=== PATIENT | male | born 1950 | race Caucasian/White ===

== ENCOUNTER 2019-04-17 08:12 | Inpatient (IN) ==
[2019-04-17] MEDS ORDERED: Furosemide 40 MG/4 ML VIAL IVP ONE ×2 (08:40→20:00)
[2019-04-17] MEDS ORDERED: *HR* FentaNYL (PF) 100 MCG/2 ML VIAL IVP ONE ×2 (08:45→10:57)
[2019-04-17] MEDS ORDERED: *HR* LORazepam 2 MG/ML VIAL IVP STA ×2 (08:45→10:57)
[2019-04-17] MEDS ORDERED: *HR* LORazepam 2 MG/ML VIAL ONE ×2 (08:46→10:45)
[2019-04-17] MEDS ORDERED: *HR* FentaNYL (PF) 100 MCG/2 ML VIAL ONE ×2 (08:47→10:46)
--- NOTE | 2019-04-17 08:55 | Emergency Department Note ---
Disposition Clinical Impression: Acute pulmonary edema, Elevated troponin, NOÉ (acute kidney injury) Leukocytosis Qualifiers: Leukocytosis type: unspecified Qualified Code(s): D72.829 - Elevated white blood cell count, unspecified Disposition: Admitted As Inpatient Condition: Critical Time of Disposition: 10:30 SOB HPI - General Stated Complaint: SOB Time Seen by Provider: 04/17/19 08:39 Source: EMS Mode of arrival: EMS Limitations: other Nursing Notes Reviewed: Yes Vital Signs Reviewed: Yes - History of Present Illness 5-year-old male brought in by EMS for area patient is unable to give a history regarding his case and presentation secondary to his respiratory distress and altered mental status. EMS states that he was significantly diaphoretic and obtunded on their arrival. He was unable to give a history to them. states the symptoms have been worsening over the past 24 hours. Patient has a history of COPD but has not had a history of cardiac disease or pulmonary edema or congestive heart failure. Unknown if there are new medications or recent chest pain. Upon my initial evaluation the patient was obtunded, unable answer questions, he was severely diaphoretic and was satting 66% on the monitor. EMS states the patient is full code. Patient was intubated emergently to protect his airway and support ventilation and oxygenation. - Related Data Home Medications Medication Instructions Recorded Confirmed Glimepiride 2 mg PO DAILY PRN 04/17/19 04/17/19 Lisinopril 5 mg PO DAILY 04/17/19 04/17/19 Sertraline 50 mg PO DAILY 04/17/19 04/17/19 Simvastatin 40 mg PO DAILY 04/17/19 04/17/19 Allergies Allergy/AdvReac Type Severity Reaction Status Date / Time No Known Allergies Allergy Verified 04/17/19 10:50 All systems ED: reviewed and negative except as stated. Review of Systems: As Per HPI Past Medical History - Past Medical History Source: obtained from family Medical history: Reports: COPD, hyperlipidemia, hypertension, myocardial infarction Psychiatric history: Reports: other - Social History Smoking Status: Current every day smoker Physical Exam General: obtunded, diaphoretic, respiratory distress Skin:cool, diaphoretic. No obvious lacerations or hemorrhage Head: Normocephalic and atraumatic Neck: Supple, trachea midline Cardiovascular: tachycardia, no obvious murmur Respiratory:decreased air movement bilaterally. Crackles present bilaterally. Patient on CPAP upon arrival and he does not appear to be protecting his airway. Musculoskeletal: no pitting edema. no tenderness or deformity GI: Soft, nondistended. GCS of 7 - General Limitations: other General appearance: in distress Course Vital Signs Temperature 98.4 F 04/17/19 08:12 Pulse Rate 65 04/17/19 08:12 Respiratory Rate 18 04/17/19 08:12 Blood Pressure 186/96 04/17/19 08:12 O2 Sat by Pulse Oximetry 97 04/17/19 08:12 Temperature 97.6 F 04/17/19 11:24 Pulse Rate 77 04/17/19 11:24 Respiratory Rate 17 04/17/19 11:27 Blood Pressure 111/65 04/17/19 11:27 O2 Sat by Pulse Oximetry 93 04/17/19 11:27 Oxygen Delivery Oxygen Delivery Ventilator Shortness of Breath/Dyspnea - MDM Narrative Medical decision making narrative: Upon arrival the patient was obtunded and was not protecting his airway, we transferred to the trauma room to intubate. EMS stated that he is full code. Patient was intubated and his O2 saturation improved from 66 to 100. Blood pressure started to improve after intubation. He was started on propofol and nitroglycerin drip for likely acute pulmonary edema based off presentation and chest x-ray. The career guidance technician was paged immediately after the initial evaluation and patient for further evaluation of his abnormal EKG. Patient had ST depressions in V2, V3, V4 and I was concerned about a possible posterior SC. The daughter arrived who stated that he had been having chest pain intermittently over the past few days. He is noncompliant with his CPAP at night and is also noncompliant with his medications. It is unclear what medications he takes as we do not have a current list and only half of the medications were brought in by the daughter. Patient was given Ativan and fentanyl in the emergency department for sedation in addition to his propofol. I believe that this is acute pulmonary edema secondary to cardiac etiology as he does have an elevation of his troponin at 0.2. Patient does have a leukocytosis and she will be started on empiric antibiotics until a procalcitonin returns. Patient started on heparin for the elevation of the troponin. Patient admitted to the ICU for further care and evaluation. - Medical Records Medical records reviewed: Yes I reviewed the patient's medical records. - Lab Data Lab results reviewed: Yes I reviewed the patient's lab results. Result diagrams: 04/17/19 08:40 04/17/19 08:40 Lab Results 04/17/19 04/17/19 04/17/19 Range/Units 08:40 08:40 08:40 WBC 19.3 H (4.3-11.1) K/mcL RBC 5.60 H (4.19-5.50) M/mcL Hgb 17.1 H (12.9-16.9) g/dL Hct 52.8 H (37.5-50.1) % MCV 94.3 (83.0-100.0) fL MCH 30.5 (28.0-33.3) pg MCHC 32.4 (31.6-35.5) g/dL RDW 12.7 (11.5-14.5) % Plt Count 214 (140-400) K/mcL MPV 11.0 (9.4-12.4) fL Immature Gran % 0.5 (0-4) % Seg Neutrophils % 71.2 % Lymphocytes % 18.3 % Monocytes % 6.3 % Eosinophils % 3.1 % Basophils % 0.6 % Neutrophils # 13.8 H (1.6-8.9) K/mcL Lymphocytes # 3.5 (0.6-4.6) K/mcL Monocytes # 1.2 (0.0-1.3) K/mcL Eosinophils # 0.6 (0.0-0.6) K/mcL Basophils # 0.1 (0.0-0.2) K/mcL PT (9.4-12.1) Seconds INR Heparin Anti-Xa, Unfract (0.30-0.70) IU/mL ABG pH (7.32-7.45) pH Units ABG pCO2 (35-45) mmHg ABG pO2 (85-104) mmHg ABG HCO3 (21-27) mEq/L ABG Total CO2 (20-26) mEq/L ABG O2 Saturation (95-98) % ABG Base Excess (-2 to 3) mEq/L Respiration Rate O2 Delivery Device Blood Gas Modality Inspired O2 (1-15=lpm [id number]=%) Tidal Volume cc PEEP cm H2O Sodium 138 (136-145) mEq/L Potassium 5.1 (3.5-5.1) mEq/L Chloride 97 L (98-107) mEq/L Carbon Dioxide 30 H (23-29) mEq/L BUN 17 (8-23) mg/dL Creatinine 1.35 H (0.70-1.30) mg/dL Est GFR ( Amer) > 60 (> 60) Est GFR (Non-Af Amer) 52 L (> 60) BUN/Creatinine Ratio 13 (6-26) Glucose 348 H (70-105) mg/dL Calculated Osmolality 301 H (280-300) Lactic Acid 2.0 (0.5-2.2) mmol/L Calcium 9.2 (8.6-10.3) mg/dL Total Bilirubin 0.9 (0.3-1.0) mg/dL Direct Bilirubin 0.2 (0.0-0.2) mg/dL Indirect Bilirubin 0.7 (0.0-1.2) mg/dL AST 66 H (13-39) Units/L ALT 40 (7-52) Units/L Alkaline Phosphatase 101 (34-104) Units/L Troponin I 0.20 H* (< 0.04) ng/mL B-Natriuretic Peptide (Less than 100) pg/mL Serum Total Protein 7.8 (6.4-8.9) g/dL Albumin 4.4 (3.5-5.7) g/dL Globulin 3.4 (2.4-3.5) g/dL Albumin/Globulin Ratio 1.3 (1.1-2.2) Procalcitonin (0.00-0.15) ng/mL Person Notif of [facility] 04/17/19 04/17/19 04/17/19 Range/Units 08:40 08:40 10:21 WBC (4.3-11.1) K/mcL RBC (4.19-5.50) M/mcL Hgb (12.9-16.9) g/dL Hct (37.5-50.1) % MCV (83.0-100.0) fL MCH (28.0-33.3) pg MCHC (31.6-35.5) g/dL RDW (11.5-14.5) % Plt Count (140-400) K/mcL MPV (9.4-12.4) fL Immature Gran % (0-4) % Seg Neutrophils % % Lymphocytes % % Monocytes % % Eosinophils % % Basophils % % Neutrophils # (1.6-8.9) K/mcL Lymphocytes # (0.6-4.6) K/mcL Monocytes # (0.0-1.3) K/mcL Eosinophils # (0.0-0.6) K/mcL Basophils # (0.0-0.2) K/mcL PT (9.4-12.1) Seconds INR Heparin Anti-Xa, Unfract (0.30-0.70) IU/mL ABG pH (7.32-7.45) pH Units ABG pCO2 (35-45) mmHg ABG pO2 (85-104) mmHg ABG HCO3 (21-27) mEq/L ABG Total CO2 (20-26) mEq/L ABG O2 Saturation (95-98) % ABG Base Excess (-2 to 3) mEq/L Respiration Rate O2 Delivery Device Blood Gas Modality Inspired O2 (1-15=lpm er19-016=%) Tidal Volume cc PEEP cm H2O Sodium (136-145) mEq/L Potassium (3.5-5.1) mEq/L Chloride (98-107) mEq/L Carbon Dioxide (23-29) mEq/L BUN (8-23) mg/dL Creatinine (0.70-1.30) mg/dL Est GFR ( Amer) (> 60) Est GFR (Non-Af Amer) (> 60) BUN/Creatinine Ratio (6-26) Glucose (70-105) mg/dL Calculated Osmolality (280-300) Lactic Acid 1.1 (0.5-2.2) mmol/L Calcium (8.6-10.3) mg/dL Total Bilirubin (0.3-1.0) mg/dL Direct Bilirubin (0.0-0.2) mg/dL Indirect Bilirubin (0.0-1.2) mg/dL AST (13-39) Units/L ALT (7-52) Units/L Alkaline Phosphatase (34-104) Units/L Troponin I (< 0.04) ng/mL B-Natriuretic Peptide 573 H (Less than 100) pg/mL Serum Total Protein (6.4-8.9) g/dL Albumin (3.5-5.7) g/dL Globulin (2.4-3.5) g/dL Albumin/Globulin Ratio (1.1-2.2) Procalcitonin 0.03 (0.00-0.15) ng/mL Person Notif of Crit 04/17/19 04/17/19 Range/Units 10:21 10:27 WBC (4.3-11.1) K/mcL RBC (4.19-5.50) M/mcL Hgb (12.9-16.9) g/dL Hct (37.5-50.1) % MCV (83.0-100.0) fL MCH (28.0-33.3) pg MCHC (31.6-35.5) g/dL RDW (11.5-14.5) % Plt Count (140-400) K/mcL MPV (9.4-12.4) fL Immature Gran % (0-4) % Seg Neutrophils % % Lymphocytes % % Monocytes % % Eosinophils % % Basophils % % Neutrophils # (1.6-8.9) K/mcL Lymphocytes # (0.6-4.6) K/mcL Monocytes # (0.0-1.3) K/mcL Eosinophils # (0.0-0.6) K/mcL Basophils # (0.0-0.2) K/mcL PT 22.6 H (9.4-12.1) Seconds INR 2.0 Heparin Anti-Xa, Unfract 0.01 L (0.30-0.70) IU/mL ABG pH 7.20 L* (7.32-7.45) pH Units ABG pCO2 84 H* (35-45) mmHg ABG pO2 217 H (85-104) mmHg ABG HCO3 33 H (21-27) mEq/L ABG Total CO2 35 H (20-26) mEq/L ABG O2 Saturation 100 H (95-98) % ABG Base Excess 2 (-2 to 3) mEq/L Respiration Rate 14 O2 Delivery Device Adult Vent Blood Gas Modality ASSIST CONTROL Inspired O2 100.0 (1-15=lpm ey00-327=%) Tidal Volume 500 cc PEEP 5 cm H2O Sodium (136-145) mEq/L Potassium (3.5-5.1) mEq/L Chloride (98-107) mEq/L Carbon Dioxide (23-29) mEq/L BUN (8-23) mg/dL Creatinine (0.70-1.30) mg/dL Est GFR ( Amer) (> 60) Est GFR (Non-Af Amer) (> 60) BUN/Creatinine Ratio (6-26) Glucose (70-105) mg/dL Calculated Osmolality (280-300) Lactic Acid (0.5-2.2) mmol/L Calcium (8.6-10.3) mg/dL Total Bilirubin (0.3-1.0) mg/dL Direct Bilirubin (0.0-0.2) mg/dL Indirect Bilirubin (0.0-1.2) mg/dL AST (13-39) Units/L ALT (7-52) Units/L Alkaline Phosphatase (34-104) Units/L Troponin I (< 0.04) ng/mL B-Natriuretic Peptide (Less than 100) pg/mL Serum Total Protein (6.4-8.9) g/dL Albumin (3.5-5.7) g/dL Globulin (2.4-3.5) g/dL Albumin/Globulin Ratio (1.1-2.2) Procalcitonin (0.00-0.15) ng/mL Person Notif of Crit dr hernnádez - Radiology Data Radiology results reviewed: Yes I reviewed the patient's radiology results. - EKG Data EKG attestation: Yes I reviewed and interpreted this EKG. EKG results narrative: Normal sinus rhythm with rate of [address] depressions in V2, V3, V4. QTC of 440, QRS of 108
[2019-04-17] MEDS: Nitroglycerin 25 MG/250 ML INFUS..BTL IVC SCH ×3 (09:05→22:00)
[2019-04-17 09:09] LABS: Basophils # 0.1 K/mcL (0.0-0.2); Basophils % 0.6 %; Eosinophils # 0.6 K/mcL (0.0-0.6); Eosinophils % 3.1 %; Hematocrit 52.8 % (37.5-50.1); Hemoglobin 17.1 g/dL (12.9-16.9); Immature Granulocytes % 0.5 % (0-4); Lymphocytes # 3.5 K/mcL (0.6-4.6); Lymphocytes % 18.3 %; Mean Corpuscular HGB Conc 32.4 g/dL (31.6-35.5); Mean Corpuscular Hemoglobin 30.5 pg (28.0-33.3); Mean Corpuscular Volume 94.3 fL (83.0-100.0); Monocytes # 1.2 K/mcL (0.0-1.3); Monocytes % 6.3 %; Neutrophils # 13.8 K/mcL (1.6-8.9); Platelet Count 214 K/mcL (140-400); Red Cell Distribution Width 12.7 % (11.5-14.5); Segmented Neutrophils % 71.2 %; White Blood Count 19.3 K/mcL (4.3-11.1)
[2019-04-17 09:42] LABS: Alanine Aminotransferase 40 Units/L (7-52); Albumin 4.4 g/dL (3.5-5.7); Albumin/Globulin Ratio 1.3 (1.1-2.2); Alkaline Phosphatase 101 Units/L (34-104); Aspartate Amino Transferase 66 Units/L (13-39); BUN/Creatinine Ratio 13 (6-26); Bilirubin,Direct 0.2 mg/dL (0.0-0.2); Bilirubin,Indirect 0.7 mg/dL (0.0-1.2); Bilirubin,Total 0.9 mg/dL (0.3-1.0); Blood Urea Nitrogen 17 mg/dL (8-23); Calcium 9.2 mg/dL (8.6-10.3); Carbon Dioxide 30 mEq/L (23-29); Chloride 97 mEq/L (98-107); Globulin 3.4 g/dL (2.4-3.5); Glucose 348 mg/dL (70-105); Osmolality,Calculated 301 (280-300); Potassium 5.1 mEq/L (3.5-5.1); Sodium 138 mEq/L (136-145); Total Protein 7.8 g/dL (6.4-8.9); eGFR For African Americans > 60 (> 60); eGFR For Non-African Americans 52 (> 60)
[2019-04-17] MEDS ORDERED: *HR* Heparin 5,000 UNIT/ML VIAL IVP ONE (10:00)
[2019-04-17] MEDS ORDERED: *HR* Heparin 5,000 UNIT/ML VIAL IVP PRN ×2 (10:00)
[2019-04-17] MEDS ORDERED: Vancomycin 1,000 MG in D5% in Water 250 ML IVPB ONE (10:03)
[2019-04-17] MEDS ORDERED: Azithromycin 500 MG in D5% in Water 250 ML IVPB STA (10:03)
[2019-04-17] MEDS ORDERED: Piperacillin/Tazobactam 3.375 GM in 0.9 % Sodium Chloride Mini Bag 100 ML IVPB ONE (10:03)
[2019-04-17 10:33] LABS: ABG Base Excess 2 mEq/L (-2 to 3); ABG HCO3 33 mEq/L (21-27); ABG Oxygen Saturation 100 % (95-98); ABG PCO2 84 mmHg (35-45); ABG PO2 217 mmHg (85-104); ABG TCO2 35 mEq/L (20-26); Blood Gas Modality ASSIST CONTROL; Blood Gas PEEP 5 cm H2O; Blood Gas VT 500 cc
[2019-04-17 11:00] LABS: Heparin anti-factor XA UFH 0.01 IU/mL (0.30-0.70); Prothrombin Time 22.6 Seconds (9.4-12.1)
[2019-04-17] MEDS: Heparin 25,000 UNIT/250 ML D5W 25,000 UNIT/250 ML IV.SOLN IVC SCH (11:01)
--- NOTE | 2019-04-17 12:31 | Pulmonology History & Physical ---
<Bobby Izaguirre M - Last Filed: 04/17/19 14:18> Date of Encounter: 04/17/19 History of Present Illness HPI: Mr. Edwards is a 68 year old male Medications and Allergies Glimepiride 2 mg PO DAILY PRN 04/17/19 [History] Lisinopril 5 mg PO DAILY 04/17/19 [History] Sertraline 50 mg PO DAILY 04/17/19 [History] Simvastatin 40 mg PO DAILY 04/17/19 [History] Allergy/AdvReac Type Severity Reaction Status Date / Time No Known Allergies Allergy Verified 04/17/19 10:50 All Systems: The remainder of the systems were reviewed and are negative Physical Examination Vital Signs: Vital Signs, Last 4 Hours Temp Pulse Resp BP Pulse Ox 04/17/19 11:27 17 111/65 93 04/17/19 11:24 97.6 F 77 17 111/65 93 04/17/19 10:29 98.4 F 85 13 121/68 100 Results - Laboratory Findings CBC and BMP: 04/17/19 08:40 04/17/19 08:40 ABG ABG pH 7.20 pH Units (7.32-7.45) L* 04/17/19 10:27 ABG pCO2 84 mmHg (35-45) H* 04/17/19 10:27 ABG pO2 217 mmHg (85-104) H 04/17/19 10:27 ABG O2 Saturation 100 % (95-98) H 04/17/19 10:27 PT/INR, D-dimer PT 22.6 Seconds (9.4-12.1) H 04/17/19 10:21 Abnormal lab findings: Abnormal lab results WBC 19.3 K/mcL (4.3-11.1) H 04/17/19 08:40 RBC 5.60 M/mcL (4.19-5.50) H 04/17/19 08:40 Hgb 17.1 g/dL (12.9-16.9) H 04/17/19 08:40 Hct 52.8 % (37.5-50.1) H 04/17/19 08:40 Neutrophils # 13.8 K/mcL (1.6-8.9) H 04/17/19 08:40 PT 22.6 Seconds (9.4-12.1) H 04/17/19 10:21 Heparin Anti-Xa, Unfract 0.01 IU/mL (0.30-0.70) L 04/17/19 10:21 ABG pH 7.20 pH Units (7.32-7.45) L* 04/17/19 10:27 ABG pCO2 84 mmHg (35-45) H* 04/17/19 10:27 ABG pO2 217 mmHg (85-104) H 04/17/19 10:27 ABG HCO3 33 mEq/L (21-27) H 04/17/19 10:27 ABG Total CO2 35 mEq/L (20-26) H 04/17/19 10:27 ABG O2 Saturation 100 % (95-98) H 04/17/19 10:27 Chloride 97 mEq/L (98-107) L 04/17/19 08:40 Carbon Dioxide 30 mEq/L (23-29) H 04/17/19 08:40 Creatinine 1.35 mg/dL (0.70-1.30) H 04/17/19 08:40 Est GFR (Non-Af Amer) 52 (> 60) L 04/17/19 08:40 Glucose 348 mg/dL (70-105) H 04/17/19 08:40 POC Glucose 322 mg/dL (70-99) H 04/17/19 12:03 Calculated Osmolality 301 (280-300) H 04/17/19 08:40 AST 66 Units/L (13-39) H 04/17/19 08:40 Troponin I 0.20 ng/mL (< 0.04) H* 04/17/19 08:40 B-Natriuretic Peptide 573 pg/mL (Less than 100) H 04/17/19 08:40 - Attending Attestation I examined this patient and my medical decision-making was reviewed with the Resident Physician. I agree with the documented findings, disposition and treatment plan as described except to the extent set forth below. Patient seen and examined. I was called by the emergency room physician to evaluate this patient with acute hypoxic respiratory failure and patient was seen in the emergency room as well as in the intensive care unit. Labs, radiology, chart personally reviewed. Agree with resident's history and physical, assessment, plan with following comments: PROCESSING TECH: Patient does not follows commands, she was on sedation and is status post intubation. Pulmonary: Patient has chest pain intubated and reviewing his chest x-ray as well as the pinkish frothy secretion coming out from his ET tube makes diagnosis of pulmonary edema most likely diagnosis and pneumonia remain in the differential diagnosis, however it is less likely. I have increased PEEP to 8 and discussed with the respiratory therapist to lower his FiO2 to keep his oxygen saturation around 92%. Patient already has received diuretics and he is getting treatment for pulmonary edema. Cardiovascular: Patient blood pressure dropping could be related to post intubation, however it could be cardiogenic in nature and vasopressor support maybe needed. And need an echocardiogram with cardiology evaluation. GI: Nutrition per dietary and GI prophylaxis per routine Heme: DVT prophylaxis per routine ID: Continue antibiotics and plan to de-escalation Renal; urine out put and renal function reviewed Endorcine: blood glucose is monitored Lines: all lines checked and no evidence of infections Skin: skin care to prevent pressure ulcers per nursing routine care Dispo: ICU Code: Full. Prognosis. Guarded I spent 55 min of Critical Care time with this patient. It involved decision making of high complexity to assess, manipulate, and support vital organ system failure and/or to prevent further life threatening deterioration of the patient 's condition. The time involved in the performance of separately reportable procedures was not counted toward critical care time. <Tequila Holland R - Last Filed: 04/17/19 16:22> Date of Encounter: 04/17/19 Time of Encounter: 12:31 Assessment and Plan (1) Respiratory failure with hypercapnia Current visit: Yes Status: Acute Initial ABG in the emergency department demonstrates a pH of 7.2 with a CO2 of 84 Bicarbonate is 33, therefore there is likely some chronicity to this respiratory acidosis We will obtain a repeat ABG once patient is in the ICU Continue diuresis as the patient's kidneys will tolerate We will schedule the patient for q4H DuoNeb nebs Continue to monitor respiratory status wean from the event as able Repeat ABG shows improvement in respiratory status with pH 7.37, CO2 50, O2 79 and HCO3 31 at 50% FiO2 Qualifiers: Chronicity: acute Qualified Code(s): J96.02 - Acute respiratory failure with hypercapnia (2) CHF (congestive heart failure) Current visit: Yes Status: Acute Patient's chest x-ray shows evidence of bilateral pulmonary edema versus infection Patient clinically looks volume overloaded His BNP is elevated at 573 He was given a dose of vancomycin and Zosyn in the emergency department Pro calcitonin is 0.03 therefore infection is highly unlikely Given 40 mg IV Lasix in the emergency department with good production of urine Continue diuresis as kidney tolerate Continue ventilation and nitro drip for pulmonary edema Stat echo ordered and pending to evaluate heart function Qualifiers: Heart failure type: unspecified Heart failure chronicity: acute Qualified Code(s): I50.9 - Heart failure, unspecified (3) NSTEMI (non-ST elevated myocardial infarction) Current visit: Yes Status: Acute Mildly elevated troponin at 0.[address] segment depressions but when reviewed by cardiology where was not deemed a STEMI equivalent Patient on a heparin drip Further treatment as above (4) NOÉ (acute kidney injury) Current visit: Yes Status: Acute Creatinine currently 1.35 with a BUN that is 17 Only other creatinine and our system is 1.3 from 2013 No reported kidney disease Potentially cardiorenal syndrome We will continue diuresis as kidney stone tolerate Continue to monitor renal function (5) Hematuria Current visit: Yes Status: Acute Patient's urine appeared reddish in the Davalos bag No description of traumatic Davalos insertion Urinalysis has been obtained with culture pending Qualifiers: Hematuria type: unspecified type Qualified Code(s): R31.9 - Hematuria, unspecified (6) Diabetes mellitus Current visit: Yes Status: Acute Accu-Cheks every 6 hours Low-dose insulin scale insulin Qualifiers: Diabetes mellitus type: type 2 Diabetes mellitus termination clerk insulin use: without retirement use Diabetes mellitus complication status: with other specified complication Qualified Code(s): E11.69 - Type 2 diabetes mellitus with other specified complication (7) DVT prophylaxis Current visit: Yes Status: Acute Heparin GTT History of Present Illness HPI: Mr. Edwards is a 68 year old male with past medical history of diabetes and COPD who presented to the emergency department today in acute respiratory distress. He was intubated shortly after arrival to the emergency Department for hypoxia and altered mental status as he was obtunded. Chest x-ray shows bilateral pulmonary edema suggestive of CHF. EKG showed ST segment depressions were reviewed with stamper blocker who does not think that this is a STEMI equivalent. Troponin was mildly elevated at 0.20 and the patient was started on a heparin drip. He is also on a nitro drip for his pulmonary edema and propofol for sedation. He had an elevated white blood count of 19.3 in the emergency department and was initially covered with vancomycin and Zosyn with blood cultures drawn. Initial lactic acid was 2.0, and was 1.1 on repeat. His pro- calcitonin is negative. BNP is mildly elevated at 573. Pt is FULL CODE. Past Med Surg Social Fam HX - Past Medical History Medical history: COPD Additional medical history: Unale to answer Psychiatric history: other - Past Surgical History Additional surgical history: unable to answer - Social History Smoking Status: Current every day smoker ROS unobtainable: due to endotracheal tube All Systems: The remainder of the systems were reviewed and are negative Physical Examination Vital Signs: Vital Signs, Last 4 Hours Temp Pulse Resp BP Pulse Ox 04/17/19 11:27 17 111/65 93 04/17/19 11:24 97.6 F 77 17 111/65 93 04/17/19 10:29 98.4 F 85 13 121/68 100 General appearance: asleep Eyes: nonicteric Neck: supple Effort: normal Auscultation: bilateral: rales Cardiovascular: regular rate and rhythm Gastrointestinal: soft, non-tender Integumentary: normal Extremities: pink and warm, edema (1+ pitting edema bilaterally) pupils equal and round Results - Laboratory Findings CBC and BMP: 04/17/19 08:40 04/17/19 08:40 ABG ABG pH 7.20 pH Units (7.32-7.45) L* 04/17/19 10:27 ABG pCO2 84 mmHg (35-45) H* 04/17/19 10:27 ABG pO2 217 mmHg (85-104) H 04/17/19 10:27 ABG O2 Saturation 100 % (95-98) H 04/17/19 10:27 PT/INR, D-dimer PT 22.6 Seconds (9.4-12.1) H 04/17/19 10:21 Abnormal lab findings: Abnormal lab results WBC 19.3 K/mcL (4.3-11.1) H 04/17/19 08:40 RBC 5.60 M/mcL (4.19-5.50) H 04/17/19 08:40 Hgb 17.1 g/dL (12.9-16.9) H 04/17/19 08:40 Hct 52.8 % (37.5-50.1) H 04/17/19 08:40 Neutrophils # 13.8 K/mcL (1.6-8.9) H 04/17/19 08:40 PT 22.6 Seconds (9.4-12.1) H 04/17/19 10:21 Heparin Anti-Xa, Unfract 0.01 IU/mL (0.30-0.70) L 04/17/19 10:21 ABG pH 7.20 pH Units (7.32-7.45) L* 04/17/19 10:27 ABG pCO2 84 mmHg (35-45) H* 04/17/19 10:27 ABG pO2 217 mmHg (85-104) H 04/17/19 10:27 ABG HCO3 33 mEq/L (21-27) H 04/17/19 10:27 ABG Total CO2 35 mEq/L (20-26) H 04/17/19 10:27 ABG O2 Saturation 100 % (95-98) H 04/17/19 10:27 Chloride 97 mEq/L (98-107) L 04/17/19 08:40 Carbon Dioxide 30 mEq/L (23-29) H 04/17/19 08:40 Creatinine 1.35 mg/dL (0.70-1.30) H 04/17/19 08:40 Est GFR (Non-Af Amer) 52 (> 60) L 04/17/19 08:40 Glucose 348 mg/dL (70-105) H 04/17/19 08:40 POC Glucose 322 mg/dL (70-99) H 04/17/19 12:03 Calculated Osmolality 301 (280-300) H 04/17/19 08:40 AST 66 Units/L (13-39) H 04/17/19 08:40 Troponin I 0.20 ng/mL (< 0.04) H* 04/17/19 08:40 B-Natriuretic Peptide 573 pg/mL (Less than 100) H 04/17/19 08:40
[2019-04-17] MEDS ORDERED: Artificial Tears SOLN 15 ML BOTTLE BOTH EYES PRN (12:34)
[2019-04-17] MEDS ORDERED: Naloxone 0.4 MG/ML INJ IVP PRN (12:34)
[2019-04-17] MEDS ORDERED: Dexmedetomidine HCl 400 MCG/100 ML MLS IVC SCH (13:15)
[2019-04-17] MEDS ORDERED: D5% in Water 1,000 ML IVC PRN (13:21)
[2019-04-17] MEDS ORDERED: *HR* Dextrose 50 % in Water (Syg) 50 ML SYRINGE IVP PRN (13:21)
[2019-04-17] MEDS ORDERED: Dextrose Gel 15 GM/37.5 ML TUBE PO PRN ×2 (13:21)
[2019-04-17] MEDS ORDERED: FentaNYL (PF) 1,000 MCG in 0.9 % Sodium Chloride 80 ML IVC SCH (13:30)
[2019-04-17 14:20] LABS: Bilirubin,Urine Negative (Negative); Blood,Urine Large (Negative); Clarity,Urine Cloudy (Clear); Color,Urine Red (Yellow); Glucose,Urine (UA) 500 mg/dL (Normal); Ketones,Urine Negative (Negative); Leukocyte Esterase,Urine Trace (Negative); Nitrite,Urine Negative (Negative); PH,Urine 5.5 pH Units (5.0-8.0); Protein,Urine 30 mg/dL (Neg-Trace); Specific Gravity,Urine 1.012 (1.010-1.025); Urobilinogen,Urine Normal (Normal)
[2019-04-17 14:26] LABS: Bacteria,Urine None Seen per hpf (None-Few); Hyaline Casts,Urine None Seen per lpf (None-Few); RBC,Urine TNTC per hpf (0-3); Squamous Epithelial Cell,Urine Few per lpf (None-Few)
[2019-04-17 14:27] LABS: ABG Base Excess 3 mEq/L (-2 to 3); ABG HCO3 29 mEq/L (21-27); ABG Oxygen Saturation 95 % (95-98); ABG PCO2 50 mmHg (35-45); ABG PH 7.37 pH Units (7.32-7.45); ABG PO2 79 mmHg (85-104); ABG TCO2 31 mEq/L (20-26); Blood Gas Modality VC; Blood Gas PEEP 8 cm H2O; Blood Gas VT 500 cc
[2019-04-17] MEDS ORDERED: Perflutren Lipid Microsphere 1.3 ML in 0.9 % Sodium Chloride 8.7 ML IVP ONE (15:11)
[2019-04-17] MEDS: Artificial Tears SOLN 15 ML BOTTLE BOTH EYES SCH ×3 (15:50→23:23)
[2019-04-17] MEDS: Pantoprazole 40 MG VIAL IVP SCH (15:50)
[2019-04-17] MEDS: Chlorhexidine Rinse 15 ML MOUTHWASH MM SCH ×2 (15:50→19:58)
[2019-04-17] MEDS: Ipratropium/Albuterol Neb 3 ML IH SCH ×3 (15:50→23:22)
[2019-04-17] MEDS: Insulin LISPRO 300 UNITS/3 ML VIAL SQ SCH ×2 (18:52→23:30)
[2019-04-18] MEDS: Ipratropium/Albuterol Neb 3 ML IH SCH ×5 (03:16→19:50)
[2019-04-18] MEDS: Artificial Tears SOLN 15 ML BOTTLE BOTH EYES SCH ×2 (04:32→08:44)
[2019-04-18 04:47] LABS: Basophils % 0.1 %; Hematocrit 40.9 % (37.5-50.1); Immature Granulocytes % 0.6 % (0-4); Lymphocytes # 0.7 K/mcL (0.6-4.6); Lymphocytes % 4.5 %; Mean Corpuscular HGB Conc 33.5 g/dL (31.6-35.5); Mean Corpuscular Hemoglobin 30.7 pg (28.0-33.3); Mean Corpuscular Volume 91.7 fL (83.0-100.0); Mean Platelet Volume 10.9 fL (9.4-12.4); Monocytes # 0.9 K/mcL (0.0-1.3); Monocytes % 5.7 %; Neutrophils # 13.6 K/mcL (1.6-8.9); Platelet Count 126 K/mcL (140-400); Red Blood Count 4.46 M/mcL (4.19-5.50); Red Cell Distribution Width 12.3 % (11.5-14.5); Segmented Neutrophils % 89.1 %; White Blood Count 15.2 K/mcL (4.3-11.1)
[2019-04-18 04:48] LABS: Hemoglobin 13.7 g/dL (12.9-16.9)
[2019-04-18 04:53] LABS: ABG Base Excess 8 mEq/L (-2 to 3); ABG HCO3 34 mEq/L (21-27); ABG Oxygen Saturation 94 % (95-98); ABG PCO2 52 mmHg (35-45); ABG PH 7.43 pH Units (7.32-7.45); ABG PO2 72 mmHg (85-104); ABG TCO2 36 mEq/L (20-26); Blood Gas Modality ASSIST CONTROL; Blood Gas PEEP 8 cm H2O; Blood Gas VT 500 cc
[2019-04-18 04:56] LABS: BUN/Creatinine Ratio 16 (6-26); Blood Urea Nitrogen 21 mg/dL (8-23); Calcium 8.6 mg/dL (8.6-10.3); Carbon Dioxide 29 mEq/L (23-29); Chloride 100 mEq/L (98-107); Glucose 219 mg/dL (70-105); Magnesium 1.5 mg/dL (1.6-2.6); Osmolality,Calculated 294 (280-300); Phosphorous 3.3 mg/dL (2.7-4.5); Sodium 137 mEq/L (136-145); eGFR For African Americans > 60 (> 60); eGFR For Non-African Americans 53 (> 60)
[2019-04-18] MEDS: Insulin LISPRO 300 UNITS/3 ML VIAL SQ SCH ×3 (05:55→21:34)
--- NOTE | 2019-04-18 06:55 | Pulmonology Progress Note ---
<Tequila Holland - Last Filed: 04/18/19 13:33> Date of Encounter: 04/18/19 Time of Encounter: 06:55 Assessment and Plan (1) Respiratory failure with hypercapnia Current Visit: Yes Status: Acute Initial ABG in the emergency department demonstrates a pH of 7.2 with a CO2 of 84 Bicarbonate is 33, therefore there is likely some chronicity to this respiratory acidosis We will obtain a repeat ABG once patient is in the ICU Continue diuresis as the patient's kidneys will tolerate We will schedule the patient for q4H DuoNeb nebs Continue to monitor respiratory status wean from the event as able Repeat ABG 04/17 shows improvement in respiratory status with pH 7.37, CO2 50, O2 79 and HCO3 31 at 50% FiO2 ABG 04/18 - 7.43, 52, 72, 34 on 35% FiO2 Pt was extubated on 04/18 without any difficulties Qualifiers: Chronicity: acute Qualified Code(s): J96.02 - Acute respiratory failure with hypercapnia (2) CHF (congestive heart failure) Current Visit: Yes Status: Acute Patient's chest x-ray shows evidence of bilateral pulmonary edema versus infection Patient clinically looks volume overloaded His BNP is elevated at 573 He was given a dose of vancomycin and Zosyn in the emergency department Pro calcitonin is 0.03 therefore infection is highly unlikely Given 40 mg IV Lasix in the emergency department with good production of urine Continue diuresis as kidney tolerate Continue ventilation and nitro drip for pulmonary edema Stat echo ordered - mild diastolic dysfunction and EF of 55% Cardiology consulted Qualifiers: Heart failure type: diastolic Heart failure chronicity: acute Qualified Code(s): I50.31 - Acute diastolic (congestive) heart failure (3) NSTEMI (non-ST elevated myocardial infarction) Current Visit: Yes Status: Acute Mildly elevated troponin at 0.[address] segment depressions but when reviewed by cardiology where was not deemed a STEMI equivalent Patient on a heparin drip Further treatment as above (4) NOÉ (acute kidney injury) Current Visit: Yes Status: Acute Creatinine currently 1.35 with a BUN that is 17 Only other creatinine and our system is 1.3 from 2013 No reported kidney disease Potentially cardiorenal syndrome We will continue diuresis as kidney stone tolerate Continue to monitor renal function 04/18 creatinine stable at 1.33 after 2 doses of lasix (5) Hematuria Current Visit: Yes Status: Acute Patient's urine appeared reddish in the Davalos bag No description of traumatic Davalos insertion Urinalysis has been obtained with culture pending Hematuria appears to be resolving as color of urine is no longer red Qualifiers: Hematuria type: unspecified type Qualified Code(s): R31.9 - Hematuria, unspecified (6) Diabetes mellitus Current Visit: Yes Status: Acute Accu-Cheks every 6 hours Low-dose insulin scale insulin Qualifiers: Diabetes mellitus type: type 2 Diabetes mellitus franchise business consultant insulin use: without franchise business consultant use Diabetes mellitus complication status: with other specified complication Qualified Code(s): E11.69 - Type 2 diabetes mellitus with other specified complication (7) Hypomagnesemia Current Visit: Yes Status: Acute Mag 1.5 today Will replace and continue to trend (8) DVT prophylaxis Current Visit: Yes Status: Acute Heparin GTT Subjective Interval history: Pt currently undergoing CPAP trial for a trial at extubation today. He responded well to the second dose of lasix last night and his creatinine remained stable, therefore we will continue diuresis today. Urine no longer appears red. CXR shows improvement in pulmonary edema. Echo shows mild diastolic dysfunction and EF of 55%. Consultation to cardiology placed as the patient does not have any heart failure history. WBC trending down from yesterday, now 15.2. Mag is low and we will replace today. Pt tolerated extubation and will be stepped down from the ICU. Objective PUL Vital signs: Last Vital Signs Temp 98.3 F 04/18/19 03:41 Pulse 92 04/18/19 06:00 Resp 12 04/18/19 06:00 BP 151/79 04/18/19 06:00 Pulse Ox 97 04/18/19 06:00 General appearance: alert, other (folows commands) Eyes: nonicteric Neck: supple Effort: normal Auscultation: bilateral: rales (significant improvement in bilateral rales when compared to yesterday) Cardiovascular: regular rate and rhythm Gastrointestinal: soft, non-tender Integumentary: normal Extremities: edema (trace) non-focal exam, pupils equal and round Ventilator Settings Ventilator Settings: Ventilator Settings, Last 8 Hours Ventilator Tidal Volume 500 Setting Ventilator Tidal Volume 500 Setting Ventilator Tidal Volume 500 Setting Ventilator Tidal Volume 500 Setting Ventilator Tidal Volume 500 Setting Ventilator Tidal Volume 500 Setting Ventilator Tidal Volume 500 Setting Ventilator Tidal Volume 500 Setting Ventilator Tidal Volume 500 Setting Ventilator Tidal Volume 500 Setting Ventilator Tidal Volume 500 Setting Ventilator Tidal Volume 500 Setting Ventilator Respiratory Rate 16 Setting Ventilator Respiratory Rate 16 Setting Ventilator Respiratory Rate 16 Setting Ventilator Respiratory Rate 16 Setting Ventilator Respiratory Rate 16 Setting Ventilator Respiratory Rate 16 Setting Ventilator Respiratory Rate 16 Setting Ventilator Respiratory Rate 16 Setting Ventilator Respiratory Rate 16 Setting Ventilator Respiratory Rate 16 Setting Ventilator Respiratory Rate 16 Setting Ventilator Respiratory Rate 16 Setting Actual Respiratory Rate 14 Actual Respiratory Rate 13 Actual Respiratory Rate 16 Actual Respiratory Rate 16 Actual Respiratory Rate 16 Actual Respiratory Rate 16 Actual Respiratory Rate 16 Actual Respiratory Rate 16 Actual Respiratory Rate 16 Actual Respiratory Rate 16 Actual Respiratory Rate 16 Actual Respiratory Rate 16 Actual Respiratory Rate 17 Positive End Expiratory 8 Pressure Positive End Expiratory 8 Pressure Positive End Expiratory 8 Pressure Positive End Expiratory 8 Pressure Positive End Expiratory 8 Pressure Positive End Expiratory 8 Pressure Positive End Expiratory 8 Pressure Positive End Expiratory 8 Pressure Positive End Expiratory 8 Pressure Positive End Expiratory 8 Pressure Positive End Expiratory 8 Pressure Positive End Expiratory 8 Pressure Positive End Expiratory 8 Pressure Positive End Expiratory 8 Pressure Peak Inspiratory Airway 13 Pressure Peak Inspiratory Airway 23 Pressure Peak Inspiratory Airway 23 Pressure Peak Inspiratory Airway 23 Pressure Peak Inspiratory Airway 19 Pressure Peak Inspiratory Airway 19 Pressure Peak Inspiratory Airway 18 Pressure Peak Inspiratory Airway 18 Pressure Peak Inspiratory Airway 18 Pressure Peak Inspiratory Airway 18 Pressure Peak Inspiratory Airway 17 Pressure Peak Inspiratory Airway 18 Pressure Results - Laboratory Findings CBC and BMP: 04/18/19 04:25 04/18/19 04:25 ABG ABG pH 7.43 pH Units (7.32-7.45) 04/18/19 04:47 ABG pCO2 52 mmHg (35-45) H 04/18/19 04:47 ABG pO2 72 mmHg (85-104) L 04/18/19 04:47 ABG O2 Saturation 94 % (95-98) L 04/18/19 04:47 PT/INR, D-dimer PT 22.6 Seconds (9.4-12.1) H 04/17/19 10:21 Abnormal lab findings: Abnormal lab results WBC 15.2 K/mcL (4.3-11.1) H 04/18/19 04:25 RBC 5.60 M/mcL (4.19-5.50) H 04/17/19 08:40 Hgb 17.1 g/dL (12.9-16.9) H 04/17/19 08:40 Hct 52.8 % (37.5-50.1) H 04/17/19 08:40 Plt Count 126 K/mcL (140-400) L 04/18/19 04:25 Neutrophils # 13.6 K/mcL (1.6-8.9) H 04/18/19 04:25 PT 22.6 Seconds (9.4-12.1) H 04/17/19 10:21 Heparin Anti-Xa, Unfract 0.01 IU/mL (0.30-0.70) L 04/17/19 10:21 ABG pH 7.20 pH Units (7.32-7.45) L* 04/17/19 10:27 ABG pCO2 52 mmHg (35-45) H 04/18/19 04:47 ABG pO2 72 mmHg (85-104) L 04/18/19 04:47 ABG HCO3 34 mEq/L (21-27) H 04/18/19 04:47 ABG Total CO2 36 mEq/L (20-26) H 04/18/19 04:47 ABG O2 Saturation 94 % (95-98) L 04/18/19 04:47 ABG Base Excess 8 mEq/L (-2 to 3) H 04/18/19 04:47 Chloride 97 mEq/L (98-107) L 04/17/19 08:40 Carbon Dioxide 30 mEq/L (23-29) H 04/17/19 08:40 Creatinine 1.33 mg/dL (0.70-1.30) H 04/18/19 04:25 Est GFR (Non-Af Amer) 53 (> 60) L 04/18/19 04:25 Glucose 219 mg/dL (70-105) H 04/18/19 04:25 POC Glucose 194 mg/dL (70-99) H 04/18/19 05:54 Calculated Osmolality 301 (280-300) H 04/17/19 08:40 Magnesium 1.5 mg/dL (1.6-2.6) L 04/18/19 04:25 AST 66 Units/L (13-39) H 04/17/19 08:40 Troponin I 0.20 ng/mL (< 0.04) H* 04/17/19 08:40 B-Natriuretic Peptide 573 pg/mL (Less than 100) H 04/17/19 08:40 Urine Color Red (Yellow) A 04/17/19 13:40 Urine Clarity Cloudy (Clear) A 04/17/19 13:40 Urine Protein 30 mg/dL (Neg-Trace) H 04/17/19 13:40 Urine Glucose (UA) 500 mg/dL (Normal) H 04/17/19 13:40 Urine Blood Large (Negative) H 04/17/19 13:40 Ur Leukocyte Esterase Trace (Negative) H 04/17/19 13:40 Urine Microscopic RBC TNTC per hpf (0-3) H 04/17/19 13:40 Urine Microscopic WBC 5-15 per hpf (0-3) H 04/17/19 13:40 Ur Culture Indicated? YES (NO) A 04/17/19 13:40 - Microbiology Findings Microbiology Findings: Microbiology, Last 48 Hours 04/17/19 13:40 Urine Culture - Preliminary Urine,Clean Catch Culture is incubating. - Clinical Findings Intake & Output: Intake & Output 04/17/19 04/17/19 04/18/19 15:59 23:59 07:59 Intake Total 335 / 760 425 / 760 0 / 0 Output Total 800 / 2100 500 / 2100 1375 / 1375 Balance -465 / -1340 -75 / -1340 -1375 / -1375 Weight 103.051 kg 104.4 kg Consult Discharge Plan - Plan Referrals: Mercedes Black MD [Primary Care Provider] - <Bobby Izaguirre - Last Filed: 04/18/19 15:58> Date of Encounter: 04/18/19 Objective PUL Vital signs: Last Vital Signs Temp 98.3 F 04/18/19 08:04 Pulse 96 04/18/19 09:00 Resp 17 04/18/19 09:00 BP 155/78 04/18/19 09:00 Pulse Ox 93 04/18/19 09:00 Ventilator Settings Ventilator Settings: Ventilator Settings, Last 8 Hours Ventilator Tidal Volume 500 Setting Ventilator Tidal Volume 500 Setting Ventilator Tidal Volume 500 Setting Ventilator Tidal Volume 500 Setting Ventilator Tidal Volume 500 Setting Ventilator Tidal Volume 500 Setting Ventilator Tidal Volume 500 Setting Ventilator Respiratory Rate 16 Setting Ventilator Respiratory Rate 16 Setting Ventilator Respiratory Rate 16 Setting Ventilator Respiratory Rate 16 Setting Ventilator Respiratory Rate 16 Setting Ventilator Respiratory Rate 16 Setting Ventilator Respiratory Rate 16 Setting Actual Respiratory Rate 14 Actual Respiratory Rate 13 Actual Respiratory Rate 16 Actual Respiratory Rate 16 Actual Respiratory Rate 16 Actual Respiratory Rate 16 Actual Respiratory Rate 16 Actual Respiratory Rate 16 Positive End Expiratory 8 Pressure Positive End Expiratory 8 Pressure Positive End Expiratory 8 Pressure Positive End Expiratory 8 Pressure Positive End Expiratory 8 Pressure Positive End Expiratory 8 Pressure Positive End Expiratory 8 Pressure Positive End Expiratory 8 Pressure Positive End Expiratory 8 Pressure Positive End Expiratory 8 Pressure Peak Inspiratory Airway 13 Pressure Peak Inspiratory Airway 13 Pressure Peak Inspiratory Airway 23 Pressure Peak Inspiratory Airway 23 Pressure Peak Inspiratory Airway 23 Pressure Peak Inspiratory Airway 19 Pressure Peak Inspiratory Airway 19 Pressure Peak Inspiratory Airway 18 Pressure Results - Laboratory Findings CBC and BMP: 04/18/19 04:25 04/18/19 04:25 ABG ABG pH 7.43 pH Units (7.32-7.45) 04/18/19 04:47 ABG pCO2 52 mmHg (35-45) H 04/18/19 04:47 ABG pO2 72 mmHg (85-104) L 04/18/19 04:47 ABG O2 Saturation 94 % (95-98) L 04/18/19 04:47 PT/INR, D-dimer PT 22.6 Seconds (9.4-12.1) H 04/17/19 10:21 Abnormal lab findings: Abnormal lab results WBC 15.2 K/mcL (4.3-11.1) H 04/18/19 04:25 RBC 5.60 M/mcL (4.19-5.50) H 04/17/19 08:40 Hgb 17.1 g/dL (12.9-16.9) H 04/17/19 08:40 Hct 52.8 % (37.5-50.1) H 04/17/19 08:40 Plt Count 126 K/mcL (140-400) L 04/18/19 04:25 Neutrophils # 13.6 K/mcL (1.6-8.9) H 04/18/19 04:25 PT 22.6 Seconds (9.4-12.1) H 04/17/19 10:21 Heparin Anti-Xa, Unfract 0.01 IU/mL (0.30-0.70) L 04/17/19 10:21 ABG pH 7.20 pH Units (7.32-7.45) L* 04/17/19 10:27 ABG pCO2 52 mmHg (35-45) H 04/18/19 04:47 ABG pO2 72 mmHg (85-104) L 04/18/19 04:47 ABG HCO3 34 mEq/L (21-27) H 04/18/19 04:47 ABG Total CO2 36 mEq/L (20-26) H 04/18/19 04:47 ABG O2 Saturation 94 % (95-98) L 04/18/19 04:47 ABG Base Excess 8 mEq/L (-2 to 3) H 04/18/19 04:47 Chloride 97 mEq/L (98-107) L 04/17/19 08:40 Carbon Dioxide 30 mEq/L (23-29) H 04/17/19 08:40 Creatinine 1.33 mg/dL (0.70-1.30) H 04/18/19 04:25 Est GFR (Non-Af Amer) 53 (> 60) L 04/18/19 04:25 Glucose 219 mg/dL (70-105) H 04/18/19 04:25 POC Glucose 194 mg/dL (70-99) H 04/18/19 05:54 Calculated Osmolality 301 (280-300) H 04/17/19 08:40 Magnesium 1.5 mg/dL (1.6-2.6) L 04/18/19 04:25 AST 66 Units/L (13-39) H 04/17/19 08:40 Troponin I 5.88 ng/mL (< 0.04) H* 04/18/19 04:25 B-Natriuretic Peptide 573 pg/mL (Less than 100) H 04/17/19 08:40 Urine Color Red (Yellow) A 04/17/19 13:40 Urine Clarity Cloudy (Clear) A 04/17/19 13:40 Urine Protein 30 mg/dL (Neg-Trace) H 04/17/19 13:40 Urine Glucose (UA) 500 mg/dL (Normal) H 04/17/19 13:40 Urine Blood Large (Negative) H 04/17/19 13:40 Ur Leukocyte Esterase Trace (Negative) H 04/17/19 13:40 Urine Microscopic RBC TNTC per hpf (0-3) H 04/17/19 13:40 Urine Microscopic WBC 5-15 per hpf (0-3) H 04/17/19 13:40 Ur Culture Indicated? YES (NO) A 04/17/19 13:40 - Microbiology Findings Microbiology Findings: Microbiology, Last 48 Hours 04/17/19 13:40 Urine Culture - Preliminary Urine,Clean Catch Culture is incubating. - Clinical Findings Intake & Output: Intake & Output 04/17/19 04/18/19 04/18/19 23:59 07:59 15:59 Intake Total 525 / 860 70 / 70 Output Total 500 / 2100 1375 / 1725 350 / 1725 Balance 25 / -1240 -1305 / -1655 -350 / -1655 Weight 104.4 kg - Attending Attestation I examined this patient and my medical decision-making was reviewed with the Resident Physician. I agree with the documented findings, disposition and treatment plan as described except to the extent set forth below. Patient seen and examined. Labs, radiology, chart personally reviewed. Agree with resident's history and physical, assessment, plan with following comments: TEST ENGINEER: Patient follows commands, Pulmonary: Acceptable oxygenation and ventilation and patient was extubated successfully after spontaneous breathing trial was done. Before extubation pat ient is still on PEEP of 8 and I am hoping after extubation with removing positive airway pressure that patient was not getting to rebound pulmonary edema. Review chest x-ray with some improvement and does long as he tolerates diuresis will continue diuresis Cardiovascular: stable now and pulmonary edema and cardiology has been consulted. It appears to be acute diastolic heart failure. Will stop nitroglycerin drip and management of what looks like diastolic dysfunction heart failure will be deferred to cardiology team. It was unknown is heart failure type on presentation, however it is more acute. GI: Nutrition per dietary and GI prophylaxis per routine Heme: DVT prophylaxis per routine ID: Continue antibiotics and plan to de-escalation Renal; urine out put and renal function reviewed Endorcine: blood glucose is monitored Lines: all lines checked and no evidence of infections Skin: skin care to prevent pressure ulcers per nursing routine care Dispo: possible transfer to the floor Code: Full. Prognosis. fair I spent 32 min of Critical Care time with this patient. It involved decision making of high complexity to assess, manipulate, and support vital organ system failure and/or to prevent further life threatening deterioration of the patient's condition. The time involved in the performance of separately reportable procedures was not counted toward critical care time.
[2019-04-18 08:00] LABS: Troponin I 5.88 ng/mL (< 0.04)
[2019-04-18] MEDS: Pantoprazole 40 MG VIAL IVP SCH (08:43)
[2019-04-18] MEDS: Chlorhexidine Rinse 15 ML MOUTHWASH MM SCH (08:44)
[2019-04-18] MEDS ORDERED: Furosemide 40 MG/4 ML VIAL IVP SCH (09:00)
[2019-04-18] MEDS ORDERED: Insulin LISPRO 300 UNITS/3 ML VIAL SQ SCH ×2 (11:58→21:00)
[2019-04-18] MEDS: Heparin 25,000 UNIT/250 ML D5W 25,000 UNIT/250 ML IV.SOLN IVC SCH ×3 (12:14→16:42)
--- NOTE | 2019-04-18 13:23 | Cardiology Consult Note ---
<Lea Frey Frida - Last Filed: 04/18/19 14:06> Date of Encounter: 04/18/19 Time of Encounter: 13:20 Assessment and Plan (1) NSTEMI (non-ST elevated myocardial infarction) Current Visit: Yes Status: Acute Troponin 0.2, 5.8 in the setting of acute respiratory failure likely secondary to acute exacerbation of HFpEF. Patient reports symptoms suggestive of unstable angina for the past 1-2 months. Chest pain free upon exam; ECG demonstrates ischemic changes. Hx of PCI to RCA (remote), and PCI to LCx, OM in 2008. No recent LHC. Add asa, statin, and BB now. Continue heparin gtt. TTE shows preserved LVEF, 55% with normal wall motion. Recommend LHC with possible PCI; A/R/B discussed, he is agreeable to proceed. Further recommendations to follow. (2) CHF (congestive heart failure) Current Visit: Yes Status: Acute Acute exacerbation of diastolic CHF. Reports worsening symptoms over the past month. Severely elevated BP upon arrival, started on NTG gtt due to suspected acute pulmonary edema; was additional diuresed with IV lasix. Cumulative I&O: -3600 mL TTE this admission: EF 55%, mild LVDD, no significant valvular dysfunction, small pericardial effusion. CXR today improved, right infiltrate noted. Rales on exam, will increase Lasix to IV BID dosing. Monitor renal function closely, SCr 1.35 upon arrival, 1.33 today. Add BB. Consider ACEi prior to d/c if needed for BP control if renal function stable. Qualifiers: Heart failure type: diastolic Heart failure chronicity: acute Qualified Code(s): I50.31 - Acute diastolic (congestive) heart failure (3) PAF (paroxysmal atrial fibrillation) Current Visit: Yes Status: Acute Hx of PAF on coumadin for AC. INR 2.0 upon arrival. (PCP monitors INR). Currently in NSR: will add BB. Continue heparin gtt. Hold coumadin in preparation for LHC. Discussion w patient/family: The assessment and plan as outlined above was discussed with the patient and/or family members who expressed understanding and agreement. All questions were answered. Thank you for involving us in the care of your patient. Please call with any questions. The patient will be discussed and reviewed with Dr. Hester; changes to be made accordingly. History of Present Illness Consult date: 04/18/19 Requesting physician: Tequila Holland Consult reason: NSTEMI Chief complaint: Shortness of breath History of present illness: Mr. Edwards is a 68 year old male with PMHx significant of CAD s/p PCI (last [facility] 2008), HTN, HLD, DMII, COPD, PAF on Coumadin, and former tobacco abuse who presented to the ED via EMS with worsening shortness of breath and difficulty breathing. He reports yesterday morning he heard his fall (terminally ill d/t brain cancer) and ran to the other room to tend to her when he was unable to catch his breath and difficulty breathing ensued. EMS was called and transported patient to the ED. He reports poor activity tolerance and dyspnea with ordinary activity over the past 1-2 months. Associated symptoms include bilateral arm pain. Discomfort improves with rest. Pt/family report increased stress at home. Upon arrival to ED, his SPO2 was 66%, found to be obtunded and the decision was made to intubate patient to ensure protection of airway. Imaging demonstrated p ulmonary edema with possible right lower lobe infiltrate. Severely elevated BP were noted and patient was started on NTG gtt. pH was 7.2, CO2 was 84. Upon exam today he is chest pain free. He was recently extubated and is saturating >95% on RA. Alert and oriented x3. Past Med Surg Social Fam HX - Past Medical History Attestation: Yes The following information was validated with the patient. Source: patient Medical history: atrial fibrillation, COPD, coronary artery disease, diabetes, hyperlipidemia, hypertension, myocardial infarction Additional medical history: Unale to answer Psychiatric history: other - Past Surgical History Additional surgical history: unable to answer - Social History Smoking Status: Current every day smoker - Family History Son Hx Family Cardiac Disorders: Yes (CHF) Mother History Unknown: Yes Father History Unknown: Yes Medications and Allergies Carvedilol 12.5 mg PO BIDWM 04/18/19 [History] Lisinopril [Zestril] 5 mg PO DAILY 04/18/19 [History] Metformin HCl 1,000 mg PO BIDWM 04/18/19 [History] Pantoprazole Sodium [Protonix] 40 mg PO DAILY 04/18/19 [History] Sertraline [Zoloft] 50 mg PO DAILY 04/18/19 [History] Simvastatin [Zocor] 40 mg PO HS 04/18/19 [History] Warfarin Sodium 4 mg PO AD 04/18/19 [History] Warfarin Sodium 5 mg PO AD 04/18/19 [History] hydroCHLOROthiazide [Hydrochlorothiazide] 25 mg PO DAILY 04/18/19 [History] Allergy/AdvReac Type Severity Reaction Status Date / Time No Known Allergies Allergy Verified 04/18/19 08:46 All Systems Review: The remainder of the systems were reviewed and are negative - Cardiovascular Cardiovascular: as per HPI Physical Examination Vital Signs, Last 4 Hours Temp Pulse Resp BP Pulse Ox 04/18/19 13:00 98 13 160/98 94 04/18/19 12:00 103 20 149/74 91 04/18/19 11:56 98.9 F 04/18/19 11:15 16 93 04/18/19 11:00 94 15 148/75 95 04/18/19 10:00 93 15 145/76 92 General: Conversant, No Apparent Distress HEENT: Atraumatic, Normocephaly Cardiac: Reg Rate and Rhythm, Normal S1 and S2 Lungs: Other (Bibasilar rales) Neuro: Alert and responsive Abdomen: Soft Skin: No rashes noted on visualized skin Musculoskeletal: No Chest Wall Tenderness Extremities: No Edema, Normal Pulses Results 04/18/19 04:25 04/18/19 04:25 Lab Results 04/18/19 04/18/19 04:25 04:25 WBC 15.2 H Hgb 13.7 D Hct 40.9 Plt Count 126 L Sodium 137 Potassium 4.0 Chloride 100 Carbon Dioxide 29 BUN 21 Creatinine 1.33 H Glucose 219 H Calcium 8.6 Magnesium 1.5 L Troponin I 5.88 H* Active Medications Albuterol/Ipratropium (Duoneb) 3 ml IH [id number] LEOLA Stop: 10/17/19 16:01 Dextrose/Water (Dextrose 50% (Syg)) 25 ml IVP AD PRN PRN Reason: Hypoglycemia Stop: 10/17/19 13:22 Furosemide (Lasix) 40 mg IV BIDDIURETIC LEOLA Stop: 10/18/19 18:01 Glucagon (Glucagen) 1 mg IM ONCE PRN PRN Reason: Hypoglycemia Stop: 10/17/19 13:22 Glucose (Gluctose) 15 gm PO ONCE PRN PRN Reason: Hypoglycemia Stop: 10/17/19 13:22 Glucose (Gluctose) 30 gm PO ONCE PRN PRN Reason: Hypoglycemia Stop: 10/17/19 13:22 Heparin Sodium (Porcine) (Heparin) 4,000 unit IVP Q6HR PRN PRN Reason: SEE COMMENTS Stop: 10/17/19 10:01 Heparin Sodium (Porcine) (Heparin) 2,000 unit IVP Q6H PRN PRN Reason: SEE COMMENTS Stop: 10/17/19 10:01 Dextrose (Dextrose 5%) 1,000 mls @ 100 mls/hr IVC .Q10H PRN PRN Reason: HYPOGLYCEMIA Stop: 10/17/19 13:22 Heparin Sodium/Dextrose (Heparin 25,000 Unit/250 Ml D5w) 25,000 unit in 250 mls @ 9.996 mls/hr IVC .Q24H LEOLA; Protocol Stop: 10/17/19 10:01 Insulin Human Lispro (Humalog) 0 units SQ TIDAC LEOLA; Protocol Stop: 10/18/19 11:59 Insulin Human Lispro (Humalog) 0 units SQ HS LEOLA; Protocol Stop: 10/18/19 21:01 Naloxone HCl (Narcan) 0.4 mg IVP Q2MPRN PRN PRN Reason: SEE COMMENTS Stop: 10/17/19 12:35 - Imaging and Cardiology Echo: report reviewed - EKG Interpretation EKG results cardiology: personally reviewed Consult Discharge Plan - Plan Referrals: Mercedes Black MD [Primary Care Provider] - <Gentry A - Last Filed: 04/18/19 15:05> Date of Encounter: 04/18/19 - Attending Attestation I have personally performed a face to face evaluation on this patient. I have reviewed and agree with the documented findings and care plan as documented by the WEB SITE MANAGER. 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 AAOX3 in NAD at the bedside Hemodynamically stable Cardiopulmonary exam revealed S1, S2, no murmur; mild bibasilar rales Rhythm reviewed - sinus rhythm, no acute ST T changes Echo preserved EF, no significant valvular heart disease Impression/plan: 1. Acute respiratory failure with hypoxia-continue to monitor respiratory status. IV Lasix 40 mg twice a day 2. Acute pulmonary edema- as above 3. NSTEMI- or cardiac catheterization tomorrow 4. CAD- continue aspirin, beta alison, high intensity statin 5. Type 2 diabetes mellitus with circulatory complication 6. COPD 7. Paroxysmal atrial fibrillation- on IV heparin 8. Essential hypertension Thanks for the consult, please call with questions. Balwinder Hester MD [facility] Assessment and Plan Discussion w patient/family: The assessment and plan as outlined above was discussed with the patient and/or family members who expressed understanding and agreement. All questions were answered. Thank you for involving us in the care of your patient. Please call with any questions. History of Present Illness History of present illness: Mr. Edwards is a 68 year old male All Systems Review: The remainder of the systems were reviewed and are negative Physical Examination Vital Signs, Last 4 Hours Temp Pulse Resp BP Pulse Ox 04/18/19 13:00 98 13 160/98 94 04/18/19 12:00 103 20 149/74 91 04/18/19 11:56 98.9 F 04/18/19 11:15 16 93 04/18/19 11:00 94 15 148/75 95 Results 04/18/19 04:25 04/18/19 04:25 Lab Results 04/18/19 04/18/19 04:25 04:25 WBC 15.2 H Hgb 13.7 D Hct 40.9 Plt Count 126 L Sodium 137 Potassium 4.0 Chloride 100 Carbon Dioxide 29 BUN 21 Creatinine 1.33 H Glucose 219 H Calcium 8.6 Magnesium 1.5 L Troponin I 5.88 H*
--- NOTE | 2019-04-18 13:30 | Electrocardiograph Report ---
[place] [place] [facility] Test Date: 2019-04-17 Pat Name: Jones Edwards Department: [id number] Room: 12 Gender: Residential Team Leader: : 1950 Requested By: Irving Mujica Order Number: [id number] Reading MD: Jason Matta Measurements Intervals [place] Rate: 87 P: 77 MO: 143 QRS: 77 QRSD: 108 T: 83 QT: 365 QTc: 440 Interpretive Statements Sinus rhythm Probable left atrial enlargement Borderline repolarization abnormality Electronically Signed On 04-18-2019 13:28:36 EDT by Jason Matta
[2019-04-18] MEDS ORDERED: Dextrose Gel 15 GM/37.5 ML TUBE PO PRN ×2 (13:43)
[2019-04-18] MEDS ORDERED: *HR* Heparin 5,000 UNIT/ML VIAL IVP PRN (13:43)
[2019-04-18] MEDS ORDERED: Naloxone 0.4 MG/ML INJ IVP PRN (13:43)
[2019-04-18] MEDS ORDERED: D5% in Water 1,000 ML IVC PRN (13:43)
[2019-04-18] MEDS ORDERED: *HR* Dextrose 50 % in Water (Syg) 50 ML SYRINGE IVP PRN (13:43)
[2019-04-18] MEDS: Aspirin Enteric Coated 81 MG Tablet PO SCH (14:34)
[2019-04-18] MEDS ORDERED: Warfarin perPT PO PRN ×2 (14:40→15:00)
[2019-04-18] MEDS: Furosemide 40 MG/4 ML VIAL IV SCH (16:45)
[2019-04-18] MEDS ORDERED: NON-FORMULARY MEDICATION 1 EACH EACH (Carvedilol 12.5 MG) PO SCH (17:00)
[2019-04-18] MEDS ORDERED: *HR* Warfarin 4 MG TABLET PO ONE (18:00)
[2019-04-18] MEDS ORDERED: *HR* Warfarin 4 MG TABLET PO SCH (18:00)
[2019-04-19] MEDS: Ipratropium/Albuterol Neb 3 ML IH SCH ×7 (00:08→23:51)
[2019-04-19 04:11] LABS: Basophils % 0.2 %; Eosinophils % 0.3 %; Hematocrit 43.9 % (37.5-50.1); Hemoglobin 14.9 g/dL (12.9-16.9); Immature Granulocytes % 0.3 % (0-4); Lymphocytes # 1.3 K/mcL (0.6-4.6); Lymphocytes % 10.6 %; Mean Corpuscular HGB Conc 33.9 g/dL (31.6-35.5); Mean Corpuscular Hemoglobin 30.3 pg (28.0-33.3); Mean Corpuscular Volume 89.2 fL (83.0-100.0); Mean Platelet Volume 11.2 fL (9.4-12.4); Monocytes # 0.9 K/mcL (0.0-1.3); Monocytes % 7.7 %; Neutrophils # 9.8 K/mcL (1.6-8.9); Platelet Count 141 K/mcL (140-400); Red Blood Count 4.92 M/mcL (4.19-5.50); Red Cell Distribution Width 12.5 % (11.5-14.5); Segmented Neutrophils % 80.9 %; White Blood Count 12.2 K/mcL (4.3-11.1)
[2019-04-19 04:16] LABS: INR 2.4; Prothrombin Time 27.8 Seconds (9.4-12.1)
[2019-04-19 04:27] LABS: BUN/Creatinine Ratio 20 (6-26); Blood Urea Nitrogen 25 mg/dL (8-23); Calcium 8.9 mg/dL (8.6-10.3); Carbon Dioxide 33 mEq/L (23-29); Chloride 95 mEq/L (98-107); Glucose 291 mg/dL (70-105); Magnesium 1.9 mg/dL (1.6-2.6); Osmolality,Calculated 297 (280-300); Phosphorous 2.8 mg/dL (2.7-4.5); Potassium 3.7 mEq/L (3.5-5.1); Sodium 136 mEq/L (136-145); eGFR For African Americans > 60 (> 60); eGFR For Non-African Americans 56 (> 60)
[2019-04-19] MEDS: *HR* Heparin 5,000 UNIT/ML VIAL IVP PRN (04:39)
[2019-04-19] MEDS: Insulin LISPRO 300 UNITS/3 ML VIAL SQ SCH ×4 (07:32→21:54)
[2019-04-19] MEDS: Furosemide 40 MG/4 ML VIAL IV SCH (07:36)
[2019-04-19] MEDS: Aspirin Enteric Coated 81 MG Tablet PO SCH (07:36)
--- NOTE | 2019-04-19 08:19 | Internal Med Progress Note ---
Hospitalist Progress Note - Encounter Date of Encounter: 04/19/19 Time of Encounter: 08:19 - Subjective Interval History: Patient seen and examined. Afebrile. No overnight events. Patient transferred from ICU. Feeling well this morning. Denies headache, fever, chills, chest pain, shortness of breath, palpitations, lightheadedness, abdominal pain, c onstipation, diarrhea, changes in urination. Plan to have heart catheterization today. - Exam Vitals: Temp Pulse Resp BP Pulse Ox 97.9 F 73 18 163/82 95 04/19/19 07:09 04/19/19 07:09 04/19/19 07:10 04/19/19 07:09 04/19/19 07:10 Exam: Gen: Vitals noted. No acute distress. Lying comfortably in bed Eyes: anicteric sclerae, moist conjunctivae, Pupils equal, round, and reactive to light HENT: Atraumatic, normocephalic; oropharynx clear with moist mucous membranes and no mucosal ulcerations Neck: Trachea midline; supple, no thyromegaly or lymphadenopathy Cardiac: RRR, no murmurs, rubs or gallops, S1/S2. No jvd Pulmonary: Bibasilar crackles. Some mild BL wheezing, no rales or rhonchi, equal chest expansion Abdomen: soft, nontender, no rigidity or guarding. No masses or hepatosplenomegaly MSK: ROM intact, no joint swelling noted Extremities: +1 BLE edema, nontender calf, no cyanosis or clubbing Skin: Normal temperature, turgor and texture; no rash, ulcers or subcutaneous nodules Neuro: moves all extremities, no focal deficits. Psych: Appropriate mood and behavior. A&Ox3 - Assessment and Plan (1) NSTEMI (non-ST elevated myocardial infarction) Current Visit: Yes Status: Acute Assessment and Plan: Presented with SOB, chest pain, and diaphoresis - Troponin 0.2>>5.8 - Reports symptoms of unstable angina for the past two months - Hx of PCI. Last in 2008 - Cadiology consult Plan: - Keep on heparin drip - ASA, Statin, BB - Cath today: LAD, LCx, RCA stenosis. - CT surgery consult for CABG (2) Respiratory failure with hypercapnia Current Visit: Yes Status: Acute Assessment and Plan: Pt presented with respiratory failure - ABG on admission: pH 7.2, CO2 84 - Respiratory acidosis - Secondary to pulmonary edema - Intubated on admission. Spent a day on vent in ICU - Improving Plan: - O2 2L via nasal canula (3) CHF (congestive heart failure) Current Visit: Yes Status: Acute Assessment and Plan: Acute exacerbation of diastolic CHF - Elevated BP on admission, 186/96 - Diuresed with IV lasix - TTE: EF55%, mild Left ventricular diastolic disfunction. - CXR: BL pulmonary edema Plan: - Lasix BID PO - Metoprolol (4) PAF (paroxysmal atrial fibrillation) Current Visit: Yes Status: Acute Assessment and Plan: Hx of paroxysmal Afib - On coumadin at home Plan: - On heparin drip - Holding coumadin before cath (5) GERD (gastroesophageal reflux disease) Current Visit: Yes Status: Acute Assessment and Plan: Hx of GERD - Omeprazole daily DVT Prophylaxis: On heparin drip - Summary of Assessment and Plan Summary of Assessment and Plan: 68 yo male with past medical history of CAD, diabetes, and COPD. Presented with 2 respiratory failure. Intubated treated in the ICU for 1 day with IV lasix for diuresis for bilateral pulmonary edema. Extubated and transferred to . [place] improved, stable on 2 L via nasal cannula. To have left heart catheter on 04/19/19. - Time Spent with Patient Total time spent is greater than 50% in coordination of care (as documented) at patient's floor/unit and/or counseling patient: Internal Medicine: Result - Labs CBC & Chem 7: 04/19/19 03:30 04/19/19 03:30 Labs: Short CBC 04/19/19 Range/Units 03:30 WBC 12.2 H (4.3-11.1) K/mcL Hgb 14.9 (12.9-16.9) g/dL Hct 43.9 (37.5-50.1) % Plt Count 141 (140-400) K/mcL Neutrophils # 9.8 H (1.6-8.9) K/mcL BMP 04/19/19 03:30 Sodium 136 Potassium 3.7 Chloride 95 L Carbon Dioxide 33 H BUN 25 H Creatinine 1.28 Glucose 291 H Calcium 8.9 - ABG Interpretation ABG results: ABG ABG pH 7.43 pH Units (7.32-7.45) 04/18/19 04:47 ABG pCO2 52 mmHg (35-45) H 04/18/19 04:47 ABG pO2 72 mmHg (85-104) L 04/18/19 04:47 ABG O2 Saturation 94 % (95-98) L 04/18/19 04:47 PT/INR, D-dimer PT 27.8 Seconds (9.4-12.1) H 04/19/19 03:30 - Impressions Impressions Chest X-Ray 04/17/19 08:40 IMPRESSION: 1. Diffuse airspace opacities bilaterally, right greater than left. Differential considerations include edema or infection. 2. Endotracheal tube tip terminates 7.3 cm above the latasha. D/ / 04/17/2019 09:05:48 Estela Tesfaye MD / earnold Interpreting Provider: Estela Tesfaye MD Echocardiogram 04/17/19 13:22 Impressions: LVEF 55%. Mild left ventricular diastolic dysfunction. Definity echo contrast was used. Right ventricular structure is not well visualized. Systolic function normal by Tissue Doppler. No significant valvular dysfunction. No pulmonary hypertension. There is a small pericardial effusion present. There is no echocardiographic evidence of tamponade. Left Ventricular Wall Motion: Rest Echo Findings All wall segments showed normal motion. Findings: Study Quality * Technically challenging echo windows. ECG Findings * Normal sinus rhythm. Left Ventricle * LVEF 55%. * Mild left ventricular diastolic dysfunction. * Definity echo contrast was used. * LV chamber size and wall thickness are normal. Right Ventricle * Right ventricular structure is not well visualized. Systolic function normal by Tissue Doppler. Left Atrium * Normal left atrial size. Right Atrium * Normal right atrial size. Aortic Valve * No aortic regurgitation. * Aortic valve not well visualized. * No aortic stenosis. Mitral Valve * No mitral regurgitation. * Normal mitral valve structure. * No mitral stenosis. * Mild mitral annular calcification Tricuspid Valve * Tricuspid valve not well visualized. * Trace tricuspid regurgitation. * Estimated RA pressure is 8 mmHg. Pulmonic Valve * Pulmonic valve is not well visualized. * No pulmonic stenosis. * No pulmonic regurgitation. Pulmonary Artery * Pulmonary artery not well visualized. Aorta * Not well visualized. Pericardium * There is a small pericardial effusion present. * There is no echocardiographic evidence of tamponade. Interatrial Septum * No evidence of PFO by color Doppler. IVC * The IVC is not dilated. * < 50% respiratory change. Consult Discharge Plan - Plan Referrals: Mercedes Black MD [Primary Care Provider] - (2) Respiratory failure with hypercapnia Qualifiers: Chronicity: acute Qualified Code(s): J96.02 - Acute respiratory failure with hypercapnia (3) CHF (congestive heart failure) Qualifiers: Heart failure type: diastolic Heart failure chronicity: acute Qualified Code(s): I50.31 - Acute diastolic (congestive) heart failure
[2019-04-19] MEDS ORDERED: Furosemide 40 MG/4 ML VIAL IVP SCH (09:00)
[2019-04-19] MEDS ORDERED: hydroCHLOROthiazide 25 MG TABLET PO SCH (09:00)
[2019-04-19 12:35] LABS: Prothrombin Time 23.1 Seconds (9.4-12.1)
[2019-04-19] MEDS: Heparin 25,000 UNIT/250 ML D5W 25,000 UNIT/250 ML IV.SOLN IVC SCH (12:41)
[2019-04-19] MEDS ORDERED: 0.9 % Sodium Chloride 1,000 ML ONE ×2 (14:04→14:24)
[2019-04-19] MEDS ORDERED: Verapamil 5 MG/2 ML VIAL ONE (14:24)
[2019-04-19] MEDS ORDERED: ISOVUE-370 200 ML INFUS..BTL ONE (14:24)
[2019-04-19] MEDS ORDERED: *HR* Heparin 10,000 UNIT/10 ML VIAL ONE (14:24)
[2019-04-19] MEDS ORDERED: Heparin 1,000 UNITS/500 mL 500 ML ONE (14:24)
[2019-04-19] MEDS ORDERED: Nitroglycerin 1,000 MCG/10 ML VIAL IV ONE (14:24)
[2019-04-19] MEDS ORDERED: *HR* FentaNYL (PF) 100 MCG/2 ML VIAL ONE (14:39)
[2019-04-19] MEDS ORDERED: *HR* Midazolam HCl 2 MG/2 ML VIAL ONE (14:39)
--- NOTE | 2019-04-19 14:49 | Pre-Sedation Evaluation ---
Pre-sedation evaluation - Pre-sedation checklist Date of procedure: 04/19/19 Procedure: [facility] Recent Vitals: Last Vital Signs Temp 98.0 F 04/19/19 11:10 Pulse 71 04/19/19 11:10 Resp 18 04/19/19 11:10 BP 154/81 04/19/19 11:10 Pulse Ox 94 04/19/19 11:10 H&P (including ROS) documented in medical record: Yes Previous reaction to sedatives/anesthetics: No Dietary Status: NPO after Midnight Dentition: No loose teeth or bridges ASA Classification *see protocol: CLASS II-Mild systemic disease Plan of Care: Pt appropriate candidate for procedure/moderate/conscious sedation, Risks/benefits of procedure/sedation discussed w/ patient/family Cardiac Registry (Cardio Only) - Functional Capacity Functional Capacity: >=4 METS with symptoms - Clincal Frailty Scale Clinical Frailty Scale: Managing Well
--- NOTE | 2019-04-19 15:14 | Event Note ---
Date of Encounter: 04/19/19 Time of Encounter: 15:15 - Cardiology Event Note LHC prelim EF 50% pLAD 99% hazy - thrombus / calcified m/d LCx long 70-99% mRCA 100% ISR with left to right collaterals CT surgery consult for CABG for this or Monday
[2019-04-19] MEDS ORDERED: Nitroglycerin 0.4 MG TAB.SUBL SL PRN (15:15)
--- NOTE | 2019-04-19 16:46 | Cardiothoracic Consult Note ---
Date of Encounter: 04/19/19 Time of Encounter: 16:41 Assessment and Plan (1) NSTEMI (non-ST elevated myocardial infarction) Current Visit: Yes Status: Acute The patient had a myocardial infarction with a troponin up to 5.88. He does have chronic kidney disease with a creatinine on admission of 1.35. He has paroxysmal atrial fibrillation. Cardiac catheterization reveals triple-vessel disease with a small and diffusely diseased LAD. He is a candidate for coronary artery bypass grafting and modified maze procedure and left atrial appendage stapling. He is at increased risk because of his recent myocardial infarction, diabetes, respiratory failure requiring intubation, pulmonary edema, sleep apnea and COPD. We need to follow his renal function to make sure that it is not worsened by the dye. We need to allow him to recuperate from his myocardial infarction. We need to improve his respiratory status and treat his congestive heart failure. We will tentatively schedule the patient for surgery on Monday. We also need to let his Coumadin reversed. He is PT today was 23.1 and his INR was 2. He can be maintained on a heparin drip. Risks of surgery include , infection, stroke, myocardial infarction, renal or respiratory failure, acute or chronic graft closure, sternal dehiscence, phrenic nerve injury and persistent or recurrent atrial fibrillation. The procedure, its risks, benefits and alternatives were explained and we plan to proceed on Monday. We will leave him off Coumadin, but on a heparin drip. We will follow his renal function and continue to treat his respiratory failure. At this point, he and his family hav e no questions. His yesterday of stage IV brain cancer and the is scheduled for Monday, but they feel that the best day for surgery is Monday. - History of Present Illness History of present illness: Mr. Edwards is a 68 year old male The patient is a 68-year-old gentleman who was admitted with shortness of breath and decreased level of consciousness. He was intubated for respiratory failure and pulmonary edema. BNP was elevated at 573 and chest x-ray revealed pulmonary edema. PCO2 was above 80. Echocardiogram revealed an ejection of 55% with no valvular disease. Cardiac catheterization done today revealed an ejection f raction of 50% with triple-vessel disease. The circumflex is 70% with a good obtuse marginal branch that is bypassable. The distal circumflex appears to be too small for grafting. The right coronary artery was 100% but did fill by collaterals. The LAD was 99%, but did appear to be a small and diffusely diseased vessel which may or may not be a good graft. The patient has a history of paroxysmal atrial fibrillation and takes Coumadin for this. He is diabetic on oral agents. He has COPD, but does not use oxygen at home. He does use CPAP at night for sleep apnea. He has a history of diabetes on oral agents. He also has hypertension and hypercholesterolemia. Social history. 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 He smoked 1 pack of unfiltered cigarettes per day starting at age 13, but quit 10 years ago. Rarely drinks alcohol. Review of systems is negative for stroke or TIA. Negative for saphenous vein varicosities or strippings. Past Med Surg Social Fam HX - Past Medical History Medical history: atrial fibrillation, COPD, coronary artery disease, diabetes, hyperlipidemia, hypertension, myocardial infarction Additional medical history: Unale to answer Psychiatric history: other - Past Surgical History Additional surgical history: unable to answer - Social History Smoking Status: Current every day smoker - Family History Son Hx Family Cardiac Disorders: Yes (CHF) Mother History Unknown: Yes Father History Unknown: Yes Medications and Allergies Carvedilol 12.5 mg PO BIDWM 04/18/19 [History] Lisinopril [Zestril] 5 mg PO DAILY 04/18/19 [History] Metformin HCl 1,000 mg PO BIDWM 04/18/19 [History] Pantoprazole Sodium [Protonix] 40 mg PO DAILY 04/18/19 [History] Sertraline [Zoloft] 50 mg PO DAILY 04/18/19 [History] Simvastatin [Zocor] 40 mg PO HS 04/18/19 [History] Warfarin Sodium 4 mg PO AD 04/18/19 [History] Warfarin Sodium 5 mg PO AD 04/18/19 [History] hydroCHLOROthiazide [Hydrochlorothiazide] 25 mg PO DAILY 04/18/19 [History] Allergy/AdvReac Type Severity Reaction Status Date / Time No Known Allergies Allergy Verified 04/18/19 08:46 All Systems Review: The remainder of the systems were reviewed and are negative Physical Examination Vital Signs, Last 4 Hours Temp Pulse Resp BP Pulse Ox 04/19/19 16:21 79 18 154/76 94 04/19/19 15:55 79 130/78 95 04/19/19 15:53 18 93 04/19/19 15:40 97.9 F 67 18 147/73 92 Pupils are equal, round and reactive to light and accommodation. He is edentulous. Neck is supple. Trachea in the midline. No thyromegaly or carotid bruits. Lungs are clear to percussion and auscultation. Heart is in a regular rate and rhythm. Abdomen is benign. No tenderness, rebound or guarding. Extremities without edema. No saphenous vein varicosities or strippings. Cranial nerves, motor and sensory intact. Results 04/19/19 03:30 04/19/19 03:30 Lab Results, Last 24 hours 04/19/19 04/19/19 04/19/19 03:30 03:30 03:30 WBC 12.2 H Hgb 14.9 Hct 43.9 Plt Count 141 INR 2.4 Sodium 136 Potassium 3.7 Chloride 95 L Carbon Dioxide 33 H BUN 25 H Creatinine 1.28 Glucose 291 H Calcium 8.9 Magnesium 1.9 Troponin I 3.30 H* 04/19/19 12:05 WBC Hgb Hct Plt Count INR 2.0 Sodium Potassium Chloride Carbon Dioxide BUN Creatinine Glucose Calcium Magnesium Troponin I Consult Discharge Plan - Plan Referrals: Mercedes Black MD [Primary Care Provider] -
[2019-04-19] MEDS ORDERED: Furosemide 40 MG TABLET PO SCH (17:00)
[2019-04-20] MEDS: Ipratropium/Albuterol Neb 3 ML IH SCH ×6 (03:47→23:57)
[2019-04-20 06:40] LABS: Basophils % 0.5 %; Eosinophils # 0.2 K/mcL (0.0-0.6); Eosinophils % 2.1 %; Hematocrit 45.8 % (37.5-50.1); Hemoglobin 15.4 g/dL (12.9-16.9); Immature Granulocytes % 0.4 % (0-4); Lymphocytes # 1.3 K/mcL (0.6-4.6); Lymphocytes % 14.8 %; Mean Corpuscular HGB Conc 33.6 g/dL (31.6-35.5); Mean Corpuscular Hemoglobin 30.8 pg (28.0-33.3); Mean Corpuscular Volume 91.6 fL (83.0-100.0); Mean Platelet Volume 10.7 fL (9.4-12.4); Monocytes # 0.8 K/mcL (0.0-1.3); Monocytes % 9.6 %; Neutrophils # 6.2 K/mcL (1.6-8.9); Platelet Count 143 K/mcL (140-400); Red Cell Distribution Width 12.6 % (11.5-14.5); Segmented Neutrophils % 72.6 %; White Blood Count 8.5 K/mcL (4.3-11.1)
[2019-04-20 06:48] LABS: INR 1.5; Prothrombin Time 17.4 Seconds (9.4-12.1)
[2019-04-20] MEDS: *HR* Heparin 5,000 UNIT/ML VIAL IVP PRN (06:58)
[2019-04-20 07:00] LABS: Calcium 9.4 mg/dL (8.6-10.3); Magnesium 1.9 mg/dL (1.6-2.6); Phosphorous 4.2 mg/dL (2.7-4.5); Potassium 3.9 mEq/L (3.5-5.1)
--- NOTE | 2019-04-20 08:18 | Event Note ---
Date of Encounter: 04/20/19 Time of Encounter: 08:17 - Cardiology Event Note Patient admitted with NSTEMI s/p [facility] yesterday with severe multi-vessel CAD. PLan for CABG on Monday per CT surgery note. Continue heparin drip. Cardiology will sign off, will arrange outpatient follow up.
[2019-04-20] MEDS: Insulin LISPRO 300 UNITS/3 ML VIAL SQ SCH ×4 (08:30→21:59)
[2019-04-20] MEDS: Aspirin Enteric Coated 81 MG Tablet PO SCH (08:30)
--- NOTE | 2019-04-20 10:38 | Cardiothoracic Progress Note ---
Date of Encounter: 04/20/19 Time of Encounter: 10:37 - Assessment and plan (1) NSTEMI (non-ST elevated myocardial infarction) Current Visit: Yes Status: Acute Creatinine increased to 1.5. We will stop the Lasix and check it tomorrow. INR is coming down. He is tentatively scheduled for open heart surgery on Monday, but we may need to delay it if his renal function worsens. - Subjective Interval history: The patient has had no angina and no chest pain. Vital Signs, Last 4 Hours Temp Pulse Resp BP Pulse Ox 04/20/19 07:08 98.2 F 67 18 122/66 94 Oxgyen Flow Rate Oxygen Flow Rate (LPM) 2.5 Weight 04/18/19 04/19/19 04/20/19 23:59 23:59 23:59 Weight 104.4 kg 102.1 kg Lungs are clear to percussion and auscultation. Heart is in a regular rate and rhythm. - Labs 04/20/19 06:17 04/20/19 06:17 Lab Results, Last 24 hours 04/19/19 04/20/19 04/20/19 12:05 06:17 06:17 WBC 8.5 Hgb 15.4 Hct 45.8 Plt Count 143 INR 2.0 Sodium 135 L Potassium 3.9 Chloride 92 L Carbon Dioxide 33 H BUN 31 H Creatinine 1.50 H Glucose 302 H Calcium 9.4 Magnesium 1.9 04/20/19 06:17 WBC Hgb Hct Plt Count INR 1.5 Sodium Potassium Chloride Carbon Dioxide BUN Creatinine Glucose Calcium Magnesium Consult Discharge Plan - Plan Referrals: Mercedes Black MD [Primary Care Provider] -
--- NOTE | 2019-04-20 11:10 | Internal Med Progress Note ---
Hospitalist Progress Note - Encounter Date of Encounter: 04/20/19 Time of Encounter: 11:09 - Subjective Interval History: Mr. Annalisa polanco was seen at bedside this morning. His vitals were reviewed and he remained afebrile and normotensive overnight. He was resting comfortably in bed and had no complaints this morning. He denied any fever, chills, shortness of breath or chest pain. - Exam Vitals: Temp Pulse Resp BP Pulse Ox 98.2 F 67 18 122/66 94 04/20/19 07:08 04/20/19 07:08 04/20/19 07:08 04/20/19 07:08 04/20/19 07:08 Exam: Gen: Vitals noted. No acute distress. Appears comfortable. Eyes: anicteric sclerae, moist conjunctivae; no lid-lag HENT: Atraumatic; oropharynx clear with moist mucous membranes Neck: Trachea midline; supple, no thyromegaly or lymphadenopathy Cardiac: RRR, no murmur, +S1/S2. No JVD noted. Pulmonary: CTA bilaterally, no wheezes, rales or rhonchi, equal chest expansion MSK: ROM intact, no joint swelling noted Extremities: no edema, nontender calf Skin: Normal temperature, turgor; no rash, ulcers or subcutaneous nodules Neuro: moves all extremities, no focal deficits. Psych: Appropriate mood and behavior. A&Ox3 - Assessment and Plan (1) NSTEMI (non-ST elevated myocardial infarction) Current Visit: Yes Status: Acute Assessment and Plan: Presented with SOB, chest pain, and diaphoresis - Troponin 0.2>>5.8 04/18/19 - Reports symptoms of unstable angina for the past two months - Hx of PCI. Last in 2008 - Underwent catheterization on 04/19/19 and showed stenosis in LAD, LCx and mid RCA. Plan: - Continue heparin drip - ASA, Statin, BB - Cath today: LAD, LCx, RCA stenosis. - CT surgery consult for CABG, planned for Monday (2) Respiratory failure with hypercapnia Current Visit: Yes Status: Resolved Assessment and Plan: Resolved. Pt presented with respiratory failure - ABG on admission: pH 7.2, CO2 84 - Respiratory acidosis - Secondary to pulmonary edema - Intubated on admission. Spent a day on vent in ICU - Repeat ABG on 04/18/19 showed pH of 7.43 and PCO2 of 52 and was removed firm mechanical ventilation Plan: - Continue O2 2L via nasal canula (3) CHF (congestive heart failure) Current Visit: Yes Status: Acute Assessment and Plan: Acute exacerbation of diastolic CHF - Elevated BP on admission, 186/96 - Diuresed with IV lasix - TTE: EF55%, mild Left ventricular diastolic disfunction. Heart cath showed EF of 50% - CXR on 04/17/19: BL pulmonary edema - Lower extremity edema resolved Plan: - We will hold Lasix - Continue Metoprolol (4) PAF (paroxysmal atrial fibrillation) Current Visit: Yes Status: Acute Assessment and Plan: Hx of paroxysmal Afib - On coumadin at home Plan: - On heparin drip - Holding coumadin, plan for CABG on 04/22/19 (5) GERD (gastroesophageal reflux disease) Current Visit: Yes Status: Acute Assessment and Plan: History of GERD continue home omeprazole DVT Prophylaxis: On heparin drip - Time Spent with Patient Total time spent is greater than 50% in coordination of care (as documented) at patient's floor/unit and/or counseling patient: Internal Medicine: Result - Labs CBC & Chem 7: 04/20/19 06:17 04/20/19 06:17 Labs: Short CBC 04/20/19 Range/Units 06:17 WBC 8.5 (4.3-11.1) K/mcL Hgb 15.4 (12.9-16.9) g/dL Hct 45.8 (37.5-50.1) % Plt Count 143 (140-400) K/mcL Neutrophils # 6.2 (1.6-8.9) K/mcL BMP 04/20/19 06:17 Sodium 135 L Potassium 3.9 Chloride 92 L Carbon Dioxide 33 H BUN 31 H Creatinine 1.50 H Glucose 302 H Calcium 9.4 - ABG Interpretation ABG results: ABG ABG pH 7.43 pH Units (7.32-7.45) 04/18/19 04:47 ABG pCO2 52 mmHg (35-45) H 04/18/19 04:47 ABG pO2 72 mmHg (85-104) L 04/18/19 04:47 ABG O2 Saturation 94 % (95-98) L 04/18/19 04:47 PT/INR, D-dimer PT 17.4 Seconds (9.4-12.1) H 04/20/19 06:17 Consult Discharge Plan - Plan Referrals: Mercedes Black MD [Primary Care Provider] - (2) Respiratory failure with hypercapnia Qualifiers: Chronicity: acute Qualified Code(s): J96.02 - Acute respiratory failure with hypercapnia (3) CHF (congestive heart failure) Qualifiers: Heart failure type: diastolic Heart failure chronicity: acute Qualified Code(s): I50.31 - Acute diastolic (congestive) heart failure (5) GERD (gastroesophageal reflux disease) Qualifiers: Esophagitis presence: without esophagitis Qualified Code(s): K21.9 - Gastro- esophageal reflux disease without esophagitis
--- NOTE | 2019-04-20 12:06 | Pulmonology Progress Note ---
Date of Encounter: 04/20/19 Time of Encounter: 12:00 Assessment and Plan (1) FADI (obstructive sleep apnea) Current Visit: Yes Status: Chronic Patient has history of obstructive sleep apnea and he stated he is not on treatment. Advised him to be very important for him to be treated especially with his coronary artery disease and this acute hospitalization with pulmonary edema. Postoperatively he might need to be on positive airway pressure, however complete workup and follow-up can be done as outpatient for treatment of obstructive sleep apnea. I have explained to him the risks associated with untreated sleep-disordered breathing such as stroke and heart attack. Patient understand and he stated he will follow-up as outpatient. Please call for any questions. (2) Acute pulmonary edema Current Visit: Yes Status: Resolved Patient denies any symptoms at this time and he seems to be responding to diuresis. Subjective Principal diagnosis: Respiratory failure Interval history: I was asked by the thoracic surgeon to follow up on this patient since he is expected to have CABG and patient denies any symptoms and he stated his breathing fine and he has no shortness of breath. Objective PUL Vital signs: Last Vital Signs Temp 97.9 F 04/20/19 11:34 Pulse 63 04/20/19 11:34 Resp 16 04/20/19 11:34 BP 124/71 04/20/19 11:34 Pulse Ox 98 04/20/19 11:34 General appearance: no acute distress Eyes: nonicteric ENT: oropharynx moist Mallampati (class): 3 Neck: no lymphadenopathy Auscultation: bilateral: clear Percussion: bilateral: not dull Cardiovascular: regular rate and rhythm Gastrointestinal: normoactive bowel sounds, non-distended Extremities: no cyanosis normal mental status, non-focal exam mood appropriate Results - Laboratory Findings CBC and BMP: 04/20/19 06:17 04/20/19 06:17 ABG ABG pH 7.43 pH Units (7.32-7.45) 04/18/19 04:47 ABG pCO2 52 mmHg (35-45) H 04/18/19 04:47 ABG pO2 72 mmHg (85-104) L 04/18/19 04:47 ABG O2 Saturation 94 % (95-98) L 04/18/19 04:47 PT/INR, D-dimer PT 17.4 Seconds (9.4-12.1) H 04/20/19 06:17 Abnormal lab findings: Abnormal lab results WBC 12.2 K/mcL (4.3-11.1) H 04/19/19 03:30 RBC 5.60 M/mcL (4.19-5.50) H 04/17/19 08:40 Hgb 17.1 g/dL (12.9-16.9) H 04/17/19 08:40 Hct 52.8 % (37.5-50.1) H 04/17/19 08:40 Plt Count 126 K/mcL (140-400) L 04/18/19 04:25 Neutrophils # 9.8 K/mcL (1.6-8.9) H 04/19/19 03:30 PT 17.4 Seconds (9.4-12.1) H 04/20/19 06:17 Heparin Anti-Xa, Unfract 0.25 IU/mL (0.30-0.70) L 04/20/19 06:17 ABG pH 7.20 pH Units (7.32-7.45) L* 04/17/19 10:27 ABG pCO2 52 mmHg (35-45) H 04/18/19 04:47 ABG pO2 72 mmHg (85-104) L 04/18/19 04:47 ABG HCO3 34 mEq/L (21-27) H 04/18/19 04:47 ABG Total CO2 36 mEq/L (20-26) H 04/18/19 04:47 ABG O2 Saturation 94 % (95-98) L 04/18/19 04:47 ABG Base Excess 8 mEq/L (-2 to 3) H 04/18/19 04:47 Sodium 135 mEq/L (136-145) L 04/20/19 06:17 Chloride 92 mEq/L (98-107) L 04/20/19 06:17 Carbon Dioxide 33 mEq/L (23-29) H 04/20/19 06:17 BUN 31 mg/dL (8-23) H 04/20/19 06:17 Creatinine 1.50 mg/dL (0.70-1.30) H 04/20/19 06:17 Est GFR ( Amer) 56 (> 60) L 04/20/19 06:17 Est GFR (Non-Af Amer) 46 (> 60) L 04/20/19 06:17 Glucose 302 mg/dL (70-105) H 04/20/19 06:17 POC Glucose 187 mg/dL (70-99) H 04/19/19 15:38 Calculated Osmolality 301 (280-300) H 04/17/19 08:40 Magnesium 1.5 mg/dL (1.6-2.6) L 04/18/19 04:25 AST 66 Units/L (13-39) H 04/17/19 08:40 Troponin I 3.30 ng/mL (< 0.04) H* 04/19/19 03:30 B-Natriuretic Peptide 573 pg/mL (Less than 100) H 04/17/19 08:40 Urine Color Red (Yellow) A 04/17/19 13:40 Urine Clarity Cloudy (Clear) A 04/17/19 13:40 Urine Protein 30 mg/dL (Neg-Trace) H 04/17/19 13:40 Urine Glucose (UA) 500 mg/dL (Normal) H 04/17/19 13:40 Urine Blood Large (Negative) H 04/17/19 13:40 Ur Leukocyte Esterase Trace (Negative) H 04/17/19 13:40 Urine Microscopic RBC TNTC per hpf (0-3) H 04/17/19 13:40 Urine Microscopic WBC 5-15 per hpf (0-3) H 04/17/19 13:40 Ur Culture Indicated? YES (NO) A 04/17/19 13:40 - Microbiology Findings Microbiology Findings: Microbiology, Last 48 Hours 04/17/19 13:40 Urine Culture - Final Urine,Clean Catch No growth. - Clinical Findings Intake & Output: Intake & Output 04/19/19 04/20/19 04/20/19 23:59 07:59 15:59 Intake Total 402 / 614 108.2 / 468.2 360 / 468.2 Balance 402 / 614 108.2 / 468.2 360 / 468.2 Consult Discharge Plan - Plan Referrals: Mercedes Black MD [Primary Care Provider] -
[2019-04-20] MEDS: Heparin 25,000 UNIT/250 ML D5W 25,000 UNIT/250 ML IV.SOLN IVC SCH (14:50)
[2019-04-20] MEDS ORDERED: Insulin LISPRO 300 UNITS/3 ML VIAL SQ SCH (17:36)
[2019-04-20] MEDS ORDERED: Insulin DETEMIR 100 UNIT/ML X5UNITS SQ SCH (21:00)
[2019-04-21] MEDS: Ipratropium/Albuterol Neb 3 ML IH SCH ×6 (04:09→23:29)
[2019-04-21 07:40] LABS: INR 1.2; Prothrombin Time 13.6 Seconds (9.4-12.1)
[2019-04-21 07:49] LABS: Calcium 9.2 mg/dL (8.6-10.3); Magnesium 1.9 mg/dL (1.6-2.6); Potassium 3.8 mEq/L (3.5-5.1)
[2019-04-21] MEDS: Aspirin Enteric Coated 81 MG Tablet PO SCH (08:05)
[2019-04-21] MEDS: Insulin DETEMIR 100 UNIT/ML X5UNITS SQ SCH ×2 (08:05→21:46)
[2019-04-21] MEDS: Insulin LISPRO 300 UNITS/3 ML VIAL SQ SCH ×4 (08:06→21:48)
--- NOTE | 2019-04-21 09:30 | Cardiothoracic Progress Note ---
Date of Encounter: 04/21/19 Time of Encounter: 09:28 - Assessment and plan (1) NSTEMI (non-ST elevated myocardial infarction) Current Visit: Yes Status: Acute The patient is scheduled for open heart surgery tomorrow. Unfortunately, his creatinine increased to 1.65. We will check a creatinine tomorrow morning. Operative consent was obtained. At this point, he and his family have no questions. - Subjective Interval history: The patient has had no angina and no chest pain. Vital Signs, Last 4 Hours Temp Pulse Resp BP Pulse Ox 04/21/19 07:41 18 85 04/21/19 06:54 98.1 F 76 18 159/78 93 Oxgyen Flow Rate Oxygen Flow Rate (LPM) 2 Weight 04/19/19 04/20/19 04/21/19 23:59 23:59 23:59 Weight 102.1 kg Lungs have scattered rales at the bases. Heart is in a normal sinus rhythm. - Labs 04/20/19 06:17 04/21/19 06:16 Lab Results, Last 24 hours 04/21/19 04/21/19 06:16 06:16 INR 1.2 Sodium 135 L Potassium 3.8 Chloride 90 L Carbon Dioxide 36 H BUN 42 H Creatinine 1.65 H Glucose 385 H Calcium 9.2 Magnesium 1.9 Consult Discharge Plan - Plan Referrals: Mercedes Black MD [Primary Care Provider] -
[2019-04-21] MEDS ORDERED: CeFAZolin Syr 2,000MG/20 ML 2,000 MG/20 ML SYRINGE IVPB ONE (09:32)
[2019-04-21 10:41] LABS: Chol/HDL Ratio 2.8 (0-4.9)
[2019-04-21] MEDS: Heparin 25,000 UNIT/250 ML D5W 25,000 UNIT/250 ML IV.SOLN IVC SCH (11:33)
--- NOTE | 2019-04-21 12:13 | Internal Med Progress Note ---
Hospitalist Progress Note - Encounter Date of Encounter: 04/21/19 Time of Encounter: 12:11 - Subjective Interval History: Mr. Vang was seen at bedside this morning. His vitals were reviewed and he remained afebrile and normotensive overnight. Point of care glucose was elevated, counseled him on diet and changed long-acting regimen. Overall he den ies any fever, chills, nausea, emesis, shortness of breath or chest pain. - Exam Vitals: Temp Pulse Resp BP Pulse Ox 97.9 F 57 18 108/61 96 04/21/19 11:49 04/21/19 11:49 04/21/19 11:49 04/21/19 11:49 04/21/19 11:49 Exam: Gen: Vitals noted. No acute distress. Appears comfortable. Eyes: anicteric sclerae, moist conjunctivae; no lid-lag HENT: Atraumatic; oropharynx clear with moist mucous membranes Neck: Trachea midline; supple, no thyromegaly or lymphadenopathy Cardiac: Regular rate and irregular rhythm, no murmur, +S1/S2. No JVD noted. Pulmonary: CTA bilaterally, no wheezes, rales or rhonchi, equal chest expansion MSK: ROM intact, no joint swelling noted Extremities: no edema, nontender calf Skin: Normal temperature, turgor; no rash, ulcers or subcutaneous nodules Neuro: moves all extremities, no focal deficits. Psych: Appropriate mood and behavior. A&Ox3 - Assessment and Plan (1) NSTEMI (non-ST elevated myocardial infarction) Current Visit: Yes Status: Acute Assessment and Plan: Presented with SOB, chest pain, and diaphoresis - Troponin 0.2>>5.8 04/18/19 - Reports symptoms of unstable angina for the past two months - Hx of PCI. Last in 2008 - Underwent catheterization on 04/19/19 and showed stenosis in LAD, LCx and mid RCA. Plan: - Continue heparin drip - ASA, Statin, BB - Cath 04/19/19: LAD, LCx, RCA stenosis. - CT surgery consult for CABG, planned for Monday - NPO at midnight (2) Respiratory failure with hypercapnia Current Visit: Yes Status: Resolved Assessment and Plan: Resolved. Pt presented with respiratory failure - ABG on admission: pH 7.2, CO2 84 - Respiratory acidosis at admission - Secondary to pulmonary edema - Intubated on admission. Spent a day on vent in ICU - Repeat ABG on 04/18/19 showed pH of 7.43 and PCO2 of 52 and was removed firm mechanical ventilation Plan: - Continue O2 2L via nasal canula (3) CHF (congestive heart failure) Current Visit: Yes Status: Chronic Assessment and Plan: Acute exacerbation of diastolic CHF - Elevated BP on admission, 186/96 - Diuresed with IV lasix - TTE: EF55%, mild Left ventricular diastolic disfunction. Heart cath showed EF of 50% - CXR on 04/17/19: BL pulmonary edema - Lower extremity edema resolved Plan: - We will hold Lasix - Continue Metoprolol (4) PAF (paroxysmal atrial fibrillation) Current Visit: Yes Status: Chronic Assessment and Plan: Hx of paroxysmal Afib - On coumadin at home Plan: - On heparin drip - Holding coumadin, plan for CABG on 04/22/19 (5) Diabetes mellitus Current Visit: Yes Status: Chronic Assessment and Plan: History of diabetes at home on metformin 1000 mg twice a day Glucose remained elevated during current admission, likely multifactorial from D5 in heprain drip and diet -10 mg BID determir ordered -Continue sliding scalre -Continue diabetic diet -Hold determir on 04/22/19 (6) GERD (gastroesophageal reflux disease) Current Visit: Yes Status: Chronic Assessment and Plan: History of GERD continue home omeprazole DVT Prophylaxis: On heparin drip - Time Spent with Patient Total time spent is greater than 50% in coordination of care (as documented) at patient's floor/unit and/or counseling patient: Internal Medicine: Result - Labs CBC & Chem 7: 04/20/19 06:17 04/21/19 06:16 Labs: BMP 04/21/19 06:16 Sodium 135 L Potassium 3.8 Chloride 90 L Carbon Dioxide 36 H BUN 42 H Creatinine 1.65 H Glucose 385 H Calcium 9.2 - ABG Interpretation ABG results: ABG ABG pH 7.43 pH Units (7.32-7.45) 04/18/19 04:47 ABG pCO2 52 mmHg (35-45) H 04/18/19 04:47 ABG pO2 72 mmHg (85-104) L 04/18/19 04:47 ABG O2 Saturation 94 % (95-98) L 04/18/19 04:47 PT/INR, D-dimer PT 13.6 Seconds (9.4-12.1) H 04/21/19 06:16 - Impressions Impressions Chest X-Ray 04/21/19 09:32 IMPRESSION: Minimal linear left lower lobe opacity is likely atelectasis. D/ / 04/21/2019 10:39:50 Lamine Vela MD / earnold Interpreting Provider: Lamine Vela MD Consult Discharge Plan - Plan Referrals: Mercedes Black MD [Primary Care Provider] - (2) Respiratory failure with hypercapnia Qualifiers: Chronicity: acute Qualified Code(s): J96.02 - Acute respiratory failure with hypercapnia (3) CHF (congestive heart failure) Qualifiers: Heart failure type: diastolic Heart failure chronicity: acute Qualified Code(s): I50.31 - Acute diastolic (congestive) heart failure (5) Diabetes mellitus Qualifiers: Diabetes mellitus type: type 2 Diabetes mellitus alf insulin use: without termite treater helper use Diabetes mellitus complication status: with other specified complication Qualified Code(s): E11.69 - Type 2 diabetes mellitus with other specified complication (6) GERD (gastroesophageal reflux disease) Qualifiers: Esophagitis presence: without esophagitis Qualified Code(s): K21.9 - Gastro- esophageal reflux disease without esophagitis
[2019-04-21] MEDS: Chlorhexidine Rinse 15 ML MOUTHWASH MM SCH (21:45)
[2019-04-22] MEDS: Ipratropium/Albuterol Neb 3 ML IH SCH ×4 (04:13→15:41)
[2019-04-22] MEDS: Heparin 25,000 UNIT/250 ML D5W 25,000 UNIT/250 ML IV.SOLN IVC SCH (04:15)
[2019-04-22 05:44] LABS: INR 1.1; Prothrombin Time 12.2 Seconds (9.4-12.1)
[2019-04-22 05:57] LABS: Calcium 9.6 mg/dL (8.6-10.3); Potassium 4.3 mEq/L (3.5-5.1)
[2019-04-22] MEDS ORDERED: CeFAZolin Syr 2,000MG/20 ML 2,000 MG/20 ML SYRINGE IVPB ONE (06:00)
[2019-04-22] MEDS ORDERED: Aspirin 81 MG TAB.CHEW PO ONE (06:00)
[2019-04-22] MEDS ORDERED: Norepinephrine 4 MG in D5% in Water 250 ML IVC PRN (07:45)
[2019-04-22] MEDS ORDERED: Insulin Human Regular 100 UNIT in 0.9 % Sodium Chloride 100 ML IV PRN (07:45)
[2019-04-22] MEDS ORDERED: Heparin 15,000 UNIT in 0.9 % Sodium Chloride 500 ML IV ONE (07:45)
[2019-04-22] MEDS ORDERED: Dextrose 50 % in Water (Vial) 30 ML, Sodium Bicarbonate 20 MEQ, Lidocaine 1% 5 ML, Insu... TH ONE ×3 (07:45)
[2019-04-22] MEDS ORDERED: Dextrose 50 % in Water (Vial) 30 ML, Sodium Bicarbonate 20 MEQ, Potassium Chloride 15 M... TH ONE (07:45)
[2019-04-22 08:05] LABS: Estimated Average Glucose 206 mg/dl
--- NOTE | 2019-04-22 08:05 | Event Note ---
Date of Encounter: 04/22/19 Time of Encounter: 07:32 Patient is a 68-year-old type II diabetic, hypertensive man with known CAD, paroxysmal atrial fibrillation, hypercholesterolemia, CKD, Stage III and COPD. He was admitted to [facility] on 04/17/2019 with complaints of shortness of breath and upper extremity arm pain. His who had stage IV brain cancer fell at home and . He underwent cardiac catheterization was found to have severe 3 vessel CAD and an LVEF 50-60% (by echocardiogram). In particular, the patient has a 99% proximal LAD lesion, a 70% proximal LCx lesion, and a completely occluded proximal RCA. He was recommended for CABG with modified Maze procedure and left atrial appendage stapling for his CAD and proximal atrial fibrillation, respectively. I concur with this recommendation. The STS risk calculator reveals an operative mortality risk 4.99%, renal failure risk 13.32%, permanent stroke risk 2.26%, deep sternal wound infection risk 0.59%, and reoperation risk 3.56%. The patient understands the procedure, benefits, alternatives, and risks, and gives his informed consent. The patient will undergo this conbined procedure later today.
--- NOTE | 2019-04-22 08:24 | Invasive Diagnostic Lab Proc ---
Name: Jones Edwards Date of Study: 04/19/2019 Date: 1950 Ht: 68.9in Medical Record#: [id number] Age: 68 Wt: 224.87lb Gender: Male BSA: 2.17 Order #: [id number] BMI: 33.31 Physicians Procedure Physician: Kluas Brewster MD, [facility] Referring MD: Bin Ramachandran MD Referring MD: Staff Name Position Time In Nicolle Elder RN Pre-Op Nurse 02:00 PM Anil Andersen RN Monitor 02:41 PM Abi Barrios RT (R) Scrub 02:41 PM Vanda Thacker RT (R) Scrub 02:41 PM Ewelina Josue RN Bradder 02:41 PM Indications Indication Non-Stemi Procedures Performed Procedure L HRT ARTERY/VENTRICLE ANGIO Pre-Procedure Checklist Informed consent is complete signed and on chart. H&P is on chart. ID band is on and ID verified with patient. Patient NPO for procedure The procedure was described for the patient and questions were answered. Blood Pressure: 154/81 ECG is on chart. Plan of Care Patient will tolerate the procedure without complications. Adequate level of comfort will be maintained. Hemodynamics will remain stable Patient will recover from procedure without complications. Respiratory function will be maintained. Cardiac rhythm will remain stable. Patient temperature will be maintained. Patient and/or family have verbalized understanding of the procedure. Patient Education Chief Complaint/Reason for Test: Cardiac Cath Developmental Category: Geriatric (65+ years) Developmentally Appropriate for Age: Yes Learning Barriers: None Education Needs: Procedure Education Method: Verbal Information Taught: Cardiac Cath Educational Evaluation: Able to repeat information Intravenous Access Time IV Size Location DC'd Fluid/Drip Rate Units RN 02:16 PM 20g 1 /" Peripheral-Lock On Arrival Rt Antecubital No 02:16 PM PICC Line Lt Antecubital No Allergies No Known Allergies Vital Signs Time BP (mmHg) HR (bpm) O2 Sat. RR (bpm) LOC 02:41 PM / % 5 = Fully awake and oriented or at pre-proc level 02:46 PM 184 / 86 66 96 % 19 02:50 PM 152 / 78 68 91 % 15 02:55 PM 144 / 74 72 87 % 16 03:01 PM 148 / 77 92 96 % 19 03:05 PM 132 / 74 72 91 % 18 03:10 PM 148 / 70 81 92 % 21 02:41 PM / % 5 = Fully awake and oriented or at pre-proc level 02:56 PM / % 4 = Oriented but drowsy Procedural Medications Time Medication Dose Units Method Given By 02:42 PM Oxygen 2 L/min nasal cannula Ewelina Josue RN 02:46 PM Versed 2 mg Intravenous Ewelina Josue RN 02:47 PM Fentanyl 50 mcg Intravenous Ewelina Josue RN 03:00 PM Lidocaine 2% 0.5 ml Subcutaneous Klaus Brewster MD, [facility] 03:02 PM Heparin 4000 units Nitroglycerin 200 mcg Verapamil 2.5 mg Intraarterial Klaus Brewster MD, [facility] ASA Classification: CLASS II- Mild systemic disease (i.e. well-controlled diabetes, hypertension, asthma, cigarette smoking) Cassius Score Preprocedure Postprocedure Activity 2- Moves 4 extremities sustained head lift Activity 2- Moves 4 extremities sustained head lift Circulation 2- SBP +/= 20 points of pre-anesthetic level Circulation 2- SBP +/= 20 points of pre-anesthetic level Consciousness 2- Awake and alert oriented x 3 Consciousness 2- Awake and alert oriented x 3 O2 Saturation 2- Able to maintain O2 satruation of 92% on room air O2 Saturation 2- Able to maintain O2 satruation of 92% on room air Respiratory 2- Able to deep breathe and cough well Respiratory 2- Able to deep breathe and cough well Total Score 10 Total Score 10 Contrast Agent: Isovue Diagnostic Contrast: 51 ml Total Contrast: 51 ml Fluoro Dose: 21 mGy Procedure Log Time Note Enter By 02:40 PM Pt arrived to garage laborer 2 at 14:40 oparmarina 02:41 PM Anil Andersen RN Position: Monitor Time in: : oparmarina 02: PM Abi Barrios RT (R) Position: Scrub Time in: 14: oparker 02:41 PM Vanda Thacker RT (R) Position: Scrub Time in: : oparker 02:41 PM Ewelina Josue RN Position: Bradder Time in: 14:41 oparker 02:41 PM Patient charges- Angio tray pack, Navilyst 3mm J, Pulse Oximetry and ACIST tubing and transducer oparker 02:41 PM Physician arrived 14:41 oparker 02: PM Meet and greet completed oparker 02:41 PM Sign in performed according to hospital policy. Informed consent was obtained. oparker 02:41 PM Time: 14:41 Patient comfortable and pain free: Yes oparker 02:41 PM Time: 14:41LOC: 5 = Fully awake and oriented or at pre-proc level oparker 02:41 PM Procedure start 14:41 oparker 02:42 PM Time: 14:42 Oxygen on at 2 L/min per nasal cannula by Ewelina Josue RN oparker 02:42 PM CathStat 02:43 PM Hair removed from procedure site in procedure lab using clippers. Right wrist and Right groin prepped with Chloraprep by Ewelina Josue RN, then patient was draped. Skin intact. oparker 02:44 PM Vitals capture started with the following parameters, Patient=Adult, Interval=5 min, Initial Zfdkpgug=967 mmHg, Deflation Rate=3 mmHg, Cuff placed on Right Arm 02:45 PM Recorded ECG: HR=78 Condition=Condition 1 02:46 PM HR=66 bpm, ASHD=588/86 mmhg, SpO2=96.0 %, Resp=19 B/min, Comment=NSR 02:47 PM Time: 14:46 Versed 2 mg Intravenous Given by Ewelina Josue RN oparker 02:47 PM Time: 14:47 Fentanyl 50 mcg Intravenous Given by Ewelina Josue RN oparker 02:50 PM HR=68 bpm, BOOY=179/78 mmhg, SpO2=91.0 %, Resp=15 B/min, Comment=NSR 02:55 PM HR=72 bpm, PZMJ=526/74 mmhg, SpO2=87.0 %, Resp=16 B/min, Comment=NSR 02:56 PM Time: 14:41LOC: 5 = Fully awake and oriented or at pre-proc level oparker 02:56 PM Time: 14:41 Patient comfortable and pain free: Yes oparker 02:56 PM Time out was performed according to hospital policy. Conscious sedation and anesthesia was achieved (see medication log with in this report above) oparker 03:00 PM Time: 15:00 0.5 ml Lidocaine 2% to right radial Subcutaneous Given by Klaus Brewster MD, [facility] oparker 03:01 PM HR=92 bpm, AEJG=886/77 mmhg, SpO2=96.0 %, Resp=19 B/min, Comment=NSR 03:02 PM Access obtained by percutaneous puncture. 6Fr 10cm Terumo Glidesheath sheath placed in right Radial artery. [id number] oparker 03:02 PM Time: 15:02 Patient given 4,000 units Heparin, 200 mcg Nitroglycerin, and 2.5 mg Verapamil Intraarterial by Klaus Brewster MD, [facility]. This is given to reduce risk of vessel spasm and thrombosis. oparker 03:03 PM 0.035 260cm Navilyst 3mmJ wire [id number] oparker 03:03 PM 5Fr TIG catheter inserted over the wire DN oparker 03:04 PM Recorded Pressure: Ao, HR=82, Condition=Condition 1 (Aorta) Ao 120/78/97 03:04 PM LCA angiography performed in multiple views. oparker 03:05 PM HR=72 bpm, MSIE=824/74 mmhg, SpO2=91.0 %, Resp=18 B/min, Comment=NSR 03:05 PM ASA Class CLASS II- Mild systemic disease (i.e. well-controlled diabetes, hypertension, asthma, cigarette smoking) oparker 03:06 PM RCA angiography performed in multiple views. oparker 03:07 PM Catheter removed oparker 03:08 PM 5Fr Pigtail catheter inserted over the wire DN oparker 03:08 PM Catheter crossed the aortic valve and was selectively placed in the left ventricle. Pressures recorded on pullback for left heart catheterization. oparker 03:09 PM Recorded Pressure: LV, HR=78, Condition=Condition 1 (Left Ventricle) LV 123/-2/9 03:09 PM Recorded Pressure: LV, Ao, HR=76, Condition=Condition 1 (Left Ventricle) LV 115/2/7, (Aorta) Ao 86/23/55 03:10 PM Bolus angiogram of left Ventricle complete: 12 ml/sec for a total of 36 mls oparker 03:10 PM HR=81 bpm, LNCE=901/70 mmhg, SpO2=92.0 %, Resp=21 B/min, Comment=NSR 03:10 PM Physician consulting with Dr. Jose Francisco pack 03:11 PM Time: 14:56 Patient comfortable and pain free: Yes oparker 03:11 PM Time: 14:56LOC: 4 = Oriented but drowsy oparker 03:11 PM Procedure completed at 15:11 04/19/2019 oparker 03:12 PM Did you address MAGGY flow and Dominance? YesCoronary Dominance: right oparker 03:12 PM Sign out completed: Radiation Dose 153.05 mGy, 20.8 Gy/cm2 Fluoro Time: 1.3 Isovue 370 - 200ml contrast 51 ml given by Klaus Brewster MD, [facility]. Complications: None. The patient was discharged out of the cath lab technologist in stable condition. Sedation minutes 25. Cardiac Rehab Consult needed: Yes. Confirmed administered medications: Yes oparker 03:13 PM Isovue 370 - 200ml,1 Bottle(s) used. oparker 03:13 PM Arterial sheath pulled, Vasc Band closure device used and was Successful S/N. oparker 03:13 PM 9 ml air in Vasc Band. oparker 03:13 PM Estimated Blood Loss: minimal oparker 03:13 PM Post ECG NSR oparker 03:13 PM Post Blood Pressure 148/70 oparker 03:13 PM 15:13 Post Pulses Bilateral DP 1+ oparker 03:13 PM Information taught Cardiac Cath and Vasc Band oparker 03:14 PM Education needs Procedure, Plan of Care, and Disease Process oparker 03:14 PM Learning barriers :None oparker 03:14 PM Education Methods Verbal oparker 03:14 PM Education evaluation Able to repeat information oparker 03:14 PM Site status No bleeding/ No Hematoma - Rt Groin as reported by Vanda Thacker RT (R) at 15:14 oparker 03:14 PM Family placed in consult room. oparker 03:17 PM Lesion found in Mid RCA. Pre Stenosis: 100 Pre MAGGY Flow: oparker 03:17 PM Lesion found in Proximal LAD. Pre Stenosis: 90 Pre MAGGY Flow: oparker 03:17 PM Lesion found in Mid Circumflex. Pre Stenosis: 99 Pre MAGGY Flow: oparker 03:17 PM Proximal Left Anterior Descending Coronary Artery with 90% stenosis. If graft is supplying this territory, 0 % stenosis. oparker 03:18 PM Circumflex, Obtuse Marginal, Left Posterior Descending, and Left Posterolateral Coronary Arteries with 99 % stenosis. If graft is supplying this area, 0 % stenosis oparker 03:18 PM Right Coronary, Right Posterior Descending Arteries with Right Posterolateral and Acute Marginal branches with 100 % stenosis. If graft is supplying this area, 0 % stenosis sirena 03:27 PM Report given to Arleen ONEILL Pt taken to 2A Room #55. 15:27 sirena 03:27 PM Patient out of room: 15:27 sirena Complications Complication None Hemodynamics Pressures Site Systolic/A Wave Diastolic/V Wave Mean AO 120 78 97 LV 123 -2 9 LV 115 2 7 AO 86 23 55 Post Procedure Information Blood Pressure: 148/70 mmHg Rhythm: NSR Post procedural instructions were given Surgery consult for CABG Closure Device Time Device Success/Fail 04/19/2019 3:18:00 PM Mechanical Compression Successful Site Checks Time Location Status Staff Sheath In? Note 03:14 PM Rt Groin No bleeding/ No Hematoma Vanda Thacker RT (R) Pulses Time Site Pre-Procedure Post-Procedure Note 04/19/2019 2:16:00 PM Bilateral radial 2+ 04/19/2019 2:16:00 PM Bilateral DP & PT 1+ 3:13:00 PM Bilateral DP 1+ Updated by Anil Andersen RN on 04/22/2019 8:04:00 AM electronically signed on 04/22/2019 8:04:21 AM with status of Final
[2019-04-22] MEDS: Aspirin Enteric Coated 81 MG Tablet PO SCH (08:30)
[2019-04-22] MEDS: Insulin LISPRO 300 UNITS/3 ML VIAL SQ SCH ×4 (08:30→19:16)
[2019-04-22] MEDS ORDERED: *HR* Magnesium Sulfate 2 GM/50 ML PIGGYBACK IVPB ONE (09:22)
[2019-04-22] MEDS ORDERED: *HR* Heparin 10,000 UNIT/10 ML VIAL IV ONE (09:22)
[2019-04-22] MEDS ORDERED: Lidocaine 2% Syringe 100 MG/5 ML IV ONE (09:22)
[2019-04-22] MEDS ORDERED: Tranexamic Acid 1,000 MG/10 ML VIAL IVPB ONE (09:22)
[2019-04-22] MEDS ORDERED: Albumin Human 25% 25 GM/100 ML IV.SOLN IV ONE (09:22)
[2019-04-22] MEDS ORDERED: *HR* Phenylephrine 10 MG/ML VIAL IVC ONE (09:22)
[2019-04-22] MEDS ORDERED: Mannitol 25% vial 12.5 GM/50 ML VIAL IVP ONE (09:22)
--- NOTE | 2019-04-22 10:41 | Internal Med Progress Note ---
Hospitalist Progress Note - Encounter Date of Encounter: 04/22/19 Time of Encounter: 10:37 - Subjective Interval History: Pt feels OK today, denies complaints. Waiting patiently for CABG later today. Mood is somber as expected but says is doing OK. Denies N/V/D, CP, SOB, abd pain. Sugars better controlled over last 24h but still not ideal. - Exam Vitals: Temp Pulse Resp BP Pulse Ox 98.3 F 65 16 151/73 99 04/22/19 07:49 04/22/19 07:49 04/22/19 07:49 04/22/19 07:49 04/22/19 07:49 Exam: General: NAD, good eye contact, well appearing Thoracic: Normal breath sounds b/l, no wheezing or crackles Cardio: Normal S1 and S2, regular rate and rhythm Abdomen: Soft, nontender Extremities: Warm, well perfused. DP pulses 2+ b/l. Mild nonpitting edema b/l ankles Skin: Intact. No rashes, bruises, or ulcers Neuro: Awake, fully oriented. Speech fluent - Summary of Assessment and Plan Summary of Assessment and Plan: Jones Edwards is a 68 M w hx CAD, HFpEF, A-Fib on AC, DM2, CKD3a, COPD, smoker, who p/w SOB, found to be hypoxic and hypercapneic, elevated trop and ECG showing ST depressions, and CXR w interstitial edema, concerning for NSTEMI causing acute on chronic HFpEF causing acute pulmonary edema causing acute hyp oxic and hypercapneic respiratory failure. Pt underwent LHC which showed multivessel disease, for which CT Surg is planning CABG on 04/22. Obstructive multivessel CAD: - CT Surg consulted, planning CABG today - medical therapy as below for NSTEMI NSTEMI: - hep gtt until surgery above - continue metoprolol 25 bid - consider ACEi prior to d/c but defer until after CABG - lipitor 40, ASA 81, deferred DAPT due to planned CABG HFpEF: acute exacerbation and pulmonary edema resolved, maintaining euvolemia - hold on further diuresis at this time and monitor volume status A-Fib: holding coumadin, on hep gtt as above, rate controlled on metoprolol 25 bid HTN: holding home HCTZ 25 and lisinopril 5 DM2: uncontrolled, w hyperglycemia, holding metformin, on basal + SSI, goal 100- 180 while inpatient CKD3a: baseline Cr ~1.3 Depression: home SSRI GERD: home PPI Smoker: nicotine offered, cessation strongly advised Obesity: BMI 33 PPx: hep gtt until surgery Activity: ambulate as tolerated FEN: NPO until surgery then ADA, no MIVF Lines: PIV Consults: Cardio, CT Surg Code: Full Dispo: patient requires inpatient eval and management at this time. Anticipate 3-4 days. Dispo pending outcome of surgery. Internal Medicine: Result - Labs CBC & Chem 7: 04/20/19 06:17 04/22/19 05:21 Labs: BMP 04/22/19 05:21 Sodium 136 Potassium 4.3 Chloride 94 L Carbon Dioxide 34 H BUN 36 H Creatinine 1.49 H Glucose 259 H Calcium 9.6 - ABG Interpretation ABG results: ABG ABG pH 7.43 pH Units (7.32-7.45) 04/18/19 04:47 ABG pCO2 52 mmHg (35-45) H 04/18/19 04:47 ABG pO2 72 mmHg (85-104) L 04/18/19 04:47 ABG O2 Saturation 94 % (95-98) L 04/18/19 04:47 PT/INR, D-dimer PT 12.2 Seconds (9.4-12.1) H 04/22/19 05:21 - Impressions Impressions Chest X-Ray 04/21/19 09:32 IMPRESSION: Minimal linear left lower lobe opacity is likely atelectasis. D/ / 04/21/2019 10:39:50 [facility] Interpreting Provider: Lamine Vela MD Consult Discharge Plan - Plan Referrals: Mercedes Black MD [Primary Care Provider] -
--- NOTE | 2019-04-22 11:13 | Anesthesia Evaluation PreOp ---
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 History: Denies Any Significant HX Other Medical History: Renal (CKD stage 3), Diabetes Type II Anesthesia History: No Prior Anesthetic Complications, Past Anesthesia Alcohol Use: none Drug use: none Medications and Allergies Carvedilol 12.5 mg PO BIDWM 04/18/19 [History] Lisinopril [Zestril] 5 mg PO DAILY 04/18/19 [History] Metformin HCl 1,000 mg PO BIDWM 04/18/19 [History] Pantoprazole Sodium [Protonix] 40 mg PO DAILY 04/18/19 [History] Sertraline [Zoloft] 50 mg PO DAILY 04/18/19 [History] Simvastatin [Zocor] 40 mg PO HS 04/18/19 [History] Warfarin Sodium 4 mg PO AD 04/18/19 [History] Warfarin Sodium 5 mg PO AD 04/18/19 [History] hydroCHLOROthiazide [Hydrochlorothiazide] 25 mg PO DAILY 04/18/19 [History] Allergy/AdvReac Type Severity Reaction Status Date / Time No Known Allergies Allergy Verified 04/18/19 08:46 - Meds/Allergy Pre-op Review Medications Reviewed: Yes Allergies Reviewed: Yes Beta Blockers on Current Med List: Yes (metoprolol) If Beta Blockers taken, Date/Time (Last Dose taken): 0545 Anesthesia Results - Labs 04/20/19 06:17 04/22/19 05:21 Laboratory Tests 04/22/19 05:21 PT 12.2 H INR 1.1 - Imaging EKG: report reviewed (Sinus rhythm Probable left atrial enlargement Borderline repolarization abnormality) Additional studies: 03/2019 echocardiogram w enhance Impressions: LVEF 55%. Mild left ventricular diastolic dysfunction. Definity echo contrast was used. Right ventricular structure is not well visualized. Systolic function normal by Tissue Doppler. No significant valvular dysfunction. No pulmonary hypertension. There is a small pericardial effusion present. There is no echocardiographic evidence of tamponade. Left Ventricular Wall Motion: Rest Echo Findings All wall segments showed normal motion. Findings: Study Quality * Technically challenging echo windows. ECG Findings * Normal sinus rhythm. Left Ventricle * LVEF 55%. * Mild left ventricular diastolic dysfunction. * Definity echo contrast was used. * LV chamber size and wall thickness are normal. Right Ventricle * Right ventricular structure is not well visualized. Systolic function normal by Tissue Doppler. Left Atrium * Normal left atrial size. Right Atrium * Normal right atrial size. Aortic Valve * No aortic regurgitation. * Aortic valve not well visualized. * No aortic stenosis. Mitral Valve * No mitral regurgitation. * Normal mitral valve structure. * No mitral stenosis. * Mild mitral annular calcification Tricuspid Valve * Tricuspid valve not well visualized. * Trace tricuspid regurgitation. * Estimated RA pressure is 8 mmHg. Pulmonic Valve * Pulmonic valve is not well visualized. * No pulmonic stenosis. * No pulmonic regurgitation. Pulmonary Artery * Pulmonary artery not well visualized. Aorta * Not well visualized. Pericardium * There is a small pericardial effusion present. * There is no echocardiographic evidence of tamponade. Interatrial Septum * No evidence of PFO by color Doppler. IVC * The IVC is not dilated. * < 50% respiratory change. Cardiac catheterization done today revealed an ejection fraction of 50% with triple-vessel disease. The circumflex is 70% with a good obtuse marginal branch that is bypassable. The distal circumflex appears to be too small for grafting. The right coronary artery was 100% but did fill by collaterals. The LAD was 99%, but did appear to be a small and diffusely diseased vessel Anesthesia Exam Vital Signs/O2 Sat/Glucose, Most Recent Temp Pulse Resp BP Pulse Ox 98.2 F 70 16 141/67 100 04/22/19 11:19 04/22/19 11:19 04/22/19 11:19 04/22/19 11:19 04/22/19 11:19 Blood Glucose* 226 Weight: 102 kg NPO (# of Hours): > 8 hr - HEENT Pupil (Motor): Pupils equal Mallampati: II Teeth: Edentulous - DRESS CUTTER LOC: Oriented DRESS CUTTER Motor: Normal RUE, Normal LUE, Normal RLE, Normal LLE, Normal Face DRESS CUTTER Sensory: Normal: RUE, LUE, RLE, LLE, Face - Cardiac Rhythm: Regular Murmur: None - Pulmonary Breath Sounds: bilateral Clear Respiratory Effort: Symmetrical Anesthesia Assess/Plan ASA Score: 4 Level of consciousness: Cooperative, Oriented Anesthetic Plan: General Monitoring Plan: Standard Monitors, A-Line, CVC, PAC, LUDMILA Recovery Plan: ICU
[2019-04-22] MEDS: Chlorhexidine Rinse 15 ML MOUTHWASH MM SCH ×2 (12:45→20:50)
[2019-04-22] MEDS ORDERED: Chlorhexidine Rinse 15 ML MOUTHWASH MM SCH (12:45)
[2019-04-22] MEDS ORDERED: Nitroglycerin 25 MG/250 ML INFUS..BTL IVC ONE (13:49)
[2019-04-22] MEDS ORDERED: *HR* FentaNYL (PF) 1,000 MCG/20 ML VIAL ONE (13:51)
[2019-04-22] MEDS ORDERED: *HR* Propofol 200 MG/20 ML VIAL IVP ONE (13:51)
[2019-04-22] MEDS ORDERED: *HR* Midazolam HCl 5 MG/5 ML VIAL IVP ONE (13:51)
[2019-04-22] MEDS ORDERED: *HR* Rocuronium Bromide 50 MG/5 ML VIAL ONE ×3 (13:52→17:31)
[2019-04-22] MEDS ORDERED: Dexamethasone 4 MG/ML VIAL ONE (13:53)
[2019-04-22] MEDS ORDERED: *HR* Magnesium Sulfate 1 GM/2 ML VIAL ONE (13:56)
[2019-04-22] MEDS ORDERED: Famotidine 20 MG/2 ML VIAL ONE (13:56)
[2019-04-22 14:11] LABS: ABG Base Excess 6 mEq/L (-2 to 3); ABG Chloride 101 mEq/L (98-107); ABG Glucose 221 mg/dL (60-95); ABG HCO3 33 mEq/L (21-27); ABG Ionized Calcium 1.07 mmol/L (1.15-1.35); ABG Oxygen Saturation 100 % (95-98); ABG PCO2 54 mmHg (35-45); ABG PH 7.39 pH Units (7.32-7.45); ABG PO2 253 mmHg (85-104); ABG TCO2 35 mEq/L (20-26)
[2019-04-22] MEDS ORDERED: *HR* FentaNYL (PF) 250 MCG/5 ML VIAL ONE (15:19)
[2019-04-22] MEDS ORDERED: *HR* PHENYLEPHRINE 1,000 MCG/10 ML SYRINGE IVP ONE ×2 (15:21→15:37)
[2019-04-22 15:58] LABS: ABG Base Excess 6 mEq/L (-2 to 3); ABG Chloride 95 mEq/L (98-107); ABG Glucose 301 mg/dL (60-95); ABG HCO3 31 mEq/L (21-27); ABG Ionized Calcium 1.05 mmol/L (1.15-1.35); ABG Oxygen Saturation 100 % (95-98); ABG PCO2 43 mmHg (35-45); ABG PH 7.46 pH Units (7.32-7.45); ABG PO2 428 mmHg (85-104); ABG TCO2 32 mEq/L (20-26)
--- NOTE | 2019-04-22 16:15 | Anesthesia Procedures ---
Date of Encounter: 04/22/19 Time of Encounter: 16:14 Procedures: Anesthesia - Arterial Line Consent obtained: written consent Time out performed: Yes Sedation: Versed (mg): 3 Sedation: Fentanyl (mcg): 100 Supplemental Oxygen via Nasal Cannula (L/min): 8 Local Anesthetic: Lidocaine 1% Size (Gauge): 20 Length (inches): 1 3/4 Technique Used: direct puncture technique Post-Procedure: line taped into place, dry sterile dressing placed Patient tolerated procedure: well, no complications Complications: none Site: Radial L Vitals: see anesthesia record - Central Line Placement Right IJ Consent obtained: written consent Time out performed: Yes Patient placed on monitor/pulse ox: Yes MD prep: mask, gown, gloves Central line prep: Chlorhexidine scrub Local Anesthetic Used: Other (general anesthesia ) Ultrasound used for placement: Yes Technique: Seldinger Lumen Inserted: single Size / Length: 9 Fr / 10 cm Post procedure: sutured in place, good blood return, sterile dressing applied Patient tolerated procedure: well, no complications Complications: none Vitals: see anesthesia record Comments: PAC inserted to 49 cm using pressure waveform analysis
[2019-04-22 16:35] LABS: ABG Base Excess 6 mEq/L (-2 to 3); ABG Chloride 96 mEq/L (98-107); ABG Glucose 263 mg/dL (60-95); ABG HCO3 30 mEq/L (21-27); ABG Ionized Calcium 1.09 mmol/L (1.15-1.35); ABG Oxygen Saturation 100 % (95-98); ABG PCO2 41 mmHg (35-45); ABG PH 7.47 pH Units (7.32-7.45); ABG PO2 304 mmHg (85-104); ABG TCO2 31 mEq/L (20-26)
[2019-04-22] MEDS ORDERED: Protamine Sulfate 250 MG/25 ML VIAL IVP ONE (16:48)
[2019-04-22] MEDS ORDERED: Calcium Gluconate 1,000 MG/10 ML VIAL ONE (16:48)
[2019-04-22 17:03] LABS: ABG Base Excess 4 mEq/L (-2 to 3); ABG Chloride 93 mEq/L (98-107); ABG Glucose 263 mg/dL (60-95); ABG HCO3 28 mEq/L (21-27); ABG Ionized Calcium 1.05 mmol/L (1.15-1.35); ABG Oxygen Saturation 100 % (95-98); ABG PCO2 40 mmHg (35-45); ABG PH 7.46 pH Units (7.32-7.45); ABG PO2 197 mmHg (85-104); ABG TCO2 29 mEq/L (20-26)
[2019-04-22 17:28] LABS: ABG Base Excess 5 mEq/L (-2 to 3); ABG Chloride 96 mEq/L (98-107); ABG Glucose 217 mg/dL (60-95); ABG HCO3 29 mEq/L (21-27); ABG Ionized Calcium 1.08 mmol/L (1.15-1.35); ABG Oxygen Saturation 100 % (95-98); ABG PCO2 42 mmHg (35-45); ABG PH 7.45 pH Units (7.32-7.45); ABG PO2 203 mmHg (85-104); ABG TCO2 30 mEq/L (20-26)
[2019-04-22 17:50] LABS: ABG Base Excess 3 mEq/L (-2 to 3); ABG Chloride 97 mEq/L (98-107); ABG Glucose 209 mg/dL (60-95); ABG HCO3 27 mEq/L (21-27); ABG Ionized Calcium 1.28 mmol/L (1.15-1.35); ABG Oxygen Saturation 100 % (95-98); ABG PCO2 41 mmHg (35-45); ABG PH 7.44 pH Units (7.32-7.45); ABG PO2 280 mmHg (85-104); ABG TCO2 29 mEq/L (20-26)
--- NOTE | 2019-04-22 18:19 | Operative Note ---
Date of procedure: 04/22/19 Pre-op diagnosis: NSTEMI Post-op diagnosis: same Procedure: 1. CABG4 (NEGRETE to LAD, sequential SVG to D1 then OM1, SVG to PDA). 2. LAD endarterectomy. 3. Modified Maze procedure using radiofrequency ablation. 4. Left atrial appendage stapling. 5. Endoscopic vein harvesting, greater saphenous vein from left lower extremity. Implants: None. Complications: None. Anesthesia: GETA Surgeon: Quin Brown Was there an process assistant present: Yes Strategy Planning Consultant: Irving Hathaway Estimated blood loss (cc): 500 Specimen: None. Condition: stable Disposition: ICU Procedure in Detail: INDICATIONS FOR OPERATION: The patient is a 68-year-old type II diabetic, hypertensive man with known CAD, paroxysmal atrial fibrillation, hypercholesterolemia, and COPD. His was terminally ill and collapsed at home on 04/17/2019. When he went to her side, he developed shortness of breath and dyspnea on exertion. The respiratory insufficiency continued and when he arrived in the emergency department, he was obtunded. He required intubation in order to protect his airway. He was rapidly extubated and found to have elevated troponin I levels consistent with an acute NSTEMI. He underwent cardiac catheterization was found to have severe 3 vessel CAD and an LVEF 55% (by transthoracic echocardiogram). In particular, the patient had a 99% proximal LAD lesion with severe distal disease and a small caliber vessel, a 70% proximal OM1 lesion, a 70% mid LCx lesion, and a completely occluded proximal RCA which fills distally via [id number] collaterals. He was recommended for combined CABG and modified Maze procedure with left atrial appendage stapling for CAD and paroxysmal atrial fibrillation, respectively. FINDINGS AT OPERATION: The aorta was of normal caliber, but thickened with calcification, particularly posteriorly. The coronary arteries measure approximately 1.5 mm in diameter and had moderate distal disease, particularly the distal LAD which required an endarterectomy in order to establish a patent distal lumen. The PDA was grafted distally because of a previous stent and the proximal and midportion. The greater saphenous vein was harvested endoscopically from the left lower extremity from the knee to the groin and was of good quality. The total bypass time was 108 minutes, cross-clamp time 65 minutes, intentional hypothermia of 34.2 degrees centigrade. DESCRIPTION OF OPERATION: After obtaining informed operative consent from the patient, he was taken to the operating room where a satisfactory general endotracheal anesthetic was induced. Appropriate monitor lines were placed, and the patient's chest, abdomen, and lower extremities were prepped and draped in a sterile fashion. The greater saphenous vein was initially identified in the right lower extremity; however, was small and not suitable for bypass conduit. The greater saphenous vein was then harvested endoscopically from the left lower extremity from the knee to the groin. The vein was removed, distended, and found to be of good quality. The simultaneous tissue and skin edges were reapproximated running Vicryl sutures. Simultaneously a standard median sternotomy incision was made and the sternum divided. The NEGRETE was taken down from its bed and side branches divided between hemoclips. The sternum was and the pericardium opened and reflected laterally. The patient was prepared for cannulation by placing pursestring sutures the distal ascending aorta, mid-ascending aorta, and right atrial appendage. The patient was heparinized and when the ACT was greater than 200 seconds, the distal ascending aorta was cannulated followed by placement of a dual stage venous cannula through the right atrial appendage and into the inferior vena cava. A stab-and antegrade metabolic and is placed in mid- ascending aorta. The patient was placed on bypass the temperature allowed to drift to 34.2 deg dany centigrade. The distal targets were identified and the aorta was crossclamped. The patient received 700 mL of cold antegrade crystalloid cardioplegia through the aortic root and the patient's heart obtained rapid diastolic arrest. The right inferior and superior pulmonary veins were identified and encircled with a red rubber catheter. A transmural lesion was made to the left pulmonary veins using a radiofrequency ablation device. The PDA was then opened with a [place] blade, distal to a previous proximal/mid PDA stent. At this portion of the PDA, the vein measured approximately 1.25 mm in diameter and had mild distal disease. The vein was anastomosed in an end-to-side fashion using a running 7-0 Prolene suture. The anastomosis was found to be hemostatic and the patient received another dose of cold antegrade crystalloid cardioplegia through the aortic root. The left inferior and superior pulmonary veins were identified and encircled with a red rubber catheter. A transmural lesion was made to the left pulmonary veins using a radiofrequency ablation device. The OM1 branch was opened be blade and the vein was anastomosed in an end-to-side fashion using running 7-0 Prolene suture. The D1 branch was opened be blade and the vein was opened longitudinal fashion so the [id number]-cv-[id number] anastomosis could be completed using running 7-0 Prolene suture. The anastomosis found to be hemostatic and the patient received a final dose of cold antegrade crystalloid cardioplegia through the aortic root. The LAD was opened be blade and a large amount of plaque was encountered. This vessel required an endarterectomy and outer establish a patent distal lumen. The endarterectomy specimen tapered nicely both proximally and distally and a 1 mm probe was passed in both directions without encountering obstructions. The NEGRETE was anastomosed in end-to-side fashion to the LAD using a running 7-0 Prolene suture. The anastomosis found to be hemostatic and the mammary pedicle was tacked to the epicardium using interrupted 5-0 silk suture. Rewarming was begun during this anastomosis. Aortic cross-clamp was released and the heart distended. The veins were measured and cut appropriate lengths. A partial occluding clamps placed across the mid ascending aorta and the antegrade cardioplegia cannula was removed. Additional aortotomy site was made 11 blade and both sites were enlarged performing were punch. The was at this point of the operation at the aorta was found to be thickened and calcified. The veins were anastomosed in an end-to-side fashion to the aorta using a running 5-0 Prolene suture. The vein grafts were occluded with bulldog clamps and de-aired the 25-gauge needle prior to removing the partial occluding clamp. The proximal and distal anastomoses were found to be hemostatic and the proximal anastomoses were marked with radiopaque loops. Two right ventricular temporary pacing lesion placed, and 3 chest suture placed, 2 in the mediastinum once the left pleural space. During rewarming the patient's heart regained normal sinus rhythm spontaneously. When the patient's systemic temperature reached 36 degrees centigrade, he was ventilated and received volume. He was weaned from bypass required no inotropic support. Protamine was administered and the aortic and venous cannulae were removed. The pursestring sutures were secured. The aortic cannulation site was reinforced with a pledgeted 4-0 Prolene suture and the venous cannulation site was reinforced with a running 4-0 Prolene suture. The pericardium was reapproximated over the aorta and the pulmonary artery; however, could not be reapproximated over the right ventricle due to excessive tension. The sternum was reapproximated using doubled wires. The pectoralis major fascia, rectus abdominis fascia, subcutaneous tissue, and skin edges were reapproximated running Vicryl sutures. A negative pressure sterile dressings was applied. The patient was transferred to the ICU in satisfactory postoperative condition. There were no intraoperative complications, and the instrument, needle, and sponge count were corrected at end of operation. - Open Heart Detail [place] (Internal Mammary Artery) Usage: Yes Cardiopulmonary Bypass Time (mins): 108 Aortic Cross Clamp Time (mins): 65 Intentional Hypothermia Temperature (C.): 34.2
[2019-04-22] MEDS ORDERED: *HR* Dextrose 50 % in Water (Syg) 50 ML SYRINGE IVP PRN (18:41)
[2019-04-22] MEDS ORDERED: Potassium Chloride 40 MEQ/200 ML BAG IVPB PRN (18:41)
[2019-04-22] MEDS ORDERED: Insulin Regular, Human 100 UNIT/ML IV PRN (18:41)
[2019-04-22] MEDS ORDERED: Acetaminophen 650 MG RECTAL SUPP RC PRN (18:42)
[2019-04-22] MEDS ORDERED: Acetaminophen 325 MG TABLET PO PRN (18:42)
[2019-04-22] MEDS ORDERED: Ondansetron 4 MG/2 ML VIAL IVP PRN (18:42)
[2019-04-22] MEDS ORDERED: Calcium Gluconate 1gm/50mL 1 GM/50 ML BAG IVPB PRN (18:42)
[2019-04-22] MEDS ORDERED: 0.9 % Sodium Chloride w KCl 20 MEQ/1,000 ML MLS IVC SCH (18:45)
[2019-04-22] MEDS: Insulin Human Regular 100 UNIT in 0.9 % Sodium Chloride 100 ML IVC SCH (18:50)
[2019-04-22 19:00] LABS: ABG Base Excess 4 mEq/L (-2 to 3); ABG HCO3 31 mEq/L (21-27); ABG Oxygen Saturation 97 % (95-98); ABG PCO2 53 mmHg (35-45); ABG PH 7.37 pH Units (7.32-7.45); ABG PO2 97 mmHg (85-104); ABG TCO2 33 mEq/L (20-26); Blood Gas Modality VC; Blood Gas PEEP 5 cm H2O; Blood Gas VT 600 cc
[2019-04-22 19:10] LABS: Basophils % 0.2 %; Eosinophils # 0.1 K/mcL (0.0-0.6); Eosinophils % 0.7 %; Hematocrit 39.6 % (37.5-50.1); Immature Granulocytes % 0.6 % (0-4); Lymphocytes # 0.7 K/mcL (0.6-4.6); Lymphocytes % 3.6 %; Mean Corpuscular HGB Conc 34.3 g/dL (31.6-35.5); Mean Corpuscular Hemoglobin 30.8 pg (28.0-33.3); Mean Corpuscular Volume 89.6 fL (83.0-100.0); Mean Platelet Volume 10.3 fL (9.4-12.4); Monocytes # 1.5 K/mcL (0.0-1.3); Monocytes % 7.8 %; Neutrophils # 16.6 K/mcL (1.6-8.9); Platelet Count 117 K/mcL (140-400); Red Blood Count 4.42 M/mcL (4.19-5.50); Red Cell Distribution Width 12.3 % (11.5-14.5); Segmented Neutrophils % 87.1 %
[2019-04-22 19:13] LABS: Hemoglobin 13.6 g/dL (12.9-16.9)
[2019-04-22] MEDS: *HR* FentaNYL (PF) 100 MCG/2 ML VIAL IVP PRN ×2 (19:15→21:31)
[2019-04-22] MEDS: Pantoprazole 40 MG VIAL IVP SCH (19:15)
[2019-04-22 19:30] LABS: BUN/Creatinine Ratio 23 (6-26); Blood Urea Nitrogen 27 mg/dL (8-23); Calcium 8.7 mg/dL (8.6-10.3); Carbon Dioxide 33 mEq/L (23-29); Chloride 101 mEq/L (98-107); Glucose 163 mg/dL (70-105); Magnesium 2.8 mg/dL (1.6-2.6); Osmolality,Calculated 295 (280-300); Potassium 3.7 mEq/L (3.5-5.1); Sodium 138 mEq/L (136-145); eGFR For African Americans > 60 (> 60); eGFR For Non-African Americans > 60 (> 60)
[2019-04-22] MEDS: Nitroglycerin 25 MG/250 ML INFUS..BTL IVC SCH (19:43)
[2019-04-22] MEDS: Norepinephrine 4 MG in D5% in Water 250 ML IVC SCH (19:58)
[2019-04-22 20:06] LABS: INR 1.2; Prothrombin Time 13.8 Seconds (9.4-12.1)
[2019-04-22 20:09] LABS: Activated Partial Thrombo Time 31.1 Seconds (26.0-36.0)
[2019-04-22] MEDS: niCARdipine 20 MG in 0.9 % Sodium Chloride 192 ML IVC SCH (21:02)
[2019-04-22] MEDS: *HR* OxyCODONE/APAP 5/325 TABLET PO PRN (21:31)
[2019-04-22 23:18] LABS: ABG Base Excess 4 mEq/L (-2 to 3); ABG HCO3 31 mEq/L (21-27); ABG Oxygen Saturation 99 % (95-98); ABG PCO2 54 mmHg (35-45); ABG PH 7.37 pH Units (7.32-7.45); ABG PO2 137 mmHg (85-104); ABG TCO2 33 mEq/L (20-26); Blood Gas Modality VC; Blood Gas PEEP 5 cm H2O; Blood Gas VT 600 cc
[2019-04-22] MEDS: Metoclopramide 10 MG/2 ML VIAL IVP SCH (23:32)
[2019-04-23 00:29] LABS: ABG Base Excess 5 mEq/L (-2 to 3); ABG HCO3 30 mEq/L (21-27); ABG Oxygen Saturation 99 % (95-98); ABG PCO2 48 mmHg (35-45); ABG PH 7.41 pH Units (7.32-7.45); ABG PO2 158 mmHg (85-104); ABG TCO2 32 mEq/L (20-26); Blood Gas Modality CPAP/PS; Blood Gas PEEP 5 cm H2O; Blood Gas Pressure Support 5 cm H2O
[2019-04-23] MEDS: *HR* OxyCODONE/APAP 5/325 TABLET PO PRN ×4 (04:02→20:09)
[2019-04-23 04:18] LABS: Basophils % 0.1 %; Hematocrit 42.5 % (37.5-50.1); Hemoglobin 14.4 g/dL (12.9-16.9); Immature Granulocytes % 0.5 % (0-4); Lymphocytes # 0.7 K/mcL (0.6-4.6); Lymphocytes % 3.3 %; Mean Corpuscular HGB Conc 33.9 g/dL (31.6-35.5); Mean Corpuscular Hemoglobin 30.4 pg (28.0-33.3); Mean Corpuscular Volume 89.7 fL (83.0-100.0); Mean Platelet Volume 10.2 fL (9.4-12.4); Monocytes # 1.2 K/mcL (0.0-1.3); Monocytes % 5.6 %; Neutrophils # 18.7 K/mcL (1.6-8.9); Platelet Count 117 K/mcL (140-400); Red Blood Count 4.74 M/mcL (4.19-5.50); Red Cell Distribution Width 12.6 % (11.5-14.5); Segmented Neutrophils % 90.5 %; White Blood Count 20.6 K/mcL (4.3-11.1)
[2019-04-23 04:26] LABS: INR 1.1; Prothrombin Time 12.2 Seconds (9.4-12.1)
[2019-04-23 04:28] LABS: Activated Partial Thrombo Time 32.6 Seconds (26.0-36.0)
[2019-04-23 04:48] LABS: BUN/Creatinine Ratio 23 (6-26); Blood Urea Nitrogen 28 mg/dL (8-23); Calcium 8.8 mg/dL (8.6-10.3); Carbon Dioxide 29 mEq/L (23-29); Chloride 103 mEq/L (98-107); Glucose 170 mg/dL (70-105); Magnesium 2.3 mg/dL (1.6-2.6); Osmolality,Calculated 297 (280-300); Potassium 5.2 mEq/L (3.5-5.1); Sodium 139 mEq/L (136-145); eGFR For African Americans > 60 (> 60); eGFR For Non-African Americans 59 (> 60)
[2019-04-23] MEDS: Nitroglycerin 25 MG/250 ML INFUS..BTL IVC SCH ×4 (05:13→23:27)
[2019-04-23] MEDS: Insulin LISPRO 300 UNITS/3 ML VIAL SQ SCH ×2 (05:14→13:35)
[2019-04-23] MEDS: Metoclopramide 10 MG/2 ML VIAL IVP SCH ×4 (05:16→23:36)
--- NOTE | 2019-04-23 06:17 | Cardiothoracic Progress Note ---
Date of Encounter: 04/23/19 Time of Encounter: 06:16 - Assessment and plan (1) NSTEMI (non-ST elevated myocardial infarction) Current Visit: Yes Status: Acute The patient is recovering well from his CABG4, LAD endarterectomy, modified Maze procedure, and left atrial appendage stapling. He remained hemodynamically stable overnight. He is currently extubated and breathing comfortably. He had some hematuria postoperatively and will be evaluated by urology today. The arterial line and [place] catheter be removed. The patient will remain in the ICU today for close postoperative monitoring. The assessment and plan as outlined above was discussed with the patient and/or family members who expressed understanding and agreement. All questions were answered. - Subjective Procedure(s) Performed: POD#1 S/P CABG4, LAD endarterectomy, modified Maze procedure, and left atrial appendage stapling Interval history: The patient remained hemodynamically stable overnight. He is currently extubated and breathing comfortably. He has no complaints. Vital Signs, Last 4 Hours Temp Pulse Resp BP Pulse Ox 04/23/19 06:00 97 16 107/46 94 04/23/19 05:00 104 16 110/47 92 04/23/19 04:01 16 92 04/23/19 04:00 98.6 F 98 16 100/46 92 04/23/19 03:17 99 04/23/19 03:00 98 12 140/54 97 Oxgyen Flow Rate Oxygen Flow Rate (LPM) 4 Clinical Data, last 8 Hours Output, Chest Tube Drainage 0 Amount [#2] Output, Chest Tube Drainage 10 Amount [#2] Output, Chest Tube Drainage 0 Amount [#2] Output, Chest Tube Drainage 15 Amount [#2] Output, Chest Tube Drainage 10 Amount [#2] Output, Chest Tube Drainage 0 Amount [#2] Output, Chest Tube Drainage 0 Amount [#2] Output, Chest Tube Drainage 0 Amount [#2] Output, Chest Tube Drainage 0 Amount [#1] Output, Chest Tube Drainage 5 Amount [#1] Output, Chest Tube Drainage 0 Amount [#1] Output, Chest Tube Drainage 5 Amount [#1] Output, Chest Tube Drainage 10 Amount [#1] Output, Chest Tube Drainage 0 Amount [#1] Output, Chest Tube Drainage 0 Amount [#1] Output, Chest Tube Drainage 20 Amount [#1] - Physical Examination General: Conversant, No Apparent Distress Neck: No JVD, Normal carotid pulses Cardiac: Reg Rate and Rhythm, Normal S1 and S2, No Murmur Incision: No signs of infection, Dry/intact dressing Chest tubes: Minimal drainage, Other (No air leak) Pacing Wires: In place Lungs: Normal Breath Sounds, No Wheeze, Rales, Rhonchi Neuro: Alert and responsive, No focal deficits noted Vascular: Normal capillary refill Extremities: No Clubbing, No Cyanosis, No Edema - Labs 04/23/19 04:10 04/23/19 04:10 Lab Results, Last 24 hours 04/22/19 04/22/19 04/22/19 18:52 18:52 18:52 WBC 19.0 H D Hgb 13.6 D Hct 39.6 Plt Count 117 L INR 1.2 APTT 31.1 Sodium 138 Potassium 3.7 Chloride 101 Carbon Dioxide 33 H BUN 27 H Creatinine 1.18 Glucose 163 H Calcium 8.7 Magnesium 2.8 H 04/23/19 04/23/19 04/23/19 04:10 04:10 04:10 WBC 20.6 H Hgb 14.4 Hct 42.5 Plt Count 117 L INR 1.1 APTT 32.6 Sodium 139 Potassium 5.2 H D Chloride 103 Carbon Dioxide 29 BUN 28 H Creatinine 1.21 Glucose 170 H Calcium 8.8 Magnesium 2.3 - Imaging Chest Xray: image reviewed (No pneumothorax. Minimal atelectasis/infiltrates.) - VTE Documentation of Mechanical Device: Graduated compression elastic hosiery Consult Discharge Plan - Plan Referrals: Mercedes Black MD [Primary Care Provider] -
[2019-04-23] MEDS ORDERED: 0.9 % Sodium Chloride 1,000 ML ONE (08:15)
[2019-04-23] MEDS: Furosemide 20 MG/2 ML VIAL IVP SCH ×2 (08:18→20:10)
[2019-04-23] MEDS: *HR* FentaNYL (PF) 100 MCG/2 ML VIAL IVP PRN (08:20)
[2019-04-23] MEDS: Pantoprazole 40 MG VIAL IVP SCH (08:31)
[2019-04-23] MEDS: Chlorhexidine Rinse 15 ML MOUTHWASH MM SCH ×2 (08:31→20:09)
[2019-04-23] MEDS: Aspirin Enteric Coated 81 MG Tablet PO SCH (08:32)
[2019-04-23] MEDS: 0.9 % Sodium Chloride 1,000 ML IVC SCH (08:33)
[2019-04-23] MEDS: Insulin Human Regular 100 UNIT in 0.9 % Sodium Chloride 100 ML IVC SCH (08:36)
--- NOTE | 2019-04-23 08:53 | Urology - Consult Note ---
<Angela Brown N - Last Filed: 04/23/19 08:49> Date of Encounter: 04/23/19 Time of Encounter: 07:55 - Assessment and Plan (1) Hematuria Current Visit: Yes Status: Acute Assessment and plan: Patient is a 68-year-old male who presents with a history of gross hematuria. Patient is not currently established with a urologist, and he has no prior history of gross hematuria. Vital signs are currently stable and afebrile. Hemoglobin is stable and reassuring. Urine appears to be clearing, however, patient is being anticoagulated with heparin. I discussed with nursing staff that if patient's urine appears Merlot or ketchup consistency without adequate drainage, urology must be notified to place a hematuria catheter. Given the patient's significant smoking history and initial presentation of hematuria preoperatively, patient will likely require a hematuria workup with a CT urogram and cystoscopy. I will discuss this with Dr. Parish who will reevaluate patient this afternoon. Qualifiers: Hematuria type: gross Qualified Code(s): R31.0 - Gross hematuria Urology CN:HPI Consult date: 04/23/19 Reason for consult Urology: Gross Hematuria Requesting physician: Quin Brown History of present illness: Patient is a 68-year-old male who presents with a history of gross hematuria. Patient is one day status post CABGx4 and LAD endarterectomy with Dr. Brown. Patient initially presented to the emergency department on 04/17/2019 in acute respiratory distress and was found to have significant pulmonary edema and elevated troponin. Patient was subsequently intubated and placed on a nitroglycerin drip. Patient has a significant past medical history of COPD and diabetes, and he has a significant smoking history greater than 50 years. A Davalos catheter was placed in the emergency department with return of reddish- brown urine. Urine culture was obtained and found to be negative for growth. Patient's urine appeared clear one day later on 04/18/2019 per pulmonary progress note. Patient was taken to surgery by Dr. Brown on 04/22/2019, and postoperatively, patient's urine appeared grossly bloody with bright red blood in catheter tubing. Urology was subsequently consulted. On my evaluation, patient is lying in bed in no apparent distress with nursing staff at bedside. Patient reports no prior history of gross hematuria, and he has no known history of BPH or urinary retention. Patient denies any known family history of malignancy. Currently, 16-Fr Davalos catheter is indwelling and draining transparent, pink lemonade urine into bedside bag, and patient is anticoagulated with heparin. Past Med Surg Social Fam HX - Past Medical History Medical history: atrial fibrillation, COPD, coronary artery disease, diabetes, hyperlipidemia, hypertension, myocardial infarction Additional medical history: Unale to answer Psychiatric history: other - Past Surgical History Additional surgical history: unable to answer - Social History Smoking Status: Current every day smoker Alcohol use: none Drug use: none - Family History Son Hx Family Cardiac Disorders: Yes (CHF) Mother History Unknown: Yes Father History Unknown: Yes Medications and Allergies Carvedilol 12.5 mg PO BIDWM 04/18/19 [History] Lisinopril [Zestril] 5 mg PO DAILY 04/18/19 [History] Metformin HCl 1,000 mg PO BIDWM 04/18/19 [History] Pantoprazole Sodium [Protonix] 40 mg PO DAILY 04/18/19 [History] Sertraline [Zoloft] 50 mg PO DAILY 04/18/19 [History] Simvastatin [Zocor] 40 mg PO HS 04/18/19 [History] Warfarin Sodium 4 mg PO AD 04/18/19 [History] Warfarin Sodium 5 mg PO AD 04/18/19 [History] hydroCHLOROthiazide [Hydrochlorothiazide] 25 mg PO DAILY 04/18/19 [History] Allergy/AdvReac Type Severity Reaction Status Date / Time No Known Allergies Allergy Verified 04/18/19 08:46 Review of Systems - Constitutional no chills, no fatigue, no fever(s) - EENT Nose, mouth and throat: no dizziness, no headache(s) - Cardiovascular chest pain, diaphoresis, dyspnea, edema - Respiratory cough, dyspnea - Gastrointestinal no abdominal pain, no nausea, no vomiting - Genitourinary hematuria, no change in urinary stream, no difficulty urinating, no dysuria, no flank pain, no nocturia, no urinary frequency, no urinary hesitancy, no urinary incontinence, no urinary urgency - Musculoskeletal no back pain, no muscle weakness - Integumentary no erythema, no rash - Neurological no confusion, no syncope - Psychiatric no anxiety, no confusion - Hematologic/Lymphatic easy bleeding, easy bruising - Allergic/Immunologic no throat swelling, no wheezing Exam Initial Vital Signs Temp Pulse Resp BP Pulse Ox 98.4 F 65 18 186/96 97 04/17/19 08:12 04/17/19 08:12 04/17/19 08:12 04/17/19 08:12 04/17/19 08:12 - General physical appearance Present: no distress, no pain - Eyes Present: PERRL, normal ocular movement - ENT Present: normal nares, no hearing loss, no congestion - Neck Present: no masses, trachea midline, no lymphadenopathy - Respiratory Present: normal respiratory effort - Cardiovascular Cardiovascular exam IM: RRR - Abdomen Abdomen: Present: soft, non tender. Absent: distended - Genitourinary other (Current catheter indwelling and draining transparent, pink lemonade urine into bedside bag) - Integumentary Present: no rash, no abnormal pigmentation - Neurologic Present: normal coordination - Musculoskeletal Present: other (Normal posture) Urology Results - Labs 04/23/19 04:10 04/23/19 04:10 Abnormal lab results WBC 20.6 K/mcL (4.3-11.1) H 04/23/19 04:10 RBC 5.60 M/mcL (4.19-5.50) H 04/17/19 08:40 Hgb 17.1 g/dL (12.9-16.9) H 04/17/19 08:40 Hct 52.8 % (37.5-50.1) H 04/17/19 08:40 Plt Count 117 K/mcL (140-400) L 04/23/19 04:10 Neutrophils # 18.7 K/mcL (1.6-8.9) H 04/23/19 04:10 Monocytes # 1.5 K/mcL (0.0-1.3) H 04/22/19 18:52 PT 12.2 Seconds (9.4-12.1) H 04/23/19 04:10 Heparin Anti-Xa, Unfract 0.00 IU/mL (0.30-0.70) L 04/22/19 18:58 ABG pH 7.46 pH Units (7.32-7.45) H 04/22/19 16:57 ABG pCO2 48 mmHg (35-45) H 04/23/19 00:26 ABG pO2 158 mmHg (85-104) H 04/23/19 00:26 ABG HCO3 30 mEq/L (21-27) H 04/23/19 00:26 ABG Total CO2 32 mEq/L (20-26) H 04/23/19 00:26 ABG O2 Saturation 99 % (95-98) H 04/23/19 00:26 ABG Base Excess 5 mEq/L (-2 to 3) H 04/23/19 00:26 ABG Hematocrit 29.0 % (37.5-50.1) L 04/22/19 17:44 ABG Chloride 97 mEq/L (98-107) L 04/22/19 17:44 Sodium 134 mEq/L (135-148) L 04/22/19 16:57 Glucose 209 mg/dL (60-95) H 04/22/19 17:44 Sodium 135 mEq/L (136-145) L 04/21/19 06:16 Potassium 5.2 mEq/L (3.5-5.1) H D 04/23/19 04:10 Chloride 94 mEq/L (98-107) L 04/22/19 05:21 Carbon Dioxide 33 mEq/L (23-29) H 04/22/19 18:52 BUN 28 mg/dL (8-23) H 04/23/19 04:10 Creatinine 1.49 mg/dL (0.70-1.30) H 04/22/19 05:21 Est GFR ( Amer) 57 (> 60) L 04/22/19 05:21 Est GFR (Non-Af Amer) 59 (> 60) L 04/23/19 04:10 Glucose 170 mg/dL (70-105) H 04/23/19 04:10 POC Glucose 132 mg/dL (70-99) H 04/23/19 07:59 Hemoglobin A1c 8.8 % (-5.6) H 04/22/19 05:21 Calculated Osmolality 306 (280-300) H 04/21/19 06:16 Magnesium 2.8 mg/dL (1.6-2.6) H 04/22/19 18:52 AST 66 Units/L (13-39) H 04/17/19 08:40 Troponin I 3.30 ng/mL (< 0.04) H* 04/19/19 03:30 B-Natriuretic Peptide 573 pg/mL (Less than 100) H 04/17/19 08:40 Arterial Blood Ionized Calcium 1.08 mmol/L (1.15-1.35) L 04/22/19 17:24 Urine Color Red (Yellow) A 04/17/19 13:40 Urine Clarity Cloudy (Clear) A 04/17/19 13:40 Urine Protein 30 mg/dL (Neg-Trace) H 04/17/19 13:40 Urine Glucose (UA) 500 mg/dL (Normal) H 04/17/19 13:40 Urine Blood Large (Negative) H 04/17/19 13:40 Ur Leukocyte Esterase Trace (Negative) H 04/17/19 13:40 Urine Microscopic RBC TNTC per hpf (0-3) H 04/17/19 13:40 Urine Microscopic WBC 5-15 per hpf (0-3) H 04/17/19 13:40 Ur Culture Indicated? YES (NO) A 04/17/19 13:40 Crossmatch See Detail 04/21/19 10:01 Diabetes panel 04/22/19 04/23/19 Range/Units 18:52 04:10 Sodium 138 139 (136-145) mEq/L Potassium 3.7 5.2 H D (3.5-5.1) mEq/L Chloride 101 103 (98-107) mEq/L Carbon Dioxide 33 H 29 (23-29) mEq/L BUN 27 H 28 H (8-23) mg/dL Creatinine 1.18 1.21 (0.70-1.30) mg/dL Glucose 163 H 170 H (70-105) mg/dL Calcium 8.7 8.8 (8.6-10.3) mg/dL Calcium panel 04/22/19 04/23/19 Range/Units 18:52 04:10 Calcium 8.7 8.8 (8.6-10.3) mg/dL Pituitary panel 04/22/19 04/23/19 Range/Units 18:52 04:10 Sodium 138 139 (136-145) mEq/L Potassium 3.7 5.2 H D (3.5-5.1) mEq/L Chloride 101 103 (98-107) mEq/L Carbon Dioxide 33 H 29 (23-29) mEq/L BUN 27 H 28 H (8-23) mg/dL Creatinine 1.18 1.21 (0.70-1.30) mg/dL Glucose 163 H 170 H (70-105) mg/dL Calcium 8.7 8.8 (8.6-10.3) mg/dL Adrenal panel 04/22/19 04/23/19 Range/Units 18:52 04:10 Sodium 138 139 (136-145) mEq/L Potassium 3.7 5.2 H D (3.5-5.1) mEq/L Chloride 101 103 (98-107) mEq/L Carbon Dioxide 33 H 29 (23-29) mEq/L BUN 27 H 28 H (8-23) mg/dL Creatinine 1.18 1.21 (0.70-1.30) mg/dL Glucose 163 H 170 H (70-105) mg/dL Calcium 8.7 8.8 (8.6-10.3) mg/dL All other labs normal. Consult Discharge Plan - Plan Referrals: Mercedes Black MD [Primary Care Provider] - <Conrad Parish W - Last Filed: 04/23/19 16:57> Date of Encounter: 04/23/19 - Assessment and Plan (1) Hematuria Current Visit: Yes Status: Acute Assessment and plan: Patient seen and examined independently. History, review of systems and physical exam findings of PA verified. All pertinent imaging reviewed. I am in agreement with the assessment and plan as outlined by our Urologic Surgery Department Physician Hanging Flags Decorator, Kevin. Discussed potential etiologies for gross hematuria with patient and family. Discussed recommended workup. CT urogram today. My office will arrange for outpatient cystoscopy in the coming weeks. Qualifiers: Hematuria type: gross Qualified Code(s): R31.0 - Gross hematuria Exam Initial Vital Signs Temp Pulse Resp BP Pulse Ox 98.4 F 65 18 186/96 97 04/17/19 08:12 04/17/19 08:12 04/17/19 08:12 04/17/19 08:12 04/17/19 08:12 Urology Results - Labs 04/23/19 04:10 04/23/19 04:10 Abnormal lab results WBC 20.6 K/mcL (4.3-11.1) H 04/23/19 04:10 RBC 5.60 M/mcL (4.19-5.50) H 04/17/19 08:40 Hgb 17.1 g/dL (12.9-16.9) H 04/17/19 08:40 Hct 52.8 % (37.5-50.1) H 04/17/19 08:40 Plt Count 117 K/mcL (140-400) L 04/23/19 04:10 Neutrophils # 18.7 K/mcL (1.6-8.9) H 04/23/19 04:10 Monocytes # 1.5 K/mcL (0.0-1.3) H 04/22/19 18:52 PT 12.2 Seconds (9.4-12.1) H 04/23/19 04:10 Heparin Anti-Xa, Unfract 0.00 IU/mL (0.30-0.70) L 04/22/19 18:58 ABG pH 7.46 pH Units (7.32-7.45) H 04/22/19 16:57 ABG pCO2 48 mmHg (35-45) H 04/23/19 00:26 ABG pO2 158 mmHg (85-104) H 04/23/19 00:26 ABG HCO3 30 mEq/L (21-27) H 04/23/19 00:26 ABG Total CO2 32 mEq/L (20-26) H 04/23/19 00:26 ABG O2 Saturation 99 % (95-98) H 04/23/19 00:26 ABG Base Excess 5 mEq/L (-2 to 3) H 04/23/19 00:26 ABG Hematocrit 29.0 % (37.5-50.1) L 04/22/19 17:44 ABG Chloride 97 mEq/L (98-107) L 04/22/19 17:44 Sodium 134 mEq/L (135-148) L 04/22/19 16:57 Glucose 209 mg/dL (60-95) H 04/22/19 17:44 Sodium 135 mEq/L (136-145) L 04/21/19 06:16 Potassium 5.2 mEq/L (3.5-5.1) H D 04/23/19 04:10 Chloride 94 mEq/L (98-107) L 04/22/19 05:21 Carbon Dioxide 33 mEq/L (23-29) H 04/22/19 18:52 BUN 28 mg/dL (8-23) H 04/23/19 04:10 Creatinine 1.49 mg/dL (0.70-1.30) H 04/22/19 05:21 Est GFR ( Amer) 57 (> 60) L 04/22/19 05:21 Est GFR (Non-Af Amer) 59 (> 60) L 04/23/19 04:10 Glucose 170 mg/dL (70-105) H 04/23/19 04:10 POC Glucose 132 mg/dL (70-99) H 04/23/19 07:59 Hemoglobin A1c 8.8 % (-5.6) H 04/22/19 05:21 Calculated Osmolality 306 (280-300) H 04/21/19 06:16 Magnesium 2.8 mg/dL (1.6-2.6) H 04/22/19 18:52 AST 66 Units/L (13-39) H 04/17/19 08:40 Troponin I 3.30 ng/mL (< 0.04) H* 04/19/19 03:30 B-Natriuretic Peptide 573 pg/mL (Less than 100) H 04/17/19 08:40 Arterial Blood Ionized Calcium 1.08 mmol/L (1.15-1.35) L 04/22/19 17:24 Urine Color Red (Yellow) A 04/17/19 13:40 Urine Clarity Cloudy (Clear) A 04/17/19 13:40 Urine Protein 30 mg/dL (Neg-Trace) H 04/17/19 13:40 Urine Glucose (UA) 500 mg/dL (Normal) H 04/17/19 13:40 Urine Blood Large (Negative) H 04/17/19 13:40 Ur Leukocyte Esterase Trace (Negative) H 04/17/19 13:40 Urine Microscopic RBC TNTC per hpf (0-3) H 04/17/19 13:40 Urine Microscopic WBC 5-15 per hpf (0-3) H 04/17/19 13:40 Ur Culture Indicated? YES (NO) A 04/17/19 13:40 Crossmatch See Detail 04/21/19 10:01 Diabetes panel 04/22/19 04/23/19 Range/Units 18:52 04:10 Sodium 138 139 (136-145) mEq/L Potassium 3.7 5.2 H D (3.5-5.1) mEq/L Chloride 101 103 (98-107) mEq/L Carbon Dioxide 33 H 29 (23-29) mEq/L BUN 27 H 28 H (8-23) mg/dL Creatinine 1.18 1.21 (0.70-1.30) mg/dL Glucose 163 H 170 H (70-105) mg/dL Calcium 8.7 8.8 (8.6-10.3) mg/dL Calcium panel 04/22/19 04/23/19 Range/Units 18:52 04:10 Calcium 8.7 8.8 (8.6-10.3) mg/dL Pituitary panel 04/22/19 04/23/19 Range/Units 18:52 04:10 Sodium 138 139 (136-145) mEq/L Potassium 3.7 5.2 H D (3.5-5.1) mEq/L Chloride 101 103 (98-107) mEq/L Carbon Dioxide 33 H 29 (23-29) mEq/L BUN 27 H 28 H (8-23) mg/dL Creatinine 1.18 1.21 (0.70-1.30) mg/dL Glucose 163 H 170 H (70-105) mg/dL Calcium 8.7 8.8 (8.6-10.3) mg/dL Adrenal panel 04/22/19 04/23/19 Range/Units 18:52 04:10 Sodium 138 139 (136-145) mEq/L Potassium 3.7 5.2 H D (3.5-5.1) mEq/L Chloride 101 103 (98-107) mEq/L Carbon Dioxide 33 H 29 (23-29) mEq/L BUN 27 H 28 H (8-23) mg/dL Creatinine 1.18 1.21 (0.70-1.30) mg/dL Glucose 163 H 170 H (70-105) mg/dL Calcium 8.7 8.8 (8.6-10.3) mg/dL All other labs normal.
[2019-04-23] MEDS ORDERED: Isovue-370 500 ML BOTTLE IVP ONE (09:55)
--- NOTE | 2019-04-23 13:25 | Anesthesia Evaluation Post Op ---
Date of Encounter: 04/23/19 Time of Encounter: 13:23 - Vital Signs Vital Signs: Vital Signs/O2 Sat/Glucose, Most Recent Temp Pulse Resp BP Pulse Ox 99.1 F 105 16 133/76 94 04/23/19 11:58 04/23/19 10:00 04/23/19 11:34 04/23/19 10:00 04/23/19 11:34 Blood Glucose* 167 - Lungs Lungs: Clear Ascult./Percussion - Airway Airway: Non-obstructed - Cardiovascular Regular Rate - Mental Status Mental Status: Alert & Oriented, Answers Appropriately - Pain Pain Scale: 2 - Nausea Vomiting Nausea Vomiting: Not Present - Hydration Hydration: Tolerates oral liquids - Discharge Attestation: patient recovering well from CABG POD#1
[2019-04-23] MEDS: Heparin 25,000 UNIT/250 ML D5W 25,000 UNIT/250 ML IV.SOLN IVC SCH (16:22)
--- NOTE | 2019-04-23 16:27 | Electrocardiograph Report ---
[place] [id number] Test Date: 2019-04-22 Pat Name: Jones Edwards Department: 109 Room: [facility] Gender: M Art Gilder: KAYCE : 1950 Requested By: Andreas Brown Order Number: [id number] Reading MD: Vanda Rowell Measurements Intervals [place] Rate: 83 P: 60 MS: 143 QRS: 25 QRSD: 102 T: 20 QT: 381 QTc: 421 Interpretive Statements SINUS RHYTHM INFERIOR MYOCARDIAL INFARCTION, OF INDETERMINATE AGE WITH POSTERIOR EXTENSION Electronically Signed On 04-23-2019 16:25:47 EDT by Vanda Rowell
[2019-04-23] MEDS ORDERED: *HR* Dextrose 50 % in Water (Syg) 50 ML SYRINGE IVP PRN (19:21)
[2019-04-23] MEDS ORDERED: Dextrose Gel 15 GM/37.5 ML TUBE PO PRN ×2 (19:21)
[2019-04-23] MEDS ORDERED: D5% in Water 1,000 ML IVC PRN (19:21)
[2019-04-23] MEDS: Norepinephrine 4 MG in D5% in Water 250 ML IVC SCH (19:25)
[2019-04-23] MEDS: niCARdipine 20 MG in 0.9 % Sodium Chloride 192 ML IVC SCH (19:25)
[2019-04-23] MEDS ORDERED: Insulin LISPRO 300 UNITS/3 ML VIAL SQ SCH (21:00)
[2019-04-24] MEDS: *HR* OxyCODONE/APAP 5/325 TABLET PO PRN ×6 (00:42→21:57)
[2019-04-24 04:38] LABS: Basophils % 0.1 %; Eosinophils % 0.1 %; Hematocrit 36.1 % (37.5-50.1); Immature Granulocytes % 0.6 % (0-4)
[2019-04-24 04:40] LABS: Hemoglobin 12.2 g/dL (12.9-16.9); Immature Platelets 4.3 % (1.1-6.1); Lymphocytes # 1.2 K/mcL (0.6-4.6); Lymphocytes % 7.8 %; Mean Corpuscular HGB Conc 33.8 g/dL (31.6-35.5); Mean Corpuscular Hemoglobin 30.6 pg (28.0-33.3); Mean Corpuscular Volume 90.5 fL (83.0-100.0); Mean Platelet Volume 10.5 fL (9.4-12.4); Monocytes # 1.5 K/mcL (0.0-1.3); Monocytes % 9.5 %; Neutrophils # 12.8 K/mcL (1.6-8.9); Red Blood Count 3.99 M/mcL (4.19-5.50); Red Cell Distribution Width 12.7 % (11.5-14.5); Segmented Neutrophils % 81.9 %; White Blood Count 15.6 K/mcL (4.3-11.1)
[2019-04-24 04:57] LABS: BUN/Creatinine Ratio 21 (6-26); Blood Urea Nitrogen 24 mg/dL (8-23); Calcium 8.9 mg/dL (8.6-10.3); Carbon Dioxide 29 mEq/L (23-29); Chloride 99 mEq/L (98-107); Glucose 245 mg/dL (70-105); Osmolality,Calculated 294 (280-300); Potassium 4.4 mEq/L (3.5-5.1); Sodium 136 mEq/L (136-145); eGFR For African Americans > 60 (> 60); eGFR For Non-African Americans > 60 (> 60)
[2019-04-24 05:01] LABS: Platelet Count 90 K/mcL (140-400)
[2019-04-24] MEDS: 0.9 % Sodium Chloride 1,000 ML IVC SCH (05:30)
[2019-04-24] MEDS: Metoclopramide 10 MG/2 ML VIAL IVP SCH ×4 (05:30→23:03)
[2019-04-24] MEDS ORDERED: Insulin LISPRO 300 UNITS/3 ML VIAL SQ SCH (07:30)
--- NOTE | 2019-04-24 07:51 | Cardiothoracic Progress Note ---
Date of Encounter: 04/24/19 Time of Encounter: 07:49 - Assessment and plan (1) NSTEMI (non-ST elevated myocardial infarction) Current Visit: Yes Status: Acute We will transfer the patient to the floor. - Subjective Interval history: The patient has no complaints. His Davalos catheter has been removed and he is urinating without difficulty. Vital Signs, Last 4 Hours Temp Pulse Resp BP Pulse Ox 04/24/19 07:00 99.4 F 04/24/19 06:00 106 12 113/63 94 04/24/19 05:00 117 20 159/65 94 04/24/19 04:00 111 18 151/71 94 04/24/19 03:59 97.3 F L Oxgyen Flow Rate Oxygen Flow Rate (LPM) 3 Clinical Data, last 8 Hours Output, Chest Tube Drainage 30 Amount [#2] Output, Chest Tube Drainage 0 Amount [#1] Lungs are clear to percussion and auscultation. Heart is in a normal sinus rhythm. All incisions are healing well without signs of infection and the sternum is stable. Chest tube drainage is minimal and there is no air leak. The chest tubes were removed and the pacing wires were left in place. - Labs 04/24/19 04:28 04/24/19 04:28 Lab Results, Last 24 hours 04/24/19 04/24/19 04:28 04:28 WBC 15.6 H Hgb 12.2 L D Hct 36.1 L Plt Count 90 L Sodium 136 Potassium 4.4 Chloride 99 Carbon Dioxide 29 BUN 24 H Creatinine 1.13 Glucose 245 H Calcium 8.9 - VTE Documentation of Mechanical Device: Graduated compression elastic hosiery Consult Discharge Plan - Plan Referrals: Mercedes Black MD [Primary Care Provider] -
[2019-04-24] MEDS: Chlorhexidine Rinse 15 ML MOUTHWASH MM SCH ×2 (07:52→21:12)
[2019-04-24] MEDS: Aspirin Enteric Coated 81 MG Tablet PO SCH (07:52)
[2019-04-24] MEDS: Furosemide 20 MG/2 ML VIAL IVP SCH ×2 (07:53→21:13)
[2019-04-24] MEDS: Pantoprazole 40 MG VIAL IVP SCH (07:53)
--- NOTE | 2019-04-24 09:55 | Urology Progress Note ---
<Angela Brown N - Last Filed: 04/24/19 09:52> Date of Encounter: 04/24/19 Time of Encounter: 09:30 - Assessment and Plan (1) Hematuria Current Visit: Yes Status: Acute Assessment and plan: Patient is a 68-year-old male who presents with a history of gross hematuria. Patient underwent a CT urogram revealing a 1.8 cm filling defect within the bladder. Patient had Davalos catheter in place at the time of imaging, therefore, the bladder could not be well identified. Patient is planned to undergo an outpatient cystoscopy with Dr. Parish upon discharge. 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 Patient's renal function is well within normal range with a GFR greater than 60. We will discuss options regarding management of UPJ obstruction at upcoming appointment. Qualifiers: Hematuria type: gross Qualified Code(s): R31.0 - Gross hematuria (2) Hydronephrosis due to obstruction of ureter Current Visit: Yes Status: Acute Assessment and plan: Patient is a 5-year-old male who presents with a left UPJ obstruction and severe hydronephrosis. This is a new finding, and patient was unaware of this prior to recent CT urogram. Patient has a recent and significant cardiac history. We will discuss options for management and possible further evaluation with a MAG3 renal scan upcoming appointment. Progress Note Subjective: no new complaints Narrative: Patient seen and examined sitting upright in chair eating breakfast in no apparent distress. Patient reports he is tolerating normal diet without nausea or vomiting. Patient reports he is voiding well without difficulty. A scant amount of pink lemonade tinged urine is visualized in bedside urinal. Objective Initial Vital Signs Temp Pulse Resp BP Pulse Ox 98.4 F 65 18 186/96 97 04/17/19 08:12 04/17/19 08:12 04/17/19 08:12 04/17/19 08:12 04/17/19 08:12 - General physical appearance Present: well developed, no distress, no pain, obese - Respiratory Present: normal expansion, normal respiratory effort - Abdomen Present: soft, non tender. Absent: distended - Genitourinary Urine Appearance: Present: Clear - Integumentary Present: no rash, no abnormal pigmentation - Musculoskeletal Present: normal posture - Psychiatric Present: oriented to time, oriented to person, oriented to place, speech is nor mal, memory intact - Labs 04/24/19 04:28 04/24/19 04:28 Diabetes panel 04/24/19 Range/Units 04:28 Sodium 136 (136-145) mEq/L Potassium 4.4 (3.5-5.1) mEq/L Chloride 99 (98-107) mEq/L Carbon Dioxide 29 (23-29) mEq/L BUN 24 H (8-23) mg/dL Creatinine 1.13 (0.70-1.30) mg/dL Glucose 245 H (70-105) mg/dL Calcium 8.9 (8.6-10.3) mg/dL Calcium panel 04/24/19 Range/Units 04:28 Calcium 8.9 (8.6-10.3) mg/dL Pituitary panel 04/24/19 Range/Units 04:28 Sodium 136 (136-145) mEq/L Potassium 4.4 (3.5-5.1) mEq/L Chloride 99 (98-107) mEq/L Carbon Dioxide 29 (23-29) mEq/L BUN 24 H (8-23) mg/dL Creatinine 1.13 (0.70-1.30) mg/dL Glucose 245 H (70-105) mg/dL Calcium 8.9 (8.6-10.3) mg/dL Adrenal panel 04/24/19 Range/Units 04:28 Sodium 136 (136-145) mEq/L Potassium 4.4 (3.5-5.1) mEq/L Chloride 99 (98-107) mEq/L Carbon Dioxide 29 (23-29) mEq/L BUN 24 H (8-23) mg/dL Creatinine 1.13 (0.70-1.30) mg/dL Glucose 245 H (70-105) mg/dL Calcium 8.9 (8.6-10.3) mg/dL - VTE Documentation of Mechanical Device: Graduated compression elastic hosiery Consult Discharge Plan - Plan Referrals: Mercedes Black MD [Primary Care Provider] - <Conrda Parish - Last Filed: 04/24/19 16:34> Date of Encounter: 04/24/19 - Assessment and Plan (1) Hematuria Current Visit: Yes Status: Acute Assessment and plan: Patient seen and examined independently. I am in agreement with the assessment and plan as outlined by our Urologic Surgery Department Physician Utility Worker Film Processing, Kevin. Qualifiers: Hematuria type: gross Qualified Code(s): R31.0 - Gross hematuria (2) Hydronephrosis, left Current Visit: Yes Status: Acute Assessment and plan: Discuss CT finding of hydronephrotic nonfunctioning left kidney with patient and family. Family reports they were aware of this finding. Patient has never been symptomatic. 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 Plan: Observation and absence of symptoms. (3) Lesion of bladder Current Visit: Yes Status: Acute Assessment and plan: Discuss CT finding of bladder lesion. Given hematuria clot versus bladder tumor will be ruled out with office-based cystoscopy in the coming 1-2 weeks. Objective Initial Vital Signs Temp Pulse Resp BP Pulse Ox 98.4 F 65 18 186/96 97 04/17/19 08:12 04/17/19 08:12 04/17/19 08:12 04/17/19 08:12 04/17/19 08:12 - Labs 04/24/19 04:28 04/24/19 04:28 Diabetes panel 04/24/19 Range/Units 04:28 Sodium 136 (136-145) mEq/L Potassium 4.4 (3.5-5.1) mEq/L Chloride 99 (98-107) mEq/L Carbon Dioxide 29 (23-29) mEq/L BUN 24 H (8-23) mg/dL Creatinine 1.13 (0.70-1.30) mg/dL Glucose 245 H (70-105) mg/dL Calcium 8.9 (8.6-10.3) mg/dL Calcium panel 04/24/19 Range/Units 04:28 Calcium 8.9 (8.6-10.3) mg/dL Pituitary panel 04/24/19 Range/Units 04:28 Sodium 136 (136-145) mEq/L Potassium 4.4 (3.5-5.1) mEq/L Chloride 99 (98-107) mEq/L Carbon Dioxide 29 (23-29) mEq/L BUN 24 H (8-23) mg/dL Creatinine 1.13 (0.70-1.30) mg/dL Glucose 245 H (70-105) mg/dL Calcium 8.9 (8.6-10.3) mg/dL Adrenal panel 07/31/19 Range/Units 04:28 Sodium 136 (136-145) mEq/L Potassium 4.4 (3.5-5.1) mEq/L Chloride 99 (98-107) mEq/L Carbon Dioxide 29 (23-29) mEq/L BUN 24 H (8-23) mg/dL Creatinine 1.13 (0.70-1.30) mg/dL Glucose 245 H (70-105) mg/dL Calcium 8.9 (8.6-10.3) mg/dL
[2019-04-24] MEDS ORDERED: D5% in Water 1,000 ML IVC PRN (10:24)
[2019-04-24] MEDS ORDERED: *HR* Warfarin 5 MG TABLET PO SCH (10:24)
[2019-04-24] MEDS ORDERED: Dextrose Gel 15 GM/37.5 ML TUBE PO PRN ×2 (10:24)
[2019-04-24] MEDS ORDERED: Naloxone 0.4 MG/ML INJ IVP PRN (10:24)
[2019-04-24] MEDS ORDERED: *HR* Dextrose 50 % in Water (Syg) 50 ML SYRINGE IVP PRN (10:24)
[2019-04-24] MEDS ORDERED: Acetaminophen 325 MG TABLET PO PRN (10:24)
[2019-04-24] MEDS ORDERED: *HR* Warfarin 4 MG TABLET PO SCH (10:24)
[2019-04-24] MEDS ORDERED: Nitroglycerin 0.4 MG TAB.SUBL SL PRN (10:24)
[2019-04-24] MEDS ORDERED: Ondansetron 4 MG/2 ML VIAL IVP PRN (10:24)
[2019-04-24] MEDS: Insulin LISPRO 300 UNITS/3 ML VIAL SQ SCH ×3 (11:38→21:17)
[2019-04-24] MEDS: Insulin DETEMIR 100 UNIT/ML X5UNITS SQ SCH ×2 (12:07→21:12)
[2019-04-24] MEDS ORDERED: *HR* Warfarin 5 MG TABLET PO ONE (18:00)
[2019-04-24] MEDS ORDERED: Warfarin perPT PO PRN (18:00)
[2019-04-24] MEDS ORDERED: 0.9 % Sodium Chloride 250 ML ONE (22:28)
[2019-04-25] MEDS: Metoclopramide 10 MG/2 ML VIAL IVP SCH ×3 (05:46→17:01)
[2019-04-25] MEDS: *HR* OxyCODONE/APAP 5/325 TABLET PO PRN ×3 (05:47→21:05)
[2019-04-25 05:49] LABS: Basophils % 0.1 %; Eosinophils # 0.1 K/mcL (0.0-0.6); Eosinophils % 0.4 %; Hematocrit 34.8 % (37.5-50.1); Hemoglobin 11.8 g/dL (12.9-16.9); Immature Granulocytes % 0.5 % (0-4); Lymphocytes # 1.1 K/mcL (0.6-4.6); Lymphocytes % 7.6 %; Mean Corpuscular HGB Conc 33.9 g/dL (31.6-35.5); Mean Corpuscular Hemoglobin 30.6 pg (28.0-33.3); Mean Corpuscular Volume 90.4 fL (83.0-100.0); Mean Platelet Volume 10.9 fL (9.4-12.4); Monocytes # 1.6 K/mcL (0.0-1.3); Monocytes % 10.7 %; Neutrophils # 12.1 K/mcL (1.6-8.9); Platelet Count 104 K/mcL (140-400); Red Blood Count 3.85 M/mcL (4.19-5.50); Red Cell Distribution Width 12.6 % (11.5-14.5); Segmented Neutrophils % 80.7 %
[2019-04-25 05:54] LABS: INR 1.2
[2019-04-25 06:07] LABS: BUN/Creatinine Ratio 24 (6-26); Blood Urea Nitrogen 26 mg/dL (8-23); Calcium 9.2 mg/dL (8.6-10.3); Carbon Dioxide 31 mEq/L (23-29); Chloride 96 mEq/L (98-107); Glucose 190 mg/dL (70-105); Osmolality,Calculated 296 (280-300); Potassium 4.1 mEq/L (3.5-5.1); Sodium 138 mEq/L (136-145); eGFR For African Americans > 60 (> 60); eGFR For Non-African Americans > 60 (> 60)
[2019-04-25] MEDS: Pantoprazole 40 MG VIAL IVP SCH (08:07)
[2019-04-25] MEDS: Furosemide 20 MG/2 ML VIAL IVP SCH ×2 (08:07→21:04)
[2019-04-25] MEDS: Chlorhexidine Rinse 15 ML MOUTHWASH MM SCH ×2 (08:07→21:03)
[2019-04-25] MEDS: Aspirin Enteric Coated 81 MG Tablet PO SCH (08:08)
[2019-04-25] MEDS: Insulin LISPRO 300 UNITS/3 ML VIAL SQ SCH ×4 (08:08→21:06)
[2019-04-25] MEDS: Insulin DETEMIR 100 UNIT/ML X5UNITS SQ SCH ×2 (08:10→21:06)
--- NOTE | 2019-04-25 08:33 | Cardiothoracic Progress Note ---
Date of Encounter: 04/25/19 Time of Encounter: 08: - Assessment and plan (1) NSTEMI (non-ST elevated myocardial infarction) Current Visit: Yes Status: Acute The patient is recovering well from his CABG4, LAD endarterectomy, modified Maze procedure, and left atrial appendage stapling. He remained hemodynamically stable overnight. His heart rhythm deteriorated from normal sinus rhythm to atrial fibrillation with RVR last night and he was placed on a Cardizem drip for rate control. The assessment and plan as outlined above was discussed with the patient and/or family members who expressed understanding and agreement. All questions were answered. - Subjective Procedure(s) Performed: POD#3 S/P CABG4, LAD endarterectomy, modified Maze procedure, and left atrial appendage stapling Interval history: The patient remained hemodynamically stable overnight. He is currently extu bated and breathing comfortably. His heart rhythm deteriorated to atrial fibrillation last night and he is currently on a Cardizem drip for rate control. He has no complaints. Vital Signs, Last 4 Hours Temp Pulse Resp BP Pulse Ox 04/25/19 07: 97.6 F 107 18 91/68 98 04/25/19 06:00 101 117/44 Oxgyen Flow Rate Oxygen Flow Rate (LPM) 2 Clinical Data, last 8 Hours Output, Urine Amount 300 Weight 04/23/19 04/24/19 04/25/19 23:59 23:59 23:59 Weight 95.3 kg - Physical Examination General: Conversant, No Apparent Distress Neck: No JVD, Normal carotid pulses Cardiac: Normal S1 and S2 (Irregular rate and rhythm (atrial fibrillation)), No Murmur, Other Incision: No signs of infection, Dry/intact dressing Sternum: Stable Pacing Wires: In place Lungs: Normal Breath Sounds, No Wheeze, Rales, Rhonchi Neuro: Alert and responsive, No focal deficits noted Vascular: Normal capillary refill Extremities: No Clubbing, No Cyanosis, No Edema - Labs 04/25/19 05:14 04/25/19 05:14 Lab Results, Last 24 hours 04/25/19 04/25/19 04/25/19 05:14 05:14 05:14 WBC 15.0 H Hgb 11.8 L Hct 34.8 L Plt Count 104 L INR 1.2 Sodium 138 Potassium 4.1 Chloride 96 L Carbon Dioxide 31 H BUN 26 H Creatinine 1.10 Glucose 190 H Calcium 9.2 - VTE Documentation of Mechanical Device: Graduated compression elastic hosiery Consult Discharge Plan - Plan Referrals: Mercedes Black MD [Primary Care Provider] -
[2019-04-25] MEDS ORDERED: *HR* Etomidate 20 MG/10 ML AMPUL IVP ONE (09:20)
--- NOTE | 2019-04-25 13:28 | Electrocardiograph Report ---
[place] [id number] Test Date: 2019-04-24 Pat Name: Jones Edwards Department: 109 Room: 2N11 Gender: M Telephone Interviewer: [id number] : 1950 Requested By: Andreas Brown Order Number: [id number] Reading MD: Balwinder Hester Measurements Intervals [place] Rate: 136 P: DC: 0 QRS: 10 QRSD: 105 T: 108 QT: 278 QTc: 358 Interpretive Statements ATRIAL FIBRILLATION WITH RAPID VENTRICULAR RESPONSE INFERIOR MYOCARDIAL INFARCTION, OF INDETERMINATE AGE Electronically Signed On 04-25-2019 13:26:31 EDT by Balwinder Hester
--- NOTE | 2019-04-25 14:21 | Internal Med Progress Note ---
Hospitalist Progress Note - Encounter Date of Encounter: 04/25/19 Time of Encounter: 14:19 - Subjective Interval History: Patient was seen and examined at the bedside this morning. Patient denies any acute issues and concerns. Patient reports that he tolerated procedure well. Patient is CABG X 4 done along with Maze Procedure. - Exam Vitals: Temp Pulse Resp BP Pulse Ox 97.7 F 92 18 122/71 99 04/25/19 11:00 04/25/19 14:14 04/25/19 11:00 04/25/19 14:14 04/25/19 11:00 Exam: General: NAD, good eye contact, well appearing Thoracic: Normal breath sounds b/l, no wheezing or crackles Cardio: Normal S1 and S2, regular rate and rhythm Abdomen: Soft, nontender Extremities: Warm, well perfused. DP pulses 2+ b/l. Mild nonpitting edema b/l ankles Skin: Intact. No rashes, bruises, or ulcers Neuro: Awake, fully oriented. Speech fluent - Assessment and Plan (1) NSTEMI (non-ST elevated myocardial infarction) Current Visit: Yes Status: Acute Assessment and Plan: Patient is status post CABG X 4 along with maze procedure POD # 3. Patient is doing well. We will continue current plan with cardiology. (2) PAF (paroxysmal atrial fibrillation) Current Visit: Yes Status: Chronic Assessment and Plan: Patient found to have episode of atrial fibrillation last night. Patient is on Cardizem drip. Continue Coumadin. will continue to monitor and cardiology is following the case (3) Leukocytosis Current Visit: Yes Status: Acute Assessment and Plan: C3 reactive status post surgery. Patient currently is not on any antibiotic. White count is trending down. We will continue to monitor. (4) NOÉ (acute kidney injury) Current Visit: Yes Status: Resolved Assessment and Plan: Patient creatinine has improved to 1.2. (5) Diabetes mellitus Current Visit: Yes Status: Chronic Assessment and Plan: Continue basal and bolus regimen. (6) GERD (gastroesophageal reflux disease) Current Visit: Yes Status: Chronic Assessment and Plan: Continue Protonix (7) Hypomagnesemia Current Visit: Yes Status: Acute (8) CHF (congestive heart failure) Current Visit: Yes Status: Chronic Assessment and Plan: Continue Lasix. Continue to monitor input and output. Daily weight. DVT Prophylaxis: On coumadin - Time Spent with Patient Total time spent is greater than 50% in coordination of care (as documented) at patient's floor/unit and/or counseling patient: Internal Medicine: Result - Labs CBC & Chem 7: 04/25/19 05:14 04/25/19 05:14 Labs: Short CBC 04/25/19 Range/Units 05:14 WBC 15.0 H (4.3-11.1) K/mcL Hgb 11.8 L (12.9-16.9) g/dL Hct 34.8 L (37.5-50.1) % Plt Count 104 L (140-400) K/mcL Neutrophils # 12.1 H (1.6-8.9) K/mcL BMP 04/25/19 05:14 Sodium 138 Potassium 4.1 Chloride 96 L Carbon Dioxide 31 H BUN 26 H Creatinine 1.10 Glucose 190 H Calcium 9.2 - ABG Interpretation ABG results: ABG ABG pH 7.41 pH Units (7.32-7.45) 04/23/19 00:26 ABG pCO2 48 mmHg (35-45) H 04/23/19 00:26 ABG pO2 158 mmHg (85-104) H 04/23/19 00:26 ABG O2 Saturation 99 % (95-98) H 04/23/19 00:26 PT/INR, D-dimer PT 14.0 Seconds (9.4-12.1) H 04/25/19 05:14 - VTE Documentation of Mechanical Device: Graduated compression elastic hosiery Consult Discharge Plan - Plan Referrals: Quin Brown MD [Partnered Physician] - 05/17/19 11:40 am Mercedes Black MD [Primary Care Provider] - (left a voice mail for them to call me back) Balwinder Hester MD [Non-Partnered Physician] - 05/30/19 9:00 am (3) Leukocytosis Qualifiers: Leukocytosis type: unspecified Qualified Code(s): D72.829 - Elevated white blood cell count, unspecified (5) Diabetes mellitus Qualifiers: Diabetes mellitus type: type 2 Diabetes mellitus long term acute care registered nurse insulin use: without assisted use Diabetes mellitus complication status: with other specified complication Qualified Code(s): E11.69 - Type 2 diabetes mellitus with other specified complication (6) GERD (gastroesophageal reflux disease) Qualifiers: Esophagitis presence: without esophagitis Qualified Code(s): K21.9 - Gastro- esophageal reflux disease without esophagitis (8) CHF (congestive heart failure) Qualifiers: Heart failure type: diastolic Heart failure chronicity: acute Qualified Code(s): I50.31 - Acute diastolic (congestive) heart failure
[2019-04-25] MEDS ORDERED: *HR* Warfarin 5 MG TABLET PO ONE (18:00)
[2019-04-26] MEDS: Metoclopramide 10 MG/2 ML VIAL IVP SCH (00:20)
[2019-04-26] MEDS: *HR* OxyCODONE/APAP 5/325 TABLET PO PRN ×4 (03:08→20:38)
[2019-04-26] MEDS ORDERED: *HR* Metoprolol 5 MG/5 ML VIAL IVP ONE (04:41)
[2019-04-26 05:58] LABS: Basophils % 0.1 %; Eosinophils # 0.2 K/mcL (0.0-0.6); Eosinophils % 1.3 %; Hematocrit 32.5 % (37.5-50.1); Hemoglobin 10.8 g/dL (12.9-16.9); Immature Granulocytes % 0.5 % (0-4); Lymphocytes # 1.4 K/mcL (0.6-4.6); Lymphocytes % 10.8 %; Mean Corpuscular HGB Conc 33.2 g/dL (31.6-35.5); Mean Corpuscular Hemoglobin 30.1 pg (28.0-33.3); Mean Corpuscular Volume 90.5 fL (83.0-100.0); Monocytes # 1.3 K/mcL (0.0-1.3); Monocytes % 10.5 %; Neutrophils # 9.6 K/mcL (1.6-8.9); Platelet Count 109 K/mcL (140-400); Red Blood Count 3.59 M/mcL (4.19-5.50); Red Cell Distribution Width 12.7 % (11.5-14.5); Segmented Neutrophils % 76.8 %; White Blood Count 12.5 K/mcL (4.3-11.1)
[2019-04-26 06:05] LABS: INR 1.6; Prothrombin Time 17.9 Seconds (9.4-12.1)
[2019-04-26 06:18] LABS: BUN/Creatinine Ratio 25 (6-26); Blood Urea Nitrogen 33 mg/dL (8-23); Calcium 8.9 mg/dL (8.6-10.3); Carbon Dioxide 33 mEq/L (23-29); Chloride 98 mEq/L (98-107); Glucose 151 mg/dL (70-105); Osmolality,Calculated 292 (280-300); Potassium 4.1 mEq/L (3.5-5.1); Sodium 136 mEq/L (136-145); eGFR For African Americans > 60 (> 60); eGFR For Non-African Americans 54 (> 60)
--- NOTE | 2019-04-26 07:18 | Cardiothoracic Progress Note ---
Date of Encounter: 04/26/19 Time of Encounter: 07:02 - Assessment and plan (1) NSTEMI (non-ST elevated myocardial infarction) Current Visit: Yes Status: Acute The patient is recovering well from his CABG4, LAD endarterectomy, modified Maze procedure, and left atrial appendage stapling. He remained hemodynamically stable overnight. He remains on a Cardizem drip for atrial fibrillation. He is being anticoagulated with warfarin. The assessment and plan as outlined above was discussed with the patient and/or family members who expressed understanding and agreement. All questions were answered. - Subjective Procedure(s) Performed: POD#4 S/P CABG4, LAD endarterectomy, modified Maze procedure, and left atrial appendage stapling Interval history: The patient remained hemodynamically stable overnight. He is resting comfortably in his hospital bed. His heart rhythm maintenance in atrial fibrillation and he is currently on a Cardizem drip for rate control. He has no complaints. Vital Signs, Last 4 Hours Temp Pulse Resp BP Pulse Ox 04/26/19 07:00 134 116/69 04/26/19 06:45 123 125/74 04/26/19 06:30 109 99/78 04/26/19 06:15 108 103/63 04/26/19 06:00 135 04/26/19 04:14 99.1 F 128 19 114/69 90 04/26/19 03:45 20 93 Oxgyen Flow Rate Oxygen Flow Rate (LPM) 2 Clinical Data, last 8 Hours Output, Urine Amount 350 Weight 04/24/19 04/25/19 04/26/19 23:59 23:59 23:59 Weight 96.3 kg - Physical Examination General: Conversant, No Apparent Distress Neck: No JVD, Normal carotid pulses Cardiac: Normal S1 and S2, No Murmur, Other (Irregular rate and rhythm (atrial fibrillation)) Incision: No signs of infection, Dry/intact dressing Sternum: Stable Lungs: Normal Breath Sounds, No Wheeze, Rales, Rhonchi Neuro: Alert and responsive, No focal deficits noted Vascular: Normal capillary refill Extremities: No Clubbing, No Cyanosis, No Edema - Labs 04/26/19 05:40 04/26/19 05:40 Lab Results, Last 24 hours 04/26/19 04/26/19 04/26/19 05:40 05:40 05:40 WBC 12.5 H Hgb 10.8 L Hct 32.5 L Plt Count 109 L INR 1.6 Sodium 136 Potassium 4.1 Chloride 98 Carbon Dioxide 33 H BUN 33 H Creatinine 1.31 H Glucose 151 H Calcium 8.9 - VTE Documentation of Mechanical Device: Graduated compression elastic hosiery Consult Discharge Plan - Plan Referrals: Quin Brown MD [Partnered Physician] - 05/17/19 11:40 am Mercedes Black MD [Primary Care Provider] - (left a voice mail for them to call me back) Balwinder Hester MD [Non-Partnered Physician] - 05/30/19 9:00 am
[2019-04-26] MEDS: Insulin DETEMIR 100 UNIT/ML X5UNITS SQ SCH ×2 (08:07→20:24)
[2019-04-26] MEDS: Pantoprazole 40 MG VIAL IVP SCH (08:07)
[2019-04-26] MEDS: Chlorhexidine Rinse 15 ML MOUTHWASH MM SCH ×2 (08:07→20:24)
[2019-04-26] MEDS: Insulin LISPRO 300 UNITS/3 ML VIAL SQ SCH ×4 (08:07→20:24)
[2019-04-26] MEDS: Aspirin Enteric Coated 81 MG Tablet PO SCH (08:08)
[2019-04-26] MEDS ORDERED: 0.9 % Sodium Chloride 250 ML ONE (08:14)
--- NOTE | 2019-04-26 12:19 | Internal Med Progress Note ---
Hospitalist Progress Note - Encounter Date of Encounter: 04/26/19 Time of Encounter: 12:17 - Subjective Interval History: Patient was seen and examined at bedside today. Patient denies any acute issues and consented this time. Patient denies any chest pain, breathing, palpitation, nausea, vomiting, fever and chills. - Exam Vitals: Temp Pulse Resp BP Pulse Ox 98.5 F 99 16 112/64 93 04/26/19 11:18 04/26/19 11:30 04/26/19 11:56 04/26/19 11:30 04/26/19 11:56 Exam: General: NAD, good eye contact, well appearing Thoracic: Normal breath sounds b/l, no wheezing or crackles Cardio: Normal S1 and S2, regular rate and rhythm, dressing in place at coronary artery bypass graft site Abdomen: Soft, nontender Extremities: Warm, well perfused. DP pulses 2+ b/l. Mild nonpitting edema b/l ankles Skin: Intact. No rashes, bruises, or ulcers Neuro: Awake, fully oriented. Speech fluent - Assessment and Plan (1) PAF (paroxysmal atrial fibrillation) Current Visit: Yes Status: Chronic Assessment and Plan: Patient found to have episode of atrial fibrillation last night. Patient is on Cardizem drip. Continue Coumadin. will continue to monitor and cardiology is following the case. Pharmacy is managing Coumadin dose. (2) NSTEMI (non-ST elevated myocardial infarction) Current Visit: Yes Status: Acute Assessment and Plan: Patient is status post CABG X 4 along with maze procedure POD # 3. Patient is doing well. We will continue current plan with cardiology. Plan is to discharge with cardiac rehabilitation. (3) Leukocytosis Current Visit: Yes Status: Acute Assessment and Plan: Possibly reactive status post surgery. Patient currently is not on any antibiotic. White count is trending down. We will continue to monitor. (4) NOÉ (acute kidney injury) Current Visit: Yes Status: Resolved Assessment and Plan: Patient creatinine has trended down from 1.65 to 1.33 today. We will continue to monitor (5) Diabetes mellitus Current Visit: Yes Status: Chronic Assessment and Plan: Continue basal and bolus regimen. (6) GERD (gastroesophageal reflux disease) Current Visit: Yes Status: Chronic Assessment and Plan: Continue Protonix (7) CHF (congestive heart failure) Current Visit: Yes Status: Chronic DVT Prophylaxis: She is on Coumadin. - Time Spent with Patient Total time spent is greater than 50% in coordination of care (as documented) at patient's floor/unit and/or counseling patient: 25 - 35 minutes Plan of Care Discussed with: patient Internal Medicine: Result - Labs CBC & Chem 7: 04/26/19 05:40 04/26/19 05:40 Labs: Short CBC 04/26/19 Range/Units 05:40 WBC 12.5 H (4.3-11.1) K/mcL Hgb 10.8 L (12.9-16.9) g/dL Hct 32.5 L (37.5-50.1) % Plt Count 109 L (140-400) K/mcL Neutrophils # 9.6 H (1.6-8.9) K/mcL BMP 04/26/19 05:40 Sodium 136 Potassium 4.1 Chloride 98 Carbon Dioxide 33 H BUN 33 H Creatinine 1.31 H Glucose 151 H Calcium 8.9 - ABG Interpretation ABG results: ABG ABG pH 7.41 pH Units (7.32-7.45) 04/23/19 00:26 ABG pCO2 48 mmHg (35-45) H 04/23/19 00:26 ABG pO2 158 mmHg (85-104) H 04/23/19 00:26 ABG O2 Saturation 99 % (95-98) H 04/23/19 00:26 PT/INR, D-dimer PT 17.9 Seconds (9.4-12.1) H 04/26/19 05:40 - VTE Documentation of Mechanical Device: Graduated compression elastic hosiery Consult Discharge Plan - Plan Referrals: Quin Brown MD [Partnered Physician] - 05/17/19 11:40 am Mercedes Black MD [Primary Care Provider] - (left a voice mail for them to call me back) Balwinder Hester MD [Non-Partnered Physician] - 05/30/19 9:00 am (3) Leukocytosis Qualifiers: Leukocytosis type: unspecified Qualified Code(s): D72.829 - Elevated white blood cell count, unspecified (5) Diabetes mellitus Qualifiers: Diabetes mellitus type: type 2 Diabetes mellitus jail insulin use: without assistant professor of economics use Diabetes mellitus complication status: with other specified complication Qualified Code(s): E11.69 - Type 2 diabetes mellitus with other specified complication (6) GERD (gastroesophageal reflux disease) Qualifiers: Esophagitis presence: without esophagitis Qualified Code(s): K21.9 - Gastro- esophageal reflux disease without esophagitis (7) CHF (congestive heart failure) Qualifiers: Heart failure type: diastolic Heart failure chronicity: acute Qualified Code (s): I50.31 - Acute diastolic (congestive) heart failure
[2019-04-26] MEDS ORDERED: *HR* Warfarin 5 MG TABLET PO ONE (18:00)
[2019-04-27 01:23] LABS: Basophils % 0.3 %; Eosinophils # 0.3 K/mcL (0.0-0.6); Hematocrit 31.8 % (37.5-50.1); Hemoglobin 10.6 g/dL (12.9-16.9); Immature Granulocytes % 0.5 % (0-4); Lymphocytes # 1.6 K/mcL (0.6-4.6); Lymphocytes % 16.8 %; Mean Corpuscular HGB Conc 33.3 g/dL (31.6-35.5); Mean Corpuscular Hemoglobin 30.2 pg (28.0-33.3); Mean Corpuscular Volume 90.6 fL (83.0-100.0); Mean Platelet Volume 10.7 fL (9.4-12.4); Monocytes # 0.9 K/mcL (0.0-1.3); Monocytes % 9.7 %; Neutrophils # 6.7 K/mcL (1.6-8.9); Platelet Count 146 K/mcL (140-400); Red Blood Count 3.51 M/mcL (4.19-5.50); Red Cell Distribution Width 12.4 % (11.5-14.5); Segmented Neutrophils % 69.7 %; White Blood Count 9.7 K/mcL (4.3-11.1)
[2019-04-27 01:37] LABS: INR 2.2; Prothrombin Time 24.9 Seconds (9.4-12.1)
[2019-04-27 01:41] LABS: BUN/Creatinine Ratio 26 (6-26); Blood Urea Nitrogen 35 mg/dL (8-23); Calcium 8.9 mg/dL (8.6-10.3); Carbon Dioxide 32 mEq/L (23-29); Chloride 95 mEq/L (98-107); Glucose 120 mg/dL (70-105); Osmolality,Calculated 293 (280-300); Potassium 4.2 mEq/L (3.5-5.1); Sodium 137 mEq/L (136-145); eGFR For African Americans > 60 (> 60); eGFR For Non-African Americans 53 (> 60)
[2019-04-27] MEDS ORDERED: 0.9 % Sodium Chloride 500 ML ONE (02:22)
[2019-04-27] MEDS: *HR* OxyCODONE/APAP 5/325 TABLET PO PRN ×5 (02:28→23:09)
[2019-04-27] MEDS: Aspirin Enteric Coated 81 MG Tablet PO SCH (09:16)
[2019-04-27] MEDS: Pantoprazole 40 MG VIAL IVP SCH (09:16)
[2019-04-27] MEDS: Chlorhexidine Rinse 15 ML MOUTHWASH MM SCH ×2 (09:16→21:10)
[2019-04-27] MEDS: Insulin LISPRO 300 UNITS/3 ML VIAL SQ SCH ×4 (09:23→21:10)
[2019-04-27] MEDS: Insulin DETEMIR 100 UNIT/ML X5UNITS SQ SCH ×2 (09:26→21:10)
--- NOTE | 2019-04-27 12:13 | Cardiothoracic Progress Note ---
Date of Encounter: 04/27/19 Time of Encounter: 12:11 - Assessment and plan (1) Atrial fibrillation with controlled ventricular rate Current Visit: Yes Status: Acute The assessment and plan as outlined above was discussed with the patient and/or family members who expressed understanding and agreement. All questions were answered. start po cardizem and wean off gtt. labs in am (2) NSTEMI (non-ST elevated myocardial infarction) Current Visit: Yes Status: Acute The assessment and plan as outlined above was discussed with the patient and/or family members who expressed understanding and agreement. All questions were answered. (3) NOÉ (acute kidney injury) Current Visit: Yes Status: Resolved The assessment and plan as outlined above was discussed with the patient and/or family members who expressed understanding and agreement. All questions were answered. ct stable labs orders for am Vital Signs, Last 4 Hours Temp Pulse Resp BP Pulse Ox 04/27/19 11:35 98.5 F 97 18 120/77 93 04/27/19 08:13 16 95 Oxgyen Flow Rate Oxygen Flow Rate (LPM) 0 Clinical Data, last 8 Hours Output, Urine Amount 400 Output, Urine Amount 0 Output, Urine Amount 600 Weight 04/25/19 04/26/19 04/27/19 23:59 23:59 23:59 Weight 96.3 kg 99.6 kg - Physical Examination General: Conversant, No Apparent Distress, Well developed, Well nourished HEENT: Atraumatic, Normocephaly Neck: No JVD Cardiac: Other (irregular irregular ) Incision: No signs of infection, Dry/intact dressing Lungs: Normal Breath Sounds Neuro: Alert and responsive, No focal deficits noted, Cranial nerves intact, Motor nerves intact Vascular: Normal capillary refill Abdomen: Soft, Non-tender, Other (bs present ) Extremities: No Edema - Labs 04/27/19 00:43 04/27/19 00:43 Lab Results, Last 24 hours 04/27/19 04/27/19 04/27/19 00:43 00:43 00:43 WBC 9.7 Hgb 10.6 L Hct 31.8 L Plt Count 146 INR 2.2 Sodium 137 Potassium 4.2 Chloride 95 L Carbon Dioxide 32 H BUN 35 H Creatinine 1.33 H Glucose 120 H Calcium 8.9 - VTE Documentation of Mechanical Device: Graduated compression elastic hosiery Consult Discharge Plan - Plan Referrals: Quin Brown MD [Partnered Physician] - 05/17/19 11:40 am Mercedes Black MD [Primary Care Provider] - (left a voice mail for them to call me back) Balwinder Hester MD [Non-Partnered Physician] - 05/30/19 9:00 am
--- NOTE | 2019-04-27 14:02 | Internal Med Progress Note ---
Hospitalist Progress Note - Encounter Date of Encounter: 04/27/19 Time of Encounter: 14:00 - Subjective Interval History: Was seen and examined at bedside. Patient was comfortably resting in his chair. Patient denies any acute issues and concern at this time. Patient is currently on Coumadin for his A. fib. His INR today was 2.2. We will continue current dose of Coumadin. In short discharge tomorrow or day after tomorrow. Patient will discharge to home with outpatient cardiac rehabilitation. - Exam Vitals: Temp Pulse Resp BP Pulse Ox 98.5 F 97 18 120/77 93 04/27/19 12:15 04/27/19 12:15 04/27/19 12:15 04/27/19 12:15 04/27/19 12:15 Exam: General: NAD, good eye contact, well appearing Thoracic: Normal breath sounds b/l, no wheezing or crackles Cardio: Normal S1 and S2, regular rate and rhythm, dressing in place at coronary artery bypass graft site Abdomen: Soft, nontender Extremities: Warm, well perfused. DP pulses 2+ b/l. Mild nonpitting edema b/l ankles Skin: Intact. No rashes, bruises, or ulcers Neuro: Awake, fully oriented. Speech fluent - Assessment and Plan (1) PAF (paroxysmal atrial fibrillation) Current Visit: Yes Status: Chronic Assessment and Plan: In Cardizem drip. Continue Coumadin. INR of 2.2. (2) NSTEMI (non-ST elevated myocardial infarction) Current Visit: Yes Status: Acute Assessment and Plan: Patient is status post CABG X 4 along with maze procedure POD # 4. Patient is doing well. We will continue current plan with cardiology. Plan is to discharge tomorrow or day after tomorrow with cardiac rehabilitation. (3) Leukocytosis Current Visit: Yes Status: Acute Assessment and Plan: Possibly reactive status post surgery. Trending down. White count today is within normal limit. (4) NOÉ (acute kidney injury) Current Visit: Yes Status: Resolved Assessment and Plan: Creatinine stable at 1.3. We will continue to monitor (5) Diabetes mellitus Current Visit: Yes Status: Chronic Assessment and Plan: Continue basal and bolus regimen. (6) GERD (gastroesophageal reflux disease) Current Visit: Yes Status: Chronic Assessment and Plan: Continue Protonix (7) CHF (congestive heart failure) Current Visit: Yes Status: Chronic Assessment and Plan: Continue Lasix. Continue to monitor input and output. Daily weight. DVT Prophylaxis: She is on Coumadin. - Time Spent with Patient Total time spent is greater than 50% in coordination of care (as documented) at patient's floor/unit and/or counseling patient: 25 - 35 minutes Plan of Care Discussed with: patient Internal Medicine: Result - Labs CBC & Chem 7: 04/27/19 00:43 04/27/19 00:43 Labs: Short CBC 04/27/19 Range/Units 00:43 WBC 9.7 (4.3-11.1) K/mcL Hgb 10.6 L (12.9-16.9) g/dL Hct 31.8 L (37.5-50.1) % Plt Count 146 (140-400) K/mcL Neutrophils # 6.7 (1.6-8.9) K/mcL BMP 04/27/19 00:43 Sodium 137 Potassium 4.2 Chloride 95 L Carbon Dioxide 32 H BUN 35 H Creatinine 1.33 H Glucose 120 H Calcium 8.9 - ABG Interpretation ABG results: ABG ABG pH 7.41 pH Units (7.32-7.45) 04/23/19 00:26 ABG pCO2 48 mmHg (35-45) H 04/23/19 00:26 ABG pO2 158 mmHg (85-104) H 04/23/19 00:26 ABG O2 Saturation 99 % (95-98) H 04/23/19 00:26 PT/INR, D-dimer PT 24.9 Seconds (9.4-12.1) H 04/27/19 00:43 - VTE Documentation of Mechanical Device: Graduated compression elastic hosiery Consult Discharge Plan - Plan Referrals: Quin Brown MD [Partnered Physician] - 05/17/19 11:40 am Mercedes Black MD [Primary Care Provider] - (left a voice mail for them to call me back) Balwinder Hester MD [Non-Partnered Physician] - 05/30/19 9:00 am (3) Leukocytosis Qualifiers: Leukocytosis type: unspecified Qualified Code(s): D72.829 - Elevated white blood cell count, unspecified (5) Diabetes mellitus Qualifiers: Diabetes mellitus type: type 2 Diabetes mellitus terminal makeup operator insulin use: without group home use Diabetes mellitus complication status: with other specified complication Qualified Code(s): E11.69 - Type 2 diabetes mellitus with other specified complication (6) GERD (gastroesophageal reflux disease) Qualifiers: Esophagitis presence: without esophagitis Qualified Code(s): K21.9 - Gastro- esophageal reflux disease without esophagitis (7) CHF (congestive heart failure) Qualifiers: Heart failure type: diastolic Heart failure chronicity: acute Qualified Code(s): I50.31 - Acute diastolic (congestive) heart failure
[2019-04-27] MEDS: Diltiazem CD (24hr) 240 MG CAPSULE PO SCH (14:03)
[2019-04-27] MEDS ORDERED: *HR* Warfarin 4 MG TABLET PO ONE (18:00)
[2019-04-27] MEDS: Famotidine 20 MG TABLET PO SCH (21:10)
[2019-04-28] MEDS: *HR* OxyCODONE/APAP 5/325 TABLET PO PRN (05:19)
[2019-04-28 06:07] LABS: Basophils # 0.1 K/mcL (0.0-0.2); Basophils % 0.6 %; Eosinophils # 0.3 K/mcL (0.0-0.6); Eosinophils % 3.1 %; Hematocrit 34.6 % (37.5-50.1); Hemoglobin 11.5 g/dL (12.9-16.9); Immature Granulocytes % 0.6 % (0-4); Lymphocytes # 1.4 K/mcL (0.6-4.6); Lymphocytes % 13.8 %; Mean Corpuscular HGB Conc 33.2 g/dL (31.6-35.5); Mean Corpuscular Hemoglobin 30.2 pg (28.0-33.3); Mean Corpuscular Volume 90.8 fL (83.0-100.0); Mean Platelet Volume 10.3 fL (9.4-12.4); Monocytes # 0.9 K/mcL (0.0-1.3); Monocytes % 8.5 %; Neutrophils # 7.3 K/mcL (1.6-8.9); Platelet Count 196 K/mcL (140-400); Red Blood Count 3.81 M/mcL (4.19-5.50); Red Cell Distribution Width 12.5 % (11.5-14.5); Segmented Neutrophils % 73.4 %
[2019-04-28 06:14] LABS: INR 2.4; Prothrombin Time 27.4 Seconds (9.4-12.1)
[2019-04-28 06:27] LABS: BUN/Creatinine Ratio 26 (6-26); Blood Urea Nitrogen 32 mg/dL (8-23); Carbon Dioxide 29 mEq/L (23-29); Chloride 99 mEq/L (98-107); Glucose 132 mg/dL (70-105); Osmolality,Calculated 289 (280-300); Potassium 4.4 mEq/L (3.5-5.1); Sodium 135 mEq/L (136-145); eGFR For African Americans > 60 (> 60); eGFR For Non-African Americans 59 (> 60)
[2019-04-28] MEDS: Insulin LISPRO 300 UNITS/3 ML VIAL SQ SCH ×2 (07:20→12:44)
[2019-04-28] MEDS: Chlorhexidine Rinse 15 ML MOUTHWASH MM SCH (07:20)
[2019-04-28] MEDS: Aspirin Enteric Coated 81 MG Tablet PO SCH (07:20)
[2019-04-28] MEDS: Diltiazem CD (24hr) 240 MG CAPSULE PO SCH (07:20)
[2019-04-28] MEDS: Famotidine 20 MG TABLET PO SCH (07:20)
[2019-04-28] MEDS: Insulin DETEMIR 100 UNIT/ML X5UNITS SQ SCH (07:22)
[2019-04-28] MEDS ORDERED: Diltiazem CD (24hr) 240 MG CAPSULE PO SCH (09:00)
--- NOTE | 2019-04-28 11:53 | Internal Med Progress Note ---
Hospitalist Progress Note - Encounter Date of Encounter: 04/28/19 Time of Encounter: 11:51 - Subjective Interval History: She was seen and examined today. He is resting comfortably in his chest. Patient denies any acute issues and concerns. Patient expressed his wish to go home. Cardiothoracic surgery was consulted and per them they would like to dis charge patient on Monday. Patient is currently off the Cardizem drip and he is now on oral Cardizem. - Exam Vitals: Temp Pulse Resp BP Pulse Ox 98.1 F 93 18 119/67 95 04/28/19 07:05 04/28/19 07:28 04/28/19 11:33 04/28/19 07:05 04/28/19 11:33 Exam: General: NAD, good eye contact, well appearing Thoracic: Normal breath sounds b/l, no wheezing or crackles Cardio: Normal S1 and S2, regular rate and rhythm, dressing in place at coronary artery bypass graft site Abdomen: Soft, nontender Extremities: Warm, well perfused. DP pulses 2+ b/l. Mild nonpitting edema b/l ankles Skin: Intact. No rashes, bruises, or ulcers Neuro: Awake, fully oriented. Speech fluent - Assessment and Plan (1) PAF (paroxysmal atrial fibrillation) Current Visit: Yes Status: Chronic Assessment and Plan: Patient is rate controlled. On oral Cardizem. INR today 2.4. Continue to monitor INR. Continue telemetry. (2) NSTEMI (non-ST elevated myocardial infarction) Current Visit: Yes Status: Acute Assessment and Plan: Patient is status post CABG X 4 along with maze procedure POD # 5. Patient is doing well. We will continue current plan with cardiology. Plan is to discharge tomorrow with cardiac rehabilitation. (3) Leukocytosis Current Visit: Yes Status: Resolved Assessment and Plan: Possibly reactive status post surgery. Trending down. White count today is within normal limit today. (4) NOÉ (acute kidney injury) Current Visit: Yes Status: Resolved Assessment and Plan: Creatinine stable at 1.21. We will continue to monitor (5) Diabetes mellitus Current Visit: Yes Status: Chronic Assessment and Plan: Continue basal and bolus regimen. (6) GERD (gastroesophageal reflux disease) Current Visit: Yes Status: Chronic Assessment and Plan: Continue Protonix (7) CHF (congestive heart failure) Current Visit: Yes Status: Chronic Assessment and Plan: Continue Lasix. Continue to monitor input and output. Daily weight. DVT Prophylaxis: He is on Coumadin. - Time Spent with Patient Total time spent is greater than 50% in coordination of care (as documented) at patient's floor/unit and/or counseling patient: 25 - 35 minutes Plan of Care Discussed with: patient Internal Medicine: Result - Labs CBC & Chem 7: 04/28/19 05:32 04/28/19 05:32 Labs: Short CBC 04/28/19 Range/Units 05:32 WBC 10.0 (4.3-11.1) K/mcL Hgb 11.5 L (12.9-16.9) g/dL Hct 34.6 L (37.5-50.1) % Plt Count 196 (140-400) K/mcL Neutrophils # 7.3 (1.6-8.9) K/mcL BMP 04/28/19 05:32 Sodium 135 L Potassium 4.4 Chloride 99 Carbon Dioxide 29 BUN 32 H Creatinine 1.21 Glucose 132 H Calcium 9.0 - ABG Interpretation ABG results: ABG ABG pH 7.41 pH Units (7.32-7.45) 04/23/19 00:26 ABG pCO2 48 mmHg (35-45) H 04/23/19 00:26 ABG pO2 158 mmHg (85-104) H 04/23/19 00:26 ABG O2 Saturation 99 % (95-98) H 04/23/19 00:26 PT/INR, D-dimer PT 27.4 Seconds (9.4-12.1) H 04/28/19 05:32 - Impressions Impressions Chest X-Ray 04/28/19 08:00 IMPRESSION: Persistent small left pleural effusion and left basilar airspace disease. D/ / Conrad Steve MD / Conrad Steve MD Interpreting Provider: Conrad Steve MD - VTE Documentation of Mechanical Device: Graduated compression elastic hosiery Consult Discharge Plan - Plan Referrals: Quin Brown MD [Partnered Physician] - 05/17/19 11:40 am Mercedes Black MD [Primary Care Provider] - (left a voice mail for them to call me back) Balwinder Hester MD [Non-Partnered Physician] - 05/30/19 9:00 am (3) Leukocytosis Qualifiers: Leukocytosis type: unspecified Qualified Code(s): D72.829 - Elevated white blood cell count, unspecified (5) Diabetes mellitus Qualifiers: Diabetes mellitus type: type 2 Diabetes mellitus senior living insulin use: with out termite inspector use Diabetes mellitus complication status: with other specified complication Qualified Code(s): E11.69 - Type 2 diabetes mellitus with other specified complication (6) GERD (gastroesophageal reflux disease) Qualifiers: Esophagitis presence: without esophagitis Qualified Code(s): K21.9 - Gastro- esophageal reflux disease without esophagitis (7) CHF (congestive heart failure) Qualifiers: Heart failure type: diastolic Heart failure chronicity: acute Qualified Code(s): I50.31 - Acute diastolic (congestive) heart failure
--- NOTE | 2019-04-28 12:01 | Cardiothoracic Progress Note ---
Date of Encounter: 04/28/19 Time of Encounter: 12:01 - Assessment and plan (1) S/P CABG x 4 Status: Acute The assessment and plan as outlined above was discussed with the patient and/or family members who expressed understanding and agreement. All questions were answered. Mr. Edwards is postoperative day 7 from CABG 4 with NEGRETE to the LAD, saphenous vein graft to the diagonal sequences to obtuse marginal, and clipping of the left atrial appendage. He is doing very well. System plan. Neuro-- there is in no pain. His main concern is to be able to get home to burry his who recently of brain cancer. Cardiovascular standpoint he is stable hemodynamically with a rate of 80 blood pressure 119/67 on Lopressor 50 mg by mouth twice a day and Cardizem 240 daily. He remains in atrial fibrillation on Coumadin with an INR of 2.4. He is also on baby aspirin 81 mg once daily. Respiratory standpoint she is stable off oxygen good breath sounds tiny effusion on chest x-ray today. From a GI standpoint he is doing well. His abdomen is protuberant but he states this is his normal. He had a bowel movement today no blood in the stools. From a renal standpoint he is urinating without any hematuria, as he previously had. He had a previous creatinine preopertively of 1.2. He has an appointment with outpatient to address the left UPJ obstruction. Heme standpoint-- his hematocrit and platelet counts are stable. He is on Coumadin for his chronic atrial fibrillation as well as the left atrial clip placement. For DVT prophylaxis he is currently wearing teds and ambulating in hallways. From an endocrine standpoint his glucoses have only been recently controlled in the 100 range this morning they were in the mid 300s yesterday. Preoperatively he had an A1c of mid 8s. Currently his sternal incision and leg incisions are welll without any healing issues. We will monitor his glucose for the next 24 hours to make sure his glucose levels are under 150 to make sure he does not end up with any sternal wound infection. [id number] pm Patient desires to go home to burry . Did discuss with Dr. Brown who is fine with that. (2) Atrial fibrillation with controlled ventricular rate Status: Acute The assessment and plan as outlined above was discussed with the patient and/or family members who expressed understanding and agreement. All questions were answered. (3) Hydronephrosis due to obstruction of ureter Status: Acute The assessment and plan as outlined above was discussed with the patient and/or family members who expressed understanding and agreement. All questions were answered. (4) Hydronephrosis, left Status: Acute The assessment and plan as outlined above was discussed with the patient and/or family members who expressed understanding and agreement. All questions were answered. (5) Hypomagnesemia Status: Acute The assessment and plan as outlined above was discussed with the patient and/or family members who expressed understanding and agreement. All questions were answered. (6) Lesion of bladder Status: Acute The assessment and plan as outlined above was discussed with the patient and/or family members who expressed understanding and agreement. All questions were answered. (7) Diabetes mellitus Status: Chronic The assessment and plan as outlined above was discussed with the patient and/or family members who expressed understanding and agreement. All questions were answered. Qualifiers: Diabetes mellitus type: type 2 Diabetes mellitus manager intermediate insulin use: without manager intermediate use Diabetes mellitus complication status: with other specified complication Qualified Code(s): E11.69 - Type 2 diabetes mellitus with other specified complication - Subjective Interval history: Test test test is doing well overall. His glucoses were in the 300s yesterday and they are in the 100s this morning Vital Signs, Last 4 Hours Resp Pulse Ox 04/28/19 11:33 18 95 04/28/19 08:23 16 95 Oxgyen Flow Rate Oxygen Flow Rate (LPM) 0 Weight 04/26/19 04/27/19 04/28/19 23:59 23:59 23:59 Weight 99.6 kg 99.337 kg - Physical Examination General: Conversant, No Apparent Distress, Well developed, Well nourished HEENT: Atraumatic, Normocephaly, Trachea midline Neck: No JVD Cardiac: Reg Rate and Rhythm, Normal S1 and S2, No Murmur Incision: No signs of infection, Open to air Sternum: Stable Pacing Wires: Removed Lungs: Normal Breath Sounds Neuro: Alert and responsive, No focal deficits noted Vascular: Other Abdomen: Soft, Non-tender Skin: Other Musculoskeletal: No Chest Wall Tenderness Extremities: No Clubbing, No Cyanosis, Other Other: On physical exam his vitals are stable with regular rate and rhythm without murmurs, rubs, gallops or bruits. His sternal incision is well-healed, clean, dry and intact. The dressing was removed; there is no clicking. He has good breath sounds to the bases. His abdomen is protuberant but he states this is normal for him. The chest tube sites are well healed. Bilateral lower extremity harvest sites are well-healed. He has only 1+ peripheral edema. - Labs 04/28/19 05:32 04/28/19 05:32 Lab Results, Last 24 hours 04/28/19 04/28/19 04/28/19 05:32 05:32 05:32 WBC 10.0 Hgb 11.5 L Hct 34.6 L Plt Count 196 INR 2.4 Sodium 135 L Potassium 4.4 Chloride 99 Carbon Dioxide 29 BUN 32 H Creatinine 1.21 Glucose 132 H Calcium 9.0 - Imaging Chest Xray: other (Chest x-ray small effusion left base all wires look midline no infiltrate) - VTE Documentation of Mechanical Device: Graduated compression elastic hosiery Consult Discharge Plan - Plan Instructions: Metoprolol (By mouth), Diltiazem (By mouth), Famotidine (By mouth), Hydrochlorothiazide (By mouth), Warfarin (By mouth), Aspirin (By mouth), Sertraline (By mouth), Simvastatin (By mouth), Pantoprazole (By mouth) Additional Instructions: Follow-up with PCP in one week to get CXR done. Follow-up with PCP or at Coumadin clinic for INR follow-up Referrals: Quin Brown MD [Partnered Physician] - 05/17/19 11:40 am Mercedes Black MD [Primary Care Provider] - (left a voice mail for them to call me back) Balwinder Hester MD [Non-Partnered Physician] - 05/30/19 9:00 am Prescriptions: Aspirin Enteric Coated [Aspirin EC] 81 mg PO DAILY #15 tablet.dr Leeroy MELENDEZ (24hr) [Cardizem CD] 240 mg PO DAILY #14 cap.er.24h hydroCHLOROthiazide [Hydrochlorothiazide] 25 mg PO DAILY #14 tablet Metoprolol [Lopressor] 50 mg PO BID #30 tablet Famotidine [Pepcid] 20 mg PO BID #30 tablet Pantoprazole Sodium [Protonix] 40 mg PO DAILY #15 tablet. Warfarin Sodium 4 mg PO AD 15 Days #15 tablet Lisinopril [Zestril] 5 mg PO DAILY #14 tablet Simvastatin [Zocor] 40 mg PO HS #15 tablet Sertraline [Zoloft] 50 mg PO DAILY #15 tablet
[2019-04-28 12:03] VITALS: BP 134/81
--- NOTE | 2019-04-28 12:54 | Discharge Summary ---
- NOTES TO OUTPATIENT PROVIDER Notes to Outpatient Provider: Patient was admitted for acute hypoxic respiratory failure. Initial presentation patient found to have both lost with congestion and pneumonia. Patient get IV antibiotic and then subsequently he improved. Patient had an elevated troponin level on presentation. Patient placed on heparin and nitro drip. Patient had cardiac catheter done and found to have a significant coronary artery disease and blockage. Patient got coronary artery bypass graft 4 with Maze procedure. Postoperative course was complicated by atrial fibrillation. Patient was placed on Cardizem drip. And then subsequently transitioned to Cardizem by mouth. Patient was started on Coumadin for anticoagulation for atrial fibrillation. Patient is currently on Coumadin 4 mg daily INR on discharge days 2.4. Follow-up the patient to get INR repeated in 2 days. Follow-up chest x-ray in one week. Follow-up with cardiothoracic surgeon in 2 weeks. Estimated PT Needs at Discharge: None Date of Encounter: 04/28/19 Time of Encounter: 12:49 - Discharge Diagnosis (1) PAF (paroxysmal atrial fibrillation) Priority: Primary Status: Acute (2) NSTEMI (non-ST elevated myocardial infarction) Priority: Secondary Status: Acute (3) Leukocytosis Priority: Secondary Status: Resolved Qualifiers: Leukocytosis type: unspecified Qualified Code(s): D72.829 - Elevated white blood cell count, unspecified (4) NOÉ (acute kidney injury) Priority: Secondary Status: Resolved (5) Diabetes mellitus Priority: Secondary Status: Chronic Qualifiers: Diabetes mellitus type: type 2 Diabetes mellitus shelter insulin use: without terminal operations manager use Diabetes mellitus complication status: with other specified complication Qualified Code(s): E11.69 - Type 2 diabetes mellitus with other specified complication (6) GERD (gastroesophageal reflux disease) Priority: Secondary Status: Chronic Qualifiers: Esophagitis presence: without esophagitis Qualified Code(s): K21.9 - Gastro-esophageal reflux disease without esophagitis (7) CHF (congestive heart failure) Priority: Secondary Status: Chronic Qualifiers: Heart failure type: diastolic Heart failure chronicity: acute Qualified Code(s): I50.31 - Acute diastolic (congestive) heart failure Hospital course: Mr. Edwards is a 68 year old male with past medical history of COPD who presented to the emergency department with acute respiratory distress. He was intubated shortly after arrival to the emergency room. Patient's Rehana so bilateral pulmonary edema suggestive of congestive heart failure. EKG showed ST segment depression were reviewed with pizza baker. Troponin was elevated. Patient was placed on heparin and nitro drip. Subsequently patient was get cardiac catheterization done. And then taught coronary artery bypass graft 4 and maze procedure done on March 2019. Patient was monitored in ICU for that. Patient was then discharged to stepdown postoperative day 2. Stop. Was complicated by new onset atrial fibrillation. Patient was placed initially on Cardizem drip. Then patienton Cardizem by mouth. Patient was started on anti- correlation by Coumadin. Patient received Coumadin 4 mg daily. INR on discharge it was 2.4. Patient was discharged in stable condition. Patient is to follow-up with primary care provider in one week. Patient is to get the chest x-ray done in one week. Follow-up with cardiothoracic surgeon couple of weeks. Follow-up at the Coumadin clinic for INR checkup and Coumadin dose management. Upon discharge patient was offered to get cardiac rehabilitation. Patient would like to go home with outpatient cardiac rehabilitation. Discharge discussed with: patient, family, nurse, case management - Time Spent with Patient Total time spent providing and/or coordinating discharge services: 40 Time spent: Greater than 30 minutes - Discharge Medications Prescriptions: New OxyCODONE/APAP 5/325 [Percocet 5/325 MG] 1 each PO Q6H PRN 5 Days #20 tablet PRN Reason: Severe Pain Aspirin Enteric Coated [Aspirin EC] 81 mg PO DAILY #15 tablet. Diltiazeabby CD (24hr) [Cardizem CD] 240 mg PO DAILY #14 cap.er.24h Metoprolol [Lopressor] 50 mg PO BID #30 tablet Famotidine [Pepcid] 20 mg PO BID #30 tablet Continued Metformin HCl 1,000 mg PO BIDWM hydroCHLOROthiazide [Hydrochlorothiazide] 25 mg PO DAILY #14 tablet Pantoprazole Sodium [Protonix] 40 mg PO DAILY #15 tablet. Warfarin Sodium 4 mg PO AD 15 Days #15 tablet Lisinopril [Zestril] 5 mg PO DAILY #14 tablet Simvastatin [Zocor] 40 mg PO HS #15 tablet Sertraline [Zoloft] 50 mg PO DAILY #15 tablet Discontinued Warfarin Sodium 5 mg PO AD Carvedilol 12.5 mg PO BIDWM Home Medications: Metformin HCl 1,000 mg PO BIDWM 04/18/19 [History] Aspirin Enteric Coated [Aspirin EC] 81 mg PO DAILY #15 tablet. 04/28/19 [Rx] Diltiazem CD (24hr) [Cardizem CD] 240 mg PO DAILY #14 cap.er.24h 04/28/19 [Rx] Famotidine [Pepcid] 20 mg PO BID #30 tablet 04/28/19 [Rx] Lisinopril [Zestril] 5 mg PO DAILY #14 tablet 04/28/19 [Rx] Metoprolol [Lopressor] 50 mg PO BID #30 tablet 04/28/19 [Rx] OxyCODONE/APAP 5/325 [Percocet 5/325 MG] 1 each PO Q6H PRN 5 Days #20 tablet 04/28/19 [Rx] Pantoprazole Sodium [Protonix] 40 mg PO DAILY #15 tablet. 04/28/19 [Rx] Sertraline [Zoloft] 50 mg PO DAILY #15 tablet 04/28/19 [Rx] Simvastatin [Zocor] 40 mg PO HS #15 tablet 04/28/19 [Rx] Warfarin Sodium 4 mg PO AD 15 Days #15 tablet 04/28/19 [Rx] hydroCHLOROthiazide [Hydrochlorothiazide] 25 mg PO DAILY #14 tablet 04/28/19 [Rx] Allergies/Adverse Reactions: Allergy/AdvReac Type Severity Reaction Status Date / Time No Known Allergies Allergy Verified 04/18/19 08:46 Date of admission: 04/17/19 11:00 Primary care physician: Mercedes Black MD Consults: 04/18/19 09:36 Consult to Cardiology [CONS] Routine Comment: Consulting Provider: Cardiology Carolyn Reason for Consult: pulmonary edema, echo shows EF 55% no Hx CHF Call Completed: No 04/18/19 14:10 Consult to Cardiac Rehabilitation-Phase1 [CONS] Routine Comment: Reason for Consult: NSTEMI--C 04/19 Call Completed: Yes 04/19/19 15:16 Consult to Nurse Navigator [CONS] Routine Comment: chf 04/22/19 18:41 Consult to Cardiac Rehabilitation-Phase1 [CONS] Routine Comment: Reason for Consult: Post open heart Call Completed: Yes 04/23/19 06:23 Consult to Urology [CONS] Routine Consulting Provider: Urology Carolyn Reason for Consult: Postoperative hematuria Time Notified: 06:17 Call Completed: Yes 04/24/19 10:24 Consult for Pharmacy Education [CONS] Routine Reason for Consult: Post-Op Heart Call Completed: Yes Consult to Physical Therapy [CONS] Routine Comment: Evaluate, develop and implement POC Reason for Consult: Post open heart Does patient have active BEDREST order?: No Is patient medically & hemodynamically stable?: Yes Discharging clinician: Gold Gaspar - Constitutional Vitals: Temp Pulse Resp BP Pulse Ox 98.1 F 92 18 134/81 97 04/28/19 11:58 04/28/19 11:58 04/28/19 11:58 04/28/19 11:58 04/28/19 11:58 General appearance: Present: cooperative, A&O X 3 Exam: General: NAD, good eye contact, well appearing Thoracic: Normal breath sounds b/l, no wheezing or crackles Cardio: Normal S1 and S2, regular rate and rhythm, dressing in place at coronary artery bypass graft site Abdomen: Soft, nontender Extremities: Warm, well perfused. DP pulses 2+ b/l. Mild nonpitting edema b/l ankles Skin: Intact. No rashes, bruises, or ulcers Neuro: Awake, fully oriented. Speech fluent - Patient Status Disposition: Home, Self-Care Condition: Good Functional capacity at discharge: independent ambulation Overall status at discharge: patient is progressing back to baseline - Discharge Instructions Instructions: Metoprolol (By mouth), Diltiazem (By mouth), Famotidine (By mouth), Hydrochlorothiazide (By mouth), Warfarin (By mouth), Aspirin (By mouth), Sertraline (By mouth), Simvastatin (By mouth), Pantoprazole (By mouth) Follow Up With: Quin Brown MD [Partnered Physician] - 05/17/19 11:40 am Mercedes Black MD [Primary Care Provider] - (left a voice mail for them to call me back) Balwinder Hester MD [Non-Partnered Physician] - 05/30/19 9:00 am Forms: ED Satisfaction Letter Additional Instructions: Follow-up with PCP in one week to get CXR done. Follow-up with PCP or at Coumadin clinic for INR follow-up - Diet and Activity Activity: as per physical therapy, increase activity as tolerated Diet: diabetic diet, low salt diet - VTE Documentation of Mechanical Device: Graduated compression elastic hosiery
[2019-04-28] MEDS ORDERED: *HR* Warfarin 4 MG TABLET PO ONE (18:00)
== END 2019-04-28 13:54 | disposition home or self-care (01) | DRG 228 ==
LOC: EMEROOARM 08:12 → ICNU 11:00 → SUATTDRO 11:00 → ICNU 12:03 → 2ANU 04-18 15:20 → ICNU 04-22 14:59 → 2NNU 04-25 00:24
PROVIDERS: ADMIT Internal Medicine Pulmonary Disease; ATTEND Family Medicine

== ENCOUNTER 2019-05-24 07:22 | Inpatient (IN) ==
[2019-05-24] MEDS ORDERED: 0.9 % Sodium Chloride 1,000 ML IVC ONE (07:42)
--- NOTE | 2019-05-24 07:58 | Emergency Department Note ---
Disposition Clinical Impression: Atrial fibrillation with RVR Disposition: Admitted As Inpatient Condition: Good Time of Disposition: 11:00 General Adult HPI - General Chief complaint: ED Dizziness Stated complaint: Dizziness Time Seen by Provider: 05/24/19 07:26 Source: patient, family Limitations: no limitations Nursing Notes Reviewed: Yes Vital Signs Reviewed: Yes - History of Present Illness HPI Narrative: Patient is a 68 yo man who came to the ED after awaking at 5 am and "not feeling well" on 05/24/19. He denies CP and confusion. Family said he complained of dizziness and SOB before asking to come to the ED. He was recently released from the hospital s/p bypass. He is on warfarin and compliant with medications, per family. PMH includes afib controlled with metoprolol and diltiazem, NSTEMI (04/17/19), open heart surgery/quadruple bypass (04/28/19). Pain Scale: 0 - Related Data Home Medications Medication Instructions Recorded Confirmed Metformin HCl 1,000 mg PO BIDWM 04/18/19 04/18/19 Previous Rx's Medication Instructions Recorded Aspirin Enteric Coated [Aspirin EC] 81 mg PO DAILY #15 tablet. 04/28/19 Diltiazem CD (24hr) [Cardizem CD] 240 mg PO DAILY #14 cap.er.24h 04/28/19 Famotidine [Pepcid] 20 mg PO BID #30 tablet 04/28/19 Lisinopril [Zestril] 5 mg PO DAILY #14 tablet 04/28/19 Metoprolol [Lopressor] 50 mg PO BID #30 tablet 04/28/19 OxyCODONE/APAP 5/325 [Percocet 1 each PO Q6H PRN 5 Days #20 tablet 04/28/19 5/325 MG] Pantoprazole Sodium [Protonix] 40 mg PO DAILY #15 tablet. 04/28/19 Sertraline [Zoloft] 50 mg PO DAILY #15 tablet 04/28/19 Simvastatin [Zocor] 40 mg PO HS #15 tablet 04/28/19 Warfarin Sodium 4 mg PO AD 15 Days #15 tablet 04/28/19 hydroCHLOROthiazide 25 mg PO DAILY #14 tablet 04/28/19 [Hydrochlorothiazide] Allergies Allergy/AdvReac Type Severity Reaction Status Date / Time No Known Allergies Allergy Verified 04/18/19 08:46 All systems ED: reviewed and negative except as stated. Respiratory: Reports: dyspnea Integumentary: Reports: other (Surgical wound infection on upper thorax) Neurological: Reports: confusion, other (Dizziness) Past Medical History - Past Medical History Source: patient, old records reviewed, obtained from family Medical history: Reports: atrial fibrillation, COPD, coronary artery disease, diabetes, hyperlipidemia, hypertension, myocardial infarction Surgical history: Reports: coronary bypass (CABG) Psychiatric history: Reports: other - Social History Smoking Status: Current some day smoker Alcohol use: Reports: none Drug use: Reports: none Physical Exam PE Gen: AOx2 (name, place), appears uncomfortable HEENT: No lymphadenopathy, no erythema, no edema. Pupils equal and reactive. Cardio: Irregular rhythm, tachycardic, no murmur, no peripheral edema, goood perfusion to extremities, no cyanosis Resp: Equal breath sounds bilaterally, no wheeze, no cough GI: Abdomen soft, nondistended, nontender to palpation. No ecchymoses, no rash. : No suprapubic tenderness or distention MSK: Normal ROM. Surgical site wound w/ purulent drainage underneath bandage. Midline scar s/p open heart surgery appears healing well otherwise. Neuro: CNI-XII intact, strength and sensation WNL Psych: Appropriate affect - General General appearance: alert Course Course Narrative: Patient tachycardic to 200s w/ afib upon arrival to ED. INR therapeutic at 2.1. BP stable, SpO2 WNL and stable. CXR with small left pleural effusion that was present on 04/28/19, cardiomegaly, pulmonary congestion. - Reevaluation(s) Reevaluation #1: HR slowly responding to multiple rounds of 10mg cardizem bolus + 20 mg/hr car dizem drip. Patient says he is feeling better. Appears unwell. Time: 10:00 Vital Signs Temperature 98.0 F 05/24/19 07:27 Pulse Rate 184 05/24/19 07:27 Respiratory Rate 19 05/24/19 07:27 Blood Pressure 155/112 05/24/19 07:27 O2 Sat by Pulse Oximetry 95 05/24/19 07:27 Temperature 98.0 F 05/24/19 07:27 Pulse Rate 103 05/24/19 15:38 Respiratory Rate 16 05/24/19 15:38 Blood Pressure 121/80 05/24/19 15:38 O2 Sat by Pulse Oximetry 93 05/24/19 15:38 Oxygen Delivery Oxygen Delivery Nasal Cannula Medical Decision Making - [facility] Narrative Medical decision making narrative: Treatment focused on gaining rate control via IV cardizem with goal HR<100. Therapeutic INR suggests TIA/stroke is not component of presentation. Once pat ient stable, would recommend CT chest to evaluate for abscess given surgical site infection; he is not febrile, hypotensive, hypoxic and does not have leukocytosis. EKG, troponin pending decreased HR. Discussed plan to admit with patient, family and hospitalist. Everyone in agreement with plan. - Medical Records Medical records reviewed: Yes I reviewed the patient's medical records. - Lab Data Lab results reviewed: Yes I reviewed the patient's lab results. Result diagrams: 05/24/19 07:34 05/24/19 07:34 Lab Results 05/24/19 05/24/19 05/24/19 Range/Units 07:34 07:34 07:34 WBC 8.0 (4.3-11.1) K/mcL RBC 4.25 (4.19-5.50) M/mcL Hgb 12.0 L (12.9-16.9) g/dL Hct 37.7 (37.5-50.1) % MCV 88.7 (83.0-100.0) fL MCH 28.2 (28.0-33.3) pg MCHC 31.8 (31.6-35.5) g/dL RDW 13.2 (11.5-14.5) % Plt Count 180 (140-400) K/mcL MPV 10.9 (9.4-12.4) fL Immature Gran % 0.4 (0-4) % Seg Neutrophils % 81.1 % Lymphocytes % 10.0 % Monocytes % 7.4 % Eosinophils % 0.7 % Basophils % 0.4 % Neutrophils # 6.5 (1.6-8.9) K/mcL Lymphocytes # 0.8 (0.6-4.6) K/mcL Monocytes # 0.6 (0.0-1.3) K/mcL Eosinophils # 0.1 (0.0-0.6) K/mcL Basophils # 0.0 (0.0-0.2) K/mcL PT (9.4-12.1) Seconds INR Sodium 141 (136-145) mEq/L Potassium 4.0 (3.5-5.1) mEq/L Chloride 100 (98-107) mEq/L Carbon Dioxide 28 (23-29) mEq/L BUN 21 (8-23) mg/dL Creatinine 1.30 (0.70-1.30) mg/dL Est GFR ( Amer) > 60 (> 60) Est GFR (Non-Af Amer) 55 L (> 60) BUN/Creatinine Ratio 16 (6-26) Glucose 213 H (70-105) mg/dL Calculated Osmolality 301 H (280-300) Calcium 9.4 (8.6-10.3) mg/dL Magnesium (1.6-2.6) mg/dL Total Bilirubin 0.6 (0.3-1.0) mg/dL AST 23 (13-39) Units/L ALT 17 (7-52) Units/L Alkaline Phosphatase 97 (34-104) Units/L Troponin I (< 0.04) ng/mL B-Natriuretic Peptide 580 H (Less than 100) pg/mL Serum Total Protein 7.0 (6.4-8.9) g/dL Albumin 3.9 (3.5-5.7) g/dL Globulin 3.1 (2.4-3.5) g/dL Albumin/Globulin Ratio 1.3 (1.1-2.2) 05/24/19 05/24/19 05/24/19 Range/Units 07:42 07:45 10:23 WBC (4.3-11.1) K/mcL RBC (4.19-5.50) M/mcL Hgb (12.9-16.9) g/dL Hct (37.5-50.1) % MCV (83.0-100.0) fL MCH (28.0-33.3) pg MCHC (31.6-35.5) g/dL RDW (11.5-14.5) % Plt Count (140-400) K/mcL MPV (9.4-12.4) fL Immature Gran % (0-4) % Seg Neutrophils % % Lymphocytes % % Monocytes % % Eosinophils % % Basophils % % Neutrophils # (1.6-8.9) K/mcL Lymphocytes # (0.6-4.6) K/mcL Monocytes # (0.0-1.3) K/mcL Eosinophils # (0.0-0.6) K/mcL Basophils # (0.0-0.2) K/mcL PT 23.7 H (9.4-12.1) Seconds INR 2.1 Sodium (136-145) mEq/L Potassium (3.5-5.1) mEq/L Chloride (98-107) mEq/L Carbon Dioxide (23-29) mEq/L BUN (8-23) mg/dL Creatinine (0.70-1.30) mg/dL Est GFR ( Amer) (> 60) Est GFR (Non-Af Amer) (> 60) BUN/Creatinine Ratio (6-26) Glucose (70-105) mg/dL Calculated Osmolality (280-300) Calcium (8.6-10.3) mg/dL Magnesium 1.5 L (1.6-2.6) mg/dL Total Bilirubin (0.3-1.0) mg/dL AST (13-39) Units/L ALT (7-52) Units/L Alkaline Phosphatase (34-104) Units/L Troponin I 0.81 H* (< 0.04) ng/mL B-Natriuretic Peptide (Less than 100) pg/mL Serum Total Protein (6.4-8.9) g/dL Albumin (3.5-5.7) g/dL Globulin (2.4-3.5) g/dL Albumin/Globulin Ratio (1.1-2.2) - Radiology Data Radiology results reviewed: Yes I reviewed the patient's radiology results. Chest X-Ray 05/24/19 07:56 IMPRESSION: Borderline cardiomegaly with pulmonary vascular congestion. Stable small left pleural effusion. D/ / Hung Luna MD / Hung Luna MD Interpreting Provider: Hung Luna MD
[2019-05-24 08:05] LABS: Basophils % 0.4 %; Eosinophils # 0.1 K/mcL (0.0-0.6); Eosinophils % 0.7 %; Hematocrit 37.7 % (37.5-50.1); Immature Granulocytes % 0.4 % (0-4); Lymphocytes # 0.8 K/mcL (0.6-4.6); Mean Corpuscular HGB Conc 31.8 g/dL (31.6-35.5); Mean Corpuscular Hemoglobin 28.2 pg (28.0-33.3); Mean Corpuscular Volume 88.7 fL (83.0-100.0); Mean Platelet Volume 10.9 fL (9.4-12.4); Monocytes # 0.6 K/mcL (0.0-1.3); Monocytes % 7.4 %; Neutrophils # 6.5 K/mcL (1.6-8.9); Platelet Count 180 K/mcL (140-400); Red Blood Count 4.25 M/mcL (4.19-5.50); Red Cell Distribution Width 13.2 % (11.5-14.5); Segmented Neutrophils % 81.1 %
[2019-05-24 08:15] LABS: INR 2.1; Prothrombin Time 23.7 Seconds (9.4-12.1)
--- NOTE | 2019-05-24 08:16 | Emergency Department Note ---
Disposition Clinical Impression: Atrial fibrillation with RVR Disposition: Admitted As Inpatient Condition: Good Time of Disposition: 11:00 General Adult HPI - General Chief complaint: ED Dizziness Stated complaint: Dizziness Time Seen by Provider: 05/24/19 07:26 Source: patient, family Limitations: no limitations - History of Present Illness Pain Scale: 0 - Related Data Home Medications Medication Instructions Recorded Confirmed Metformin HCl 1,000 mg PO BIDWM 04/18/19 05/24/19 Warfarin Sodium 4 mg PO Q48H 05/24/19 05/24/19 Warfarin Sodium 5 mg PO Q48H 05/24/19 05/24/19 Previous Rx's Medication Instructions Recorded Aspirin Enteric Coated [Aspirin EC] 81 mg PO DAILY #15 tablet. 04/28/19 Diltiazem CD (24hr) [Cardizem CD] 240 mg PO DAILY #14 cap.er.24h 04/28/19 Famotidine [Pepcid] 20 mg PO BID #30 tablet 04/28/19 Lisinopril [Zestril] 5 mg PO DAILY #14 tablet 04/28/19 Metoprolol [Lopressor] 50 mg PO BID #30 tablet 04/28/19 OxyCODONE/APAP 5/325 [Percocet 1 each PO Q6H PRN 5 Days #20 tablet 04/28/19 5/325 MG] Pantoprazole Sodium [Protonix] 40 mg PO DAILY #15 tablet. 04/28/19 Sertraline [Zoloft] 50 mg PO DAILY #15 tablet 04/28/19 Simvastatin [Zocor] 40 mg PO HS #15 tablet 04/28/19 hydroCHLOROthiazide 25 mg PO DAILY #14 tablet 04/28/19 [Hydrochlorothiazide] Allergies Allergy/AdvReac Type Severity Reaction Status Date / Time No Known Allergies Allergy Verified 04/18/19 08:46 Respiratory: Reports: dyspnea Integumentary: Reports: other (Surgical wound infection on upper thorax) Neurological: Reports: confusion, other (Dizziness) Past Medical History - Past Medical History Medical history: Reports: atrial fibrillation, COPD, coronary artery disease, diabetes, hyperlipidemia, hypertension, myocardial infarction Surgical history: Reports: coronary bypass (CABG) Psychiatric history: Reports: other - Social History Smoking Status: Current some day smoker Alcohol use: Reports: none Drug use: Reports: none Physical Exam - General Limitations: no limitations General appearance: alert Course Vital Signs Temperature 98.0 F 05/24/19 07:27 Pulse Rate 184 05/24/19 07:27 Respiratory Rate 19 05/24/19 07:27 Blood Pressure 155/112 05/24/19 07:27 O2 Sat by Pulse Oximetry 95 05/24/19 07:27 Temperature 97.6 F 05/25/19 07:17 Pulse Rate 137 05/25/19 07:17 Respiratory Rate 18 05/25/19 07:17 Blood Pressure 120/83 05/25/19 07:17 O2 Sat by Pulse Oximetry 98 05/25/19 07:17 Oxygen Delivery Oxygen Delivery Nasal Cannula Medical Decision Making - Lab Data Result diagrams: 05/25/19 05:15 05/25/19 05:15 Lab Results 05/24/19 05/24/19 05/24/19 Range/Units 07:34 07:34 07:34 WBC 8.0 (4.3-11.1) K/mcL RBC 4.25 (4.19-5.50) M/mcL Hgb 12.0 L (12.9-16.9) g/dL Hct 37.7 (37.5-50.1) % MCV 88.7 (83.0-100.0) fL MCH 28.2 (28.0-33.3) pg MCHC 31.8 (31.6-35.5) g/dL RDW 13.2 (11.5-14.5) % Plt Count 180 (140-400) K/mcL MPV 10.9 (9.4-12.4) fL Immature Gran % 0.4 (0-4) % Seg Neutrophils % 81.1 % Lymphocytes % 10.0 % Monocytes % 7.4 % Eosinophils % 0.7 % Basophils % 0.4 % Neutrophils # 6.5 (1.6-8.9) K/mcL Lymphocytes # 0.8 (0.6-4.6) K/mcL Monocytes # 0.6 (0.0-1.3) K/mcL Eosinophils # 0.1 (0.0-0.6) K/mcL Basophils # 0.0 (0.0-0.2) K/mcL PT (9.4-12.1) Seconds INR Sodium 141 (136-145) mEq/L Potassium 4.0 (3.5-5.1) mEq/L Chloride 100 (98-107) mEq/L Carbon Dioxide 28 (23-29) mEq/L BUN 21 (8-23) mg/dL Creatinine 1.30 (0.70-1.30) mg/dL Est GFR ( Amer) > 60 (> 60) Est GFR (Non-Af Amer) 55 L (> 60) BUN/Creatinine Ratio 16 (6-26) Glucose 213 H (70-105) mg/dL Calculated Osmolality 301 H (280-300) Calcium 9.4 (8.6-10.3) mg/dL Magnesium (1.6-2.6) mg/dL Total Bilirubin 0.6 (0.3-1.0) mg/dL AST 23 (13-39) Units/L ALT 17 (7-52) Units/L Alkaline Phosphatase 97 (34-104) Units/L Troponin I (< 0.04) ng/mL B-Natriuretic Peptide 580 H (Less than 100) pg/mL Serum Total Protein 7.0 (6.4-8.9) g/dL Albumin 3.9 (3.5-5.7) g/dL Globulin 3.1 (2.4-3.5) g/dL Albumin/Globulin Ratio 1.3 (1.1-2.2) 05/24/19 05/24/19 05/24/19 Range/Units 07:42 07:45 10:23 WBC (4.3-11.1) K/mcL RBC (4.19-5.50) M/mcL Hgb (12.9-16.9) g/dL Hct (37.5-50.1) % MCV (83.0-100.0) fL MCH (28.0-33.3) pg MCHC (31.6-35.5) g/dL RDW (11.5-14.5) % Plt Count (140-400) K/mcL MPV (9.4-12.4) fL Immature Gran % (0-4) % Seg Neutrophils % % Lymphocytes % % Monocytes % % Eosinophils % % Basophils % % Neutrophils # (1.6-8.9) K/mcL Lymphocytes # (0.6-4.6) K/mcL Monocytes # (0.0-1.3) K/mcL Eosinophils # (0.0-0.6) K/mcL Basophils # (0.0-0.2) K/mcL PT 23.7 H (9.4-12.1) Seconds INR 2.1 Sodium (136-145) mEq/L Potassium (3.5-5.1) mEq/L Chloride (98-107) mEq/L Carbon Dioxide (23-29) mEq/L BUN (8-23) mg/dL Creatinine (0.70-1.30) mg/dL Est GFR ( Amer) (> 60) Est GFR (Non-Af Amer) (> 60) BUN/Creatinine Ratio (6-26) Glucose (70-105) mg/dL Calculated Osmolality (280-300) Calcium (8.6-10.3) mg/dL Magnesium 1.5 L (1.6-2.6) mg/dL Total Bilirubin (0.3-1.0) mg/dL AST (13-39) Units/L ALT (7-52) Units/L Alkaline Phosphatase (34-104) Units/L Troponin I 0.81 H* (< 0.04) ng/mL B-Natriuretic Peptide (Less than 100) pg/mL Serum Total Protein (6.4-8.9) g/dL Albumin (3.5-5.7) g/dL Globulin (2.4-3.5) g/dL Albumin/Globulin Ratio (1.1-2.2) Attestation Statement - Attestation Attestation: I examined this patient and my medical decision-making was reviewed with the Resident Physician. I agree with the documented findings, disposition and treatment plan as described except to the extent set forth below. Patient presents in nature fibrillation with rapid ventricular response. I was present for the residency EKG interpretation. He was hypertensive on arrival. After a dose of 10 mg of Cardizem, the rate is come down a little bit, pressure is down to the 120 systolic. He has some dizziness. It is unclear whether his chronic or paroxysmal atrial fibrillation based on his history, but he is on Coumadin. We will continue to work on rate control, patient will require admission to the hospital.
[2019-05-24 08:28] LABS: Alanine Aminotransferase 17 Units/L (7-52); Albumin 3.9 g/dL (3.5-5.7); Albumin/Globulin Ratio 1.3 (1.1-2.2); Alkaline Phosphatase 97 Units/L (34-104); Aspartate Amino Transferase 23 Units/L (13-39); BUN/Creatinine Ratio 16 (6-26); Bilirubin,Total 0.6 mg/dL (0.3-1.0); Blood Urea Nitrogen 21 mg/dL (8-23); Calcium 9.4 mg/dL (8.6-10.3); Carbon Dioxide 28 mEq/L (23-29); Chloride 100 mEq/L (98-107); Globulin 3.1 g/dL (2.4-3.5); Glucose 213 mg/dL (70-105); Osmolality,Calculated 301 (280-300); Sodium 141 mEq/L (136-145); eGFR For African Americans > 60 (> 60); eGFR For Non-African Americans 55 (> 60)
[2019-05-24] MEDS ORDERED: Ondansetron 4 MG/2 ML VIAL IVP PRN (10:24)
[2019-05-24] MEDS ORDERED: Acetaminophen 325 MG TABLET PO PRN (10:24)
[2019-05-24] MEDS ORDERED: *HR* Dextrose 50 % in Water (Syg) 50 ML SYRINGE IVP PRN (10:29)
[2019-05-24] MEDS ORDERED: D5% in Water 1,000 ML IVC PRN (10:29)
[2019-05-24] MEDS ORDERED: Dextrose Gel 15 GM/37.5 ML TUBE PO PRN ×2 (10:29)
--- NOTE | 2019-05-24 10:51 | Internal Med History&Physical ---
Date of Encounter: 05/24/19 Time of Encounter: 10:27 Internal Medicine - H&P: HPI Chief complaint: Feeling unwell Admitted From: Emergency Dept History of present illness: Jones Edwards is a 68 M w hx CAD s/p 4vCABG 03/2019, HFpEF, A-Fib on AC, DM2, COPD, chronic left UPJ obstruction and hydronephrosis, who p/w feeling unwell. Unable to describe other than something is just off. He is accompanied by his daughter who states that patient has been fatigued for 4-5 days, because at recent family member's he was barely able to get around, exertionally dyspneic. Daughter states that within the last week he was seen by CT surg who placed patient on keflex for small area of dehiscence and infection of sternotomy at superior edge, but no fevers. When asked about swelling, patient does mention that his legs have been more swollen than usual and that he's having some weeping of fluid through his skin. In the ED, vitals T 98, HR 180 irregular, RR 19, BP 150s/110, satting well RA. Per ED physician, some concern for spontaneous drainage from superior aspect of patient's sternotomy incision. Labs notable for WBC 8, Hb 12, INR 2.1, Cr 1.3, Mg 1.5. CXR showing borderline cardiomegaly with pulmonary vascular congestion. Patient given NS 1L bolus as well as cardizem 10mg bolus x3 with some slowing of HR, and then placed on cardizem gtt with improvement to HR 110-120s @20. Admitted for further management. CABG on 04/22. Pt admitted to ICU shortly before for acute hypoxic respiratory failure caused by acute HFpEF which improved after diuresis. LHC then revealed triple vessel disease for which CABG performed. Post-op pt did have A-Fib RVR requiring cardizem gtt and transitioned to PO rate control meds and warfarin prior to discharge. Last TTE 03/2019 showing EF 55%. Past medical, surgical, social, and family histories reviewed and updated as below. Past Med Surg Social Fam HX - Past Medical History Medical history: atrial fibrillation, COPD, coronary artery disease, diabetes, hyperlipidemia, hypertension, myocardial infarction Additional medical history: Unale to answer Psychiatric history: other - Past Surgical History Surgical History: coronary bypass (CABG) Additional surgical history: unable to answer - Social History Smoking Status: Current some day smoker Alcohol use: none Drug use: none - Family History Son Hx Family Cardiac Disorders: Yes (CHF) Internal Medicine - H&P: Meds Metformin HCl 1,000 mg PO BIDWM 04/18/19 [History] Aspirin Enteric Coated [Aspirin EC] 81 mg PO DAILY #15 tablet. 04/28/19 [Rx] Diltiazem CD (24hr) [Cardizem CD] 240 mg PO DAILY #14 cap.er.24h 04/28/19 [Rx] Famotidine [Pepcid] 20 mg PO BID #30 tablet 04/28/19 [Rx] Lisinopril [Zestril] 5 mg PO DAILY #14 tablet 04/28/19 [Rx] Metoprolol [Lopressor] 50 mg PO BID #30 tablet 04/28/19 [Rx] OxyCODONE/APAP 5/325 [Percocet 5/325 MG] 1 each PO Q6H PRN 5 Days #20 tablet 04/28/19 [Rx] Pantoprazole Sodium [Protonix] 40 mg PO DAILY #15 tablet. 04/28/19 [Rx] Sertraline [Zoloft] 50 mg PO DAILY #15 tablet 04/28/19 [Rx] Simvastatin [Zocor] 40 mg PO HS #15 tablet 04/28/19 [Rx] Warfarin Sodium 4 mg PO AD 15 Days #15 tablet 04/28/19 [Rx] hydroCHLOROthiazide [Hydrochlorothiazide] 25 mg PO DAILY #14 tablet 04/28/19 [Rx] Allergy/AdvReac Type Severity Reaction Status Date / Time No Known Allergies Allergy Verified 04/18/19 08:46 All Systems PM: A 10-system review of systems was performed and is negative for pertinent findings except as documented above in the HPI. - Constitutional Vitals: Temp Pulse Resp BP Pulse Ox 98.0 F 118 20 129/79 97 05/24/19 07:27 05/24/19 09:53 05/24/19 09:53 05/24/19 09:53 05/24/19 09:53 Exam: General: NAD, good eye contact, chronically ill appearing Head: Atraumatic, normocephalic. Face symmetric Eyes: EOMI, sclerae anicteric ENT: Mucous membranes moist. Normal oral mucosa and poor dentition. Trachea midline. Thoracic: Bilateral crackles in lower half of lung [place], does have midline sternotomy with 1 cm dehiscence superior edge with mild purulent drainage Cardio: Normal S1 and S2, irregularly irregular rhythm, tachycardic, unable to assess JVD Abdomen: Soft, nontender, nondistended, obese Extremities: Warm, well perfused. DP pulses 2+ b/l. Significant pitting edema b/ l legs with some weeping, edema dependent into thighs, no body wall edema Skin: sternotomy issue as above, weeping from shins as above Neuro: Awake, fully oriented. Good memory, concentration, attention. Speech fluent. CN II-XII grossly intact. Strength 5/5 in b/l UE and LE Internal Med - H&P Results - Labs CBC & Chem 7: 05/24/19 07:34 05/24/19 07:34 Labs: Short CBC 05/24/19 Range/Units 07:34 WBC 8.0 (4.3-11.1) K/mcL Hgb 12.0 L (12.9-16.9) g/dL Hct 37.7 (37.5-50.1) % Plt Count 180 (140-400) K/mcL Neutrophils # 6.5 (1.6-8.9) K/mcL BMP 05/24/19 07:34 Sodium 141 Potassium 4.0 Chloride 100 Carbon Dioxide 28 BUN 21 Creatinine 1.30 Glucose 213 H Calcium 9.4 Liver Function 05/24/19 Range/Units 07:34 Total Bilirubin 0.6 (0.3-1.0) mg/dL AST 23 (13-39) Units/L ALT 17 (7-52) Units/L Alkaline Phosphatase 97 (34-104) Units/L Albumin 3.9 (3.5-5.7) g/dL - Impressions ITS Impressions Chest X-Ray 05/24/19 07:56 IMPRESSION: Borderline cardiomegaly with pulmonary vascular congestion. Stable small left pleural effusion. D/ / Hung Luna MD / Hung Luna MD Interpreting Provider: Hung Luna MD - Summary of Assessment and Plan Summary of Assessment and Plan: Jones Edwards is a 68 M w hx CAD s/p 4vCABG 03/2019, HFpEF, A-Fib on AC, DM2, COPD, chronic left UPJ obstruction and hydronephrosis, who p/w malaise, HR 180s irregular, crackles and pedal edema, CXR w congestion, consistent with A-Fib RVR and acute on chronic HFpEF. A-Fib RVR: AC on warfarin, hemodynamically stable. Unclear etiology, either 2/2 or c/b volume overload - check trop and BNP - check ECG - continue home lopressor 50 bid - continue dilt gtt since EF is known 55% - cardio consult Acute on chronic HFpEF: volume overload w crackles and edema, vascular congestion on CXR, and given NS 1L in ED - lasix 40 iv x1 and reassess in PM CAD s/p CABG: home ASA, simvastatin. Does have area of irregularity of sternal wound - woundRN consult - wound swab - continue outpatient keflex 500 qid COPD: home inhalers HTN: holding home hctz 25 and lisinopril 5 while on cardizem gtt DM2: w hyperglycemia, holding metformin, home basal plus SSI while inpatient Chronic left UPJ obstruction with severe hydronephrosis: normal renal function, outpatient Urology follow up GERD: home PPI and H2B Depression: home zoloft 50 daily Obesity: BMI 32 PPx: lovenox Activity: ambulate FEN: regular, no MIVF Lines: PIV Consults: Code: Full Dispo: patient requires inpatient eval and management at this time. Anticipate 3-4 days. Will be homegoing
[2019-05-24] MEDS ORDERED: Furosemide 40 MG/4 ML VIAL IVP ONE (11:27)
[2019-05-24] MEDS ORDERED: Furosemide 40 MG/4 ML VIAL ONE (11:32)
[2019-05-24] MEDS ORDERED: *HR* Metoprolol 5 MG/5 ML VIAL IVP ONE (12:32)
--- NOTE | 2019-05-24 13:42 | Cardiology Consult Note ---
Date of Encounter: 05/24/19 Time of Encounter: 13:39 Assessment and Plan (1) Atrial fibrillation with RVR Current Visit: Yes Status: Acute 1. On Cardizem gtt; bolus 10mg and continue titration up to 20mg/hr. 2. Ordered TSH level; mag 1.5; agree with order to replace. Continue to monitor electrolytes. 3. On ASA, Metoprolol, continue. On Coumadin, pharmacy to dose. 4. Given IV lopressor 5 mg x 1. (2) CHF (congestive heart failure) Current Visit: No Status: Chronic 1.Borderline cardiomegaly with pulmonary vascular congestion on chest x-ray with fine basilar crackles on exam. 2+ Pitting edema bilateral on lower legs. Will give IV lasix 40 mg now and again in a.m. Qualifiers: Heart failure type: diastolic Heart failure chronicity: chronic Qualified Code(s): I50.32 - Chronic diastolic (congestive) heart failure (3) Elevated troponin Current Visit: Yes Status: Acute 1.Troponin 0.81; continue to trend. S/P CABG x 4 on 04/12. Possibly demand ischemia related borderline cardiomegaly with pulmonary vascular congestion on chest x-ray. Will give IV lasix x 2 doses. No cardiac rehab consult necessary at this time. 2. Once HR controlled will complete limited echo. (4) CAD (coronary artery disease) Current Visit: No Status: Chronic 1. S/P CABG x 4, LAD endarterectomy, modified Maze procedure, and left atrial ap pendage stapling performed 04/22/[address] Brown. 2. 04/17/19 echo EF 55%. [facility]. 3. Currently treated for wound located at superior edge of sternotomy incision site with scant drainage noted. Also there are wounds on left lower leg with drainage noted. Recommend wound consult. 3..On BB, Statin, ASA, continue. Qualifiers: Qualified Code(s): I25.10 - Atherosclerotic heart disease of [place] coronary artery without angina pectoris Discussion w patient/family: The assessment and plan as outlined above was discussed with the patient and/or family members who expressed understanding and agreement. All questions were answered. Thank you for involving us in the care of your patient. Please call with any questions. History of Present Illness Consult date: 05/24/19 Consult reason: A-fib RVR; recent CABG Chief complaint: palpitations History of present illness: Mr. Edwards is a 68 year old male PMH of CAD, COPD, PAF, DM, HTN, smoking hx, s/p 4vCABG 03/2019, HFpEF 55%. Complaints of fatigue, heart palpitations, and lightheadedness for last several days. Denies chest pain, SOB, fevers, chills, n/v, hemoptysis, hematochezia. Compliant with medications with assistance. Currently PAF treated at home with warfarin (INR 2.1) , ASA. Recently treated for small area of infection at sternotomy incision site on Keflex. Past Med Surg Social Fam HX - Past Medical History Attestation: Yes The following information was validated with the patient. Source: patient, old records reviewed, obtained from family Medical history: atrial fibrillation, COPD, coronary artery disease, diabetes, hyperlipidemia, hypertension, myocardial infarction Additional medical history: Unale to answer Psychiatric history: other - Past Surgical History Surgical History: coronary bypass (CABG) Additional surgical history: unable to answer - Social History Smoking Status: Current some day smoker Alcohol use: none Drug use: none - Family History Son Hx Family Cardiac Disorders: Yes (CHF) Medications and Allergies Metformin HCl 1,000 mg PO BIDWM 04/18/19 [History] Aspirin Enteric Coated [Aspirin EC] 81 mg PO DAILY #15 tablet. 04/28/19 [Rx] Diltiazem CD (24hr) [Cardizem CD] 240 mg PO DAILY #14 cap.er.24h 04/28/19 [Rx] Famotidine [Pepcid] 20 mg PO BID #30 tablet 04/28/19 [Rx] Lisinopril [Zestril] 5 mg PO DAILY #14 tablet 04/28/19 [Rx] Metoprolol [Lopressor] 50 mg PO BID #30 tablet 04/28/19 [Rx] OxyCODONE/APAP 5/325 [Percocet 5/325 MG] 1 each PO Q6H PRN 5 Days #20 tablet 04/28/19 [Rx] Pantoprazole Sodium [Protonix] 40 mg PO DAILY #15 tablet. 04/28/19 [Rx] Sertraline [Zoloft] 50 mg PO DAILY #15 tablet 04/28/19 [Rx] Simvastatin [Zocor] 40 mg PO HS #15 tablet 04/28/19 [Rx] Warfarin Sodium 4 mg PO AD 15 Days #15 tablet 04/28/19 [Rx] hydroCHLOROthiazide [Hydrochlorothiazide] 25 mg PO DAILY #14 tablet 04/28/19 [Rx] Allergy/AdvReac Type Severity Reaction Status Date / Time No Known Allergies Allergy Verified 04/18/19 08:46 All Systems Review: The remainder of the systems were reviewed and are negative - Cardiovascular Cardiovascular: as per HPI Physical Examination Vital Signs, Last 4 Hours Pulse Resp BP Pulse Ox 05/24/19 13:07 99 18 188/77 93 05/24/19 12:43 114 18 129/81 93 05/24/19 12:34 166 16 145/90 93 05/24/19 12:20 172 16 186/100 92 05/24/19 12:06 18 129/78 05/24/19 11:10 134 30 123/69 94 05/24/19 09:53 118 20 129/79 97 Results 05/24/19 07:34 05/24/19 07:34 Lab Results Laboratory Tests 05/24/19 05/24/19 05/24/19 07:34 07:34 07:34 Hgb 12.0 L Hct 37.7 Plt Count 180 INR Sodium 141 Potassium 4.0 BUN 21 Creatinine 1.30 Est GFR (Non-Af Amer) 55 L Magnesium B-Natriuretic Peptide 580 H 05/24/19 05/24/19 07:42 07:45 Hgb Hct Plt Count INR 2.1 Sodium Potassium BUN Creatinine Est GFR (Non-Af Amer) Magnesium 1.5 L B-Natriuretic Peptide Laboratory Tests 05/24/19 10:23 Troponin I 0.81 H* Impressions Chest X-Ray 05/24/19 07:56 IMPRESSION: Borderline cardiomegaly with pulmonary vascular congestion. Stable small left pleural effusion. D/ / Hung Luna MD / Hung Luna MD Interpreting Provider: Hung Luna MD Active Medications Acetaminophen (Tylenol) 650 mg PO Q6HR PRN PRN Reason: Mild Pain/Fever Stop: 11/23/19 10:25 Aspirin (Aspirin Ec) 81 mg PO DAILY [facility] Stop: 11/24/19 09:01 Cephalexin HCl (Keflex) 500 mg PO QID [facility] Stop: 11/23/19 13:01 Dextrose/Water (Dextrose 50% (Syg)) 25 ml IVP AD PRN PRN Reason: Hypoglycemia Stop: 11/23/19 10:30 Famotidine (Pepcid) 20 mg PO BID [facility]; Protocol Stop: 11/23/19 21:01 Glucagon (Glucagen) 1 mg IM ONCE PRN PRN Reason: Hypoglycemia Stop: 11/23/19 10:30 Glucose (Gluctose) 15 gm PO ONCE PRN PRN Reason: Hypoglycemia Stop: 11/23/19 10:30 Glucose (Gluctose) 30 gm PO ONCE PRN PRN Reason: Hypoglycemia Stop: 11/23/19 10:30 Dextrose (Dextrose 5%) 1,000 mls @ 100 mls/hr IVC .Q10H PRN PRN Reason: HYPOGLYCEMIA Stop: 11/23/19 10:30 Diltiazem HCl 125 mg/ Sodium (Chloride) 125 mls @ 5 mls/hr IVC CONT [facility]; Protocol Stop: 11/23/19 08:01 Last Infusion: 05/24/19 13:41 Dose: 20 mg/hr, 20 mls/hr Documented by: Insulin Human Lispro (Humalog) 0 units SQ HS [facility]; Protocol Stop: 11/23/19 21:01 Insulin Human Lispro (Humalog) 0 units SQ TIDAC [facility]; Protocol Stop: 11/23/19 11:31 Metoprolol Tartrate (Lopressor) 50 mg PO BID [facility] Stop: 11/23/19 21:01 Omeprazole (Prilosec) 20 mg PO 0730 [facility] Stop: 11/24/19 07:31 Ondansetron HCl (Zofran) 4 mg IVP Q8HR PRN PRN Reason: Nausea And Vomiting Stop: 11/23/19 10:25 Sertraline HCl (Zoloft) 50 mg PO DAILY [facility] Stop: 11/24/19 09:01 Simvastatin (Zocor) 40 mg PO HS [facility]; Protocol Stop: 11/23/19 21:01 Warfarin Sodium (Coumadin Perpt) 1 each PO DAILY@1800 PRN; Protocol PRN Reason: SEE COMMENTS Stop: 11/23/19 18:01 Intake & Output 08/2705/22/19 05/23/19 05/24/19 23:59 23:59 23:59 23:59 Intake Total 1095.6 / 1095.6 Output Total 250 / 250 Balance 845.6 / 845.6 Weight 103.2 kg - Imaging and Cardiology Chest Xray: report reviewed Echo: report reviewed - EKG Interpretation EKG results cardiology: other (A-fib) Consult Discharge Plan - Plan Referrals: Conrad Atkins MD [Primary Care Provider] - HAS-BLED Score - Score Labile INR: Unstable/high INR, Time in therapeutic range <60% Elderly: Age>65 years Medication usage predisposing to bleeding: Antiplatelet agents, NSAIDs, Anticoagulants Score: 3
[2019-05-24] MEDS: Insulin LISPRO 300 UNITS/3 ML VIAL SQ SCH ×2 (14:04→17:45)
[2019-05-24] MEDS: cephALEXin 500 MG CAPSULE PO SCH ×3 (14:04→23:55)
[2019-05-24] MEDS: Furosemide 40 MG/4 ML VIAL IVP SCH (15:09)
[2019-05-24] MEDS ORDERED: Sulfamethoxazole/Trimeth DS 1 EACH TABLET PO ONE (16:07)
[2019-05-24] MEDS ORDERED: Perflutren Lipid Microsphere 1.3 ML in 0.9 % Sodium Chloride 8.7 ML IVP ONE (16:21)
[2019-05-24] MEDS: Diltiazem CD (24hr) 180 MG CAPSULE PO SCH ×2 (16:54→17:09)
[2019-05-24] MEDS ORDERED: Nitroglycerin 0.4 MG TAB.SUBL SL ONE (16:58)
[2019-05-24] MEDS ORDERED: Morphine Sulfate 2 MG/ML SYRINGE IVP PRN (17:58)
[2019-05-24] MEDS ORDERED: Warfarin perPT PO PRN (18:00)
[2019-05-24] MEDS ORDERED: *HR* Warfarin 4 MG TABLET PO ONE (18:00)
[2019-05-24] MEDS ORDERED: Morphine Sulfate 2 MG/ML SYRINGE IVP ONE (18:30)
--- NOTE | 2019-05-24 18:58 | Event Note ---
Date of Encounter: 05/24/19 Time of Encounter: 18:52 Patient seen multiple times throughout afternoon after being notified that patient became groggy/confused, cool to touch, bradycardic, and hypotensive. S Pt complained of SOB, nausea and vomiting x1. O On exam, vitals HR initially 90s and on recheck was down to 40-50s, and pressu res initially 110s/60s and on re-eval was down to 80/50. RR and O2 sats wnl. Extremities cool to touch. Somnolent and oriented to person and place, mostly cooperative with exam, not laboring to breath. Urine output ~1L. Repeat trop in afternoon up to 5. A/P Concern for early cardiogenic shock from cardizem gtt. This was discontinued immediately. HR maintained 45-60s but SBP did slightly improve, with most recent set 100/80, still narrow pulse pressure. Checking ABG and lactate. Will place pads on patient, move to step down, hold further rate/BP meds and diuretics, and monitor BP frequently with low threshold to start pressures if SBP drops, pulse pressure narrows, or lactate increases. Farmworker Dr Alejo updated. Critical care spent: 50 minutes
[2019-05-24 19:15] LABS: ABG Base Excess 3 mEq/L (-2 to 3); ABG HCO3 30 mEq/L (21-27); ABG Oxygen Saturation 95 % (95-98); ABG PCO2 53 mmHg (35-45); ABG PH 7.35 pH Units (7.32-7.45); ABG PO2 83 mmHg (85-104); ABG TCO2 31 mEq/L (20-26)
[2019-05-24] MEDS ORDERED: *HR* Heparin 5,000 UNIT/ML VIAL IVP PRN ×2 (20:11)
[2019-05-24] MEDS ORDERED: Heparin 25,000 UNIT/250 ML D5W 25,000 UNIT/250 ML IV.SOLN IVC SCH (20:15)
[2019-05-24 20:22] LABS: Hemoglobin 12.2 g/dL (12.9-16.9); Mean Corpuscular HGB Conc 31.3 g/dL (31.6-35.5); Mean Corpuscular Hemoglobin 28.2 pg (28.0-33.3); Mean Corpuscular Volume 90.1 fL (83.0-100.0); Mean Platelet Volume 10.6 fL (9.4-12.4); Platelet Count 249 K/mcL (140-400); Red Blood Count 4.33 M/mcL (4.19-5.50); Red Cell Distribution Width 13.3 % (11.5-14.5)
[2019-05-24 20:23] LABS: White Blood Count 13.1 K/mcL (4.3-11.1)
[2019-05-24 20:32] LABS: Heparin anti-factor XA UFH 0.05 IU/mL (0.30-0.70); INR 2.6; Prothrombin Time 29.6 Seconds (9.4-12.1)
[2019-05-24 20:41] LABS: Albumin 3.8 g/dL (3.5-5.7); Albumin/Globulin Ratio 1.2 (1.1-2.2); Bilirubin,Total 1.3 mg/dL (0.3-1.0); Calcium 9.2 mg/dL (8.6-10.3); Globulin 3.2 g/dL (2.4-3.5); Potassium 4.9 mEq/L (3.5-5.1)
[2019-05-24] MEDS: Sulfamethoxazole/Trimeth DS 1 EACH TABLET PO SCH (23:55)
[2019-05-24] MEDS: Famotidine 20 MG TABLET PO SCH (23:55)
[2019-05-25] MEDS: Piperacillin/Tazobactam 3.375 GM in 0.9 % Sodium Chloride Mini Bag 100 ML IVPB SCH ×3 (00:03→17:08)
[2019-05-25] MEDS: Insulin LISPRO 300 UNITS/3 ML VIAL SQ SCH ×5 (00:04→20:37)
[2019-05-25 05:34] LABS: Hematocrit 35.4 % (37.5-50.1); Hemoglobin 11.4 g/dL (12.9-16.9); Mean Corpuscular HGB Conc 32.2 g/dL (31.6-35.5); Mean Corpuscular Hemoglobin 28.4 pg (28.0-33.3); Mean Corpuscular Volume 88.1 fL (83.0-100.0); Mean Platelet Volume 10.3 fL (9.4-12.4); Platelet Count 159 K/mcL (140-400); Red Blood Count 4.02 M/mcL (4.19-5.50); Red Cell Distribution Width 13.3 % (11.5-14.5); White Blood Count 8.2 K/mcL (4.3-11.1)
[2019-05-25 05:43] LABS: INR 3.2; Prothrombin Time 36.5 Seconds (9.4-12.1)
[2019-05-25 05:57] LABS: Magnesium 1.8 mg/dL (1.6-2.6); Potassium 4.6 mEq/L (3.5-5.1); Troponin I 6.26 ng/mL (< 0.04)
--- NOTE | 2019-05-25 08:35 | Cardiothoracic Consult Note ---
Date of Encounter: 05/25/19 Time of Encounter: 08:31 Assessment and Plan (1) Atrial fibrillation with RVR Current Visit: Yes Status: Acute The patient is a 68-year-old type II diabetic, hypertensive man with known CAD, paroxysmal atrial fibrillation, hypercholesterolemia, and COPD. He underwent CABG 4, LAD endarterectomy, modified Maze procedure, and left atrial appendage stapling on 04/22/2019. Postoperatively he had persistent atrial fibrillation with a controlled rate. He was evaluated in the office for a routine postoperative visit on 05/17/2019. At that time the patient was noted to have persistent atrial fibrillation and healing of his sternotomy incision and lower extremity incisions. He developed dizziness and was evaluated by his primary care physician. A small stitch abscess was noted at the superior portion of his sternotomy incision and this was cultured. The culture results revealed MRSA and he was recommended that the patient start additional antibiotic therapy. While attempting to contact the patient regarding the new antibiotic prescription, it was scarred that the patient was in the emergency department for evaluation of his dizziness. He was found to have atrial fibrillation with RVR and was started on a Cardizem drip. I was asked to evaluate the patient's sternotomy incision while he was in the hospital. The patient has a very small (0.2 cm) opening of the sternotomy incision consistent with a stitch abscess. This should be treated with wet-to-dry dressings and the addition of Bactrim as started by the hospitalist. The assessment and plan as outlined above was discussed with the patient and/or family members who expressed understanding and agreement. All questions were answered. - History of Present Illness Consult date: 05/24/19 Requesting physician: Gregg Love Consult reason: Wound evaluation Chief complaint: Dizziness History of present illness: Mr. Edwards is a 68 year old type II diabetic, hypertensive man with known CAD, paroxysmal atrial fibrillation, hypercholesterolemia, and COPD. His was terminally ill and collapsed at home on 04/17/2019. When he went to her side, he developed shortness of breath and dyspnea on exertion. The respiratory insufficiency continued and when he arrived in the emergency department, he was obtunded. He required intubation in order to protect his airway. He was rapidly extubated and found to have elevated troponin I levels consistent with an acute NSTEMI. He underwent cardiac catheterization was found to have severe 3 vessel CAD and an LVEF 55% (by transthoracic echocardiogram). In particular, the patient had a 99% proximal LAD lesion with severe distal disease and a small caliber vessel, a 70% proximal OM1 lesion, a 70% mid LCx lesion, and a completely occluded proximal RCA which fills distally via [id number] collaterals. He underwent CABG 4, LAD endarterectomy, modified Maze procedure using radiofrequency ablation, and left atrial appendage stapling on 04/22/2019. He was evaluated in the office on 05/17/2019. At that time he had evidence of atrial fibrillation with controlled rate and his sternotomy incision and lower extremity incision were healing well. The patient then began complaining of dizziness and was evaluated by his primary care physician. She noticed a small stitch abscess at the superior portion of the sternotomy incision and cultured the drainage. He was started empirically on Keflex; however, the cultures revealed MRSA resistant to Keflex. The primary care physician's office called our office for antibiotic recommendations. While attempting to contact the patient, the patient's [id number] stated that the patient was in the emergency department. He was being evaluated for atrial fibrillation with rapid ventricular response. I been asked to evaluate the patient's wound. He denies any chills, fever, excessive drainage, or pain at the upper portion of his sternotomy incision. The area and question appears to be a stitch abscess at the superior portion of the sternotomy incision where the suture was knotted. Past Med Surg Social Fam HX - Past Medical History Medical history: atrial fibrillation, COPD, coronary artery disease, diabetes, hyperlipidemia, hypertension, myocardial infarction Additional medical history: Unale to answer Psychiatric history: other - Past Surgical History Surgical History: coronary bypass (CABG), other (Modified Maze procedure with radiofrequency frequency ablation and left atrial appendage stapling) Additional surgical history: unable to answer - Social History Smoking Status: Current some day smoker Alcohol use: none Drug use: none Occupational status: retired Current living situation: Home - Independent Activity Level: Independent ambulation Recent Out of Country Travel Within the Last 8 Weeks: No Exposure or Possible Exposure to Illness During Travel: No - Family History Son Hx Family Cardiac Disorders: Yes (CHF) Medications and Allergies Metformin HCl 1,000 mg PO BIDWM 04/18/19 [History] Aspirin Enteric Coated [Aspirin EC] 81 mg PO DAILY #15 tablet. 04/28/19 [Rx] Diltiazem CD (24hr) [Cardizem CD] 240 mg PO DAILY #14 cap.er.24h 04/28/19 [Rx] Famotidine [Pepcid] 20 mg PO BID #30 tablet 04/28/19 [Rx] Lisinopril [Zestril] 5 mg PO DAILY #14 tablet 04/28/19 [Rx] Metoprolol [Lopressor] 50 mg PO BID #30 tablet 04/28/19 [Rx] OxyCODONE/APAP 5/325 [Percocet 5/325 MG] 1 each PO Q6H PRN 5 Days #20 tablet 04/28/19 [Rx] Pantoprazole Sodium [Protonix] 40 mg PO DAILY #15 tablet. 04/28/19 [Rx] Sertraline [Zoloft] 50 mg PO DAILY #15 tablet 04/28/19 [Rx] Simvastatin [Zocor] 40 mg PO HS #15 tablet 04/28/19 [Rx] hydroCHLOROthiazide [Hydrochlorothiazide] 25 mg PO DAILY #14 tablet 04/28/19 [Rx] Warfarin Sodium 4 mg PO Q48H 05/24/19 [History] Warfarin Sodium 5 mg PO Q48H 05/24/19 [History] Allergy/AdvReac Type Severity Reaction Status Date / Time No Known Allergies Allergy Verified 04/18/19 08:46 All Systems Review: The remainder of the systems were reviewed and are negative Physical Examination Vital Signs, Last 4 Hours Temp Pulse Resp BP Pulse Ox 05/25/19 07:17 97.6 F 137 18 120/83 98 General: Conversant, No Apparent Distress HEENT: Atraumatic, Normocephaly, Trachea midline Neck: No JVD, Normal carotid pulses Cardiac: Normal S1 and S2, No Murmur, Other (Irregular rate and rhythm (atrial fibrillation)) Lungs: Normal Breath Sounds, No Wheeze, Rales, Rhonchi Neuro: Alert and responsive, No focal deficits noted Vascular: Normal capillary refill Abdomen: Soft, Non-tender Skin: No rashes noted on visualized skin, Other (Small stitch abscess at this portion of the sternotomy incision measuring 0.2 cm in length.) Musculoskeletal: No Chest Wall Tenderness Extremities: No Clubbing, No Cyanosis, No Edema Results 05/25/19 05:15 05/25/19 05:15 Lab Results, Last 24 hours 05/24/19 05/24/19 05/24/19 07:34 10:23 15:45 WBC Hgb Hct Plt Count INR Sodium Potassium Chloride Carbon Dioxide BUN Creatinine Glucose Calcium Magnesium Total Bilirubin AST ALT Alkaline Phosphatase Troponin I 0.81 H* 5.91 H* B-Natriuretic Peptide 580 H TSH 05/24/19 05/24/19 05/24/19 15:45 20:05 20:05 WBC 13.1 H D Hgb 12.2 L Hct 39.0 Plt Count 249 INR Sodium 139 Potassium 4.9 Chloride 100 Carbon Dioxide 27 BUN 21 Creatinine 1.55 H Glucose 249 H Calcium 9.2 Magnesium Total Bilirubin 1.3 H AST 94 H ALT 46 Alkaline Phosphatase 103 Troponin I B-Natriuretic Peptide TSH 1.121 05/24/19 05/24/19 05/25/19 20:05 22:07 05:15 WBC 8.2 Hgb 11.4 L Hct 35.4 L Plt Count 159 INR 2.6 Sodium Potassium Chloride Carbon Dioxide BUN Creatinine Glucose Calcium Magnesium Total Bilirubin AST ALT Alkaline Phosphatase Troponin I 11.59 H* B-Natriuretic Peptide TSH 05/25/19 05/25/19 05:15 05:15 WBC Hgb Hct Plt Count INR 3.2 Sodium 142 Potassium 4.6 Chloride 101 Carbon Dioxide 29 BUN 25 H Creatinine 1.52 H Glucose 170 H Calcium 9.0 Magnesium 1.8 Total Bilirubin AST ALT Alkaline Phosphatase Troponin I 6.26 H* B-Natriuretic Peptide TSH - Imaging Chest Xray: image reviewed (Cardiomegaly. Small bilateral pleural effusions.) Consult Discharge Plan - Plan Referrals: Conrad Atkins MD [Primary Care Provider] -
[2019-05-25] MEDS: Famotidine 20 MG TABLET PO SCH ×2 (08:43→20:37)
[2019-05-25] MEDS: Aspirin Enteric Coated 81 MG Tablet PO SCH (08:43)
[2019-05-25] MEDS: Furosemide 40 MG/4 ML VIAL IVP SCH (08:44)
[2019-05-25] MEDS: cephALEXin 500 MG CAPSULE PO SCH ×4 (08:44→20:37)
[2019-05-25] MEDS: Metoprolol XL (24 HR) Succ 50 MG TAB.ER.24H PO SCH (08:45)
[2019-05-25] MEDS: Sulfamethoxazole/Trimeth DS 1 EACH TABLET PO SCH ×2 (08:54→20:37)
--- NOTE | 2019-05-25 09:39 | Cardiology Progress Note ---
Date of Encounter: 05/25/19 Time of Encounter: 08:00 Assessment and Plan (1) Elevated troponin Current Visit: Yes Status: Acute Per cardiology: -NSTEMI troponin peak at 11.59, now down trending. -S/P CABG x 4 on 04/12. -TTE with LVEF 55-60%, no segmental wall motion abnormalities noted. -Denies chest pain. -NO acute ischemic ECG changes noted. -On asa, statin, BB. Heparin drip was started per primary service. -With INR 3.2, will discontinue heparin drip. Recommend resuming when INR less than 2. -Plan for [facility] when able when meidcally optimized (NOÉ, respiratory function). Discussed with patient and family. (2) Atrial fibrillation with RVR Current Visit: Yes Status: Acute Per cardiology: -Known history of a.fib. -On BB, cardizem has been stopped due to hypotension. -BP marginal. -AVerage HR previous 12 hours noted to be 103, a.fib, acceptable HR given clinical status. -Was on coumadin in outpatient setting, INR 3.2 -If significantly tachycardic, can consider amiodarone. -Will continue to monitor. (3) CHF (congestive heart failure) Current Visit: No Status: Chronic Per cardiology: -Borderline cardiomegaly with pulmonary vascular congestion on chest x-ray with fine basilar crackles on exam. -1+ Pitting edema bilateral on lower legs. -On O2, not normally on at home. Concversational dyspnea noted. -ON IV lasix. Net positive I/os. -AGree with IV diuresis. Monitor renal function closely. -Strict i/os, fluid restriction, daily weights. Qualifiers: Heart failure type: diastolic Heart failure chronicity: chronic Qualified Code(s): I50.32 - Chronic diastolic (congestive) heart failure (4) CAD (coronary artery disease) Current Visit: No Status: Chronic Per cardiology: -S/P CABG x 4, LAD endarterectomy, modified Maze procedure, and left atrial appendage stapling performed 04/22/[address] Brown. -On asa, statin, BB. Qualifiers: Qualified Code(s): I25.10 - Atherosclerotic heart disease of [place] coronary artery without angina pectoris Discussion w patient/family: The assessment and plan as outlined above was discussed with the patient and/or family members who expressed understanding and agreement. All questions were ans wered. Thank you for involving us in the care of your patient. Please call with any questions. Discussed and reviewed with . Subjective Principal diagnosis: a.fib RVR, NSTEMI Interval history: Patient denies chest pain. Remains volume overloaded on exam. Objective Vital Signs, Last 4 Hours Temp Pulse Resp BP Pulse Ox 05/25/19 07:17 97.6 F 137 18 120/83 98 General: Conversant, Other (Mild conversational dyspnea noted. ) HEENT: Atraumatic, Normocephaly, Mucus Membranes Moist Neck: No JVD, Normal carotid pulses Cardiac: Normal S1 and S2, No Murmur, Other (Irregularly irregular) Lungs: Other (Patient refused respiratory assessment. ) Neuro: Alert and responsive, No focal deficits noted Abdomen: Soft, Non-Tender Skin: No rashes noted on visualized skin Musculoskeletal: No Chest Wall Tenderness Extremities: No Clubbing, No Cyanosis, Normal Pulses, Other (1+ bilateral lower extremity pitting edema noted. ) Results 05/25/19 05:15 05/25/19 05:15 Lab Results 05/24/19 05/24/19 05/24/19 07:34 10:23 15:45 WBC Hgb Hct Plt Count INR Sodium Potassium Chloride Carbon Dioxide BUN Creatinine Glucose Calcium Magnesium Total Bilirubin AST ALT Alkaline Phosphatase Troponin I 0.81 H* 5.91 H* B-Natriuretic Peptide 580 H TSH Impressions Echocardiogram Limited Views 05/24/19 15:17 Impressions: LVEF 55-60%. Normal LV chamber size, wall thickness and function. Atypical septal motion consistent with post-operative status. Left Ventricular Wall Motion: Rest Echo Findings All wall segments showed normal motion. Findings: Study Quality * Technically sub-optimal due to poor echocardiographic windows. ECG Findings * Atrial fibrillation. Left Ventricle * LVEF 55-60%. * Normal LV chamber size, wall thickness and function. * Atypical septal motion consistent with post-operative status. Right Ventricle * Right ventricle was not well visualized. Grossly, TAPSE appears normal. Pericardium * There is a trivial pericardial effusion present along the inferolateral segments of the LV. Chest X-Ray 05/24/19 17:05 IMPRESSION: Findings most compatible with pulmonary edema. Correlate with any clinical evidence of superimposed pneumonia. D/ / Thee Downs MD / Thee Downs MD Interpreting Provider: Thee Downs MD Active Medications Acetaminophen (Tylenol) 650 mg PO Q6HR PRN PRN Reason: Mild Pain/Fever Stop: 11/23/19 10:25 Aspirin (Aspirin Ec) 81 mg PO DAILY [facility] Stop: 11/24/19 09:01 Last Admin: 05/25/19 08:43 Dose: 81 mg Documented by: Cephalexin HCl (Keflex) 500 mg PO QID [facility] Stop: 11/23/19 13:01 Last Admin: 05/25/19 08:44 Dose: 500 mg Documented by: Dextrose/Water (Dextrose 50% (Syg)) 25 ml IVP AD PRN PRN Reason: Hypoglycemia Stop: 11/23/19 10:30 Diltiazem HCl (Cardizem Cd) 180 mg PO Q24H [facility] Stop: 11/23/19 17:01 Last Admin: 05/24/19 17:09 Dose: Not Given Documented by: Famotidine (Pepcid) 20 mg PO BID [facility]; Protocol Stop: 11/23/19 21:01 Last Admin: 05/25/19 08:43 Dose: 20 mg Documented by: Glucagon (Glucagen) 1 mg IM ONCE PRN PRN Reason: Hypoglycemia Stop: 11/23/19 10:30 Glucose (Gluctose) 15 gm PO ONCE PRN PRN Reason: Hypoglycemia Stop: 11/23/19 10:30 Glucose (Gluctose) 30 gm PO ONCE PRN PRN Reason: Hypoglycemia Stop: 11/23/19 10:30 Heparin Sodium (Porcine) (Heparin) 4,000 unit IVP Q6HR PRN PRN Reason: SEE COMMENTS Stop: 11/23/19 20:12 Heparin Sodium (Porcine) (Heparin) 2,000 unit IVP Q6H PRN PRN Reason: SEE COMMENTS Stop: 11/23/19 20:12 Last Admin: 05/25/19 06:16 Dose: 2,000 unit Documented by: Dextrose (Dextrose 5%) 1,000 mls @ 100 mls/hr IVC .Q10H PRN PRN Reason: HYPOGLYCEMIA Stop: 11/23/19 10:30 Diltiazem HCl 125 mg/ Sodium (Chloride) 125 mls @ 5 mls/hr IVC CONT [facility]; Protocol Stop: 11/23/19 08:01 Last Infusion: 05/24/19 17:00 Dose: Infused Documented by: Heparin Sodium/Dextrose (Heparin 25,000 Unit/250 Ml D5w) 25,000 unit in 250 mls @ 10 mls/hr IVC .Q24H [facility]; Protocol Stop: 11/23/19 20:16 Last Titration: 05/25/19 06:12 Dose: 11.69 unit/kg/hr, 12.1 mls/hr Documented by: Piperacillin Sod/Tazobactam (Sod 3.375 gm/ Sodium Chloride) 100 mls @ 25 mls/hr IVPB Q8HR [facility] Stop: 11/24/19 00:01 Last Admin: 05/25/19 08:44 Dose: 25 mls/hr Documented by: Insulin Human Lispro (Humalog) 0 units SQ HS [facility]; Protocol Stop: 11/23/19 21:01 Last Admin: 05/25/19 00:04 Dose: Not Given Documented by: Insulin Human Lispro (Humalog) 0 units SQ TIDAC [facility]; Protocol Stop: 11/23/19 11:31 Last Admin: 05/25/19 07:57 Dose: Not Given Documented by: Metoprolol Succinate (Toprol Xl) 50 mg PO DAILY [facility] Stop: 11/24/19 09:01 Last Admin: 05/25/19 08:45 Dose: 50 mg Documented by: Omeprazole (Prilosec) 20 mg PO 0730 [facility] Stop: 11/24/19 07:31 Last Admin: 05/25/19 08:43 Dose: 20 mg Documented by: Ondansetron HCl (Zofran) 4 mg IVP Q8HR PRN PRN Reason: Nausea And Vomiting Stop: 11/23/19 10:25 Sertraline HCl (Zoloft) 50 mg PO DAILY [facility] Stop: 11/24/19 09:01 Last Admin: 05/25/19 08:43 Dose: 50 mg Documented by: Simvastatin (Zocor) 40 mg PO HS [facility]; Protocol Stop: 11/23/19 21:01 Last Admin: 05/24/19 23:55 Dose: Not Given Documented by: Trimethoprim/Sulfamethoxazole (Bactrim Ds) 1 each PO BID [facility] Stop: 11/23/19 21:01 Last Admin: 05/25/19 08:54 Dose: 1 each Documented by: Laboratory Tests 05/24/19 05/24/19 05/24/19 07:34 10:23 15:45 Hgb INR Creatinine Troponin I 0.81 H* 5.91 H* B-Natriuretic Peptide 580 H 05/24/19 05/25/19 05/25/19 22:07 05:15 05:15 Hgb 11.4 L INR 3.2 Creatinine Troponin I 11.59 H* B-Natriuretic Peptide 05/25/19 05:15 Hgb INR Creatinine 1.52 H Troponin I 6.26 H* B-Natriuretic Peptide - Imaging and Cardiology Chest Xray: report reviewed Echo: report reviewed Cardiac cath: report reviewed - EKG Interpretation EKG results cardiology: other (Telemetry reviewed with average HR previous 12 hours noted to be 103, a.fib. PVCs noted.) Consult Discharge Plan - Plan Referrals: Conrad Atkins MD [Primary Care Provider] -
--- NOTE | 2019-05-25 16:07 | Internal Med Progress Note ---
Hospitalist Progress Note - Encounter Date of Encounter: 05/25/19 Time of Encounter: 10:15 - Subjective Interval History: Mr. Edwards continues to have atrial fibrillation with rapid ventricular response with rates as high as 130s however asymptomatic. GEN: Denies fever, chills or malaise HEENT: Denies headache blurriness, or dysphagia RESP: Denies SOB or cough CV: Denies chest pain or palpitations GI: Denies Nausea, vomiting, diarrhea or constipation Reviewed current in hospital medications with modifications see orders Reviewed Routine labs - Exam Vitals: Temp Pulse Resp BP Pulse Ox 97.4 F L 118 18 114/77 91 05/25/19 12:05 05/25/19 12:05 05/25/19 12:05 05/25/19 12:05 05/25/19 12:05 Exam: GEN: NAD, A&O x 3, Pleasant and conversant SKIN: Pale, warm acyanotic not jaundice, sternotomy scar dressing overlying clean dry and intact HEART: Irregularly irregular rate and rhythm no appreciable heart murmur LUNGS: Diminished but appears CTA no wheeze but minimal crackles, overall non labored ABDOMEN; Soft, non tender or distended, BS x 4 normactive EXT: No LE edema, Pedal pulses 1+, radial pulses 2+ PSYCH: Mood and affect is appropriate - Assessment and Plan (1) Atrial fibrillation with RVR Current Visit: Yes Status: Acute Assessment and Plan: Still not rate controlled however patient is asymptomatic, cardiology following appreciate the input, patient did not tolerate diltiazem drip yesterday became hypotensive, switched metoprolol twice a day to Toprol-XL daily plus diltiazem 180 home dose was 240, patient is high-risk for complete AV block will monitor on telemetry, warfarin currently on hold inr 3.2 will trend, TSH was within normal limits (2) NSTEMI (non-ST elevated myocardial infarction) Current Visit: Yes Status: Acute Assessment and Plan: Troponin was elevated yesterday he is being followed by cardiology. Recommend medical management given his recent CABG (3) S/P CABG x 4 Current Visit: Yes Status: Acute Assessment and Plan: Sternotomy scar, and lower extremity scar from graft poor wound healing was seen by cardiothoracic surgeon input appreciated (4) CAD (coronary artery disease) Current Visit: Yes Status: Chronic Assessment and Plan: Status post CABG, on hypertensive day statin therapy, aspirin he is metoprolol was switched to Toprol-XL (5) CHF (congestive heart failure) Current Visit: Yes Status: Chronic Assessment and Plan: Chronic and stable. At the acute decompensation is rapid response yesterday was secondary to hypotension while on diltiazem drip for A. fib with RVR, -0.5 L monitor I's and O's and daily weights (6) GERD (gastroesophageal reflux disease) Current Visit: Yes Status: Chronic Assessment and Plan: On omeprazole (7) NOÉ (acute kidney injury) Current Visit: Yes Status: Resolved Assessment and Plan: Baseline serum creatinine ranges from 1.1-1.5, we will monitor (8) Leukocytosis Current Visit: Yes Status: Resolved Assessment and Plan: Resolved likely reactive we will continue empiric antimicrobial therapy for now with plans to de-escalate the next 24-48 hours if remains afebrile DVT Prophylaxis: Patient is on warfarin which is on hold INR is slightly supratherapeutic at 3.2 - Time Spent with Patient Total time spent is greater than 50% in coordination of care (as documented) at patient's floor/unit and/or counseling patient: Internal Medicine: Result - Labs CBC & Chem 7: 05/25/19 05:15 05/25/19 05:15 Labs: Short CBC 05/24/19 05/25/19 Range/Units 20:05 05:15 WBC 13.1 H D 8.2 (4.3-11.1) K/mcL Hgb 12.2 L 11.4 L (12.9-16.9) g/dL Hct 39.0 35.4 L (37.5-50.1) % Plt Count 249 159 (140-400) K/mcL BMP 05/24/19 05/25/19 20:05 05:15 Sodium 139 142 Potassium 4.9 4.6 Chloride 100 101 Carbon Dioxide 27 29 BUN 21 25 H Creatinine 1.55 H 1.52 H Glucose 249 H 170 H Calcium 9.2 9.0 Cardiac Enzymes 05/24/19 05/24/19 05/25/19 Range/Units 15:45 22:07 05:15 Troponin I 5.91 H* 11.59 H* 6.26 H* (< 0.04) ng/mL Liver Function 08/30/19 Range/Units 20:05 Total Bilirubin 1.3 H (0.3-1.0) mg/dL AST 94 H (13-39) Units/L ALT 46 (7-52) Units/L Alkaline Phosphatase 103 (34-104) Units/L Albumin 3.8 (3.5-5.7) g/dL - ABG Interpretation ABG results: ABG ABG pH 7.35 pH Units (7.32-7.45) 05/24/19 19:11 ABG pCO2 53 mmHg (35-45) H 05/24/19 19:11 ABG pO2 83 mmHg (85-104) L 05/24/19 19:11 ABG O2 Saturation 95 % (95-98) 05/24/19 19:11 PT/INR, D-dimer PT 36.5 Seconds (9.4-12.1) H 05/25/19 05:15 - Impressions Impressions Echocardiogram Limited Views 05/24/19 15:17 Impressions: LVEF 55-60%. Normal LV chamber size, wall thickness and function. Atypical septal motion consistent with post-operative status. Left Ventricular Wall Motion: Rest Echo Findings All wall segments showed normal motion. Findings: Study Quality * Technically sub-optimal due to poor echocardiographic windows. ECG Findings * Atrial fibrillation. Left Ventricle * LVEF 55-60%. * Normal LV chamber size, wall thickness and function. * Atypical septal motion consistent with post-operative status. Right Ventricle * Right ventricle was not well visualized. Grossly, TAPSE appears normal. Pericardium * There is a trivial pericardial effusion present along the inferolateral segments of the LV. Chest X-Ray 05/24/19 17:05 IMPRESSION: Findings most compatible with pulmonary edema. Correlate with any clinical evidence of superimposed pneumonia. D/ / Thee Downs MD / Thee Downs MD Interpreting Provider: Thee Downs MD Consult Discharge Plan - Plan Referrals: Conrad Atkins MD [Primary Care Provider] - _ (4) CAD (coronary artery disease) Qualifiers: Coronary Disease-Associated Artery/Lesion type: bypass graft [place] vs. transplanted heart: [place] heart Associated angina: with unstable angina Qualified Code(s): I25.700 - Atherosclerosis of coronary artery bypass graft(s), unspecified, with unstable angina pectoris (5) CHF (congestive heart failure) Qualifiers: Heart failure type: diastolic Heart failure chronicity: chronic Qualified Code(s): I50.32 - Chronic diastolic (congestive) heart failure (6) GERD (gastroesophageal reflux disease) Qualifiers: Esophagitis presence: without esophagitis Qualified Code(s): K21.9 - Gastro-esophageal reflux disease without esophagitis (8) Leukocytosis Qualifiers: Leukocytosis type: unspecified Qualified Code(s): D72.829 - Elevated white blood cell count, unspecified
[2019-05-25] MEDS: Diltiazem CD (24hr) 180 MG CAPSULE PO SCH (17:08)
--- NOTE | 2019-05-26 00:26 | Electrocardiograph Report ---
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
[2019-05-26] MEDS: Piperacillin/Tazobactam 3.375 GM in 0.9 % Sodium Chloride Mini Bag 100 ML IVPB SCH ×2 (00:46→08:34)
[2019-05-26 01:08] LABS: Basophils % 0.5 %; Eosinophils # 0.2 K/mcL (0.0-0.6); Eosinophils % 1.9 %; Hematocrit 35.3 % (37.5-50.1); Hemoglobin 11.1 g/dL (12.9-16.9); Immature Granulocytes % 0.3 % (0-4); Lymphocytes # 1.3 K/mcL (0.6-4.6); Lymphocytes % 15.2 %; Mean Corpuscular HGB Conc 31.4 g/dL (31.6-35.5); Mean Corpuscular Hemoglobin 28.1 pg (28.0-33.3); Mean Corpuscular Volume 89.4 fL (83.0-100.0); Mean Platelet Volume 11.4 fL (9.4-12.4); Monocytes # 0.8 K/mcL (0.0-1.3); Monocytes % 9.5 %; Neutrophils # 6.4 K/mcL (1.6-8.9); Platelet Count 157 K/mcL (140-400); Red Blood Count 3.95 M/mcL (4.19-5.50); Red Cell Distribution Width 13.5 % (11.5-14.5); Segmented Neutrophils % 72.6 %; White Blood Count 8.8 K/mcL (4.3-11.1)
[2019-05-26] MEDS: Insulin LISPRO 300 UNITS/3 ML VIAL SQ SCH ×2 (08:24→13:30)
[2019-05-26] MEDS: Sulfamethoxazole/Trimeth DS 1 EACH TABLET PO SCH (08:34)
[2019-05-26] MEDS: Famotidine 20 MG TABLET PO SCH (08:34)
[2019-05-26] MEDS: Metoprolol XL (24 HR) Succ 50 MG TAB.ER.24H PO SCH (08:34)
[2019-05-26] MEDS: cephALEXin 500 MG CAPSULE PO SCH ×2 (08:34→12:11)
[2019-05-26] MEDS: Aspirin Enteric Coated 81 MG Tablet PO SCH (08:34)
--- NOTE | 2019-05-26 08:58 | Cardiothoracic Progress Note ---
Date of Encounter: 05/26/19 Time of Encounter: 08:57 - Assessment and plan (1) Atrial fibrillation with RVR Current Visit: Yes Status: Acute The patient is a 68-year-old type II diabetic, hypertensive man with known CAD, paroxysmal atrial fibrillation, hypercholesterolemia, and COPD. He underwent CABG 4, LAD endarterectomy, modified Maze procedure, and left atrial appendage stapling on 04/22/2019. Postoperatively he had persistent atrial fibrillation with a controlled rate. He was evaluated in the office for a routine postoperative visit on 05/17/2019. At that time the patient was noted to have persistent atrial fibrillation and healing of his sternotomy incision and lower extremity incisions. He developed dizziness and was evaluated by his primary care physician. A small stitch abscess was noted at the superior portion of his sternotomy incision and this was cultured. The culture results revealed MRSA and he was recommended that the patient start additional antibiotic therapy. While attempting to contact the patient regarding the new antibiotic prescription, it was scarred that the patient was in the emergency department for evaluation of his dizziness. He was found to have atrial fibrillation with RVR and was started on a Cardizem drip. I was asked to evaluate the patient's sternotomy incision while he was in the hospital. The patient has a very small (0.2 cm) opening of the sternotomy incision consistent with a stitch abscess. This should be treated with wet-to-dry dressings and the addition of Bactrim as started by the hospitalist. The assessment and plan as outlined above was discussed with the patient and/or family members who expressed understanding and agreement. All questions were answered. - Subjective Interval history: The patient remained hemodynamically stable overnight. He is sitting in a chair eating breakfast this morning. He has no complaints. Vital Signs, Last 4 Hours Temp Pulse Resp BP Pulse Ox 05/26/19 07:45 98.5 F 107 18 139/73 99 Oxgyen Flow Rate Oxygen Flow Rate (LPM) 2 Weight 05/24/19 05/25/19 05/26/19 23:59 23:59 23:59 Weight 99.4 kg 100.4 kg - Physical Examination General: Conversant, No Apparent Distress Neck: No JVD, Normal carotid pulses Cardiac: Normal S1 and S2, No Murmur, Other (Irregular rate and rhythm (atrial fibrillation)) Incision: Dry/intact dressing Sternum: Stable Lungs: Normal Breath Sounds, No Wheeze, Rales, Rhonchi Neuro: Alert and responsive, No focal deficits noted Vascular: Normal capillary refill Extremities: No Clubbing, No Cyanosis, No Edema - Labs 05/26/19 00:38 05/25/19 05:15 Lab Results, Last 24 hours 05/26/19 00:38 WBC 8.8 Hgb 11.1 L Hct 35.3 L Plt Count 157 Consult Discharge Plan - Plan Referrals: Conrad Atkins MD [Primary Care Provider] -
--- NOTE | 2019-05-26 11:55 | Cardiology Progress Note ---
Date of Encounter: 05/26/19 Time of Encounter: 10:00 Assessment and Plan (1) Elevated troponin Current Visit: Yes Status: Acute Per cardiology: -NSTEMI troponin peak at 11.59, now down trending. -S/P CABG x 4 on 04/12. -TTE with LVEF 55-60%, no segmental wall motion abnormalities noted. -Denies chest pain. -NO acute ischemic ECG changes noted. -On asa, statin, BB. Not on heparin drip due to supratherpautic INR. - Recommend resuming heparin drip when INR less than 2. -Plan for [facility] when able when meidcally optimized (NOÉ, respiratory function). Discussed with patient and family. (2) Atrial fibrillation with RVR Current Visit: Yes Status: Acute Per cardiology: -Known history of a.fib. -On BB, CCB. -BP marginal. -AVerage HR previous 12 hours noted to be 100, a.fib. -Was on coumadin in outpatient setting, INR 3.2 -Will continue to monitor. (3) CHF (congestive heart failure) Current Visit: Yes Status: Chronic Per cardiology: -Borderline cardiomegaly with pulmonary vascular congestion on chest x-ray with fine basilar crackles on exam. -2+ Pitting edema bilateral on lower legs. -On O2, not normally on at home. Conversational dyspnea noted. -Was given IV lasix, net positive I/os. -Renal function pending today. If renal function stable, will give another dose of IV lasix today. -Strict i/os, fluid restriction, daily weights. Qualifiers: Heart failure type: diastolic Heart failure chronicity: chronic Qualified Code(s): I50.32 - Chronic diastolic (congestive) heart failure (4) CAD (coronary artery disease) Current Visit: Yes Status: Chronic Per cardiology: -S/P CABG x 4, LAD endarterectomy, modified Maze procedure, and left atrial appendage stapling performed 04/22/[address] Brown. -On asa, statin, BB. Qualifiers: Coronary Disease-Associated Artery/Lesion type: bypass graft [place] vs. transplanted heart: [place] heart Associated angina: with unstable angina Qualified Code(s): I25.700 - Atherosclerosis of coronary artery bypass graft(s), unspecified, with unstable angina pectoris Discussion w patient/family: The assessment and plan as outlined above was discussed with the patient and/or family members who expressed understanding and agreement. All questions were answered. Thank you for involving us in the care of your patient. Please call with any questions. Discussed and reviewed with . Subjective Principal diagnosis: a.fib RVR, NSTEMI Interval history: Patient denies chest pain. Remains volume overloaded on exam. Family at bedside. Patient more awake, alert today. Sitting in chair. Objective Vital Signs, Last 4 Hours Temp Pulse Resp BP Pulse Ox 05/26/19 11:41 98.5 F 105 18 126/84 99 General: Conversant, No Apparent Distress HEENT: Atraumatic, Normocephaly, Mucus Membranes Moist Neck: No JVD, Normal carotid pulses Cardiac: Normal S1 and S2, No Murmur, Other (Irregularly irregular) Lungs: Other (Lung sounds with crackles to bilateral lung bases. ) Neuro: Alert and responsive, No focal deficits noted Abdomen: Soft, Non-Tender Skin: No rashes noted on visualized skin Musculoskeletal: No Chest Wall Tenderness Extremities: No Clubbing, No Cyanosis, Normal Pulses, Other (2+ bilateral lower extremity pitting edema noted. ) Results 05/26/19 00:38 05/25/19 05:15 Lab Results Active Medications Acetaminophen (Tylenol) 650 mg PO Q6HR PRN PRN Reason: Mild Pain/Fever Stop: 11/23/19 10:25 Aspirin (Aspirin Ec) 81 mg PO DAILY [facility] Stop: 11/24/19 09:01 Last Admin: 05/26/19 08:34 Dose: 81 mg Documented by: Atorvastatin Calcium (Lipitor) 40 mg PO HS [facility] Stop: 11/24/19 21:01 Last Admin: 05/25/19 20:37 Dose: 40 mg Documented by: Cephalexin HCl (Keflex) 500 mg PO QID [facility] Stop: 11/23/19 13:01 Last Admin: 05/26/19 08:34 Dose: 500 mg Documented by: Dextrose/Water (Dextrose 50% (Syg)) 25 ml IVP AD PRN PRN Reason: Hypoglycemia Stop: 11/23/19 10:30 Diltiazem HCl (Cardizem Cd) 180 mg PO Q24H [facility] Stop: 11/23/19 17:01 Last Admin: 05/25/19 17:08 Dose: 180 mg Documented by: Famotidine (Pepcid) 20 mg PO BID [facility]; Protocol Stop: 11/23/19 21:01 Last Admin: 05/26/19 08:34 Dose: 20 mg Documented by: Glucagon (Glucagen) 1 mg IM ONCE PRN PRN Reason: Hypoglycemia Stop: 11/23/19 10:30 Glucose (Gluctose) 15 gm PO ONCE PRN PRN Reason: Hypoglycemia Stop: 11/23/19 10:30 Glucose (Gluctose) 30 gm PO ONCE PRN PRN Reason: Hypoglycemia Stop: 11/23/19 10:30 Dextrose (Dextrose 5%) 1,000 mls @ 100 mls/hr IVC .Q10H PRN PRN Reason: HYPOGLYCEMIA Stop: 11/23/19 10:30 Piperacillin Sod/Tazobactam (Sod 3.375 gm/ Sodium Chloride) 100 mls @ 25 mls/hr IVPB Q8HR [facility] Stop: 11/24/19 00:01 Last Admin: 05/26/19 08:34 Dose: 25 mls/hr Documented by: Insulin Human Lispro (Humalog) 0 units SQ HS [facility]; Protocol Stop: 11/23/19 21:01 Last Admin: 05/25/19 20:37 Dose: Not Given Documented by: Insulin Human Lispro (Humalog) 0 units SQ TIDAC [facility]; Protocol Stop: 11/23/19 11:31 Last Admin: 05/26/19 08:24 Dose: Not Given Documented by: Metoprolol Succinate (Toprol Xl) 50 mg PO DAILY [facility] Stop: 11/24/19 09:01 Last Admin: 05/26/19 08:34 Dose: 50 mg Documented by: Omeprazole (Prilosec) 20 mg PO 0730 [facility] Stop: 11/24/19 07:31 Last Admin: 05/26/19 08:34 Dose: 20 mg Documented by: Ondansetron HCl (Zofran) 4 mg IVP Q8HR PRN PRN Reason: Nausea And Vomiting Stop: 11/23/19 10:25 Sertraline HCl (Zoloft) 50 mg PO DAILY [facility] Stop: 11/24/19 09:01 Last Admin: 05/26/19 08:34 Dose: 50 mg Documented by: Trimethoprim/Sulfamethoxazole (Bactrim Ds) 1 each PO BID [facility] Stop: 02/29/20 21:01 Last Admin: 05/26/19 08:34 Dose: 1 each Documented by: Laboratory Tests 05/26/19 00:38 Hgb 11.1 L - Imaging and Cardiology Chest Xray: report reviewed Echo: report reviewed Cardiac cath: report reviewed - EKG Interpretation EKG results cardiology: other (Telemetry reviewed with average HR previous 12 hours noted to be 100, a.fib. PVCs noted.) Consult Discharge Plan - Plan Referrals: Conrad Atkins MD [Primary Care Provider] -
[2019-05-26] MEDS ORDERED: Naloxone 0.4 MG/ML INJ IVP PRN (12:40)
[2019-05-26 13:05] LABS: Basophils # 0.1 K/mcL (0.0-0.2); Basophils % 0.3 %; Eosinophils # 0.1 K/mcL (0.0-0.6); Eosinophils % 0.5 %; Hematocrit 38.6 % (37.5-50.1); Immature Granulocytes % 0.5 % (0-4); Lymphocytes # 0.4 K/mcL (0.6-4.6); Lymphocytes % 2.7 %; Mean Corpuscular HGB Conc 31.1 g/dL (31.6-35.5); Mean Corpuscular Hemoglobin 28.2 pg (28.0-33.3); Mean Corpuscular Volume 90.6 fL (83.0-100.0); Mean Platelet Volume 10.8 fL (9.4-12.4); Monocytes # 0.2 K/mcL (0.0-1.3); Monocytes % 1.4 %; Neutrophils # 14.7 K/mcL (1.6-8.9); Platelet Count 217 K/mcL (140-400); Red Blood Count 4.26 M/mcL (4.19-5.50); Red Cell Distribution Width 13.7 % (11.5-14.5); Segmented Neutrophils % 94.6 %
[2019-05-26 13:07] LABS: White Blood Count 15.5 K/mcL (4.3-11.1)
--- NOTE | 2019-05-26 13:34 | Internal Med Progress Note ---
Hospitalist Progress Note - Encounter Date of Encounter: 05/26/19 Time of Encounter: 12:35 - Subjective Interval History: Mr Edwards became responsive although response to sternal rub mumbles able to answer questions somewhat his son Edi [phone] was at the bedside and was with a patient before he became unresponsive and stated that he went to use the rest room and had ataxic gait which was chronic for the patient, he also stated that the patient had a history of chronic alcoholism but quit many years ago and denies patient having any hepatic issues. During the encounter with the patient he opens his eyes on commands minimally conversant. His vitamin is where blood pressure 122/98 heart rate of 112-145, oxygen saturation 94% on 4 L and the blood glucose fingerstick was 211 Stat bedside EKG was ordered quite inconclusive due to patient's muscle tremor atrial flutter atrial fibrillation but no ST segment elevation. Of note patient is status post CABG in March 2019 does have elevated troponins and appears to be plan for left heart catheter sometime today. Stat blood culture, ammonia level, CBC BMP and LFTs are noted. - Exam Vitals: Temp Pulse Resp BP Pulse Ox 98.5 F 105 18 126/84 92 05/26/19 11:41 05/26/19 11:41 05/26/19 11:41 05/26/19 11:41 05/26/19 11:41 Exam: GEN: Hypersomnolent, respond to commands somewhat SKIN: Pale, warm acyanotic not jaundice, sternotomy scar dressing overlying clean dry and intact HEART: Irregularly irregular rate and rhythm no appreciable heart murmur LUNGS: Diminished but minimal wheeze and crackles, overall non labored ABDOMEN; Soft, non tender or distended, BS x 4 normactive EXT: 2+ LE edema, Pedal pulses 1+, radial pulses 2+ PSYCH: Deferred - Assessment and Plan (1) Acute encephalopathy Current Visit: Yes Status: Acute Assessment and Plan: etiology remains unclear ammonia level, blood cultures, CBC BMP and LFTs ordered patient had been sent for CT of the head. Due to concern for skin mottling in his abdomen and recent CABG would also obtain CT of the chest, abdomen and pelvis. Son Edi was at the bedside stated the patient was not a past few months and have intermitted ataxic gait he does report a patient having heavy alcoholic consumption years ago but could not confirm or refute any history of hepatic encephalopathy (2) Atrial fibrillation with RVR Current Visit: Yes Status: Acute Assessment and Plan: Still not rate controlled, cardiology following appreciate the input, patient did not tolerate diltiazem drip became hypotensive, switched metoprolol twice a day to Toprol-XL daily plus diltiazem 180 home dose was 240, patient is high- risk for complete AV block will monitor on telemetry, warfarin currently on hold inr 3.2 will trend, TSH was within normal limits (3) NSTEMI (non-ST elevated myocardial infarction) Current Visit: Yes Status: Acute Assessment and Plan: Troponin was elevated yesterday he is being followed by cardiology. Recommend medical management given his recent CABG (4) S/P CABG x 4 Current Visit: Yes Status: Acute Assessment and Plan: Sternotomy scar, and lower extremity scar from graft poor wound healing was seen by cardiothoracic surgeon input appreciated (5) CAD (coronary artery disease) Current Visit: Yes Status: Chronic Assessment and Plan: Status post CABG, on hypertensive day statin therapy, aspirin he is metoprolol was switched to Toprol-XL (6) CHF (congestive heart failure) Current Visit: Yes Status: Chronic Assessment and Plan: Chronic and stable. At the acute decompensation is rapid response yesterday was secondary to hypotension while on diltiazem drip for A. fib with RVR, -0.5 L monitor I's and O's and daily weights (7) GERD (gastroesophageal reflux disease) Current Visit: Yes Status: Chronic (8) NOÉ (acute kidney injury) Current Visit: Yes Status: Resolved (9) Leukocytosis Current Visit: Yes Status: Resolved - Time Spent with Patient Total time spent is greater than 50% in coordination of care (as documented) at patient's floor/unit and/or counseling patient: Internal Medicine: Result - Labs CBC & Chem 7: 05/26/19 12:54 05/25/19 05:15 Labs: Short CBC 05/26/19 05/26/19 Range/Units 00:38 12:54 WBC 8.8 15.5 H D (4.3-11.1) K/mcL Hgb 11.1 L 12.0 L (12.9-16.9) g/dL Hct 35.3 L 38.6 (37.5-50.1) % Plt Count 157 217 (140-400) K/mcL Neutrophils # 6.4 14.7 H (1.6-8.9) K/mcL - ABG Interpretation ABG results: ABG ABG pH 7.35 pH Units (7.32-7.45) 05/24/19 19:11 ABG pCO2 53 mmHg (35-45) H 05/24/19 19:11 ABG pO2 83 mmHg (85-104) L 05/24/19 19:11 ABG O2 Saturation 95 % (95-98) 05/24/19 19:11 PT/INR, D-dimer PT 36.5 Seconds (9.4-12.1) H 05/25/19 05:15 Consult Discharge Plan - Plan Referrals: Conrad Atkins MD [Primary Care Provider] - (5) CAD (coronary artery disease) Qualifiers: Coronary Disease-Associated Artery/Lesion type: bypass graft [place] vs. transplanted heart: [place] heart Associated angina: with unstable angina Qualified Code(s): I25.700 - Atherosclerosis of coronary artery bypass graft(s), unspecified, with unstable angina pectoris (6) CHF (congestive heart failure) Qualifiers: Heart failure type: diastolic Heart failure chronicity: chronic Qualified Code(s): I50.32 - Chronic diastolic (congestive) heart failure (7) GERD (gastroesophageal reflux disease) Qualifiers: Esophagitis presence: without esophagitis Qualified Code(s): K21.9 - Gastro- esophageal reflux disease without esophagitis (9) Leukocytosis Qualifiers: Leukocytosis type: unspecified Qualified Code(s): D72.829 - Elevated white blood cell count, unspecified
[2019-05-26 14:26] LABS: INR 3.4; Prothrombin Time 38.3 Seconds (9.4-12.1)
[2019-05-26 14:34] LABS: Albumin 3.6 g/dL (3.5-5.7); Albumin/Globulin Ratio 1.1 (1.1-2.2); Bilirubin,Direct 0.3 mg/dL (0.0-0.2); Bilirubin,Indirect 0.6 mg/dL (0.0-1.2); Bilirubin,Total 0.9 mg/dL (0.3-1.0); Calcium 8.7 mg/dL (8.6-10.3); Globulin 3.2 g/dL (2.4-3.5); Magnesium 1.5 mg/dL (1.6-2.6); Potassium 4.6 mEq/L (3.5-5.1); Total Protein 6.8 g/dL (6.4-8.9)
--- NOTE | 2019-05-26 14:42 | Discharge Summary ---
- NOTES TO OUTPATIENT PROVIDER Notes to Outpatient Provider: Patient is being transferred to [facility], case was discussed with Dr. Carter (neurologist) [facility] [place] at the [place] transfer center Orders not resulted at time of discharge: Pending orders 05/24/19 11:27 Culture,Wound [RM] Routine 05/24/19 20:05 Culture,Blood [BC] Stat 05/26/19 13:59 Culture,Blood [BC] Stat Date of Encounter: 05/26/19 Time of Encounter: 14:38 - Discharge Diagnosis (1) Priority: Primary Assessment and Plan: etiology remains unclear ammonia level, blood cultures, CBC BMP and LFTs ordered patient had been sent for CT of the head. Due to concern for skin mottling in his abdomen and recent CABG would also obtain CT of the chest, abdomen and pelvis. Son Edi was at the bedside stated the patient was not a past few months and have intermitted ataxic gait he does report a patient having heavy alcoholic consumption years ago but could not confirm or refute any history of hepatic encephalopathy (2) Priority: Secondary Assessment and Plan: Still not rate controlled, cardiology following appreciate the input, patient did not tolerate diltiazem drip became hypotensive, switched metoprolol twice a day to Toprol-XL daily plus diltiazem 180 home dose was 240, patient is high- risk for complete AV block will monitor on telemetry, warfarin currently on hold inr 3.2 will trend, TSH was within normal limits (3) Priority: Secondary Assessment and Plan: Troponin was elevated yesterday he is being followed by cardiology. Recommend medical management given his recent CABG and possible LHC today (4) Priority: Secondary Assessment and Plan: Sternotomy scar, and lower extremity scar from graft poor wound healing was seen by cardiothoracic surgeon input appreciated (5) Priority: Secondary (6) Priority: Secondary Assessment and Plan: Chronic and stable. At the acute decompensation is rapid response yesterday was secondary to hypotension while on diltiazem drip for A. fib with RVR, -0.5 L monitor I's and O's and daily weights (7) Priority: Secondary Assessment and Plan: On omeprazole (8) Priority: Secondary Assessment and Plan: Baseline serum creatinine ranges from 1.1-1.5, we will monitor (9) Assessment and Plan: Stat CBC resulted leukocytosis add vancomycin to [facility] course: Mr. Edwards is a 68 year old male - Time Spent with Patient Total time spent providing and/or coordinating discharge services: - Discharge Medications Prescriptions: No Action Metformin HCl 1,000 mg PO BIDWM OxyCODONE/APAP 5/325 [Percocet 5/325 MG] 1 each PO Q6H PRN 5 Days #20 tablet PRN Reason: Severe Pain Aspirin Enteric Coated [Aspirin EC] 81 mg PO DAILY #15 tablet.dr Leeroy MELENDEZ (24hr) [Cardizem CD] 240 mg PO DAILY #14 cap.er.24h Metoprolol [Lopressor] 50 mg PO BID #30 tablet Famotidine [Pepcid] 20 mg PO BID #30 tablet hydroCHLOROthiazide [Hydrochlorothiazide] 25 mg PO DAILY #14 tablet Pantoprazole Sodium [Protonix] 40 mg PO DAILY #15 tablet. Lisinopril [Zestril] 5 mg PO DAILY #14 tablet Simvastatin [Zocor] 40 mg PO HS #15 tablet Sertraline [Zoloft] 50 mg PO DAILY #15 tablet Warfarin Sodium 5 mg PO Q48H Warfarin Sodium 4 mg PO Q48H Home Medications: Metformin HCl 1,000 mg PO BIDWM 04/18/19 [History] Aspirin Enteric Coated [Aspirin EC] 81 mg PO DAILY #15 tablet. 04/28/19 [Rx] Leeroy MELENDEZ (24hr) [Cardizem CD] 240 mg PO DAILY #14 cap.er.24h 04/28/19 [Rx] Famotidine [Pepcid] 20 mg PO BID #30 tablet 04/28/19 [Rx] Lisinopril [Zestril] 5 mg PO DAILY #14 tablet 04/28/19 [Rx] Metoprolol [Lopressor] 50 mg PO BID #30 tablet 04/28/19 [Rx] OxyCODONE/APAP 5/325 [Percocet 5/325 MG] 1 each PO Q6H PRN 5 Days #20 tablet 04/28/19 [Rx] Pantoprazole Sodium [Protonix] 40 mg PO DAILY #15 tablet. 04/28/19 [Rx] Sertraline [Zoloft] 50 mg PO DAILY #15 tablet 04/28/19 [Rx] Simvastatin [Zocor] 40 mg PO HS #15 tablet 08/04/19 [Rx] hydroCHLOROthiazide [Hydrochlorothiazide] 25 mg PO DAILY #14 tablet 04/28/19 [Rx] Warfarin Sodium 4 mg PO Q48H 05/24/19 [History] Warfarin Sodium 5 mg PO Q48H 05/24/19 [History] Allergies/Adverse Reactions: Allergy/AdvReac Type Severity Reaction Status Date / Time No Known Allergies Allergy Verified 04/18/19 08:46 Date of admission: 05/25/19 14:20 Primary care physician: Conrad Atkins MD Consults: 05/24/19 10:25 Consult to Wound Care [CONS] Routine Reason for Consult: possible sternal wound Call Completed: No 05/24/19 10:26 Consult to Cardiology [CONS] Routine Comment: Consulting Provider: Cardiology [place] Reason for Consult: A-Fib RVR, recent CABG Call Completed: No 05/24/19 15:47 Consult to Cardiothoracic Surgery [CONS] Routine Consulting Provider: Cardiothoracic Surgery [place] Reason for Consult: Patient had CABG at [place] last month. Dr. Love to call. Call Completed: No 05/26/19 13:51 Consult to Neurology [CONS] Routine Consulting Provider: Neurology [facility] Reason for Consult: acute stroke Time Notified: 13:52 Call Completed: Yes Discharging clinician: Jovany Lemus Anticipated date of discharge: 05/26/19 - Constitutional Vitals: Temp Pulse Resp BP Pulse Ox 101.2 F H 133 22 123/81 98 05/26/19 13:30 05/26/19 13:30 05/26/19 13:30 05/26/19 13:30 05/26/19 13:30 - Patient Status Condition: Good - Discharge Instructions Follow Up With: Conrad Atkins MD [Primary Care Provider] -
[2019-05-26 14:47] VITALS: BP 114/81
--- NOTE | 2019-05-26 15:02 | Discharge Summary ---
- NOTES TO OUTPATIENT PROVIDER Notes to Outpatient Provider: Patient is being transferred to [facility] for acute to subacute posterior cerebral artery infarct. Case was discussed with Irving from the transfer center he spoke with Dr. Carter neurologist at [place] Orders not resulted at time of discharge: Pending orders 05/24/19 11:27 Culture,Wound [RM] Routine 05/24/19 20:05 Culture,Blood [BC] Stat 05/26/19 13:59 Culture,Blood [BC] Stat Date of Encounter: 05/26/19 Time of Encounter: 15:00 - Discharge Diagnosis (1) Acute ischemic stroke Priority: Primary Status: Acute Assessment and Plan: CT head without contrast this afternoon due to patient presenting with acute encephalopathy revealed: Findings are most concerning for large late acute to subacute left posterior cerebral artery distribution infarct. Subtle hyperdensity within the infarct is most likely artifact versus tiny petechial hemorrhage. No evidence of hemorrhagic conversion. Consider short interval follow-up examination. Discussed case with the in-house neurologist initially however after coming back from the CT scan patient had emesis was agitated still unable to respond to commands. Updated CT surgeon of the plan to transfer the patient to a tertiary center given the aforementioned with concerns for worsening sequelae of his stroke coupled with his underlying comorbid condition-recent CABG, atrial fibrillation with RVR, supra therapeutic INR. Case was discussed with the [facility] door to door sales representative Irving who spoke with Dr. Carter the neurologist ther, they recommended the patient get sent to the ED at [facility] with a stroke alert to expedite his further workup (2) Acute encephalopathy Priority: Primary Status: Acute Assessment and Plan: etiology remains unclear ammonia level, blood cultures, CBC BMP and LFTs ordered patient had been sent for CT of the head. Due to concern for skin mottling in his abdomen and recent CABG would also obtain CT of the chest, abdomen and pelvis. Son Edi was at the bedside stated the patient was not a past few months and have intermitted ataxic gait he does report a patient having heavy alcoholic consumption years ago but could not confirm or refute any history of hepatic encephalopathy. Patient did present with similar episode on May 24 where he was a rapid response due to unresponsiveness and was attributed to his becoming hypotensive while on diltiazem drip for atrial fibrillation with rapid ventricular response. Nursing staff yesterday did not report the patient having rather odd behavior however no baseline information was known about a patient. He was watching the [employer] game yesterday naked during the evaluation with the patient yesterday and even laughed when I asked him if this is how he likes to watch his [employer] naked. He was seen this morning at about 9:00 still naked and responded to questions appropriately, however was notified by staff at about 12.31pm that he was not following commands BP was 122/98, heart rate 112- 145 O2 sat 94% of 4 L blood fingerstick was 211. His son Edi [phone] was at the bedside during the encounter he was updated on the patient's treatment plan (3) Atrial fibrillation with RVR Priority: Secondary Status: Acute Assessment and Plan: See progress note from today (4) NSTEMI (non-ST elevated myocardial infarction) Priority: Secondary Status: Acute Assessment and Plan: See progress note from today (5) S/P CABG x 4 Priority: Primary Status: Acute Assessment and Plan: See progress note from today (6) CAD (coronary artery disease) Priority: Primary Status: Chronic Assessment and Plan: See progress note from today Qualifiers: Coronary Disease-Associated Artery/Lesion type: bypass graft [place] vs. transplanted heart: [place] heart Associated angina: with unstable angina Qualified Code(s): I25.700 - Atherosclerosis of coronary artery bypass graft(s), unspecified, with unstable angina pectoris (7) CHF (congestive heart failure) Priority: Secondary Status: Chronic Assessment and Plan: See progress note from today Qualifiers: Heart failure type: diastolic Heart failure chronicity: chronic Qualified Code(s): I50.32 - Chronic diastolic (congestive) heart failure (8) GERD (gastroesophageal reflux disease) Priority: Secondary Status: Chronic Assessment and Plan: See progress note from today Qualifiers: Esophagitis presence: without esophagitis Qualified Code(s): K21.9 - Gastro-esophageal reflux disease without esophagitis Hospital course: Mr. Edwards is a 68 year old male was hospitalized for atrial fibrillation with rapid ventricular response started on diltiazem drip was a rapid response on May 24 due to him becoming unresponsive and hypotensive. He responded to volume resuscitation was transferred to the progressive care unit. He also had elevated troponin was seen by the cardiothoracic for his poor surgical incision scar wound healing as well as cardiac team for elevated troponin and was be considered for ischemic workup. Patient was noted afterwards to have odd behaviors however baseline information was not known. He became unresponsive this afternoon which initiated acute encephalopathy workup which revealed acute/subacute large posterior cerebral artery infarct. Patient after CT of the head was having emesis agitation or restlessness and still unable to fully participate in the neurological exam due to worsening encephalopathy as such she was deemed a candidate to be transferred to a tertiary center. Patient has been accepted at the [facility]. Case was discussed with Dr. Carter-neurologist at [place] Via Irving the rep from [facility]. Patient will be life flighted to [place] given his persistent neurologic sequela. Patient's son [phone] was available during the encounter and was updated of the treatment plan Discharge discussed with: patient, family, nurse, system consultant - Time Spent with Patient Total time spent providing and/or coordinating discharge services:60 mins - Discharge Medications Prescriptions: New Atorvastatin [Lipitor] 40 mg PO HS tablet Diltiazem CD (24hr) [Cardizem CD] 180 mg PO Q24H cap.er.24h Metoprolol XL (24 HR) Succ [Toprol Xl] 50 mg PO DAILY tab.er.24h Aspirin Enteric Coated [Aspirin EC] 81 mg PO DAILY tablet. Acetaminophen [Tylenol] 650 mg PO Q6HR PRN tablet PRN Reason: Mild Pain/Fever Insulin LISPRO [HumaLOG] 0 units SQ HS vial Continued OxyCODONE/APAP 5/325 [Percocet 5/325 MG] 1 each PO Q6H PRN 5 Days #20 tablet PRN Reason: Severe Pain Famotidine [Pepcid] 20 mg PO BID #30 tablet hydroCHLOROthiazide [Hydrochlorothiazide] 25 mg PO DAILY #14 tablet Pantoprazole Sodium [Protonix] 40 mg PO DAILY #15 tablet. Lisinopril [Zestril] 5 mg PO DAILY #14 tablet Sertraline [Zoloft] 50 mg PO DAILY #15 tablet Discontinued Metformin HCl 1,000 mg PO BIDWM Aspirin Enteric Coated [Aspirin EC] 81 mg PO DAILY #15 tablet. Diltiazem CD (24hr) [Cardizem CD] 240 mg PO DAILY #14 cap.er.24h Metoprolol [Lopressor] 50 mg PO BID #30 tablet Simvastatin [Zocor] 40 mg PO HS #15 tablet Warfarin Sodium 5 mg PO Q48H Warfarin Sodium 4 mg PO Q48H Home Medications: Famotidine [Pepcid] 20 mg PO BID #30 tablet 04/28/19 [Rx] Lisinopril [Zestril] 5 mg PO DAILY #14 tablet 04/28/19 [Rx] OxyCODONE/APAP 5/325 [Percocet 5/325 MG] 1 each PO Q6H PRN 5 Days #20 tablet 04/28/19 [Rx] Pantoprazole Sodium [Protonix] 40 mg PO DAILY #15 tablet. 04/28/19 [Rx] Sertraline [Zoloft] 50 mg PO DAILY #15 tablet 04/28/19 [Rx] hydroCHLOROthiazide [Hydrochlorothiazide] 25 mg PO DAILY #14 tablet 04/28/19 [Rx] Acetaminophen [Tylenol] 650 mg PO Q6HR PRN tablet 05/26/19 [Rx] Aspirin Enteric Coated [Aspirin EC] 81 mg PO DAILY tablet. 05/26/19 [Rx] Atorvastatin [Lipitor] 40 mg PO HS tablet 05/26/19 [Rx] Diltiazem CD (24hr) [Cardizem CD] 180 mg PO Q24H cap.er.24h 05/26/19 [Rx] Insulin LISPRO [HumaLOG] 0 units SQ HS vial 05/26/19 [Rx] Metoprolol XL (24 HR) Succ [Toprol Xl] 50 mg PO DAILY tab.er.24h 05/26/19 [Rx] Allergies/Adverse Reactions: Allergy/AdvReac Type Severity Reaction Status Date / Time No Known Allergies Allergy Verified 04/18/19 08:46 Date of admission: 05/25/19 14:20 Primary care physician: Conrad Atkins MD Consults: 05/24/19 10:25 Consult to Wound Care [CONS] Routine Reason for Consult: possible sternal wound Call Completed: No 05/24/19 10:26 Consult to Cardiology [CONS] Routine Comment: Consulting Provider: Cardiology [facility] Reason for Consult: A-Fib RVR, recent CABG Call Completed: No 05/24/19 15:47 Consult to Cardiothoracic Surgery [CONS] Routine Consulting Provider: Cardiothoracic Surgery [facility] Reason for Consult: Patient had CABG at [facility] last month. Dr. Love to call. Call Completed: No 05/26/19 13:51 Consult to Neurology [CONS] Routine Consulting Provider: Neu[facility] Reason for Consult: acute stroke Time Notified: 13:52 Call Completed: Yes Discharging clinician: Jovany Lemus Anticipated date of discharge: 05/26/19 - Constitutional Vitals: Temp Pulse Resp BP Pulse Ox 98.9 F 147 20 114/81 97 05/26/19 14:46 05/26/19 14:46 05/26/19 14:46 05/26/19 14:46 05/26/19 14:46 Exam: GEN: Agitated restless would not response to question, son at the bedside SKIN: [place] warm acyanotic not jaundice HEART: Irregularly irregular rate and rhythm no murmurs LUNGS: Diminished with minimal wheeze or crackles, overall non labored ABDOMEN; Soft, non tender or distended, BS x 4 normactive EXT: 1-2 + bilateral LE edema, Pedal pulses 1+, radial pulses 2+ PSYCH: Deferred - Patient Status Disposition: Transfer Critical Access Hosp Condition: Critical Functional capacity at discharge: independent ambulation Overall status at discharge: other (Patient remains encephalopathic) - Discharge Instructions Follow Up With: Conrad Atkins MD [Primary Care Provider] - - Diet and Activity Activity: as per physical therapy Diet: low fat, low cholesterol, low salt diet - Stroke Is the patient on any antithrombotics?: Yes Are there any contradictions to antithrombotics?: Yes Contraindication Antithromb by Day Two: Medical contraindication (supratherapeutic INR, patient outside window) Has Patient Been Evaluated by Rehab for Stroke: No
[2019-05-27 06:48] LABS: Acinetobacter baumannii by PCR Not Detected (Not Detect); Candida albicans by PCR Not Detected (Not Detect); Candida glabrata by PCR Not Detected (Not Detect); Candida krusei by PCR Not Detected (Not Detect); Candida parapsilosis by PCR Not Detected (Not Detect); Candida tropicalis by PCR Not Detected (Not Detect); Enterobacter cloacae Cmplx PCR Not Detected (Not Detect); Enterobacteriaceae by PCR Not Detected (Not Detect); Enterococcus by PCR Not Detected (Not Detect); Escherichia coli by PCR Not Detected (Not Detect); Klebsiella oxytoca by PCR Not Detected (Not Detect); Klebsiella pneumoniae by PCR Not Detected (Not Detect); Proteus by PCR Not Detected (Not Detect); Pseudomonas aeruginosa by PCR DETECTED (Not Detect); Serratia marcescens by PCR Not Detected (Not Detect); Staphylococcus aureus by PCR Not Detected (Not Detect); Staphylococcus by PCR Not Detected (Not Detect); Streptococcus agalactiae(B)PCR Not Detected (Not Detect); Streptococcus by PCR Not Detected (Not Detect); Streptococcus pneumoniae PCR Not Detected (Not Detect); Streptococcus pyogenes (A) PCR Not Detected (Not Detect); blaKPC Carbapenem-Resist Gene Not Detected (Not Detect); mecA Methicillin-Resist Gene Not Detected (Not Detect); vanA/B Vancomycin-Resist Genes Not Detected (Not Detect)
--- NOTE | 2019-05-27 22:21 | Electrocardiograph Report ---
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
--- NOTE | 2019-05-27 22:24 | Electrocardiograph Report ---
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
--- NOTE | 2019-05-27 23:04 | Electrocardiograph Report ---
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
--- NOTE | 2019-05-30 11:01 | Electrocardiograph Report ---
[facility] Test Date: 2019-05-24 Pat Name: Jones Edwards Department: EXAM4 Room: 2N01 Gender: M Surgical Coordinator: : 1950 Requested By: Jovany Thakkar Order Number: [id number] Reading MD: Jason Matta Measurements Intervals [place] Rate: 197 P: 129 WI: 96 QRS: 24 QRSD: 89 T: 151 QT: 240 QTc: 435 Interpretive Statements Supraventricular tachycardia Inferior infarct, old Lateral leads are also involved Electronically Signed On 05-30-2019 11:00:20 EDT by Jason Matta
== END 2019-05-26 15:40 | disposition short-term general hospital (02) | DRG 64 ==
LOC: 2NENU 07:22 → EMEROOARM 07:22 → SUATTDRO 10:28 → 2NENU 12:30 → 2NNU 21:03
PROVIDERS: ADMIT Internal Medicine; ATTEND Pharmacist

== ENCOUNTER 2019-07-16 13:51 | Inpatient (IN) ==
[~2019-07-16 13:51] MED LIST: *HR* Norepinephrine 4 MG/4 ML VIAL IVC ONE; D5% in Water 250 ML IV BAG IV ONE
[2019-07-16] MEDS ORDERED: 0.9 % Sodium Chloride 1,000 ML IVC ONE ×3 (14:07→16:13)
[2019-07-16 15:31] LABS: Bilirubin,Urine Negative (Negative); Blood,Urine Large (Negative); Clarity,Urine Turbid (Clear); Color,Urine Dark Yellow (Yellow); Glucose,Urine (UA) 250 mg/dL (Normal); Ketones,Urine Negative (Negative); Leukocyte Esterase,Urine Large (Negative); Nitrite,Urine Negative (Negative); Protein,Urine >=300 mg/dL (Neg-Trace); Specific Gravity,Urine 1.016 (1.010-1.025); Urobilinogen,Urine Normal (Normal)
[2019-07-16 15:32] LABS: RBC,Urine TNTC per hpf (0-3); Squamous Epithelial Cell,Urine Many per lpf (None-Few); WBC,Urine TNTC per hpf (0-3)
[2019-07-16 15:33] LABS: Basophils # 0.1 K/mcL (0.0-0.2); Basophils % 0.3 %; Hematocrit 35.2 % (37.5-50.1); Hemoglobin 10.6 g/dL (12.9-16.9); Immature Granulocytes % 0.6 % (0-4); Lymphocytes # 1.2 K/mcL (0.6-4.6); Lymphocytes % 5.2 %; Mean Corpuscular HGB Conc 30.1 g/dL (31.6-35.5); Mean Corpuscular Hemoglobin 25.7 pg (28.0-33.3); Mean Corpuscular Volume 85.4 fL (83.0-100.0); Mean Platelet Volume 11.3 fL (9.4-12.4); Monocytes # 1.7 K/mcL (0.0-1.3); Monocytes % 7.2 %; Platelet Count 226 K/mcL (140-400); Red Blood Count 4.12 M/mcL (4.19-5.50); Red Cell Distribution Width 16.2 % (11.5-14.5); Segmented Neutrophils % 86.7 %; White Blood Count 23.1 K/mcL (4.3-11.1)
[2019-07-16 15:44] LABS: INR 1.3; Prothrombin Time 14.4 Seconds (9.4-12.1)
[2019-07-16] MEDS ORDERED: 0.9 % Sodium Chloride 2,000 ML ONE (15:45)
[2019-07-16] MEDS ORDERED: *HR* EPINEPHrine 1 MG/10 ML SYRINGE ONE (15:45)
[2019-07-16 15:47] LABS: Activated Partial Thrombo Time 29.5 Seconds (26.0-36.0)
[2019-07-16 15:56] LABS: Bacteria,Urine Few per hpf (None-Few); Troponin I 0.04 ng/mL (< 0.04)
[2019-07-16 15:57] LABS: Albumin 3.3 g/dL (3.5-5.7); Albumin/Globulin Ratio 1.1 (1.1-2.2); Bilirubin,Direct 0.6 mg/dL (0.0-0.2); Bilirubin,Total 1.6 mg/dL (0.3-1.0); Calcium 8.6 mg/dL (8.6-10.3); Magnesium 1.6 mg/dL (1.6-2.6); Phosphorous 5.8 mg/dL (2.7-4.5); Potassium 5.6 mEq/L (3.5-5.1); Total Protein 6.3 g/dL (6.4-8.9)
[2019-07-16] MEDS: Norepinephrine 4 MG in D5% in Water 250 ML IVC SCH ×2 (16:00→19:46)
[2019-07-16] MEDS ORDERED: Calcium Gluconate 1gm/50mL 2 G/100 ML BAG IVPB ONE (16:16)
[2019-07-16] MEDS ORDERED: Insulin Human Regular 10 UNIT in 0.9 % Sodium Chloride 10 ML IV STA (16:17)
[2019-07-16] MEDS ORDERED: 0.9 % Sodium Chloride 1,000 ML ONE (16:19)
[2019-07-16] MEDS ORDERED: Calcium Gluconate 1gm/50mL 2 GM/100 ML BAG IVPB ONE (16:19)
[2019-07-16] MEDS ORDERED: Piperacillin/Tazobactam 3.375 GM in 0.9 % Sodium Chloride Mini Bag 100 ML IVPB ONE (16:22)
[2019-07-16] MEDS ORDERED: Ondansetron 4 MG/2 ML VIAL ONE (16:46)
[2019-07-16] MEDS ORDERED: Ondansetron 4 MG/2 ML VIAL IVP ONE (16:54)
[2019-07-16] MEDS ORDERED: Naloxone 0.4 MG/ML INJ IVP PRN (17:47)
[2019-07-16] MEDS ORDERED: Vancomycin (wt based) 1,000 MG VIAL IVPB SCH (18:00)
[2019-07-16] MEDS ORDERED: Insulin Human Regular 10 UNIT in 0.9 % Sodium Chloride 10 ML IV ONE (18:34)
[2019-07-16] MEDS ORDERED: Dextrose Gel 15 GM/37.5 ML TUBE PO PRN ×2 (18:35)
[2019-07-16] MEDS ORDERED: *HR* Dextrose 50 % in Water (Syg) 50 ML SYRINGE IVP PRN (18:35)
[2019-07-16] MEDS ORDERED: D5% in Water 1,000 ML IVC PRN (18:35)
[2019-07-16] MEDS: Cefepime HCl 2,000 MG in Water for inj. (sterile) 20 ML IVP SCH (19:13)
[2019-07-16 21:39] LABS: Calcium 8.1 mg/dL (8.6-10.3); Potassium 4.9 mEq/L (3.5-5.1)
[2019-07-16] MEDS ORDERED: Perflutren Lipid Microsphere 1.3 ML in 0.9 % Sodium Chloride 8.7 ML IVP ONE (22:17)
[2019-07-16] MEDS: Insulin Human Regular 100 UNIT in 0.9 % Sodium Chloride 100 ML IVC SCH (22:56)
[2019-07-17] MEDS ORDERED: Insulin LISPRO 300 UNITS/3 ML VIAL SQ SCH
[2019-07-17 03:29] LABS: Basophils % 0.2 %; Eosinophils % 0.1 %; Hematocrit 28.9 % (37.5-50.1); Hemoglobin 9.4 g/dL (12.9-16.9); Immature Granulocytes % 0.4 % (0-4); Lymphocytes # 1.1 K/mcL (0.6-4.6); Lymphocytes % 6.5 %; Mean Corpuscular HGB Conc 32.5 g/dL (31.6-35.5); Mean Corpuscular Hemoglobin 26.5 pg (28.0-33.3); Mean Corpuscular Volume 81.4 fL (83.0-100.0); Mean Platelet Volume 11.3 fL (9.4-12.4); Monocytes # 0.6 K/mcL (0.0-1.3); Monocytes % 3.7 %; Neutrophils # 14.9 K/mcL (1.6-8.9); Platelet Count 112 K/mcL (140-400); Red Blood Count 3.55 M/mcL (4.19-5.50); Red Cell Distribution Width 15.6 % (11.5-14.5); Segmented Neutrophils % 89.1 %; White Blood Count 16.7 K/mcL (4.3-11.1)
[2019-07-17 03:47] LABS: Calcium 8.2 mg/dL (8.6-10.3); Magnesium 1.5 mg/dL (1.6-2.6); Phosphorous 5.8 mg/dL (2.7-4.5); Potassium 4.3 mEq/L (3.5-5.1)
[2019-07-17] MEDS: Cefepime HCl 2,000 MG in Water for inj. (sterile) 20 ML IVP SCH (05:09)
[2019-07-17] MEDS: Insulin Human Regular 100 UNIT in 0.9 % Sodium Chloride 100 ML IVC SCH (06:12)
[2019-07-17] MEDS ORDERED: Dextrose Gel 15 GM/37.5 ML TUBE PO PRN ×2 (08:06)
[2019-07-17] MEDS ORDERED: *HR* Dextrose 50 % in Water (Syg) 50 ML SYRINGE IVP PRN (08:06)
[2019-07-17] MEDS ORDERED: D5% in Water 1,000 ML IVC PRN (08:06)
[2019-07-17] MEDS ORDERED: 0.9 % Sodium Chloride 500 ML ONE ×2 (09:08→10:04)
[2019-07-17] MEDS ORDERED: *HR* Midazolam HCl 2 MG/2 ML VIAL IVP ONE (10:03)
[2019-07-17] MEDS ORDERED: *HR* FentaNYL (PF) 100 MCG/2 ML VIAL IVP ONE (10:03)
[2019-07-17] MEDS ORDERED: *HR* FentaNYL (PF) 100 MCG/2 ML VIAL ONE (10:04)
[2019-07-17] MEDS ORDERED: *HR* Midazolam HCl 2 MG/2 ML VIAL ONE (10:04)
[2019-07-17] MEDS ORDERED: Isovue-300 50ML VIAL IVP ONE (10:17)
[2019-07-17] MEDS: Albumin 25% 25gram/100mL 25 GM/100 ML IV.SOLN IVC SCH ×2 (11:02→11:30)
[2019-07-17] MEDS: Insulin LISPRO 300 UNITS/3 ML VIAL SQ SCH ×2 (13:38→16:22)
[2019-07-17] MEDS ORDERED: Ondansetron 4 MG/2 ML VIAL IVP PRN (13:51)
[2019-07-18 03:16] LABS: Basophils % 0.2 %; Hemoglobin 8.5 g/dL (12.9-16.9)
[2019-07-18 03:18] LABS: Eosinophils # 0.1 K/mcL (0.0-0.6); Eosinophils % 0.8 %; Hematocrit 26.5 % (37.5-50.1); Immature Granulocytes % 0.7 % (0-4); Immature Platelets 9.3 % (1.1-6.1); Lymphocytes # 0.7 K/mcL (0.6-4.6); Lymphocytes % 6.4 %; Mean Corpuscular HGB Conc 32.1 g/dL (31.6-35.5); Mean Platelet Volume 12.8 fL (9.4-12.4); Monocytes # 0.5 K/mcL (0.0-1.3); Monocytes % 4.6 %; Red Blood Count 3.27 M/mcL (4.19-5.50); Red Cell Distribution Width 15.8 % (11.5-14.5); Segmented Neutrophils % 87.3 %; White Blood Count 10.3 K/mcL (4.3-11.1)
[2019-07-18 03:21] LABS: Platelet Count 78 K/mcL (140-400)
[2019-07-18 03:35] LABS: Calcium 7.9 mg/dL (8.6-10.3); Potassium 4.5 mEq/L (3.5-5.1)
[2019-07-18] MEDS: Cefepime HCl 2,000 MG in Water for inj. (sterile) 20 ML IVP SCH (05:30)
[2019-07-18] MEDS: Insulin LISPRO 300 UNITS/3 ML VIAL SQ SCH ×4 (05:31→17:54)
[2019-07-18] MEDS: Aspirin Enteric Coated 81 MG Tablet PO SCH (07:55)
[2019-07-18] MEDS ORDERED: *HR* Heparin 5,000 UNIT/ML VIAL SQ SCH (08:00)
[2019-07-18] MEDS ORDERED: Aminoglycoside Consult 1 EACH MC ONE (09:18)
[2019-07-18 12:03] LABS: INR 1.7; Prothrombin Time 18.9 Seconds (9.4-12.1)
[2019-07-18 12:05] LABS: Activated Partial Thrombo Time 32.1 Seconds (26.0-36.0)
[2019-07-18] MEDS: Norepinephrine 4 MG in D5% in Water 250 ML IVC SCH (15:02)
[2019-07-18] MEDS ORDERED: diazePAM 10 MG/2 ML SYRINGE IVP STA (17:25)
[2019-07-18] MEDS ORDERED: *HR* Midazolam HCl 2 MG/2 ML VIAL IVP ONE (17:28)
[2019-07-18] MEDS ORDERED: *HR* Midazolam HCl 2 MG/2 ML VIAL ONE (17:28)
[2019-07-19] MEDS: Insulin LISPRO 300 UNITS/3 ML VIAL SQ SCH ×4 (00:02→17:37)
[2019-07-19 03:49] LABS: Basophils % 0.2 %; Eosinophils # 0.1 K/mcL (0.0-0.6); Eosinophils % 1.1 %; Hematocrit 28.4 % (37.5-50.1); Immature Granulocytes % 0.7 % (0-4); Lymphocytes # 0.5 K/mcL (0.6-4.6); Lymphocytes % 5.9 %; Mean Corpuscular HGB Conc 31.7 g/dL (31.6-35.5); Mean Corpuscular Hemoglobin 25.6 pg (28.0-33.3); Mean Corpuscular Volume 80.9 fL (83.0-100.0); Mean Platelet Volume 12.1 fL (9.4-12.4); Monocytes # 0.4 K/mcL (0.0-1.3); Monocytes % 4.6 %; Neutrophils # 7.1 K/mcL (1.6-8.9); Platelet Count 101 K/mcL (140-400); Red Blood Count 3.51 M/mcL (4.19-5.50); Red Cell Distribution Width 15.9 % (11.5-14.5); Segmented Neutrophils % 87.5 %; White Blood Count 8.1 K/mcL (4.3-11.1)
[2019-07-19 04:01] LABS: Potassium 3.8 mEq/L (3.5-5.1)
[2019-07-19] MEDS: Cefepime HCl 2,000 MG in Water for inj. (sterile) 20 ML IVP SCH (05:07)
[2019-07-19] MEDS ORDERED: Diltiazem CD (24hr) 180 MG CAPSULE PO ONE (07:49)
[2019-07-19] MEDS: Aspirin Enteric Coated 81 MG Tablet PO SCH (08:26)
[2019-07-19] MEDS ORDERED: Naloxone 0.4 MG/ML INJ IVP PRN (10:15)
[2019-07-19] MEDS ORDERED: *HR* Metoprolol 5 MG/5 ML VIAL IVP PRN (10:15)
[2019-07-19] MEDS ORDERED: Dextrose Gel 15 GM/37.5 ML TUBE PO PRN ×2 (10:15)
[2019-07-19] MEDS ORDERED: Ondansetron 4 MG/2 ML VIAL IVP PRN (10:15)
[2019-07-19] MEDS ORDERED: *HR* Dextrose 50 % in Water (Syg) 50 ML SYRINGE IVP PRN (10:15)
[2019-07-19] MEDS ORDERED: D5% in Water 1,000 ML IVC PRN (10:15)
[2019-07-19 10:27] LABS: Estimated Average Glucose 226 mg/dl
[2019-07-19] MEDS: *HR* Heparin 5,000 UNIT/ML VIAL SQ SCH ×2 (14:46→21:33)
[2019-07-20 02:14] LABS: Basophils % 0.2 %; Eosinophils # 0.1 K/mcL (0.0-0.6); Eosinophils % 0.5 %; Hemoglobin 10.4 g/dL (12.9-16.9); Immature Granulocytes % 0.4 % (0-4); Lymphocytes # 0.5 K/mcL (0.6-4.6); Lymphocytes % 4.4 %; Mean Corpuscular HGB Conc 32.5 g/dL (31.6-35.5); Mean Corpuscular Hemoglobin 26.1 pg (28.0-33.3); Mean Corpuscular Volume 80.2 fL (83.0-100.0); Mean Platelet Volume 11.8 fL (9.4-12.4); Monocytes # 0.5 K/mcL (0.0-1.3); Monocytes % 5.2 %; Neutrophils # 9.3 K/mcL (1.6-8.9); Platelet Count 126 K/mcL (140-400); Red Blood Count 3.99 M/mcL (4.19-5.50); Red Cell Distribution Width 15.7 % (11.5-14.5); Segmented Neutrophils % 89.3 %; White Blood Count 10.4 K/mcL (4.3-11.1)
[2019-07-20 02:32] LABS: Calcium 8.6 mg/dL (8.6-10.3); Potassium 3.8 mEq/L (3.5-5.1)
[2019-07-20] MEDS: Insulin LISPRO 300 UNITS/3 ML VIAL SQ SCH ×2 (06:08→23:07)
[2019-07-20] MEDS: Cefepime HCl 2,000 MG in Water for inj. (sterile) 20 ML IVP SCH (07:07)
[2019-07-20] MEDS: *HR* Heparin 5,000 UNIT/ML VIAL SQ SCH ×2 (07:07→23:07)
[2019-07-20] MEDS ORDERED: *HR* Metoprolol 5 MG/5 ML VIAL IVP ONE (13:54)
[2019-07-20] MEDS ORDERED: D5% in Water 250 ML ONE (14:51)
[2019-07-20] MEDS ORDERED: *HR* Metoprolol 5 MG/5 ML VIAL IVP PRN (20:15)
[2019-07-20] MEDS: Fluconazole 100 MG TABLET PO SCH (23:06)
[2019-07-20] MEDS: Diltiazem CD (24hr) 180 MG CAPSULE PO SCH (23:06)
[2019-07-20] MEDS: Magnesium Oxide 400 MG TABLET PO SCH (23:06)
[2019-07-20] MEDS: Aspirin Enteric Coated 81 MG Tablet PO SCH (23:06)
[2019-07-21] MEDS: *HR* Heparin 5,000 UNIT/ML VIAL SQ SCH ×4 (00:18→20:34)
[2019-07-21] MEDS: Insulin LISPRO 300 UNITS/3 ML VIAL SQ SCH ×5 (00:22→20:40)
[2019-07-21 02:11] LABS: Basophils % 0.2 %; Eosinophils # 0.1 K/mcL (0.0-0.6); Eosinophils % 1.1 %; Hematocrit 31.8 % (37.5-50.1); Hemoglobin 9.7 g/dL (12.9-16.9); Immature Granulocytes % 0.5 % (0-4); Lymphocytes # 0.8 K/mcL (0.6-4.6); Lymphocytes % 7.9 %; Mean Corpuscular HGB Conc 30.5 g/dL (31.6-35.5); Mean Corpuscular Hemoglobin 25.5 pg (28.0-33.3); Mean Corpuscular Volume 83.7 fL (83.0-100.0); Monocytes # 0.7 K/mcL (0.0-1.3); Monocytes % 7.3 %; Neutrophils # 8.2 K/mcL (1.6-8.9); Platelet Count 113 K/mcL (140-400); Red Cell Distribution Width 15.8 % (11.5-14.5); White Blood Count 9.9 K/mcL (4.3-11.1)
[2019-07-21 02:34] LABS: Calcium 8.5 mg/dL (8.6-10.3); Potassium 3.3 mEq/L (3.5-5.1)
[2019-07-21] MEDS: Cefepime HCl 2,000 MG in Water for inj. (sterile) 20 ML IVP SCH (05:42)
[2019-07-21] MEDS: Diltiazem CD (24hr) 180 MG CAPSULE PO SCH (11:30)
[2019-07-21] MEDS: Potassium Chloride Elixir 20 MEQ/15 ML UDC PO SCH ×2 (11:30→23:48)
[2019-07-21] MEDS: Magnesium Oxide 400 MG TABLET PO SCH (11:30)
[2019-07-21] MEDS: Fluconazole 100 MG TABLET PO SCH (11:30)
[2019-07-21] MEDS: Aspirin Enteric Coated 81 MG Tablet PO SCH (11:31)
[2019-07-21] MEDS: Haloperidol Lactate 5 MG/ML VIAL IVP PRN (16:36)
[2019-07-21] MEDS ORDERED: *HR* LORazepam 2 MG/ML VIAL IVP ONE (18:10)
[2019-07-21] MEDS ORDERED: Haloperidol Lactate 5 MG/ML VIAL IVP ONE (20:13)
[2019-07-21] MEDS ORDERED: *HR* Promethazine 25 MG/ML VIAL IVP ONE (20:14)
[2019-07-22 04:37] LABS: Basophils % 0.3 %; Eosinophils # 0.1 K/mcL (0.0-0.6); Eosinophils % 1.5 %; Hematocrit 30.4 % (37.5-50.1); Hemoglobin 9.2 g/dL (12.9-16.9); Lymphocytes # 1.1 K/mcL (0.6-4.6); Lymphocytes % 11.4 %; Mean Corpuscular HGB Conc 30.3 g/dL (31.6-35.5); Mean Corpuscular Hemoglobin 25.6 pg (28.0-33.3); Mean Corpuscular Volume 84.4 fL (83.0-100.0); Mean Platelet Volume 11.2 fL (9.4-12.4); Monocytes # 0.9 K/mcL (0.0-1.3); Monocytes % 9.4 %; Neutrophils # 7.3 K/mcL (1.6-8.9); Platelet Count 130 K/mcL (140-400); Red Cell Distribution Width 15.9 % (11.5-14.5); Segmented Neutrophils % 76.4 %; White Blood Count 9.6 K/mcL (4.3-11.1)
[2019-07-22 04:58] LABS: Calcium 8.6 mg/dL (8.6-10.3); Potassium 4.2 mEq/L (3.5-5.1)
[2019-07-22] MEDS: Cefepime HCl 2,000 MG in Water for inj. (sterile) 20 ML IVP SCH (05:45)
[2019-07-22] MEDS: *HR* Heparin 5,000 UNIT/ML VIAL SQ SCH ×2 (05:46→14:47)
[2019-07-22] MEDS: Insulin LISPRO 300 UNITS/3 ML VIAL SQ SCH ×4 (09:51→20:18)
[2019-07-22] MEDS ORDERED: Fluconazole 200 MG/100 ML 200 MG/100 ML BAG IVPB SCH (10:52)
[2019-07-22 11:39] LABS: ABG Base Excess 10 mEq/L (-2 to 3); ABG HCO3 35 mEq/L (21-27); ABG Oxygen Saturation 96 % (95-98); ABG PCO2 49 mmHg (35-45); ABG PH 7.46 pH Units (7.32-7.45); ABG PO2 81 mmHg (85-104); ABG TCO2 36 mEq/L (20-26)
[2019-07-22] MEDS: Diltiazem CD (24hr) 180 MG CAPSULE PO SCH (12:34)
[2019-07-22] MEDS: Magnesium Oxide 400 MG TABLET PO SCH (12:36)
[2019-07-22] MEDS: Aspirin Enteric Coated 81 MG Tablet PO SCH (12:37)
[2019-07-22] MEDS: Furosemide 20 MG/2 ML VIAL IVP SCH ×2 (14:47→20:18)
[2019-07-22] MEDS: *HR* Metoprolol 5 MG/5 ML VIAL IVP PRN (20:59)
[2019-07-22] MEDS: Levalbuterol Neb 1.25 MG/3 ML IH SCH ×2 (21:47→22:04)
[2019-07-23] MEDS: *HR* Heparin 5,000 UNIT/ML VIAL SQ SCH ×2 (00:18→05:48)
[2019-07-23] MEDS: Levalbuterol Neb 1.25 MG/3 ML IH SCH ×4 (04:53→21:46)
[2019-07-23] MEDS: Cefepime HCl 2,000 MG in Water for inj. (sterile) 20 ML IVP SCH (05:48)
[2019-07-23] MEDS: *HR* Metoprolol 5 MG/5 ML VIAL IVP PRN (05:49)
[2019-07-23 06:40] LABS: Basophils % 0.4 %; Eosinophils # 0.1 K/mcL (0.0-0.6); Eosinophils % 0.9 %; Hematocrit 33.8 % (37.5-50.1); Hemoglobin 10.4 g/dL (12.9-16.9); Immature Granulocytes % 1.5 % (0-4); Lymphocytes # 1.2 K/mcL (0.6-4.6); Lymphocytes % 11.7 %; Mean Corpuscular HGB Conc 30.8 g/dL (31.6-35.5); Mean Corpuscular Hemoglobin 25.7 pg (28.0-33.3); Mean Corpuscular Volume 83.5 fL (83.0-100.0); Mean Platelet Volume 11.6 fL (9.4-12.4); Monocytes # 0.9 K/mcL (0.0-1.3); Monocytes % 9.3 %; Neutrophils # 7.6 K/mcL (1.6-8.9); Platelet Count 163 K/mcL (140-400); Red Blood Count 4.05 M/mcL (4.19-5.50); Red Cell Distribution Width 16.2 % (11.5-14.5); Segmented Neutrophils % 76.2 %
[2019-07-23 07:53] LABS: Calcium 9.1 mg/dL (8.6-10.3); Magnesium 1.7 mg/dL (1.6-2.6); Phosphorous 3.1 mg/dL (2.7-4.5); Potassium 3.6 mEq/L (3.5-5.1)
[2019-07-23] MEDS: Magnesium Oxide 400 MG TABLET PO SCH (09:50)
[2019-07-23] MEDS: Diltiazem CD (24hr) 180 MG CAPSULE PO SCH (09:50)
[2019-07-23] MEDS: Insulin LISPRO 300 UNITS/3 ML VIAL SQ SCH ×4 (09:51→20:32)
[2019-07-23] MEDS: Aspirin Enteric Coated 81 MG Tablet PO SCH (09:51)
[2019-07-23] MEDS: Furosemide 20 MG/2 ML VIAL IVP SCH ×2 (09:52→20:32)
[2019-07-23] MEDS ORDERED: Fluconazole 100 MG TABLET PO SCH (09:59)
[2019-07-24] MEDS: Levalbuterol Neb 1.25 MG/3 ML IH SCH ×4 (04:06→21:44)
[2019-07-24 05:12] LABS: Basophils % 0.3 %; Eosinophils # 0.1 K/mcL (0.0-0.6); Eosinophils % 1.4 %; Immature Granulocytes % 1.1 % (0-4); Lymphocytes # 1.3 K/mcL (0.6-4.6); Lymphocytes % 13.8 %; Mean Corpuscular HGB Conc 31.3 g/dL (31.6-35.5); Mean Corpuscular Hemoglobin 25.5 pg (28.0-33.3); Mean Corpuscular Volume 81.6 fL (83.0-100.0); Mean Platelet Volume 10.2 fL (9.4-12.4); Monocytes # 0.8 K/mcL (0.0-1.3); Neutrophils # 7.1 K/mcL (1.6-8.9); Platelet Count 157 K/mcL (140-400); Red Blood Count 3.92 M/mcL (4.19-5.50); Red Cell Distribution Width 16.4 % (11.5-14.5); Segmented Neutrophils % 75.4 %; White Blood Count 9.4 K/mcL (4.3-11.1)
[2019-07-24 05:33] LABS: BUN/Creatinine Ratio 20 (6-26); Blood Urea Nitrogen 27 mg/dL (8-23); Carbon Dioxide 37 mEq/L (23-29); Chloride 93 mEq/L (98-107); Glucose 210 mg/dL (70-105); Magnesium 1.5 mg/dL (1.6-2.6); Osmolality,Calculated 303 (280-300); Phosphorous 2.8 mg/dL (2.7-4.5); Potassium 3.1 mEq/L (3.5-5.1); Sodium 141 mEq/L (136-145); eGFR For African Americans > 60 (> 60); eGFR For Non-African Americans 53 (> 60)
[2019-07-24] MEDS: Haloperidol Lactate 5 MG/ML VIAL IVP PRN ×2 (05:50→23:35)
[2019-07-24] MEDS: Cefepime HCl 2,000 MG in Water for inj. (sterile) 20 ML IVP SCH ×2 (05:50→18:59)
[2019-07-24] MEDS: *HR* Metoprolol 5 MG/5 ML VIAL IVP PRN (05:51)
[2019-07-24] MEDS: Magnesium Oxide 400 MG TABLET PO SCH (09:24)
[2019-07-24] MEDS: Aspirin Enteric Coated 81 MG Tablet PO SCH (09:25)
[2019-07-24] MEDS: Diltiazem CD (24hr) 180 MG CAPSULE PO SCH (09:25)
[2019-07-24] MEDS: Fluconazole 100 MG TABLET PO SCH (09:26)
[2019-07-24] MEDS: Potassium Chloride Elixir 20 MEQ/15 ML UDC PO SCH ×2 (09:27→20:51)
[2019-07-24] MEDS: Insulin LISPRO 300 UNITS/3 ML VIAL SQ SCH ×4 (09:36→20:56)
[2019-07-24] MEDS: Furosemide 20 MG TABLET PO SCH ×2 (09:36→16:49)
[2019-07-24] MEDS: Metoprolol XL (24 HR) Succ 50 MG TAB.ER.24H PO SCH (20:50)
[2019-07-24] MEDS ORDERED: Melatonin 3 MG TABLET PO SCH (21:00)
[2019-07-25] MEDS: Levalbuterol Neb 1.25 MG/3 ML IH SCH ×2 (03:46→10:51)
[2019-07-25 04:39] LABS: Basophils % 0.2 %; Eosinophils # 0.2 K/mcL (0.0-0.6); Eosinophils % 1.7 %; Hematocrit 30.7 % (37.5-50.1); Hemoglobin 9.5 g/dL (12.9-16.9); Immature Granulocytes % 1.3 % (0-4); Lymphocytes # 1.1 K/mcL (0.6-4.6); Lymphocytes % 12.7 %; Mean Corpuscular HGB Conc 30.9 g/dL (31.6-35.5); Mean Corpuscular Hemoglobin 25.5 pg (28.0-33.3); Mean Corpuscular Volume 82.5 fL (83.0-100.0); Mean Platelet Volume 10.8 fL (9.4-12.4); Monocytes # 0.8 K/mcL (0.0-1.3); Monocytes % 8.6 %; Neutrophils # 6.6 K/mcL (1.6-8.9); Platelet Count 171 K/mcL (140-400); Red Blood Count 3.72 M/mcL (4.19-5.50); Red Cell Distribution Width 16.6 % (11.5-14.5); Segmented Neutrophils % 75.5 %; White Blood Count 8.7 K/mcL (4.3-11.1)
[2019-07-25 05:04] LABS: Calcium 8.6 mg/dL (8.6-10.3); Magnesium 1.8 mg/dL (1.6-2.6); Phosphorous 2.4 mg/dL (2.7-4.5); Potassium 3.7 mEq/L (3.5-5.1)
[2019-07-25] MEDS: Cefepime HCl 2,000 MG in Water for inj. (sterile) 20 ML IVP SCH (05:51)
[2019-07-25 07:17] VITALS: BP 125/96
[2019-07-25] MEDS ORDERED: Insulin DETEMIR 100 UNIT/ML X5UNITS SQ ONE (09:32)
[2019-07-25] MEDS: Metoprolol XL (24 HR) Succ 50 MG TAB.ER.24H PO SCH (09:36)
[2019-07-25] MEDS: Aspirin Enteric Coated 81 MG Tablet PO SCH (09:36)
[2019-07-25] MEDS: Diltiazem CD (24hr) 180 MG CAPSULE PO SCH (09:36)
[2019-07-25] MEDS: Magnesium Oxide 400 MG TABLET PO SCH (09:36)
[2019-07-25] MEDS: Fluconazole 100 MG TABLET PO SCH (09:37)
[2019-07-25] MEDS: Potassium Chloride Elixir 20 MEQ/15 ML UDC PO SCH (09:37)
[2019-07-25] MEDS: Insulin LISPRO 300 UNITS/3 ML VIAL SQ SCH ×2 (09:38→12:33)
[2019-07-25] MEDS ORDERED: Insulin DETEMIR 100 UNIT/ML X5UNITS SQ SCH (21:00)
== END 2019-07-25 15:52 | disposition home health service (06) | DRG 871 ==
LOC: EMEROOARM 13:51 → SUATTDRO 16:55 → ICNU 16:55 → CDU 07-19 09:44 → 2NENU 07-20 18:35
PROVIDERS: ADMIT Internal Medicine; ATTEND Internal Medicine

== ENCOUNTER 2019-08-22 19:37 | Inpatient (IN) ==
[2019-08-22] MEDS ORDERED: Piperacillin/Tazobactam 3.375 GM in Water for inj. (sterile) 20 ML IVP ONE (19:44)
[2019-08-22] MEDS ORDERED: 0.9 % Sodium Chloride 1,000 ML IVC ONE ×2 (19:44→22:31)
[2019-08-22] MEDS ORDERED: Piperacillin/Tazobactam 3.375 GM in 0.9 % Sodium Chloride Mini Bag 100 ML IVPB ONE (19:54)
[2019-08-22 20:08] LABS: Bilirubin,Urine Negative (Negative); Blood,Urine Negative (Negative); Clarity,Urine Clear (Clear); Color,Urine Yellow (Yellow); Glucose,Urine (UA) >=1000 mg/dL (Normal); Ketones,Urine Negative (Negative); Leukocyte Esterase,Urine Small (Negative); Nitrite,Urine Negative (Negative); Protein,Urine 100 mg/dL (Neg-Trace); Specific Gravity,Urine 1.017 (1.010-1.025); Urobilinogen,Urine Normal (Normal)
[2019-08-22 20:10] LABS: Bacteria,Urine None Seen per hpf (None-Few); Hyaline Casts,Urine None Seen per lpf (None-Few); Squamous Epithelial Cell,Urine Many per lpf (None-Few); WBC,Urine 50-100 per hpf (0-3)
[2019-08-22 20:11] LABS: INR 1.1; Prothrombin Time 12.3 Seconds (9.4-12.1)
[2019-08-22 20:14] LABS: Activated Partial Thrombo Time 30.1 Seconds (26.0-36.0)
[2019-08-22 20:28] LABS: Alanine Aminotransferase 7 Units/L (7-52); Albumin 3.8 g/dL (3.5-5.7); Albumin/Globulin Ratio 1.1 (1.1-2.2); Alkaline Phosphatase 121 Units/L (34-104); Aspartate Amino Transferase 13 Units/L (13-39); BUN/Creatinine Ratio 18 (6-26); Bilirubin,Direct 0.2 mg/dL (0.0-0.2); Bilirubin,Indirect 0.4 mg/dL (0.0-1.0); Bilirubin,Total 0.6 mg/dL (0.3-1.0); Blood Urea Nitrogen 19 mg/dL (8-23); Calcium 9.4 mg/dL (8.6-10.3); Carbon Dioxide 29 mEq/L (23-29); Chloride 94 mEq/L (98-107); Globulin 3.4 g/dL (2.4-3.5); Glucose 365 mg/dL (70-105); Magnesium 1.4 mg/dL (1.6-2.6); Osmolality,Calculated 299 (280-300); Phosphorous 2.6 mg/dL (2.7-4.5); Potassium 3.3 mEq/L (3.5-5.1); Sodium 136 mEq/L (136-145); Total Protein 7.2 g/dL (6.4-8.9); Troponin I < 0.03 ng/mL (< 0.04); eGFR For African Americans > 60 (> 60); eGFR For Non-African Americans > 60 (> 60)
[2019-08-22] MEDS ORDERED: Isovue-370 500 ML BOTTLE IVP ONE (20:54)
[2019-08-22] MEDS ORDERED: PIGGYBACK IVPB ONE (20:55)
[2019-08-22] MEDS ORDERED: MAGNESIUM SULFATE 1 GM/25 ML IVPB ONE (20:55)
[2019-08-22 21:08] LABS: Basophils % 0.2 %; Eosinophils % 0.1 %; Hematocrit 34.1 % (37.5-50.1); Hemoglobin 11.2 g/dL (12.9-16.9); Immature Granulocytes % 0.7 % (0-4); Lymphocytes # 0.9 K/mcL (0.6-4.6); Lymphocytes % 5.4 %; Mean Corpuscular HGB Conc 32.8 g/dL (31.6-35.5); Mean Corpuscular Hemoglobin 25.6 pg (28.0-33.3); Mean Corpuscular Volume 77.9 fL (83.0-100.0); Mean Platelet Volume 10.8 fL (9.4-12.4); Monocytes # 0.7 K/mcL (0.0-1.3); Neutrophils # 14.9 K/mcL (1.6-8.9); Platelet Count 148 K/mcL (140-400); Red Blood Count 4.38 M/mcL (4.19-5.50); Segmented Neutrophils % 89.6 %; White Blood Count 16.6 K/mcL (4.3-11.1)
[2019-08-22] MEDS ORDERED: Azithromycin 500 MG in 0.9 % Sodium Chloride 250 ML IVPB ONE (22:31)
[2019-08-22] MEDS ORDERED: Naloxone 0.4 MG/ML INJ IVP PRN (22:31)
[2019-08-22] MEDS ORDERED: Potassium Chloride Elixir 20 MEQ/15 ML UDC PO ONE (22:34)
[2019-08-22] MEDS ORDERED: *HR* Heparin 5,000 UNIT/ML VIAL IVP PRN (22:37)
[2019-08-22] MEDS ORDERED: *HR* Heparin 5,000 UNIT/ML VIAL IVP ONE (22:37)
[2019-08-22] MEDS ORDERED: Vancomycin (wt based) 1,000 MG VIAL IVPB SCH (23:00)
[2019-08-22 23:48] LABS: INR 1.1; Prothrombin Time 12.1 Seconds (9.4-12.1)
[2019-08-23 00:17] LABS: ABG Base Excess 9 mEq/L (-2 to 3); ABG HCO3 33 mEq/L (21-27); ABG Oxygen Saturation 98 % (95-98); ABG PCO2 42 mmHg (35-45); ABG PH 7.51 pH Units (7.32-7.45); ABG PO2 99 mmHg (85-104); ABG TCO2 34 mEq/L (20-26)
[2019-08-23 00:21] LABS: Hematocrit 33.1 % (37.5-50.1); Hemoglobin 10.8 g/dL (12.9-16.9); Mean Corpuscular HGB Conc 32.6 g/dL (31.6-35.5); Mean Corpuscular Hemoglobin 25.1 pg (28.0-33.3); Mean Platelet Volume 10.5 fL (9.4-12.4); Platelet Count 161 K/mcL (140-400); Red Cell Distribution Width 16.2 % (11.5-14.5); White Blood Count 18.4 K/mcL (4.3-11.1)
[2019-08-23] MEDS: Heparin 25,000 UNIT/250 ML D5W 25,000 UNIT/250 ML IV.SOLN IVC SCH ×2 (00:31→17:31)
[2019-08-23 00:52] LABS: Thyroid Stimulating Hormone 0.87 mcIU/mL (0.340-5.600)
[2019-08-23 01:20] LABS: Bilirubin,Urine Negative (Negative); Blood,Urine Negative (Negative); Clarity,Urine Clear (Clear); Color,Urine Yellow (Yellow); Glucose,Urine (UA) >=1000 mg/dL (Normal); Ketones,Urine Negative (Negative); Leukocyte Esterase,Urine Small (Negative); Nitrite,Urine Negative (Negative); PH,Urine 6.5 pH Units (5.0-8.0); Protein,Urine 30 mg/dL (Neg-Trace); Specific Gravity,Urine > 1.030 (1.010-1.025); Urobilinogen,Urine Normal (Normal)
[2019-08-23 01:21] LABS: Bacteria,Urine None Seen per hpf (None-Few); Hyaline Casts,Urine None Seen per lpf (None-Few); Squamous Epithelial Cell,Urine Many per lpf (None-Few); WBC,Urine 50-100 per hpf (0-3)
[2019-08-23] MEDS ORDERED: 0.9 % Sodium Chloride 1,000 ML IV ONE (01:52)
[2019-08-23] MEDS ORDERED: 3% Sodium Chloride Inhalation 4 ML VIAL.NEB IH ONE (03:36)
[2019-08-23] MEDS ORDERED: Dextrose Gel 15 GM/37.5 ML TUBE PO PRN ×2 (03:52)
[2019-08-23] MEDS ORDERED: *HR* Dextrose 50 % in Water (Syg) 50 ML SYRINGE IVP PRN (03:52)
[2019-08-23] MEDS ORDERED: D5% in Water 1,000 ML IVC PRN (03:53)
[2019-08-23 05:49] LABS: INR 1.1
[2019-08-23 05:55] LABS: Basophils % 0.2 %; Eosinophils % 0.1 %; Hemoglobin 11.1 g/dL (12.9-16.9); Immature Granulocytes % 0.6 % (0-4); Lymphocytes # 1.1 K/mcL (0.6-4.6); Lymphocytes % 6.7 %; Mean Corpuscular HGB Conc 32.6 g/dL (31.6-35.5); Mean Corpuscular Hemoglobin 25.4 pg (28.0-33.3); Mean Corpuscular Volume 77.8 fL (83.0-100.0); Mean Platelet Volume 10.6 fL (9.4-12.4); Monocytes % 5.9 %; Neutrophils # 14.6 K/mcL (1.6-8.9); Platelet Count 155 K/mcL (140-400); Red Blood Count 4.37 M/mcL (4.19-5.50); Red Cell Distribution Width 16.4 % (11.5-14.5); Segmented Neutrophils % 86.5 %; White Blood Count 16.9 K/mcL (4.3-11.1)
[2019-08-23 06:06] LABS: % Iron Saturation 7 % (20-55); Alanine Aminotransferase 7 Units/L (7-52); Albumin 3.2 g/dL (3.5-5.7); Albumin/Globulin Ratio 1.1 (1.1-2.2); Alkaline Phosphatase 102 Units/L (34-104); Aspartate Amino Transferase 13 Units/L (13-39); BUN/Creatinine Ratio 15 (6-26); Bilirubin,Total 0.6 mg/dL (0.3-1.0); Blood Urea Nitrogen 15 mg/dL (8-23); Calcium 8.5 mg/dL (8.6-10.3); Carbon Dioxide 29 mEq/L (23-29); Chloride 100 mEq/L (98-107); Chol/HDL Ratio 5.1 (0-4.9); Cholesterol 157 mg/dL (< 200); Glucose 350 mg/dL (70-105); HDL Cholesterol 31 mg/dL (40-59); Iron 19 mcg/dL (65-175); LDL Cholesterol,Calculated 105 mg/dL (0-99); Magnesium 2.1 mg/dL (1.6-2.6); Osmolality,Calculated 301 (280-300); Phosphorous 3.3 mg/dL (2.7-4.5); Potassium 3.6 mEq/L (3.5-5.1); Sodium 138 mEq/L (136-145); Total Protein 6.2 g/dL (6.4-8.9); Transferrin 193 mg/dL (203-362); Triglycerides 103 mg/dL (< 150); eGFR For African Americans > 60 (> 60); eGFR For Non-African Americans > 60 (> 60)
[2019-08-23] MEDS: Cefepime HCl 2,000 MG in Water for inj. (sterile) 20 ML IVP SCH ×2 (06:09→17:23)
[2019-08-23] MEDS: Insulin LISPRO 300 UNITS/3 ML VIAL SQ SCH ×3 (06:12→17:48)
[2019-08-23 06:22] LABS: Ferritin 61 ng/mL (20-250)
[2019-08-23 06:37] LABS: Folate 11.1 ng/mL (3.0-16.0)
[2019-08-23 08:26] LABS: C-Reactive Protein 77 mg/L (Less than 10)
[2019-08-23 08:49] LABS: Estimated Average Glucose 295 mg/dl
[2019-08-23] MEDS ORDERED: Isovue-370 500 ML BOTTLE IVP ONE (14:08)
[2019-08-23] MEDS ORDERED: *HR* Metoprolol 5 MG/5 ML VIAL IVP ONE ×2 (17:02→20:08)
[2019-08-23] MEDS: Furosemide 20 MG TABLET PO SCH (17:23)
[2019-08-23] MEDS: Metoprolol XL (24 HR) Succ 50 MG TAB.ER.24H PO SCH (21:56)
[2019-08-23] MEDS: Insulin DETEMIR 100 UNIT/ML X5UNITS SQ SCH (22:06)
[2019-08-23] MEDS: *HR* Heparin 5,000 UNIT/ML VIAL IVP PRN (22:13)
[2019-08-24 02:35] LABS: Campylobacter by PCR Not detected (Not detect)
[2019-08-24 02:36] LABS: Adenovirus F 40/41 PCR Not detected (Not detect); Astrovirus PCR Not detected (Not detect); Cryptosporidium by PCR Not detected (Not detect); Cyclospora cayetanensis PCR Not detected (Not detect); Entamoeba histolytica PCR Not detected (Not detect); Enteroaggregative E.coli(EAEC) Not detected (Not detect); Enteropathogenic E.coli(EPEC) Not detected (Not detect); Enterotoxigenic E.coli (ETEC) Not detected (Not detect); Giardia lamblia PCR Not detected (Not detect); Norovirus GI/GII PCR Not detected (Not detect); Plesiomonas shigelloides PCR Not detected (Not detect); Rotavirus A PCR Not detected (Not detect); Salmonella PCR Not detected (Not detect); Sapovirus PCR Not detected (Not detect); Shig/EnteroinvasiveE coli EIEC Not detected (Not detect); Shigalike tox-prod E coli STEC Not detected (Not detect); Vibrio cholerae PCR Not detected (Not detect); Yersinia enterocolitica PCR Not detected (Not detect)
[2019-08-24 02:40] LABS: C.difficile Toxin A/B Gene PCR DETECTED (Not detect)
[2019-08-24] MEDS: Insulin LISPRO 300 UNITS/3 ML VIAL SQ SCH ×4 (03:07→19:00)
[2019-08-24] MEDS: Vancomycin Oral Soln 125 MG/2.5 ML UDC PO SCH ×5 (04:11→21:14)
[2019-08-24] MEDS: Cefepime HCl 2,000 MG in Water for inj. (sterile) 20 ML IVP SCH ×2 (05:41→18:59)
[2019-08-24] MEDS: *HR* Heparin 5,000 UNIT/ML VIAL IVP PRN (05:52)
[2019-08-24] MEDS: Aspirin Enteric Coated 81 MG Tablet PO SCH (08:12)
[2019-08-24] MEDS: Furosemide 20 MG TABLET PO SCH ×2 (08:12→18:59)
[2019-08-24] MEDS: Metoprolol XL (24 HR) Succ 50 MG TAB.ER.24H PO SCH ×2 (08:12→21:11)
[2019-08-24] MEDS ORDERED: Diltiazem CD (24hr) 180 MG CAPSULE PO SCH (09:00)
[2019-08-24] MEDS ORDERED: Aminoglycoside Consult 1 EACH MC ONE (09:46)
[2019-08-24] MEDS: Heparin 25,000 UNIT/250 ML D5W 25,000 UNIT/250 ML IV.SOLN IVC SCH (12:21)
[2019-08-24 13:20] LABS: Hemoglobin 11.2 g/dL (12.9-16.9)
[2019-08-24 13:22] LABS: Hematocrit 33.3 % (37.5-50.1); Immature Platelets 5.6 % (1.1-6.1); Mean Corpuscular HGB Conc 33.6 g/dL (31.6-35.5); Mean Corpuscular Hemoglobin 25.2 pg (28.0-33.3); Mean Corpuscular Volume 74.8 fL (83.0-100.0); Red Blood Count 4.45 M/mcL (4.19-5.50); Red Cell Distribution Width 16.6 % (11.5-14.5); White Blood Count 11.6 K/mcL (4.3-11.1)
[2019-08-24 13:41] LABS: BUN/Creatinine Ratio 11 (6-26); Blood Urea Nitrogen 12 mg/dL (8-23); Calcium 8.8 mg/dL (8.6-10.3); Carbon Dioxide 25 mEq/L (23-29); Chloride 100 mEq/L (98-107); Glucose 204 mg/dL (70-105); Osmolality,Calculated 286 (280-300); Potassium 4.3 mEq/L (3.5-5.1); Sodium 135 mEq/L (136-145); eGFR For African Americans > 60 (> 60); eGFR For Non-African Americans > 60 (> 60)
[2019-08-24] MEDS: Insulin DETEMIR 100 UNIT/ML X5UNITS SQ SCH (21:13)
[2019-08-25] MEDS: Insulin LISPRO 300 UNITS/3 ML VIAL SQ SCH ×4 (00:46→17:06)
[2019-08-25 01:32] LABS: Hematocrit 32.5 % (37.5-50.1); Hemoglobin 10.5 g/dL (12.9-16.9); Mean Corpuscular HGB Conc 32.3 g/dL (31.6-35.5); Mean Corpuscular Hemoglobin 25.4 pg (28.0-33.3); Mean Corpuscular Volume 78.5 fL (83.0-100.0); Mean Platelet Volume 10.4 fL (9.4-12.4); Platelet Count 154 K/mcL (140-400); Red Blood Count 4.14 M/mcL (4.19-5.50); Red Cell Distribution Width 16.8 % (11.5-14.5); White Blood Count 10.1 K/mcL (4.3-11.1)
[2019-08-25 02:11] LABS: BUN/Creatinine Ratio 13 (6-26); Blood Urea Nitrogen 11 mg/dL (8-23); Calcium 8.4 mg/dL (8.6-10.3); Carbon Dioxide 21 mEq/L (23-29); Chloride 101 mEq/L (98-107); Glucose 137 mg/dL (70-105); Osmolality,Calculated 282 (280-300); Potassium 3.2 mEq/L (3.5-5.1); Sodium 135 mEq/L (136-145); eGFR For African Americans > 60 (> 60); eGFR For Non-African Americans > 60 (> 60)
[2019-08-25] MEDS: Heparin 25,000 UNIT/250 ML D5W 25,000 UNIT/250 ML IV.SOLN IVC SCH ×2 (02:11→18:30)
[2019-08-25 02:17] LABS: A.galactomannan Ag Index 0.04
[2019-08-25] MEDS: Cefepime HCl 2,000 MG in Water for inj. (sterile) 20 ML IVP SCH ×2 (05:39→17:02)
[2019-08-25] MEDS: Potassium Chloride Elixir 20 MEQ/15 ML UDC PO SCH ×3 (05:39→20:26)
[2019-08-25] MEDS: Furosemide 20 MG TABLET PO SCH ×2 (08:56→17:02)
[2019-08-25] MEDS: Aspirin Enteric Coated 81 MG Tablet PO SCH (08:56)
[2019-08-25] MEDS: Metoprolol XL (24 HR) Succ 50 MG TAB.ER.24H PO SCH ×2 (08:57→20:26)
[2019-08-25] MEDS: Vancomycin Oral Soln 125 MG/2.5 ML UDC PO SCH ×4 (08:59→20:27)
[2019-08-25] MEDS: Insulin DETEMIR 100 UNIT/ML X5UNITS SQ SCH (20:26)
[2019-08-25] MEDS ORDERED: Haloperidol Lactate 5 MG/ML VIAL IVP ONE (21:13)
[2019-08-25] MEDS ORDERED: Furosemide 20 MG/2 ML VIAL IVP ONE (23:08)
[2019-08-26 02:09] LABS: Basophils % 0.4 %; Eosinophils # 0.1 K/mcL (0.0-0.6); Eosinophils % 1.5 %; Hematocrit 31.2 % (37.5-50.1); Hemoglobin 10.2 g/dL (12.9-16.9); Immature Granulocytes % 0.4 % (0-4); Lymphocytes % 11.2 %; Mean Corpuscular HGB Conc 32.7 g/dL (31.6-35.5); Mean Corpuscular Hemoglobin 25.5 pg (28.0-33.3); Mean Platelet Volume 10.5 fL (9.4-12.4); Monocytes # 0.7 K/mcL (0.0-1.3); Monocytes % 7.7 %; Neutrophils # 6.7 K/mcL (1.6-8.9); Platelet Count 156 K/mcL (140-400); Red Cell Distribution Width 16.3 % (11.5-14.5); Segmented Neutrophils % 78.8 %; White Blood Count 8.5 K/mcL (4.3-11.1)
[2019-08-26 02:28] LABS: BUN/Creatinine Ratio 11 (6-26); Blood Urea Nitrogen 13 mg/dL (8-23); Calcium 8.6 mg/dL (8.6-10.3); Carbon Dioxide 29 mEq/L (23-29); Chloride 100 mEq/L (98-107); Glucose 183 mg/dL (70-105); Osmolality,Calculated 289 (280-300); Potassium 3.4 mEq/L (3.5-5.1); Sodium 137 mEq/L (136-145); eGFR For African Americans > 60 (> 60); eGFR For Non-African Americans > 60 (> 60)
[2019-08-26] MEDS: Cefepime HCl 2,000 MG in Water for inj. (sterile) 20 ML IVP SCH (05:16)
[2019-08-26] MEDS: Metoprolol XL (24 HR) Succ 50 MG TAB.ER.24H PO SCH ×2 (08:04→21:02)
[2019-08-26] MEDS: Furosemide 20 MG TABLET PO SCH ×2 (08:04→17:08)
[2019-08-26] MEDS: Aspirin Enteric Coated 81 MG Tablet PO SCH (08:04)
[2019-08-26] MEDS: Potassium Chloride Elixir 20 MEQ/15 ML UDC PO SCH ×2 (08:06→21:04)
[2019-08-26] MEDS: Insulin LISPRO 300 UNITS/3 ML VIAL SQ SCH ×3 (08:13→17:06)
[2019-08-26] MEDS: Vancomycin Oral Soln 125 MG/2.5 ML UDC PO SCH ×4 (08:13→21:04)
[2019-08-26] MEDS: Heparin 25,000 UNIT/250 ML D5W 25,000 UNIT/250 ML IV.SOLN IVC SCH (10:14)
[2019-08-26] MEDS ORDERED: Diltiazem CD (24hr) 180 MG CAPSULE PO SCH (17:43)
[2019-08-26] MEDS: Apixaban 5 MG TABLET PO SCH (18:02)
[2019-08-26] MEDS: cefTRIAXone 1,000 MG in 0.9 % Sodium Chloride Mini Bag 100 ML IVPB SCH (18:03)
[2019-08-26] MEDS: Azithromycin 500 MG in 0.9 % Sodium Chloride 250 ML IVPB SCH (18:39)
[2019-08-26] MEDS ORDERED: Apixaban 5 MG TABLET PO SCH (21:00)
[2019-08-26] MEDS: Insulin DETEMIR 100 UNIT/ML X5UNITS SQ SCH (21:05)
[2019-08-27 02:14] LABS: Basophils % 0.4 %; Eosinophils # 0.1 K/mcL (0.0-0.6); Eosinophils % 1.3 %; Hemoglobin 10.5 g/dL (12.9-16.9); Immature Granulocytes % 0.3 % (0-4); Lymphocytes # 1.1 K/mcL (0.6-4.6); Lymphocytes % 11.6 %; Mean Corpuscular HGB Conc 32.8 g/dL (31.6-35.5); Mean Corpuscular Hemoglobin 25.4 pg (28.0-33.3); Mean Corpuscular Volume 77.5 fL (83.0-100.0); Mean Platelet Volume 10.2 fL (9.4-12.4); Monocytes # 0.7 K/mcL (0.0-1.3); Monocytes % 7.8 %; Neutrophils # 7.4 K/mcL (1.6-8.9); Platelet Count 181 K/mcL (140-400); Red Blood Count 4.13 M/mcL (4.19-5.50); Red Cell Distribution Width 16.4 % (11.5-14.5); Segmented Neutrophils % 78.6 %; White Blood Count 9.4 K/mcL (4.3-11.1)
[2019-08-27 02:33] LABS: BUN/Creatinine Ratio 13 (6-26); Blood Urea Nitrogen 16 mg/dL (8-23); Carbon Dioxide 29 mEq/L (23-29); Chloride 98 mEq/L (98-107); Glucose 233 mg/dL (70-105); Osmolality,Calculated 295 (280-300); Potassium 3.9 mEq/L (3.5-5.1); Sodium 138 mEq/L (136-145); eGFR For African Americans > 60 (> 60); eGFR For Non-African Americans > 60 (> 60)
[2019-08-27] MEDS: Insulin LISPRO 300 UNITS/3 ML VIAL SQ SCH ×3 (08:57→17:05)
[2019-08-27] MEDS: cefTRIAXone 1,000 MG in 0.9 % Sodium Chloride Mini Bag 100 ML IVPB SCH (10:08)
[2019-08-27] MEDS: Apixaban 5 MG TABLET PO SCH ×2 (10:08→21:38)
[2019-08-27] MEDS: Aspirin Enteric Coated 81 MG Tablet PO SCH (10:08)
[2019-08-27] MEDS: Potassium Chloride Elixir 20 MEQ/15 ML UDC PO SCH ×2 (10:08→21:38)
[2019-08-27] MEDS: Metoprolol XL (24 HR) Succ 50 MG TAB.ER.24H PO SCH ×2 (10:08→21:38)
[2019-08-27] MEDS: Furosemide 20 MG TABLET PO SCH ×2 (10:08→17:05)
[2019-08-27] MEDS: Vancomycin Oral Soln 125 MG/2.5 ML UDC PO SCH ×4 (10:14→21:41)
[2019-08-27] MEDS: Diltiazem CD (24hr) 240 MG CAPSULE PO SCH (15:09)
[2019-08-27] MEDS: Azithromycin 500 MG in 0.9 % Sodium Chloride 250 ML IVPB SCH (18:24)
[2019-08-27 18:25] LABS: Adenovirus Not Detected (Not Detect); Bordetella Pertussis Not Detected (Not Detect); Chlamydophila pneumoniae Not Detected (Not Detect); Coronavirus 229E Not Detected (Not Detect); Coronavirus HKU1 Not Detected (Not Detect); Coronavirus NL63 Not Detected (Not Detect); Coronavirus OC43 Not Detected (Not Detect); Human Metapneumovirus Not Detected (Not Detect); Human Rhinovirus/Enterovirus Not Detected (Not Detect); Influenza A Subtype 2009 H1 Not Detected (Not Detect); Influenza A Untypeable Not Detected (Not Detect); Influenza B Not Detected (Not Detect); Mycoplasma pneumoniae Not Detected (Not Detect); Parainfluenza Virus 1 Not Detected (Not Detect); Parainfluenza Virus 2 Not Detected (Not Detect); Parainfluenza Virus 3 Not Detected (Not Detect); Parainfluenza Virus 4 Not Detected (Not Detect); Respiratory Syncytial Virus Not Detected (Not Detect)
[2019-08-27] MEDS: Insulin DETEMIR 100 UNIT/ML X5UNITS SQ SCH (21:41)
[2019-08-28 05:54] LABS: Basophils % 0.3 %; Eosinophils # 0.2 K/mcL (0.0-0.6); Eosinophils % 1.5 %; Hematocrit 33.3 % (37.5-50.1); Hemoglobin 10.5 g/dL (12.9-16.9); Immature Granulocytes % 0.4 % (0-4); Lymphocytes # 1.4 K/mcL (0.6-4.6); Lymphocytes % 12.3 %; Mean Corpuscular HGB Conc 31.5 g/dL (31.6-35.5); Mean Corpuscular Hemoglobin 25.1 pg (28.0-33.3); Mean Corpuscular Volume 79.7 fL (83.0-100.0); Mean Platelet Volume 10.9 fL (9.4-12.4); Monocytes # 0.9 K/mcL (0.0-1.3); Monocytes % 7.7 %; Platelet Count 212 K/mcL (140-400); Red Blood Count 4.18 M/mcL (4.19-5.50); Red Cell Distribution Width 16.4 % (11.5-14.5); Segmented Neutrophils % 77.8 %; White Blood Count 11.6 K/mcL (4.3-11.1)
[2019-08-28 06:14] LABS: BUN/Creatinine Ratio 14 (6-26); Blood Urea Nitrogen 16 mg/dL (8-23); Calcium 9.3 mg/dL (8.6-10.3); Carbon Dioxide 26 mEq/L (23-29); Chloride 97 mEq/L (98-107); Glucose 175 mg/dL (70-105); Osmolality,Calculated 285 (280-300); Potassium 4.2 mEq/L (3.5-5.1); Sodium 135 mEq/L (136-145); eGFR For African Americans > 60 (> 60); eGFR For Non-African Americans > 60 (> 60)
[2019-08-28] MEDS: Metoprolol XL (24 HR) Succ 50 MG TAB.ER.24H PO SCH ×2 (08:01→22:29)
[2019-08-28] MEDS: Furosemide 20 MG TABLET PO SCH ×2 (08:01→17:24)
[2019-08-28] MEDS: Apixaban 5 MG TABLET PO SCH ×2 (08:02→22:29)
[2019-08-28] MEDS: Diltiazem CD (24hr) 240 MG CAPSULE PO SCH (08:02)
[2019-08-28] MEDS: Potassium Chloride Elixir 20 MEQ/15 ML UDC PO SCH ×2 (08:02→22:28)
[2019-08-28] MEDS: Insulin LISPRO 300 UNITS/3 ML VIAL SQ SCH ×3 (08:03→17:25)
[2019-08-28] MEDS: Vancomycin Oral Soln 125 MG/2.5 ML UDC PO SCH ×4 (08:03→22:33)
[2019-08-28] MEDS: Aspirin Enteric Coated 81 MG Tablet PO SCH (08:04)
[2019-08-28] MEDS ORDERED: Diltiazem CD (24hr) 240 MG CAPSULE PO SCH (09:00)
[2019-08-28] MEDS ORDERED: Diltiazem CD (24hr) 120 MG CAPSULE PO ONE (12:38)
[2019-08-28] MEDS ORDERED: Haloperidol Lactate 5 MG/ML VIAL IVP ONE (16:22)
[2019-08-28] MEDS ORDERED: Haloperidol Lactate 5 MG/ML VIAL ONE (16:23)
[2019-08-28] MEDS: Azithromycin 500 MG in 0.9 % Sodium Chloride 250 ML IVPB SCH (17:24)
[2019-08-28] MEDS: Insulin DETEMIR 100 UNIT/ML X5UNITS SQ SCH (22:28)
[2019-08-29 08:28] LABS: Hematocrit 35.1 % (37.5-50.1); Hemoglobin 11.3 g/dL (12.9-16.9); Mean Corpuscular HGB Conc 32.2 g/dL (31.6-35.5); Mean Corpuscular Volume 77.7 fL (83.0-100.0); Mean Platelet Volume 10.4 fL (9.4-12.4); Platelet Count 212 K/mcL (140-400); Red Blood Count 4.52 M/mcL (4.19-5.50); White Blood Count 9.5 K/mcL (4.3-11.1)
[2019-08-29 08:39] LABS: BUN/Creatinine Ratio 13 (6-26); Blood Urea Nitrogen 14 mg/dL (8-23); Calcium 9.4 mg/dL (8.6-10.3); Carbon Dioxide 31 mEq/L (23-29); Chloride 100 mEq/L (98-107); Glucose 179 mg/dL (70-105); Osmolality,Calculated 289 (280-300); Potassium 4.4 mEq/L (3.5-5.1); Sodium 137 mEq/L (136-145); eGFR For African Americans > 60 (> 60); eGFR For Non-African Americans > 60 (> 60)
[2019-08-29] MEDS ORDERED: Diltiazem CD (24hr) 120 MG CAPSULE PO ONE (12:14)
[2019-08-29] MEDS: Diltiazem CD (24hr) 180 MG CAPSULE PO SCH (12:53)
[2019-08-29] MEDS: Furosemide 20 MG TABLET PO SCH ×2 (12:53→17:09)
[2019-08-29] MEDS: Metoprolol XL (24 HR) Succ 50 MG TAB.ER.24H PO SCH ×2 (12:54→21:21)
[2019-08-29] MEDS: Aspirin Enteric Coated 81 MG Tablet PO SCH (12:54)
[2019-08-29] MEDS: Apixaban 5 MG TABLET PO SCH ×2 (12:55→21:21)
[2019-08-29] MEDS: Potassium Chloride Elixir 20 MEQ/15 ML UDC PO SCH ×2 (12:56→22:28)
[2019-08-29] MEDS: Vancomycin Oral Soln 125 MG/2.5 ML UDC PO SCH ×4 (12:56→21:22)
[2019-08-29] MEDS: Insulin LISPRO 300 UNITS/3 ML VIAL SQ SCH ×3 (12:56→17:10)
[2019-08-29] MEDS: Insulin DETEMIR 100 UNIT/ML X5UNITS SQ SCH (21:25)
[2019-08-29] MEDS ORDERED: *HR* LORazepam 2 MG/ML VIAL IVP ONE (23:24)
[2019-08-30 07:20] LABS: Hematocrit 34.5 % (37.5-50.1); Hemoglobin 11.2 g/dL (12.9-16.9); Mean Corpuscular HGB Conc 32.5 g/dL (31.6-35.5); Mean Corpuscular Hemoglobin 25.3 pg (28.0-33.3); Mean Corpuscular Volume 78.1 fL (83.0-100.0); Mean Platelet Volume 9.8 fL (9.4-12.4); Platelet Count 198 K/mcL (140-400); Red Blood Count 4.42 M/mcL (4.19-5.50); Red Cell Distribution Width 16.9 % (11.5-14.5); White Blood Count 10.5 K/mcL (4.3-11.1)
[2019-08-30 07:41] LABS: BUN/Creatinine Ratio 15 (6-26); Blood Urea Nitrogen 18 mg/dL (8-23); Calcium 9.5 mg/dL (8.6-10.3); Carbon Dioxide 28 mEq/L (23-29); Chloride 98 mEq/L (98-107); Potassium 4.7 mEq/L (3.5-5.1); Sodium 136 mEq/L (136-145); eGFR For African Americans > 60 (> 60); eGFR For Non-African Americans 60 (> 60)
[2019-08-30 08:39] LABS: Glucose 205 mg/dL (70-105); Osmolality,Calculated 290 (280-300)
[2019-08-30] MEDS: Metoprolol XL (24 HR) Succ 50 MG TAB.ER.24H PO SCH ×2 (10:33→20:23)
[2019-08-30] MEDS: Potassium Chloride Elixir 20 MEQ/15 ML UDC PO SCH ×2 (10:34→21:23)
[2019-08-30] MEDS: Apixaban 5 MG TABLET PO SCH ×2 (10:35→20:24)
[2019-08-30] MEDS: Aspirin Enteric Coated 81 MG Tablet PO SCH (10:35)
[2019-08-30] MEDS: Furosemide 20 MG TABLET PO SCH ×2 (10:35→16:50)
[2019-08-30] MEDS: Diltiazem CD (24hr) 180 MG CAPSULE PO SCH (10:35)
[2019-08-30] MEDS: Vancomycin Oral Soln 125 MG/2.5 ML UDC PO SCH ×4 (10:36→20:27)
[2019-08-30] MEDS: Insulin LISPRO 300 UNITS/3 ML VIAL SQ SCH ×3 (10:36→16:50)
[2019-08-30] MEDS: Insulin DETEMIR 100 UNIT/ML X5UNITS SQ SCH (20:27)
[2019-08-31] MEDS: Furosemide 20 MG TABLET PO SCH ×2 (07:43→17:07)
[2019-08-31] MEDS: Insulin LISPRO 300 UNITS/3 ML VIAL SQ SCH ×3 (07:43→16:10)
[2019-08-31] MEDS: Apixaban 5 MG TABLET PO SCH ×2 (07:44→21:04)
[2019-08-31] MEDS: Diltiazem CD (24hr) 180 MG CAPSULE PO SCH (07:44)
[2019-08-31] MEDS: Aspirin Enteric Coated 81 MG Tablet PO SCH (07:44)
[2019-08-31] MEDS: Metoprolol XL (24 HR) Succ 50 MG TAB.ER.24H PO SCH ×2 (07:44→21:04)
[2019-08-31] MEDS: Vancomycin Oral Soln 125 MG/2.5 ML UDC PO SCH ×4 (07:44→21:04)
[2019-08-31 07:47] LABS: Hemoglobin 11.4 g/dL (12.9-16.9); Mean Corpuscular HGB Conc 32.6 g/dL (31.6-35.5); Mean Corpuscular Hemoglobin 25.5 pg (28.0-33.3); Mean Corpuscular Volume 78.3 fL (83.0-100.0); Mean Platelet Volume 10.4 fL (9.4-12.4); Platelet Count 236 K/mcL (140-400); Red Blood Count 4.47 M/mcL (4.19-5.50); Red Cell Distribution Width 17.1 % (11.5-14.5); White Blood Count 8.8 K/mcL (4.3-11.1)
[2019-08-31] MEDS: Potassium Chloride Elixir 20 MEQ/15 ML UDC PO SCH ×2 (07:54→21:03)
[2019-08-31 08:02] LABS: Calcium 9.7 mg/dL (8.6-10.3); Potassium 4.7 mEq/L (3.5-5.1)
[2019-08-31] MEDS ORDERED: 0.9 % Sodium Chloride 250 ML IVC ONE (09:39)
[2019-08-31] MEDS ORDERED: Insulin Human Regular 10 UNIT in 0.9 % Sodium Chloride 10 ML IV ONE (20:20)
[2019-08-31] MEDS: Insulin DETEMIR 100 UNIT/ML X5UNITS SQ SCH (21:05)
[2019-09-01 05:21] LABS: Hematocrit 37.2 % (37.5-50.1); Hemoglobin 11.8 g/dL (12.9-16.9); Mean Corpuscular HGB Conc 31.7 g/dL (31.6-35.5); Mean Corpuscular Hemoglobin 24.8 pg (28.0-33.3); Mean Corpuscular Volume 78.3 fL (83.0-100.0); Mean Platelet Volume 10.3 fL (9.4-12.4); Platelet Count 250 K/mcL (140-400); Red Blood Count 4.75 M/mcL (4.19-5.50); Red Cell Distribution Width 16.7 % (11.5-14.5); White Blood Count 10.2 K/mcL (4.3-11.1)
[2019-09-01 05:39] LABS: Calcium 9.9 mg/dL (8.6-10.3); Potassium 4.5 mEq/L (3.5-5.1)
[2019-09-01] MEDS ORDERED: 0.9 % Sodium Chloride 250 ML IVC ONE (07:23)
[2019-09-01] MEDS ORDERED: 0.9 % Sodium Chloride 1,000 ML IVC SCH ×2 (07:30→13:17)
[2019-09-01] MEDS: Furosemide 20 MG TABLET PO SCH (09:08)
[2019-09-01] MEDS: Apixaban 5 MG TABLET PO SCH ×2 (09:08→21:41)
[2019-09-01] MEDS: Insulin LISPRO 300 UNITS/3 ML VIAL SQ SCH ×4 (09:08→17:16)
[2019-09-01] MEDS: Diltiazem CD (24hr) 180 MG CAPSULE PO SCH (09:08)
[2019-09-01] MEDS: Metoprolol XL (24 HR) Succ 50 MG TAB.ER.24H PO SCH ×2 (09:08→21:40)
[2019-09-01] MEDS: Aspirin Enteric Coated 81 MG Tablet PO SCH (09:08)
[2019-09-01] MEDS: Potassium Chloride Elixir 20 MEQ/15 ML UDC PO SCH ×2 (09:09→22:17)
[2019-09-01] MEDS: Vancomycin Oral Soln 125 MG/2.5 ML UDC PO SCH ×4 (09:23→21:42)
[2019-09-01 13:11] LABS: Calcium 9.5 mg/dL (8.6-10.3); Potassium 5.2 mEq/L (3.5-5.1)
[2019-09-01] MEDS ORDERED: Ondansetron ODT 4 MG TAB.RAPDIS SL PRN (14:37)
[2019-09-01] MEDS: Insulin DETEMIR 100 UNIT/ML X5UNITS SQ SCH (21:41)
[2019-09-02 05:15] LABS: Calcium 9.4 mg/dL (8.6-10.3); Potassium 4.9 mEq/L (3.5-5.1)
[2019-09-02] MEDS: Aspirin Enteric Coated 81 MG Tablet PO SCH (09:14)
[2019-09-02] MEDS: Diltiazem CD (24hr) 180 MG CAPSULE PO SCH (09:14)
[2019-09-02] MEDS: Metoprolol XL (24 HR) Succ 50 MG TAB.ER.24H PO SCH ×2 (09:14→21:40)
[2019-09-02] MEDS: Insulin LISPRO 300 UNITS/3 ML VIAL SQ SCH ×3 (09:14→18:15)
[2019-09-02] MEDS: Apixaban 5 MG TABLET PO SCH ×2 (09:14→21:40)
[2019-09-02] MEDS: Vancomycin Oral Soln 125 MG/2.5 ML UDC PO SCH ×4 (09:15→21:39)
[2019-09-02] MEDS: Potassium Chloride Elixir 20 MEQ/15 ML UDC PO SCH ×2 (09:22→21:38)
[2019-09-02] MEDS ORDERED: Insulin LISPRO 300 UNITS/3 ML VIAL SQ SCH (21:00)
[2019-09-02] MEDS: Insulin DETEMIR 100 UNIT/ML X5UNITS SQ SCH (21:40)
[2019-09-03 03:57] LABS: Calcium 9.2 mg/dL (8.6-10.3); Potassium 4.8 mEq/L (3.5-5.1)
[2019-09-03 07:25] VITALS: BP 129/84
[2019-09-03] MEDS ORDERED: 0.9 % Sodium Chloride 500 ML IVC ONE (08:26)
[2019-09-03] MEDS: Insulin LISPRO 300 UNITS/3 ML VIAL SQ SCH ×3 (09:41→18:13)
[2019-09-03] MEDS: Potassium Chloride Elixir 20 MEQ/15 ML UDC PO SCH (09:42)
[2019-09-03] MEDS: Diltiazem CD (24hr) 180 MG CAPSULE PO SCH (09:42)
[2019-09-03] MEDS: Vancomycin Oral Soln 125 MG/2.5 ML UDC PO SCH ×3 (09:42→18:13)
[2019-09-03] MEDS: Metoprolol XL (24 HR) Succ 50 MG TAB.ER.24H PO SCH (09:42)
[2019-09-03] MEDS: Apixaban 5 MG TABLET PO SCH (09:43)
[2019-09-03] MEDS: Aspirin Enteric Coated 81 MG Tablet PO SCH (09:43)
[2019-09-03] MEDS ORDERED: Insulin DETEMIR 100 UNIT/ML X5UNITS SQ SCH (21:00)
== END 2019-09-03 20:10 | DRG 871 ==
LOC: 2NENU 19:37 → EMEROOARM 19:37 → SUATTDRO 22:21 → 2NENU 22:43 → SUATTDRO 08-24 17:21
PROVIDERS: ADMIT Internal Medicine; ATTEND Family Medicine

== ENCOUNTER 2021-05-11 14:56 | Inpatient (IN) ==
[2021-05-11 15:58] LABS: Bilirubin,Urine Negative (Negative); Blood,Urine Moderate (Negative); Clarity,Urine Ex.Turbid (Clear); Color,Urine Yellow (Yellow); Glucose,Urine (UA) >=1000 mg/dL (Normal); Ketones,Urine Negative (Negative); Leukocyte Esterase,Urine Large (Negative); Nitrite,Urine Negative (Negative); Protein,Urine 100 mg/dL (Neg-Trace); Specific Gravity,Urine 1.014 (1.010-1.025); Urobilinogen,Urine Normal (Normal)
[2021-05-11 16:18] LABS: Squamous Epithelial Cell,Urine Few per hpf (None-Few); WBC,Urine TNTC per hpf (0-3)
[2021-05-11 16:19] LABS: Budding Yeast,Urine Many per hpf (None Seen)
[2021-05-11 16:20] LABS: Bacteria,Urine Few per hpf (None-Few); Hyaline Casts,Urine None Seen per lpf (None Seen)
[2021-05-11] MEDS ORDERED: 0.9 % Sodium Chloride 1,000 ML IVC ONE (16:25)
[2021-05-11] MEDS ORDERED: Clotrimazole 1% CRM 15 GM TUBE TP STA (16:29)
[2021-05-11 16:38] LABS: Basophils % 0.4 %; Eosinophils # 0.1 K/mcL (0.0-0.6); Eosinophils % 0.9 %; Hematocrit 45.4 % (37.5-50.1); Immature Granulocytes % 0.3 % (0-4); Lymphocytes # 1.4 K/mcL (0.6-4.6); Lymphocytes % 18.6 %; Mean Corpuscular HGB Conc 34.8 g/dL (31.6-35.5); Mean Corpuscular Hemoglobin 28.8 pg (28.0-33.3); Mean Corpuscular Volume 82.7 fL (83.0-100.0); Monocytes # 0.5 K/mcL (0.0-1.3); Neutrophils # 5.4 K/mcL (1.6-8.9); Platelet Count 156 K/mcL (140-400); Red Blood Count 5.49 M/mcL (4.19-5.50); Red Cell Distribution Width 19.2 % (11.5-14.5); Segmented Neutrophils % 72.8 %; White Blood Count 7.5 K/mcL (4.3-11.1)
[2021-05-11 16:41] LABS: Hemoglobin 15.8 g/dL (12.9-16.9)
[2021-05-11 16:43] LABS: INR 1.2; Prothrombin Time 13.4 Seconds (9.4-12.1)
[2021-05-11 17:10] LABS: BUN/Creatinine Ratio 15 (6-26); Blood Urea Nitrogen 40 mg/dL (8-23); Calcium 8.8 mg/dL (8.6-10.3); Carbon Dioxide 29 mEq/L (23-29); Chloride 94 mEq/L (98-107); Glucose 500 mg/dL (70-105); Magnesium 2.2 mg/dL (1.6-2.6); Osmolality,Calculated 304 (280-300); Potassium 4.6 mEq/L (3.5-5.1); Sodium 131 mEq/L (136-145); Thyroid Stimulating Hormone 1.107 mcIU/mL (0.340-5.600); eGFR For African Americans 28 (> 60); eGFR For Non-African Americans 23 (> 60)
[2021-05-11 17:42] LABS: Troponin I < 0.03 ng/mL (< 0.04)
[2021-05-11] MEDS ORDERED: *HR* Metoprolol 5 MG/5 ML VIAL IVP STA (18:17)
[2021-05-11] MEDS ORDERED: cefTRIAXone 1,000 MG in Water for inj. (sterile) 10 ML IVP STA (18:53)
[2021-05-11] MEDS ORDERED: Ondansetron 4 MG/2 ML VIAL IVP PRN (18:53)
[2021-05-11] MEDS ORDERED: Naloxone 0.4 MG/ML INJ IVP PRN ×2 (18:53→20:20)
[2021-05-11] MEDS ORDERED: Metoprolol XL (24 HR) Succ 50 MG TAB.ER.24H PO STA (19:03)
[2021-05-11 20:13] LABS: Calcium 8.5 mg/dL (8.6-10.3); Potassium 4.1 mEq/L (3.5-5.1)
[2021-05-11] MEDS ORDERED: Insulin DETEMIR 100 UNIT/ML X5UNITS SUBQ SCH ×2 (20:16→21:00)
[2021-05-11] MEDS ORDERED: D5% in Water 1,000 ML IVC PRN (20:17)
[2021-05-11] MEDS ORDERED: *HR* Dextrose 50 % in Water (Vial) 50 ML VIAL IVP PRN (20:17)
[2021-05-11] MEDS ORDERED: Dextrose Gel 15 GM/37.5 ML TUBE PO PRN ×2 (20:17)
[2021-05-11] MEDS ORDERED: *HR* OxyCODONE Immed Rel 5 MG TABLET PO PRN (20:20)
[2021-05-11] MEDS ORDERED: Acetaminophen 325 MG TABLET PO PRN (20:20)
[2021-05-11] MEDS ORDERED: *HR* HYDROcodone/Acet 5/325 mg TABLET PO PRN (20:20)
[2021-05-11] MEDS ORDERED: QUEtiapine Fumarate 25 MG TABLET PO SCH (21:00)
[2021-05-11 21:45] LABS: Estimated Average Glucose 384 mg/dl
[2021-05-11] MEDS: Metoprolol XL (24 HR) Succ 50 MG TAB.ER.24H PO SCH (21:46)
[2021-05-11] MEDS: 0.9 % Sodium Chloride 1,000 ML IVC SCH (21:48)
[2021-05-11] MEDS: Apixaban 5 MG TABLET PO SCH (22:00)
[2021-05-11] MEDS: Insulin LISPRO 300 UNITS/3 ML VIAL SUBQ SCH ×2 (22:00→22:01)
[2021-05-11] MEDS: DilTIAZem CD (24hr) 180 MG CAP.ER.24H PO SCH (22:19)
[2021-05-11 23:07] LABS: Protein/Creatinine Ratio,Urine 1.41 mg/mg (0.00-0.20)
[2021-05-12 00:14] LABS: Bilirubin,Urine Negative (Negative); Blood,Urine Moderate (Negative); Budding Yeast,Urine Moderate per hpf (None Seen); Clarity,Urine Ex.Turbid (Clear); Color,Urine Light-Orange (Yellow); Glucose,Urine (UA) >=1000 mg/dL (Normal); Ketones,Urine Negative (Negative); Leukocyte Esterase,Urine Large (Negative); Nitrite,Urine Negative (Negative); PH,Urine 6.5 pH Units (5.0-8.0); Protein,Urine >=300 mg/dL (Neg-Trace); RBC,Urine 30-50 per hpf (0-3); Specific Gravity,Urine 1.012 (1.010-1.025); Urobilinogen,Urine Normal (Normal); WBC,Urine TNTC per hpf (0-3)
[2021-05-12] MEDS: 0.9 % Sodium Chloride 1,000 ML IVC SCH ×3 (05:31→21:58)
[2021-05-12 05:32] LABS: Basophils # 0.1 K/mcL (0.0-0.2); Basophils % 0.5 %; Eosinophils # 0.2 K/mcL (0.0-0.6); Eosinophils % 1.6 %; Hematocrit 44.5 % (37.5-50.1); Hemoglobin 14.9 g/dL (12.9-16.9); Immature Granulocytes % 0.2 % (0-4); Lymphocytes # 1.6 K/mcL (0.6-4.6); Lymphocytes % 17.2 %; Mean Corpuscular HGB Conc 33.5 g/dL (31.6-35.5); Mean Corpuscular Hemoglobin 27.8 pg (28.0-33.3); Mean Platelet Volume 10.5 fL (9.4-12.4); Monocytes # 0.8 K/mcL (0.0-1.3); Neutrophils # 6.8 K/mcL (1.6-8.9); Platelet Count 140 K/mcL (140-400); Red Blood Count 5.36 M/mcL (4.19-5.50); Red Cell Distribution Width 19.2 % (11.5-14.5); Segmented Neutrophils % 72.5 %; White Blood Count 9.4 K/mcL (4.3-11.1)
[2021-05-12 05:46] LABS: Potassium,Urine 15.6 mEq/L; Sodium, Urine 64.7 mEq/L
[2021-05-12 05:50] LABS: Magnesium 2.1 mg/dL (1.6-2.6); Phosphorous 3.5 mg/dL (2.7-4.5)
[2021-05-12 05:51] LABS: Calcium 8.4 mg/dL (8.6-10.3); Potassium 3.8 mEq/L (3.5-5.1)
[2021-05-12] MEDS ORDERED: cefTRIAXone 1,000 MG in Water for inj. (sterile) 10 ML IVP SCH (09:00)
[2021-05-12] MEDS ORDERED: DilTIAZem CD (24hr) 180 MG CAP.ER.24H PO SCH (09:00)
[2021-05-12] MEDS: Metoprolol XL (24 HR) Succ 50 MG TAB.ER.24H PO SCH (09:46)
[2021-05-12] MEDS: Aspirin Enteric Coated 81 MG Tablet PO SCH (09:47)
[2021-05-12] MEDS: DilTIAZem CD (24hr) 180 MG CAP.ER.24H PO SCH (09:47)
[2021-05-12] MEDS: Apixaban 5 MG TABLET PO SCH ×2 (09:47→21:50)
[2021-05-12] MEDS: Insulin LISPRO 300 UNITS/3 ML VIAL SUBQ SCH ×4 (09:50→21:51)
[2021-05-12] MEDS: Erythromycin OPTH Oint RIGHT EYE SCH ×3 (11:51→21:51)
[2021-05-12] MEDS ORDERED: Fluconazole 400 MG/200 ML 400 MG/200 ML BAG IVPB SCH (15:00)
[2021-05-12] MEDS: Piperacillin/Tazobactam 3.375 GM in 0.9 % Sodium Chloride Mini Bag 100 ML IVPB SCH ×2 (16:47→23:15)
[2021-05-12] MEDS: Fluconazole 200 MG/100 ML 200 MG/100 ML BAG IVPB SCH (18:42)
[2021-05-12] MEDS: Insulin DETEMIR 100 UNIT/ML X5UNITS SUBQ SCH (21:50)
[2021-05-12] MEDS: Melatonin 3 MG TABLET PO PRN (23:43)
[2021-05-13] MEDS: 0.9 % Sodium Chloride 1,000 ML IVC SCH (05:29)
[2021-05-13 06:33] LABS: Calcium 8.6 mg/dL (8.6-10.3); Potassium 4.4 mEq/L (3.5-5.1)
[2021-05-13 07:06] LABS: Basophils # 0.1 K/mcL (0.0-0.2); Basophils % 0.4 %; Eosinophils # 0.2 K/mcL (0.0-0.6); Eosinophils % 1.3 %; Hematocrit 47.9 % (37.5-50.1); Hemoglobin 15.6 g/dL (12.9-16.9); Immature Granulocytes % 0.3 % (0-4); Lymphocytes # 1.5 K/mcL (0.6-4.6); Lymphocytes % 13.1 %; Mean Corpuscular HGB Conc 32.6 g/dL (31.6-35.5); Mean Corpuscular Hemoglobin 27.9 pg (28.0-33.3); Mean Corpuscular Volume 85.5 fL (83.0-100.0); Mean Platelet Volume 10.7 fL (9.4-12.4); Monocytes # 0.8 K/mcL (0.0-1.3); Monocytes % 6.6 %; Neutrophils # 9.1 K/mcL (1.6-8.9); Platelet Count 155 K/mcL (140-400); Red Cell Distribution Width 19.9 % (11.5-14.5); Segmented Neutrophils % 78.3 %; White Blood Count 11.6 K/mcL (4.3-11.1)
[2021-05-13] MEDS ORDERED: Levalbuterol Neb 0.63 MG/3 ML IH PRN (07:43)
[2021-05-13] MEDS: Piperacillin/Tazobactam 3.375 GM in 0.9 % Sodium Chloride Mini Bag 100 ML IVPB SCH ×2 (08:33→18:00)
[2021-05-13] MEDS: Aspirin Enteric Coated 81 MG Tablet PO SCH (08:34)
[2021-05-13] MEDS: Apixaban 5 MG TABLET PO SCH ×2 (08:34→20:47)
[2021-05-13] MEDS: Insulin LISPRO 300 UNITS/3 ML VIAL SUBQ SCH ×4 (08:34→20:50)
[2021-05-13] MEDS: DilTIAZem CD (24hr) 180 MG CAP.ER.24H PO SCH (08:35)
[2021-05-13] MEDS: Erythromycin OPTH Oint RIGHT EYE SCH ×3 (08:35→20:47)
[2021-05-13] MEDS: Metoprolol 100 MG TABLET PO SCH ×2 (08:35→20:51)
[2021-05-13] MEDS: Fluconazole 200 MG/100 ML 200 MG/100 ML BAG IVPB SCH (08:41)
[2021-05-13] MEDS ORDERED: Metoprolol 100 MG TABLET PO SCH (09:00)
[2021-05-13] MEDS: Levalbuterol Neb 0.63 MG/3 ML IH SCH ×3 (10:22→22:02)
[2021-05-13 10:39] LABS: Adenovirus Not Detected (Not Detect); Bordetella Pertussis Not Detected (Not Detect); Chlamydophila pneumoniae Not Detected (Not Detect); Coronavirus 229E Not Detected (Not Detect); Coronavirus HKU1 Not Detected (Not Detect); Coronavirus NL63 Not Detected (Not Detect); Coronavirus OC43 Not Detected (Not Detect); Human Metapneumovirus Not Detected (Not Detect); Human Rhinovirus/Enterovirus Not Detected (Not Detect); Influenza A Subtype 2009 H1 Not Detected (Not Detect); Influenza B Not Detected (Not Detect); Mycoplasma pneumoniae Not Detected (Not Detect); Parainfluenza Virus 1 Not Detected (Not Detect); Parainfluenza Virus 2 Not Detected (Not Detect); Parainfluenza Virus 3 Not Detected (Not Detect); Parainfluenza Virus 4 Not Detected (Not Detect); Respiratory Syncytial Virus Not Detected (Not Detect); SARS-CoV-2 Not Detected (Not Detect)
[2021-05-13] MEDS ORDERED: predniSONE 20 MG TABLET PO SCH (13:15)
[2021-05-13] MEDS ORDERED: Ipratropium Neb 0.5 MG NEBULIZER IH PRN (14:47)
[2021-05-13 18:31] LABS: ABG Base Excess -2 mEq/L (-2 to 3); ABG HCO3 22 mEq/L (21-27); ABG Oxygen Saturation 96 % (95-98); ABG PCO2 34 mmHg (35-45); ABG PH 7.42 pH Units (7.32-7.45); ABG PO2 76 mmHg (85-104); ABG TCO2 23 mEq/L (20-26)
[2021-05-13] MEDS: Insulin DETEMIR 100 UNIT/ML X5UNITS SUBQ SCH (20:50)
[2021-05-14] MEDS: Piperacillin/Tazobactam 3.375 GM in 0.9 % Sodium Chloride Mini Bag 100 ML IVPB SCH ×3 (00:15→15:52)
[2021-05-14 02:32] LABS: Basophils % 0.1 %; Eosinophils % 0.1 %; Hematocrit 43.5 % (37.5-50.1); Hemoglobin 14.8 g/dL (12.9-16.9); Immature Granulocytes % 0.5 % (0-4); Lymphocytes # 0.7 K/mcL (0.6-4.6); Lymphocytes % 7.9 %; Mean Corpuscular Hemoglobin 28.8 pg (28.0-33.3); Mean Corpuscular Volume 84.8 fL (83.0-100.0); Mean Platelet Volume 11.3 fL (9.4-12.4); Monocytes # 0.2 K/mcL (0.0-1.3); Monocytes % 2.2 %; Neutrophils # 7.7 K/mcL (1.6-8.9); Platelet Count 144 K/mcL (140-400); Red Blood Count 5.13 M/mcL (4.19-5.50); Segmented Neutrophils % 89.2 %; White Blood Count 8.6 K/mcL (4.3-11.1)
[2021-05-14 02:50] LABS: Calcium 8.8 mg/dL (8.6-10.3); Potassium 4.9 mEq/L (3.5-5.1)
[2021-05-14] MEDS: Levalbuterol Neb 0.63 MG/3 ML IH SCH ×4 (03:53→22:03)
[2021-05-14] MEDS: Fluconazole 200 MG/100 ML 200 MG/100 ML BAG IVPB SCH (09:10)
[2021-05-14] MEDS: Insulin LISPRO 300 UNITS/3 ML VIAL SUBQ SCH ×4 (09:11→21:02)
[2021-05-14] MEDS: Aspirin Enteric Coated 81 MG Tablet PO SCH (09:11)
[2021-05-14] MEDS: Erythromycin OPTH Oint RIGHT EYE SCH ×3 (09:12→21:02)
[2021-05-14] MEDS: Apixaban 5 MG TABLET PO SCH ×2 (09:12→21:02)
[2021-05-14] MEDS: DilTIAZem CD (24hr) 180 MG CAP.ER.24H PO SCH (09:12)
[2021-05-14] MEDS: Metoprolol 100 MG TABLET PO SCH ×2 (09:12→21:02)
[2021-05-14] MEDS: Insulin DETEMIR 100 UNIT/ML X5UNITS SUBQ SCH ×2 (15:58→21:02)
[2021-05-14] MEDS ORDERED: Doxycycline 100 MG in 0.9 % Sodium Chloride Mini Bag 100 ML IVPB SCH (18:00)
[2021-05-15] MEDS: Piperacillin/Tazobactam 3.375 GM in 0.9 % Sodium Chloride Mini Bag 100 ML IVPB SCH ×3 (00:38→16:45)
[2021-05-15] MEDS: Melatonin 3 MG TABLET PO PRN (00:53)
[2021-05-15] MEDS: Levalbuterol Neb 0.63 MG/3 ML IH SCH ×4 (03:32→22:00)
[2021-05-15 07:46] LABS: Basophils % 0.2 %; Eosinophils # 0.2 K/mcL (0.0-0.6); Hematocrit 39.8 % (37.5-50.1); Hemoglobin 13.2 g/dL (12.9-16.9); Immature Granulocytes % 0.4 % (0-4); Lymphocytes % 9.1 %; Mean Corpuscular HGB Conc 33.2 g/dL (31.6-35.5); Mean Corpuscular Hemoglobin 28.2 pg (28.0-33.3); Mean Platelet Volume 10.4 fL (9.4-12.4); Monocytes # 0.8 K/mcL (0.0-1.3); Monocytes % 7.5 %; Neutrophils # 8.7 K/mcL (1.6-8.9); Platelet Count 135 K/mcL (140-400); Red Blood Count 4.68 M/mcL (4.19-5.50); Red Cell Distribution Width 19.5 % (11.5-14.5); Segmented Neutrophils % 80.8 %; White Blood Count 10.8 K/mcL (4.3-11.1)
[2021-05-15 08:04] LABS: BUN/Creatinine Ratio 18 (6-26); Blood Urea Nitrogen 23 mg/dL (8-23); Calcium 8.8 mg/dL (8.6-10.3); Carbon Dioxide 24 mEq/L (23-29); Chloride 105 mEq/L (98-107); Glucose 203 mg/dL (70-105); Osmolality,Calculated 291 (280-300); Potassium 4.2 mEq/L (3.5-5.1); Sodium 136 mEq/L (136-145); eGFR For African Americans > 60 (> 60); eGFR For Non-African Americans 54 (> 60)
[2021-05-15] MEDS: DilTIAZem CD (24hr) 180 MG CAP.ER.24H PO SCH (08:42)
[2021-05-15] MEDS: Apixaban 5 MG TABLET PO SCH ×2 (08:43→21:38)
[2021-05-15] MEDS: Erythromycin OPTH Oint RIGHT EYE SCH ×3 (08:43→21:38)
[2021-05-15] MEDS: Aspirin Enteric Coated 81 MG Tablet PO SCH (08:43)
[2021-05-15] MEDS: Metoprolol 100 MG TABLET PO SCH ×2 (08:43→21:38)
[2021-05-15] MEDS: Fluconazole 200 MG/100 ML 200 MG/100 ML BAG IVPB SCH (08:44)
[2021-05-15] MEDS: Insulin LISPRO 300 UNITS/3 ML VIAL SUBQ SCH ×4 (08:46→21:38)
[2021-05-15] MEDS: Insulin DETEMIR 100 UNIT/ML X5UNITS SUBQ SCH (08:48)
[2021-05-15] MEDS ORDERED: Insulin DETEMIR 100 UNIT/ML X5UNITS SUBQ ONE (12:17)
[2021-05-15] MEDS ORDERED: Insulin DETEMIR 100 UNIT/ML X5UNITS SUBQ SCH (21:00)
[2021-05-16] MEDS: Levalbuterol Neb 0.63 MG/3 ML IH SCH ×4 (04:33→21:40)
[2021-05-16 07:31] LABS: BUN/Creatinine Ratio 14 (6-26); Blood Urea Nitrogen 19 mg/dL (8-23); Carbon Dioxide 24 mEq/L (23-29); Chloride 105 mEq/L (98-107); Glucose 259 mg/dL (70-105); Osmolality,Calculated 295 (280-300); Potassium 4.1 mEq/L (3.5-5.1); Sodium 137 mEq/L (136-145); eGFR For African Americans > 60 (> 60); eGFR For Non-African Americans 52 (> 60)
[2021-05-16] MEDS: Insulin LISPRO 300 UNITS/3 ML VIAL SUBQ SCH ×4 (07:37→21:12)
[2021-05-16] MEDS: Piperacillin/Tazobactam 3.375 GM in 0.9 % Sodium Chloride Mini Bag 100 ML IVPB SCH ×3 (07:37→16:15)
[2021-05-16 08:48] LABS: Calcium 8.6 mg/dL (8.6-10.3)
[2021-05-16] MEDS ORDERED: Insulin DETEMIR 100 UNIT/ML X5UNITS SUBQ SCH (09:00)
[2021-05-16] MEDS: Apixaban 5 MG TABLET PO SCH ×2 (09:48→21:11)
[2021-05-16] MEDS: DilTIAZem CD (24hr) 180 MG CAP.ER.24H PO SCH (09:48)
[2021-05-16] MEDS: Metoprolol 100 MG TABLET PO SCH ×2 (09:48→21:11)
[2021-05-16] MEDS: Aspirin Enteric Coated 81 MG Tablet PO SCH (09:48)
[2021-05-16] MEDS: Fluconazole 200 MG/100 ML 200 MG/100 ML BAG IVPB SCH (09:48)
[2021-05-16] MEDS: Erythromycin OPTH Oint RIGHT EYE SCH ×3 (09:49→21:11)
[2021-05-16] MEDS: Insulin DETEMIR 100 UNIT/ML X5UNITS SUBQ SCH (21:10)
[2021-05-17] MEDS: Piperacillin/Tazobactam 3.375 GM in 0.9 % Sodium Chloride Mini Bag 100 ML IVPB SCH ×4 (00:21→15:57)
[2021-05-17] MEDS: Levalbuterol Neb 0.63 MG/3 ML IH SCH ×3 (04:03→15:44)
[2021-05-17 04:33] VITALS: O2SAT 90
[2021-05-17 07:43] VITALS: BP 151/80; PULSE 79; TEMP 98.3
[2021-05-17] MEDS: Insulin LISPRO 300 UNITS/3 ML VIAL SUBQ SCH ×3 (08:40→16:22)
[2021-05-17] MEDS: Aspirin Enteric Coated 81 MG Tablet PO SCH (09:33)
[2021-05-17] MEDS: Metoprolol 100 MG TABLET PO SCH (09:33)
[2021-05-17] MEDS: Insulin DETEMIR 100 UNIT/ML X5UNITS SUBQ SCH (09:33)
[2021-05-17] MEDS: Apixaban 5 MG TABLET PO SCH (09:34)
[2021-05-17] MEDS: Fluconazole 200 MG/100 ML 200 MG/100 ML BAG IVPB SCH (09:34)
[2021-05-17] MEDS: DilTIAZem CD (24hr) 180 MG CAP.ER.24H PO SCH (09:34)
[2021-05-17] MEDS: Erythromycin OPTH Oint RIGHT EYE SCH ×2 (09:35→15:15)
== END 2021-05-17 17:10 | disposition home health service (06) | DRG 698 ==
LOC: 3ANU 14:56 → EMEROOARM 14:56 → SUATTDRO 19:39 → 3ANU 19:43
PROVIDERS: ADMIT Internal Medicine; ATTEND Internal Medicine